=== PATIENT | female | born 1935 | race Caucasian/White ===

== ENCOUNTER 2017-11-29 09:17 | Emergency (ER) | payer MEDICARE ==
--- NOTE | 2017-11-29 09:35 | ERPHSYRPT ---
- History of Present Illness Time Seen by Provider: 11/29/17 09:33 Source: patient Exam Limitations: no limitations Physician History: 82 y/o white female presents after falling at home last pm. pt has a h/o bilat shoulder and knee replacement and a left hip replacement. pt c/o right shoulder pain, left hip and left knee pain. pt denies head injury Occurred: yesterday Reason for Fall: tripped Injuries/Pain Location: upper extremity (right shoulder), lower extremity (left hip and left knee) Loss of Consciousness: no loss of consciousness Quality: aching Severity of Pain-Max: mild Severity of Pain-Current: mild Modifying Factors: Improves With: movement (worsens) Associated Symptoms (Fall): extremity injury, No abdominal pain, No back pain, No confusion, No chest pain, No nausea, No neck pain Allergies/Adverse Reactions: Sulfa (Sulfonamide Antibiotics) Allergy (Mild, Verified 02/20/17 00:35) scallops Allergy (Verified 02/20/17 00:35) Home Medications: Calcium Carbonate/Vitamin D3 [Calcium 500 with Vitamin D Tab] 1 each PO DAILY [History] Hydrochlorothiazide 25 mg [hydroDIURIL 25 MG] 25 mg PO DAILY 11/06/12 [ History] Levothyroxine Sodium 50 Mcg [Synthroid 50 Mcg] 75 mcg PO DAILY 11/06/12 [ History] Loratadine 10 mg [Claritin 10 mg] 10 mg PO DAILY 11/06/12 [History] Pramipexole Di-HCl [Mirapex] 1 mg PO HS 11/06/12 [History] Telmisartan [Micardis] 40 mg PO DAILY 11/06/12 [History] Tramadol HCl 50 mg [Ultram 50 mg] 50 mg PO TID 11/06/12 [History] Multivitamin [Multi-Vitamin Daily] 1 tab PO DAILY 07/08/13 [History] Baicalin/Catechin [Limbrel 500 mg Capsule] 1 cap PO DAILY 02/20/17 [History] Gabapentin [Neurontin] 200 mg PO HS 02/20/17 [History] Polyethylene Glycol 3350 17 gm [Miralax Powder 17GM PACKET] 17 gm PO DAILY PRN PRN 02/20/17 [History] Hx Tetanus, Diphtheria Vaccination/Date Given: Yes (PT STATES UTD) Hx Influenza Vaccination/Date Given: No (2012) Hx Pneumococcal Vaccination/Date Given: No - Review of Systems Constitutional: No Symptoms, No Fever, No Weakness Eyes: No Symptoms, No Vision Changes Ears, Nose, & Throat: No Symptoms, No Ear Pain Respiratory: No Symptoms Cardiac: No Symptoms Abdominal/Gastrointestinal: No Symptoms Genitourinary Symptoms: No Symptoms Musculoskeletal: Fall, Injury (tenderness right shoulder, left hip and left knee ), No Back Pain, No Neck Pain, No Deformity Skin: No Symptoms Neurological: No Symptoms, No Dizziness, No Focal Weakness Psychological: No Symptoms Endocrine: No Symptoms Hematologic/Lymphatic: No Symptoms, No Anemia Immunological/Allergic: No Symptoms - Past Medical History Pertinent Past Medical History: Yes Neurological History: Other ENT History: No Pertinent History Cardiac History: Hypertension Respiratory History: No Pertinent History Endocrine Medical History: Hypothyroidism Musculoskeletal History: Arthritis GI Medical History: GERD, Ulcer History: Renal Disease Psycho-Social History: No Pertinent History Female Reproductive Disorders: No Pertinent History Other Medical History: TMJ - Past Surgical History Past Surgical History: Yes Neuro Surgical History: No Pertinent History Cardiac: No Pertinent History Respiratory: No Pertinent History Gastrointestinal: No Pertinent History Genitourinary: No Pertinent History Musculoskeletal: Other Female Surgical History: Tubal Ligation Other Surgical History: carpal tunnel, arthroscopy, left foot surgery, total hip , rt 2nd toe removed, bilat shoulder replacements - Social History Smoking Status: Never smoker Exposure to second hand smoke: No Drug Use: none Patient Lives Alone: No Significant Family History: no pertinent family hx - Nursing Vital Signs Nursing Vital Signs: Initial Vital Signs Temperature 97.4 F 11/29/17 09:23 Pulse Rate 82 11/29/17 09:23 Respiratory Rate 18 11/29/17 09:23 Blood Pressure 156/95 11/29/17 09:23 O2 Sat by Pulse Oximetry 96 11/29/17 09:23 Pain Scale Pain Intensity 8 - [place] Coma Score Best Verbal Response ([place]): (5) oriented Best Motor Response ([place]): (6) obeys commands - Physical Exam General Appearance: no apparent distress, alert Head Injury: no evidence of injury Eye Exam: PERRL/EOMI, eyes nml inspection ENT Exam: airway nml, No evidence of ENT injury, No dental injury Neck Exam: supple, trachea midline, full range of motion, normal alignment, normal inspection, No focal neuro deficit, No stiff neck Respiratory/Chest Exam: normal breath sounds, No chest tenderness, No respiratory distress, No decreased breath sounds, No rhonchi, No wheezing Cardiovascular Exam: normal heart sounds, regular rate/rhythm, normal peripheral pulses Gastrointestinal Exam: soft, normal bowel sounds, No tenderness, No guarding, No rebound Rectal Exam: not done Back Exam: normal inspection, normal range of motion, No CVA tenderness, No vertebral tenderness Extremity Exam: normal inspection, normal range of motion, pelvis stable, tenderness (right shoulder, left hip, left knee) Neurologic Exam: alert, oriented x 3, cooperative, 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 left knee with effusion anteriorly, all prostheses intact - Progress Progress: unchanged, re-examined Progress Note: 11/29/17 11:08 i reviewed all xray results with pt. Counseled pt/family regarding: diagnosis, need for follow-up, rad results - Departure Time of Disposition: 11:08 Departure Disposition: Home Clinical Impression: Fall, Contusion Condition: Stable Critical Care Time: No Referrals: SHIVA GOMEZ MD [Primary Care Provider] - Additional Instructions: continue your medication as prescribed. ice pack to tender areas 3 times daily for 3 days. follow up with primary doctor for persistent symptoms
--- NOTE | 2017-11-29 10:38 | XRAY ---
Indication: Pain and limited range of motion following fall. Comparison: None 2 views of the left hip demonstrates osteopenia and total hip arthroplasty with intact bipolar prosthesis and single acetabular screw. No other bony, articular, or soft tissue abnormalities.
--- NOTE | 2017-11-29 10:40 | XRAY ---
Indication: Pain and limited range of motion following fall. Comparison: None 3 views of the right shoulder demonstrates right lung calcified granuloma, osteopenia, and total shoulder arthroplasty with intact bipolar prosthesis and minimal surrounding heterotopic ossifications. No other bony, articular, or soft tissue abnormalities.
--- NOTE | 2017-11-29 10:42 | XRAY ---
Indication: Pain and limited range of motion following fall. Comparison: None AP/lateral left knee demonstrates tiny fabella, osteopenia, total knee arthroplasty with intact prosthesis/articulation, and small nonspecific suprapatellar effusion. No other bony, articular, or soft tissue abnormalities.
[2017-11-29 11:27] VITALS: BP 146/90; PULSE 78; O2SAT 98
== END 2017-11-29 11:34 | disposition home or self-care (01) ==
LOC: ED 09:17
DX: M25.511 Pain in right shoulder (principal); M25.562 Pain in left knee; M25.552 Pain in left hip; M25.462 Effusion, left knee; Z96.612 Presence of left artificial shoulder joint; Z96.611 Presence of right artificial shoulder joint; Z96.653 Presence of artificial knee joint, bilateral; Z96.642 Presence of left artificial hip joint; Z79.899 Other long term (current) drug therapy; W19.XXXA Unspecified fall, initial encounter; Y92.009 Unspecified place in unspecified non-institutional (private) residence as the place of occurrence of the external cause
CPT/HCPCS: 73030; 73502; 73560; 99283

== ENCOUNTER 2020-07-14 08:54 | Day surgery (SDC) | payer MEDICARE ==
[~2020-07-14 08:54] MED LIST: DIPRIVAN 200 MG/20 ML IV ONE; Ketamine HCl 50 MG/ML ONE
[2020-07-14] MEDS ORDERED: Sodium Chloride 0.9(Preservative Free) 10 ML IJ ONE (08:55)
[2020-07-14] MEDS ORDERED: Depo-Medrol 40 MG/ML IM ONE (08:55)
--- NOTE | 2020-07-14 11:31 | XRAY ---
Indication: Right L4-L5 transforaminal SIMRAN. Intraoperative fluoroscopy provided for 59 seconds. 3 digital spot images submitted for interpretation demonstrates posterior needle tip projecting over the expected course of the right L4 nerve root. Small amount of contrast injected for needle placement. Correlate with intraoperative findings/report.
--- NOTE | 2020-07-14 13:00 | XRAY ---
59 seconds fluoroscopy time in surgery for right L4-L5 transforaminal SIMRAN.
[2020-07-14] MEDS ORDERED: Lactated Ringers 1,000 ML IV ONE (14:33)
== END 2020-07-14 10:21 | disposition home or self-care (01) ==
LOC: SDC-PAIN 08:54
PROVIDERS: ATTEND Psychiatry & Neurology Pain Medicine
DX: M54.16 Radiculopathy, lumbar region (principal); I12.9 Hypertensive chronic kidney disease with stage 1 through stage 4 chronic kidney disease, or unspecified chronic kidney disease; N18.2 Chronic kidney disease, stage 2 (mild); E03.9 Hypothyroidism, unspecified; G25.81 Restless legs syndrome; D64.9 Anemia, unspecified; K21.9 Gastro-esophageal reflux disease without esophagitis; Z79.899 Other long term (current) drug therapy
CPT/HCPCS: 64483; 72100; 77003; 99100; J1030; J2704; Q9966

== ENCOUNTER 2020-12-08 09:02 | Day surgery (SDC) | payer MEDICARE ==
[2020-12-08] MEDS ORDERED: Depo-Medrol 40 MG/ML IM ONE (09:03)
[2020-12-08] MEDS ORDERED: Sodium Chloride 0.9(Preservative Free) 10 ML IJ ONE (09:03)
[2020-12-08] MEDS ORDERED: Lactated Ringers 1,000 ML IV ONE (09:46)
[2020-12-08] MEDS ORDERED: DIPRIVAN 200 MG/20 ML IV ONE (10:08)
[2020-12-08] MEDS ORDERED: Ketamine HCl 50 MG/ML ONE (10:08)
--- NOTE | 2020-12-08 11:38 | XRAY ---
Indication: Right L4-S1 transforaminal SIMRAN. Intraoperative fluoroscopy provided for 29 seconds. 5 digital spot images submitted for interpretation demonstrates posterior needle tips projecting over the expected right L4 and L5 nerve roots. Small amount of contrast injected for needle tip placement. Correlate with intraoperative findings/report.
--- NOTE | 2020-12-08 11:42 | XRAY ---
29 seconds fluoroscopy time in surgery for right L4-S1 transforaminal SIMRAN.
== END 2020-12-08 10:45 | disposition home or self-care (01) ==
LOC: SDC-PAIN 09:02
PROVIDERS: ATTEND Psychiatry & Neurology Pain Medicine
DX: M54.16 Radiculopathy, lumbar region (principal); Z79.899 Other long term (current) drug therapy
CPT/HCPCS: 64483; 64484; 72100; 77003; J1030; J2704; Q9966

== ENCOUNTER 2021-05-04 11:30 | Day surgery (SDC) | payer MEDICARE ==
[2021-05-04] MEDS ORDERED: Depo-Medrol 40 MG/ML IM ONE (11:31)
[2021-05-04] MEDS ORDERED: Sodium Chloride 0.9% 10 ML FLUSH Syringe IJ ONE (11:31)
[2021-05-04] MEDS ORDERED: DIPRIVAN 200 MG/20 ML IV ONE (14:10)
[2021-05-04] MEDS ORDERED: Lactated Ringers 1,000 ML IV ONE (14:51)
--- NOTE | 2021-05-04 16:44 | XRAY ---
Indication: Right L4-S1 transforaminal SIMRAN. Intraoperative fluoroscopy provided for 42 seconds. 2 digital spot image submitted for interpretation demonstrates posterior needle tips projecting over the expected right L4 and L5 nerve roots. Small amount of contrast injected for needle tip placement. Correlate with intraoperative findings/report.
--- NOTE | 2021-05-04 16:56 | XRAY ---
42 seconds of fluoroscopy was used in surgery for a right L4-S1 transforaminal SIMRAN.
== END 2021-05-04 14:38 | disposition home or self-care (01) ==
LOC: SDC-PAIN 11:30
PROVIDERS: ATTEND Psychiatry & Neurology Pain Medicine
DX: M54.16 Radiculopathy, lumbar region (principal); I10 Essential (primary) hypertension; Z79.899 Other long term (current) drug therapy
CPT/HCPCS: 64483; 64484; 72100; 77003; J1030; J2704; Q9966

== ENCOUNTER 2021-12-21 13:23 | Day surgery (SDC) | payer MEDICARE ==
[2021-12-21] MEDS ORDERED: XYLOCAINE-MPF 1% 5ML SDV IJ ONE (13:24)
[2021-12-21] MEDS ORDERED: Depo-Medrol 40 MG/ML IM ONE (13:24)
[2021-12-21] MEDS ORDERED: BUPIVACAINE 0.5% VIAL IJ ONE (13:24)
--- NOTE | 2021-12-21 17:00 | XRAY ---
Indication: Right hip injection. Intraoperative fluoroscopy provided for 37 seconds. Single digital spot image submitted for interpretation demonstrates needle tip projecting lateral to the right femur neck. Small amount of contrast injected for needle tip placement. Correlate with intraoperative findings/report.
--- NOTE | 2021-12-22 09:34 | XRAY ---
37 seconds of fluoroscopy was used in surgery for a right hip intra-articular injection.
== END 2021-12-21 17:00 | disposition home or self-care (01) ==
LOC: SDC-PAIN 13:23
PROVIDERS: ATTEND Psychiatry & Neurology Pain Medicine
DX: M16.11 Unilateral primary osteoarthritis, right hip (principal); Z79.899 Other long term (current) drug therapy
CPT/HCPCS: 20610; 36415; 73501; 77002; 80053; 81001; 82306; 82570; 84156; 85027; J1030; Q9966

== ENCOUNTER 2022-11-24 22:06 | Emergency (ER) | payer MEDICARE ==
[2022-11-24 22:37] VITALS: RESP 18; TEMP 97.9; O2SAT 97
[2022-11-24] MEDS ORDERED: DELTASONE 10 MG PO STA (23:15)
--- NOTE | 2022-11-24 23:21 | ERPHSYRPT ---
- History of Present Illness Time Seen by Provider: 11/24/22 23:29 Source: patient Exam Limitations: no limitations Patient Subjective Stated Complaint: rash to torso and josh area Triage Nursing Assessment: pt ambulated into the er via walker; pt is axo x4; c/o rash; rash presenet to torso and josh area; pt denies any new medication or soaps; denies SOB; skin is PDW, with areas of red raised area to torso and josh area; hypertensive Physician History: Patient 77-year-old female presents to our ED for evaluation of a pruritic burning rash that appears to be pustular observed in the lower torso and bilateral groin area. Symptoms started 1 to 2 days ago. Patient has history of shingles. Patient states it feels the same. Patient has yet to follow-up with her primary care doctor. Symptoms are mild to moderate in intensity. No specific worsening improving factors. Patient has no other systemic manifestations other than the sensory changes to the skin. Patient otherwise feels well. No nausea vomiting or diarrhea. No diaphoresis. No chest pain. Patient voices no other complaints or concerns at this time. Portions of this note were created with voice recognition technology. There may be grammatical, spelling, punctuation or sound alike errors Timing/Duration: today Severity: moderate Modifying Factors: Improves With: nothing Associated Symptoms: denies symptoms Allergies/Adverse Reactions: Sulfa (Sulfonamide Antibiotics) Allergy (Mild, Verified 02/20/17 00:35) latex Allergy (Verified 11/24/22 22:20) Hives scallops Allergy (Verified 02/20/17 00:35) Home Medications: Calcium Carbonate/Vitamin D3 [Calcium 500 with Vitamin D Tab] 1 each PO DAILY 11/06/12 [History] Hydrochlorothiazide 25 mg [hydroDIURIL 25 MG] 25 mg PO DAILY 11/06/12 [History] Levothyroxine Sodium 50 Mcg [Synthroid 50 Mcg] 75 mcg PO DAILY 11/06/12 [History] Loratadine 10 mg [Claritin 10 mg] 10 mg PO DAILY 11/06/12 [History] Pramipexole Di-HCl [Mirapex] 1 mg PO HS 11/06/12 [History] Telmisartan [Micardis] 40 mg PO DAILY 11/06/12 [History] Tramadol HCl 50 mg [Ultram 50 mg] 50 mg PO TID 11/06/12 [History] Multivitamin [Multi-Vitamin Daily] 1 tab PO DAILY 07/08/13 [History] Baicalin/Catechin [Limbrel 500 mg Capsule] 1 cap PO DAILY 02/20/17 [History] Gabapentin [Neurontin] 200 mg PO HS 02/20/17 [History] Polyethylene Glycol 3350 17 gm [Miralax Powder 17GM PACKET] 17 gm PO DAILY PRN PRN 02/20/17 [History] Hx Tetanus, Diphtheria Vaccination/Date Given: No Hx Influenza Vaccination/Date Given: Yes Hx Pneumococcal Vaccination/Date Given: No Travel Risk - International Travel Have you traveled outside of the country in past 3 weeks: No - Coronavirus Screening Are you exhibiting any of the following symptoms?: No Close contact with a COVID-19 positive Pt in past 14-21 Days: No - Vaccine Status Have you recieved a Covid-19 vaccination: Yes [employer]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 - Vaccination Dates Date of 2cond Vaccination (if applicable): 06/04/20 - Review of Systems Constitutional: No Symptoms, No Fever, No Chills Eyes: No Symptoms Ears, Nose, & Throat: No Symptoms Respiratory: No Symptoms, No Cough, No Dyspnea Cardiac: No Symptoms, No Chest Pain, No Edema, No Syncope Abdominal/Gastrointestinal: No Symptoms, No Abdominal Pain, No Nausea, No Vomiting, No Diarrhea Genitourinary Symptoms: No Symptoms, No Dysuria Musculoskeletal: No Symptoms, No Back Pain, No Neck Pain Skin: No Symptoms, No Rash Neurological: No Symptoms, No Dizziness, No Focal Weakness, No Sensory Changes Psychological: No Symptoms Endocrine: No Symptoms Hematologic/Lymphatic: No Symptoms Immunological/Allergic: No Symptoms All Other Systems: Reviewed and Negative - Past Medical History Pertinent Past Medical History: Yes Neurological History: Other ENT History: No Pertinent History Cardiac History: Hypertension Respiratory History: No Pertinent History Endocrine Medical History: Hypothyroidism Musculoskeletal History: Arthritis GI Medical History: GERD, Ulcer History: Renal Disease Psycho-Social History: No Pertinent History Female Reproductive Disorders: No Pertinent History Other Medical History: TMJ - Past Surgical History Past Surgical History: Yes Neuro Surgical History: No Pertinent History Cardiac: No Pertinent History Respiratory: No Pertinent History Gastrointestinal: No Pertinent History Genitourinary: No Pertinent History Musculoskeletal: Orthopedic Surgery, Other Female Surgical History: Tubal Ligation Other Surgical History: carpal tunnel, arthroscopy, left foot surgery, total hip, rt 2nd toe removed, bilat shoulder replacements; rt hip 08/31/22 - Social History Smoking Status: Never smoker Exposure to second hand smoke: No Drug Use: none Patient Lives Alone: No Significant Family History: no pertinent family hx - Nursing Vital Signs Nursing Vital Signs: Initial Vital Signs Temperature 97.9 F 11/24/22 22:23 Pulse Rate 86 11/24/22 22:23 Respiratory Rate 18 11/24/22 22:23 Blood Pressure 150/71 11/24/22 22:23 O2 Sat by Pulse Oximetry 97 11/24/22 22:23 Pain Scale Pain Intensity 2 - Physical Exam General Appearance: no apparent distress, alert Eye Exam: PERRL/EOMI, eyes nml inspection Ears, Nose, Throat Exam: normal ENT inspection, TMs normal, pharynx normal, moist mucous membranes Neck Exam: normal inspection, non-tender, supple, full range of motion Respiratory Exam: normal breath sounds, lungs clear, No respiratory distress Cardiovascular Exam: regular rate/rhythm, normal heart sounds, normal peripheral pulses Gastrointestinal/Abdomen Exam: soft, normal bowel sounds, No tenderness, No mass Back Exam: normal inspection, normal range of motion, No CVA tenderness, No vertebral tenderness Extremity Exam: normal inspection, normal range of motion, pelvis stable Neurologic Exam: alert, oriented x 3, cooperative, normal mood/affect, nml cerebellar function, nml station & gait, sensation nml, No motor deficits Skin Exam: normal color, warm, dry, other (There is a pustular rash observed on the inner aspect of both thighs that appears to follow dermatomal pattern however the pustular rash is also observed on lower torso. Patient states it feels like shingles that she has had shingles in the past. No open or draining lesions. No superimposed cellu), No rash Lymphatic Exam: No adenopathy SpO2 Interpretation: normal SpO2: 97 O2 Delivery: Room Air - Course Nursing assessment & vital signs reviewed: Yes Ordered Tests: Medication Summary Discontinued Medications Generic Name Dose Route Start Last Admin Trade Name Freq PRN Reason Stop Dose Admin Acyclovir 800 mg 11/24/22 23:24 Acyclovir 800 Mg Tablet PO 11/24/22 23:25 ONCE STA Prednisone 40 mg 11/24/22 23:15 Prednisone 10 Mg Tablet PO 11/24/22 23:16 ONCE STA - Progress Progress: improved Progress Note: Patient is an 87-year-old female presents to our ED with a pruritic burning pustular rash on the inner aspect of both thighs groin area and lower torso. Patient has history of shingles and feels the symptoms are similar. However the distribution does not follow dermatomal pattern. However other consideration is the possibility that it may be an early disseminated presentation. However patient is otherwise asymptomatic. We will treat patient for shingles. Patient received a dose of acyclovir and steroids in our ED. A prescription for the same was forwarded to patient's pharmacy. We will contact patient's primary care doctor on Sunday to ensure patient has follow-up. Patient does agree to follow-up with her primary care doctor on Sunday. Patient appears well. She is nontoxic conversant well-appearing no distress. Patient voices no other complaints or concerns at this time. Portions of this note were created with voice recognition technology. There may be grammatical, spelling, punctuation or sound alike errors Complexity of problems addressed is moderate, new diagnosis with uncertain prognosis. No critical care time Complex of data reviewed and analyzed is none. No specialized testing ordered. Diagnosis made based on history and physical examination. Risk of complication and or risk morbidity/mortality of patient management is moderate. A prescription for prednisone as well as acyclovir forwarded to [facility]. Patient is ready for discharge. Vital stable. Diagnosis is pustular pruritic rash. Zoster. Time spent to discharge patient is approximately 15 minutes. Plan of care established for shared decision making. No social determinants of health present to impede follow-up. Patient voices no other complaints or concerns at this time. Portions of this note were created with voice recognition technology. There may be grammatical, spelling, punctuation or sound alike errors 11/24/22 23:33 Counseled pt/family regarding: diagnosis, need for follow-up - Departure Departure Disposition: Home Clinical Impression: pustular pruritic rash, [place] Condition: Stable Critical Care Time: No Referrals: SHIVA GOMEZ MD [Primary Care Provider] - Follow up/PCP as directed Additional Instructions: Discharge/Care Plan WON HUGGINS was seen on 11/24/22 in the Emergency Room. The patient was counseled regarding Diagnosis,Lab results, Imaging studies, need for follow up and when to return to the Emergency Room. Prescriptions given: Discharge Note I have spoken with the patient and/or caregivers. I have explained the patient's condition, diagnosis and treatment plan based on the information available to me at this time. I have answered the patient's and/or caregiver's questions and addressed any concerns. The patient and/or caregivers have as good understanding of the patient's diagnosis, condition and treatment plan as can be expected at this point. The vital signs have been stable. The patient's condition is stable and appropriate for discharge from the emergency department. The patient will pursue further outpatient evaluation with the primary care physician or other designated or consulting physician as outlined in the discharge instructions. The patient and/or caregivers are agreeable to this plan of care and follow-up instructions have been explained in detail. The patient and/or caregivers have received these instruction. The patient/and or caregivers are aware that any significant change in condition or worsening of symptoms should prompt an immediate return to this or the closest emergency department or call 911. Prescriptions: Acyclovir 800 mg [Acyclovir] 800 mg PO QID 5 Days #20 tablet Prednisone 10 mg [Deltasone 10 mg] 40 mg PO DAILY 3 Days #12 tablet
[2022-11-24] MEDS ORDERED: ACYCLOVIR PO STA (23:24)
[2022-11-24] MEDS ORDERED: DELTASONE 20 MG ONE (23:30)
[2022-11-24] MEDS ORDERED: ACYCLOVIR ONE (23:30)
[2022-11-24] MEDS ORDERED: DELTASONE 20 MG PO ONE (23:32)
[2022-11-24] MEDS ORDERED: ACYCLOVIR PO ONE (23:32)
[2022-11-24 23:41] VITALS: BP 108/58; PULSE 85
== END 2022-11-25 00:02 | disposition home or self-care (01) ==
LOC: ED 22:06
DX: L08.0 Pyoderma (principal); L29.9 Pruritus, unspecified; B02.9 Zoster without complications; I10 Essential (primary) hypertension; Z79.52 Long term (current) use of systemic steroids; Z79.899 Other long term (current) drug therapy
CPT/HCPCS: 99282; A9270-GY

== ENCOUNTER 2023-06-10 09:13 | Observation (INO) | payer MEDICARE ==
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
[2023-06-10] MEDS ORDERED: Zofran 4 MG/2 ML VIAL ONE (10:17)
[2023-06-10] MEDS ORDERED: Sodium Chloride 0.9% 1000 ML 1,000 ML ONE (10:17)
[2023-06-10] MEDS ORDERED: MORPHINE SULFATE 2 MG INJ ONE (10:17)
[2023-06-10 10:24] LABS: Absolute Neutrophil Ct (ANC) 4.36 x10^3/uL (1.4-6.9); BASOPHIL % 0.3 % (0.0-0.4); Basophil (Absolute #) 0.02 x10^3/uL (0-0.4); Eosinophil % 1.9 % (0.00-5.0); Eosinophil (Absolute #) 0.12 x10^3/uL (0-0.5); Hematocrit 35.6 % (35-47); Hemoglobin 11.3 g/dL (12.0-16.0); IMMATURE GRAN # 0.02 x10^3u/L (0.00-0.03); IMMATURE GRAN % 0.3 % (0.00-0.4); Lymphocyte (Absolute #) 1.29 x10^3/uL (1.0-4.6); Lymphocytes % 20.6 % (24.0-44.0); Mean Cell Volume 98.9 fL (78-100); Mean Corpuscular Hemoglobin 31.4 pg (26-32); Mean Corpuscular Hgb Concent. 31.7 g/dL (32-36); Mean Platelet Volume 10.4 fL (7.5-11.0); Monocyte (Absolute #) 0.45 x10^3/uL (0.0-1.3); Monocytes % 7.2 % (0.0-12.0); Neutrophil % 69.7 % (36.0-66.0); Platelet Count 153 x10^3/uL (150-450); Red Cell Distribution Width 13.3 % (11.5-14.0); White Blood Count 6.3 x10^3/uL (4.0-10.5)
[2023-06-10] MEDS: Zofran 4 MG/2 ML VIAL IV ONE (10:26)
[2023-06-10] MEDS: MORPHINE SULFATE 2 MG INJ IV ONE (10:26)
[2023-06-10] MEDS: Sodium Chloride 0.9% 1000 ML 1,000 ML IV STA (10:26)
[2023-06-10 10:31] LABS: ALBUMIN 4.2 g/dL (3.5-5.0); ANION GAP 6.9 MEQ/L (5-15); BILIRUBIN,TOTAL 0.3 mg/dL (0.2-1.3); Calcium 9.3 mg/dL (8.4-10.2); Creatinine 1 0.77 mg/dL (0.52-1.04); EST GLOMERULAR FILTRATION RATE 75.1 ML/MIN; Potassium 4.2 mmol/L (3.5-5.1); Total Protein 6.7 g/dL (6.3-8.2)
[2023-06-10 10:35] LABS: PROTIME 10.9 SECONDS (9.4-12.5); PTT 25.9 SECONDS (25.1-36.5)
[2023-06-10 10:50] LABS: NT PRO BNPII 286 pg/mL (<300); TROPONIN < 0.012 ng/mL (0.000-0.034)
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
[2023-06-10] MEDS ORDERED: NON-FORMULARY ITEM (Naloxone Hcl [Narcan] 4 MG Spray) NS PRN (16:48)
[2023-06-10] MEDS ORDERED: LASIX 20 MG PO PRN (16:48)
[2023-06-10] MEDS ORDERED: VITAMIN D PO SCH (17:00)
[2023-06-10] MEDS ORDERED: RISEDRONATE SODIUM 35 MG PO SCH (17:00)
[2023-06-10] MEDS: Neurontin PO SCH ×2 (18:20→20:55)
--- NOTE | 2023-06-10 19:13 | XRAY ---
Indication: Pain. Comparison: November 06, 2012 Portable chest now demonstrates minimal left base subsegmental atelectasis/scarring. Stable right costophrenic angle calcified granuloma. Remaining heart and lungs unremarkable. Bony thorax intact with osteopenia, mild degenerative changes, scoliosis, bilateral shoulder arthroplasty, and lower cervical fusion. Impression: Nonacute chest with chronic features.
[2023-06-10] MEDS ORDERED: Mirapex 0.5 MG Tablet ONE (20:51)
[2023-06-10] MEDS: Klor Con PO SCH (20:55)
[2023-06-10] MEDS: NON-FORMULARY ITEM (Pramipexole Di-Hcl [Pramipexole Dihydrochloride] 1 MG Tablet) PO SCH (20:55)
[2023-06-10] MEDS: ULTRAM 50 MG PO PRN (20:56)
[2023-06-10] MEDS: TYLENOL EXTRA STRENGTH 500 MG PO PRN (20:56)
[2023-06-11 05:33] LABS: Hematocrit 34.2 % (35-47); Hemoglobin 10.6 g/dL (12.0-16.0); Mean Cell Volume 99.1 fL (78-100); Mean Corpuscular Hemoglobin 30.7 pg (26-32); Platelet Count 167 x10^3/uL (150-450); Red Blood Count 3.45 x10^6/uL (4.1-5.4); Red Cell Distribution Width 13.4 % (11.5-14.0); White Blood Count 4.8 x10^3/uL (4.0-10.5)
[2023-06-11 06:08] LABS: ALBUMIN 3.5 g/dL (3.5-5.0); ANION GAP 6.6 MEQ/L (5-15); BILIRUBIN,TOTAL 0.2 mg/dL (0.2-1.3); Calcium 9.1 mg/dL (8.4-10.2); Creatinine 1 0.72 mg/dL (0.52-1.04); EST GLOMERULAR FILTRATION RATE 81.4 ML/MIN; Potassium 3.9 mmol/L (3.5-5.1); Total Protein 5.7 g/dL (6.3-8.2)
[2023-06-11 06:32] LABS: Risk Ratio 2.2; TSH, 3RD Generation 1.33 mIU/L (0.47-4.68)
[2023-06-11] MEDS ORDERED: MEDICATION INTERVENTION MC SCH ×3 (07:30)
[2023-06-11 08:05] VITALS: PULSE 69; RESP 16
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
[2023-06-11] MEDS: hydroDIURIL 25 MG PO SCH (09:59)
[2023-06-11] MEDS: FEOSOL 325 MG PO SCH (09:59)
[2023-06-11] MEDS: Micardis 80 MG Tablet PO SCH (09:59)
[2023-06-11] MEDS: THERAGRAN MULTIVITAMIN PO SCH (09:59)
[2023-06-11] MEDS: VITA-BEE WITH C PO SCH (09:59)
[2023-06-11] MEDS: ENOXAPARIN SODIUM SQ SCH (09:59)
[2023-06-11] MEDS: SYNTHROID 75 MCG PO SCH (09:59)
[2023-06-11] MEDS: VITAMIN D PO SCH (09:59)
[2023-06-11] MEDS ORDERED: TELMISARTAN 40 MG PO SCH (10:00)
[2023-06-11] MEDS ORDERED: NON-FORMULARY ITEM (Multivitamin [Multi-Vitamin Daily] 1 EACH Tablet) PO SCH (10:00)
[2023-06-11] MEDS ORDERED: SYNTHROID 50 MCG PO SCH (10:00)
[2023-06-11] MEDS ORDERED: VITAMIN B COMPLEX PO SCH (10:00)
[2023-06-11] MEDS ORDERED: LUTEIN 6 MG PO SCH (10:00)
[2023-06-11 12:07] VITALS: BP 131/62; TEMP 97.3; O2SAT 97
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
[2023-06-11] MEDS ORDERED: Mirapex 0.5 MG Tablet PO SCH (22:00)
[2023-06-23] MEDS ORDERED: Cyanocobalamin B-12 1000 MCG/ML IJ SCH (10:00)
== END 2023-06-11 12:45 | disposition home or self-care (01) ==
LOC: ED 09:13 → MED SURG 15:12
PROVIDERS: ADMIT Internal Medicine; ATTEND Internal Medicine
DX: R07.9 Chest pain, unspecified (principal); M25.511 Pain in right shoulder; I10 Essential (primary) hypertension; K21.9 Gastro-esophageal reflux disease without esophagitis; E03.9 Hypothyroidism, unspecified; Z79.899 Other long term (current) drug therapy; Z20.828 Contact with and (suspected) exposure to other viral communicable diseases
CPT/HCPCS: 36000; 36415; 71045; 72125; 73200; 80053; 80061; 83721; 83880; 84443; 84484; 85025; 85027; 85610; 85730; 93268; 96374; 99285; J1650; J2270; J2405; Q3014; A9270-GY; G0378

== ENCOUNTER 2023-10-27 19:07 | Observation (INO) | payer MEDICARE ==
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
[2023-10-27 20:27] LABS: Absolute Neutrophil Ct (ANC) 6.51 x10^3/uL (1.56-6.13); BASOPHIL % 0.1 % (0.1-1.2); Basophil (Absolute #) 0.01 x10^3/uL (0.01-0.08); Eosinophil % 2.2 % (0.7-5.8); Eosinophil (Absolute #) 0.17 x10^3/uL (0.04-0.36); Hematocrit 35.7 % (34.1-44.9); Hemoglobin 11.3 g/dL (11.2-15.7); IMMATURE GRAN # 0.02 x10^3u/L (0.001-0.031); IMMATURE GRAN % 0.3 % (0.001-0.429); Lymphocyte (Absolute #) 0.51 x10^3/uL (1.18-3.74); Lymphocytes % 6.7 % (19.3-51.7); Mean Cell Volume 99.7 fL (79.4-94.8); Mean Corpuscular Hemoglobin 31.6 pg (25.6-32.2); Mean Corpuscular Hgb Concent. 31.7 g/dL (32.2-35.5); Mean Platelet Volume 10.2 fL (9.4-12.3); Monocyte (Absolute #) 0.34 x10^3/uL (0.24-0.86); Monocytes % 4.5 % (4.7-12.5); Neutrophil % 86.2 % (34.0-71.1); Platelet Count 155 x10^3/uL (182-369); Red Blood Count 3.58 x10^6/uL (3.93-5.22); Red Cell Distribution Width 12.9 % (11.7-14.4); White Blood Count 7.6 x10^3/uL (3.98-10.04)
[2023-10-27] MEDS ORDERED: Sodium Chloride 0.9% 1000 ML 1,000 ML ONE (20:42)
[2023-10-27] MEDS ORDERED: PIPERACILLIN/TAZOBACTAM IV ONE (20:42)
[2023-10-27] MEDS ORDERED: Sodium Chloride 100ML MINI-BAG PLUS 100 ML IV ONE (20:42)
[2023-10-27] MEDS ORDERED: VANCOMYCIN 1 GRAM/200 ML BAG 1 GM/200 ML PIGGYBACK IV ONE (20:42)
[2023-10-27] MEDS ORDERED: NORCO 5/325 MG ONE (20:42)
[2023-10-27] MEDS: NORCO 5/325 MG PO ONE (20:43)
[2023-10-27] MEDS: Sodium Chloride 0.9% 1000 ML 1,000 ML IV STA (20:44)
[2023-10-27 20:45] LABS: BILIRUBIN,TOTAL 0.5 mg/dL (0.2-1.3); Calcium 9.1 mg/dL (8.4-10.2); Creatinine 1 0.84 mg/dL (0.52-1.04); EST GLOMERULAR FILTRATION RATE 67.6 ML/MIN; Potassium 4.3 mmol/L (3.5-5.1); Total Protein 6.6 g/dL (6.3-8.2)
[2023-10-27] MEDS: PIPERACILLIN/TAZOBACTAM 3.375 GM in Sodium Chloride 100ML MINI-BAG PLUS 100 ML IV ONE (20:45)
[2023-10-27 20:59] LABS: Slide Review 1 YES
[2023-10-27] MEDS: VANCOMYCIN 1 GRAM/200 ML BAG 1 GM/200 ML PIGGYBACK IV ONE (21:25)
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
[2023-10-28] MEDS ORDERED: Docusate Sodium 100 MG PO PRN (00:08)
[2023-10-28] MEDS ORDERED: Hydromorphone 1 mg/ml Injection IV PRN (00:12)
[2023-10-28] MEDS: Sodium Chloride 0.9% 1000 ML 1,000 ML IV SCH (00:19)
[2023-10-28] MEDS ORDERED: Cyanocobalamin B-12 1000 MCG/ML IJ SCH (00:30)
[2023-10-28] MEDS: PIPERACILLIN/TAZOBACTAM 3.375 GM in Sodium Chloride 100ML MINI-BAG PLUS 100 ML IV SCH ×2 (01:20→06:07)
[2023-10-28] MEDS: VANCOMYCIN 1 GRAM/200 ML BAG 1 GM/200 ML PIGGYBACK IV SCH ×2 (01:20→22:00)
[2023-10-28] MEDS: ELIQUIS 2.5 MG TABLET PO SCH (01:26)
[2023-10-28] MEDS: Neurontin PO SCH (01:26)
[2023-10-28] MEDS ORDERED: Sodium Chloride 100ML MINI-BAG PLUS 100 ML IV ONE (06:03)
[2023-10-28] MEDS ORDERED: PIPERACILLIN/TAZOBACTAM IV ONE (06:03)
[2023-10-28 06:23] LABS: Absolute Neutrophil Ct (ANC) 4.26 x10^3/uL (1.56-6.13); BASOPHIL % 0.2 % (0.1-1.2); Basophil (Absolute #) 0.01 x10^3/uL (0.01-0.08); Eosinophil % 2.2 % (0.7-5.8); Eosinophil (Absolute #) 0.12 x10^3/uL (0.04-0.36); Hematocrit 32.6 % (34.1-44.9); Hemoglobin 10.5 g/dL (11.2-15.7); IMMATURE GRAN # 0.02 x10^3u/L (0.001-0.031); IMMATURE GRAN % 0.4 % (0.001-0.429); Lymphocyte (Absolute #) 0.81 x10^3/uL (1.18-3.74); Lymphocytes % 14.6 % (19.3-51.7); Mean Cell Volume 99.4 fL (79.4-94.8); Mean Corpuscular Hgb Concent. 32.2 g/dL (32.2-35.5); Mean Platelet Volume 10.4 fL (9.4-12.3); Monocyte (Absolute #) 0.31 x10^3/uL (0.24-0.86); Monocytes % 5.6 % (4.7-12.5); Platelet Count 148 x10^3/uL (182-369); Red Blood Count 3.28 x10^6/uL (3.93-5.22); White Blood Count 5.5 x10^3/uL (3.98-10.04)
[2023-10-28 06:48] LABS: ALBUMIN 3.4 g/dL (3.5-5.0); ANION GAP 9.2 MEQ/L (5-15); BILIRUBIN,TOTAL 0.4 mg/dL (0.2-1.3); Calcium 8.4 mg/dL (8.4-10.2); Creatinine 1 0.79 mg/dL (0.52-1.04); EST GLOMERULAR FILTRATION RATE 72.8 ML/MIN; Potassium 3.8 mmol/L (3.5-5.1); Total Protein 5.9 g/dL (6.3-8.2)
--- NOTE | 2023-10-28 07:24 | PCM.NOTE ---
Date and Time: 10/28/23 0710 Subjective Assessment: HPI: Ms. HUGGINS is a 88 year old female with a past medical history significant for hypertension, hyperlipidemia and hypothyroidism admitted 10/28/23 for cellulitis of the right leg after experiencing worsening pain and redness over the past several weeks. Patient has been receiving wound therapy for the past two months. Doppler findings from 10/26/23 showed Minimal nonoccluding thrombus in the mid to proximal right greater saphenous vein. Patient started on Eliquis. She was seen in the ER, had cultures taken, given IV antibiotics and recommended for admission. No fever/chills. No chest pain or shortness of breath. No nausea, vomiting or diarrhea. No dysuria, hematuria or urgency. WBC was normal at 7.6. Vanc/zosyn started on patient. Cultures pending. 10/28/23: Met with patient bedside. Endorses pain to RLE 7/10 on numerical pain scale. Patient reports right ankle wound has been present since February. Has had OP wound therapy but never antibiotics. Recently diagnosed with DVT to he mid to proximal right greater saphenous vein and started on Eliquis 10/26/23. Upon exam RLE is noted with erythema/edema - wound with serosanguineous drainage. Vanc/ Zosyn started. Cultures pending. Will obtain Xrays today. Anemia panel showing iron saturation at 12%. Hgb 10.5 - will start ferrous sulfate. Denies fever,cough, sob, cp, abdominal pain, [place], dizziness, N/V/D. <ELDON JOE - Last Filed: 10/28/23 09:11> Date and Time: 10/28/23 184 <EMRE MURO - Last Filed: 10/28/23 18:46> - Review of Systems Constitutional: Fatigue, Weakness Eyes: No Symptoms Ears, Nose, & Throat: No Symptoms Respiratory: No Symptoms Cardiac: No Symptoms Abdominal/Gastrointestinal: No Symptoms Genitourinary Symptoms: No Symptoms Musculoskeletal: Joint Pain (right ankle) Skin: Cellulitis (RLE), Other (Open wound to right later lower extremity above right ankle) Neurological: No Symptoms Psychological: No Symptoms Endocrine: No Symptoms Hematologic/Lymphatic: No Symptoms <ELDON JOE - Last Filed: 10/28/23 09:11> Objective Exam General Appearance: no apparent distress Neurologic Exam: alert, oriented x 3, cooperative Skin Exam: other (RLE with edema/erythema surrounding open wound on right anterolateral lower extremity approximately 3-4 cm- serosanguineous drainage) Wound Assessment: Skin/Wound Assessment Wound/Incision Assessment Start: 10/27/23 23:20 Text: Status: Active Freq: Q6H Protocol: Document 10/28/23 01:57 AR (Rec: 10/28/23 02:03 AR [id number]) Wound/Incision Assessment Right Lower Calf Wound Assessment Shift Assessment Wound Type Stasis Ulcer Drainage Amount None General Appearance Open to air,Clean/Dry,Reddened Wound Bed Greatest Portion Red (Granulation) Wound Bed Lesser Portion Red (Granulation) Surrounding Tissue [place],Edematous-pitting Comment Wound has been present since February. PT is addressing wound and does debridements. Wound is red/pink with new tissue visible. Surrounding area is red, edematous, warm to touch. Wound Photo Photo Taken Yes Date: 10/27/23 Time: 23:50 Eye Exam: PERRL Ears, Nose, Throat Exam: normal ENT inspection, moist mucous membranes Neck Exam: normal inspection Respiratory Exam: normal breath sounds, lungs clear Cardiovascular Exam: regular rate/rhythm, normal heart sounds Gastrointestinal/Abdomen Exam: soft, normal bowel sounds Extremity Exam: inflammation, swelling (RLE), tenderness, other (see skin) Pelvic Exam: deferred Rectal Exam: deferred <ELDON JOE - Last Filed: 10/28/23 09:11> Wound Assessment: Skin/Wound Assessment Wound/Incision Assessment Start: 10/27/23 23:20 Text: Status: Active Freq: Q6H Protocol: Document 10/28/23 14:00 RDUHNE (Rec: 10/28/23 15:53 RDUHNE [id number]) Wound/Incision Assessment Right Lower Calf Wound Assessment Shift Assessment Wound Type Stasis Ulcer Drainage Amount None General Appearance Open to air,Clean/Dry,Reddened Wound Bed Greatest Portion Red (Granulation) Wound Bed Lesser Portion Red (Granulation) Surrounding Tissue [place],Edematous-pitting Comment Wound has been present since February. PT is addressing wound and does debridements. Wound is red/pink with new tissue visible. Surrounding area is red, edematous, warm to touch. remains true Wound Photo Photo Taken Yes Date: 10/27/23 Time: 23:50 <EMRE MURO - Last Filed: 10/28/23 18:46> Objective Data Vital Signs: Vital Signs - 24 hr Temp Pulse Resp BP BP Pulse Ox 10/28/23 04:00 97.5 F 82 18 117/56 95 10/28/23 03:35 81 16 95 10/28/23 00:23 97.1 F 83 16 122/58 100 10/27/23 22:49 97 10/27/23 22:46 97 10/27/23 22:30 87 106/63 99 10/27/23 22:00 88 118/65 97 10/27/23 21:31 120/69 98 10/27/23 21:00 87 121/68 97 10/27/23 20:56 98 10/27/23 19:26 99.5 F 84 16 130/61 97 10/27/23 19:09 97 Pain Assessment - Last Documented Pain Intensity 4 Intake and Output: Intake & Output 10/25/23 10/26/23 10/27/23 10/28/23 11:59 11:59 11:59 11:59 Intake Total 354 Output Total 600 Balance -246 Weight 65.1 kg Lab Results: Lab Results-Last 24 Hours 10/27/23 10/27/23 10/27/23 Range/Units 20:15 20:15 20:15 WBC 7.6 (3.98-10.04) x10^3/uL RBC 3.58 L (3.93-5.22) x10^6/uL Hgb 11.3 (11.2-15.7) g/dL Hct 35.7 (34.1-44.9) % MCV 99.7 H (79.4-94.8) fL MCH 31.6 (25.6-32.2) pg MCHC 31.7 L (32.2-35.5) g/dL RDW 12.9 (11.7-14.4) % Plt Count 155 L (182-369) x10^3/uL MPV 10.2 (9.4-12.3) fL Gran % 86.2 H (34.0-71.1) % Immature Gran % (Auto) 0.3 (0.001-0.429) % Nucleat RBC Rel Count 0.0 (0.00-0.2) % Eos # (Auto) 0.17 (0.04-0.36) x10^3/uL Immature Gran # (Auto) 0.02 (0.001-0.031) x10^3u/L Absolute Lymphs (auto) 0.51 L (1.18-3.74) x10^3/uL Absolute Monos (auto) 0.34 (0.24-0.86) x10^3/uL Absolute Nucleated RBC 0.00 (0.00-0.012) x10^3u/L Lymphocytes % 6.7 L (19.3-51.7) % Monocytes % 4.5 L (4.7-12.5) % Eosinophils % 2.2 (0.7-5.8) % Basophils % 0.1 (0.1-1.2) % Absolute Granulocytes 6.51 H (1.56-6.13) x10^3/uL Basophils # 0.01 (0.01-0.08) x10^3/uL ESR (0-20) mm/hr Sodium 138 (135-145) mmol/L Potassium 4.3 (3.5-5.1) mmol/L Chloride 103 (98-107) mmol/L Carbon Dioxide 29 (22-30) mmol/L Anion Gap 10.0 (5-15) MEQ/L BUN 33 H (7-17) mg/dL Creatinine 0.84 (0.52-1.04) mg/dL Estimated GFR 67.6 ML/MIN Glucose 126 H (74-106) mg/dL Lactic Acid 1.8 (0.4-2.0) Calcium 9.1 (8.4-10.2) mg/dL Total Bilirubin 0.50 (0.2-1.3) mg/dL AST 35 (14-36) U/L ALT 21 (0-35) U/L Alkaline Phosphatase 90 (38-126) U/L Serum Total Protein 6.6 (6.3-8.2) g/dL Albumin 4.0 (3.5-5.0) g/dL Slides for Path Review YES 10/27/23 10/28/23 10/28/23 Range/Units 20:15 06:19 06:19 WBC 5.5 (3.98-10.04) x10^3/uL RBC 3.28 L (3.93-5.22) x10^6/uL Hgb 10.5 L (11.2-15.7) g/dL Hct 32.6 L (34.1-44.9) % MCV 99.4 H (79.4-94.8) fL MCH 32.0 (25.6-32.2) pg MCHC 32.2 (32.2-35.5) g/dL RDW 13.0 (11.7-14.4) % Plt Count 148 L (182-369) x10^3/uL MPV 10.4 (9.4-12.3) fL Gran % 77.0 H (34.0-71.1) % Immature Gran % (Auto) 0.4 (0.001-0.429) % Nucleat RBC Rel Count 0.0 (0.00-0.2) % Eos # (Auto) 0.12 (0.04-0.36) x10^3/uL Immature Gran # (Auto) 0.02 (0.001-0.031) x10^3u/L Absolute Lymphs (auto) 0.81 L (1.18-3.74) x10^3/uL Absolute Monos (auto) 0.31 (0.24-0.86) x10^3/uL Absolute Nucleated RBC 0.00 (0.00-0.012) x10^3u/L Lymphocytes % 14.6 L (19.3-51.7) % Monocytes % 5.6 (4.7-12.5) % Eosinophils % 2.2 (0.7-5.8) % Basophils % 0.2 (0.1-1.2) % Absolute Granulocytes 4.26 (1.56-6.13) x10^3/uL Basophils # 0.01 (0.01-0.08) x10^3/uL ESR 21 H (0-20) mm/hr Sodium 138 (135-145) mmol/L Potassium 3.8 (3.5-5.1) mmol/L Chloride 106 (98-107) mmol/L Carbon Dioxide 27 (22-30) mmol/L Anion Gap 9.2 (5-15) MEQ/L BUN 26 H (7-17) mg/dL Creatinine 0.79 (0.52-1.04) mg/dL Estimated GFR 72.8 ML/MIN Glucose 106 (74-106) mg/dL Lactic Acid (0.4-2.0) Calcium 8.4 (8.4-10.2) mg/dL Total Bilirubin 0.40 (0.2-1.3) mg/dL AST 30 (14-36) U/L ALT 16 (0-35) U/L Alkaline Phosphatase 86 (38-126) U/L Serum Total Protein 5.9 L (6.3-8.2) g/dL Albumin 3.4 L (3.5-5.0) g/dL Slides for Path Review <ELDON JOE - Last Filed: 10/28/23 09:11> Vital Signs: Vital Signs - 24 hr Temp Pulse Resp BP BP Pulse Ox 10/28/23 16:00 97.8 F 84 18 133/65 93 L 10/28/23 12:00 97.9 F 83 17 120/57 95 10/28/23 07:43 97.5 F 85 18 104/52 95 10/28/23 04:00 97.5 F 82 18 117/56 95 10/28/23 03:35 81 16 95 10/28/23 00:23 97.1 F 83 16 122/58 100 10/27/23 22:49 97 10/27/23 22:46 97 10/27/23 22:30 87 106/63 99 10/27/23 22:00 88 118/65 97 10/27/23 21:31 120/69 98 10/27/23 21:00 87 121/68 97 10/27/23 20:56 98 10/27/23 19:26 99.5 F 84 16 130/61 97 10/27/23 19:09 97 Pain Assessment - Last Documented Pain Intensity 4 Intake and Output: Intake & Output 10/26/23 10/27/23 10/28/23 10/29/23 11:59 11:59 11:59 11:59 Intake Total 474 1153 Output Total 875 300 Balance -401 853 Weight 65.1 kg Lab Results: Lab Results-Last 24 Hours 10/27/23 10/27/23 10/27/23 Range/Units 20:15 20:15 20:15 WBC 7.6 (3.98-10.04) x10^3/uL RBC 3.58 L (3.93-5.22) x10^6/uL Hgb 11.3 (11.2-15.7) g/dL Hct 35.7 (34.1-44.9) % MCV 99.7 H (79.4-94.8) fL MCH 31.6 (25.6-32.2) pg MCHC 31.7 L (32.2-35.5) g/dL RDW 12.9 (11.7-14.4) % Plt Count 155 L (182-369) x10^3/uL MPV 10.2 (9.4-12.3) fL Gran % 86.2 H (34.0-71.1) % Immature Gran % (Auto) 0.3 (0.001-0.429) % Nucleat RBC Rel Count 0.0 (0.00-0.2) % Eos # (Auto) 0.17 (0.04-0.36) x10^3/uL Immature Gran # (Auto) 0.02 (0.001-0.031) x10^3u/L Absolute Lymphs (auto) 0.51 L (1.18-3.74) x10^3/uL Absolute Monos (auto) 0.34 (0.24-0.86) x10^3/uL Absolute Nucleated RBC 0.00 (0.00-0.012) x10^3u/L Lymphocytes % 6.7 L (19.3-51.7) % Monocytes % 4.5 L (4.7-12.5) % Eosinophils % 2.2 (0.7-5.8) % Basophils % 0.1 (0.1-1.2) % Absolute Granulocytes 6.51 H (1.56-6.13) x10^3/uL Basophils # 0.01 (0.01-0.08) x10^3/uL ESR (0-20) mm/hr Sodium 138 (135-145) mmol/L Potassium 4.3 (3.5-5.1) mmol/L Chloride 103 (98-107) mmol/L Carbon Dioxide 29 (22-30) mmol/L Anion Gap 10.0 (5-15) MEQ/L BUN 33 H (7-17) mg/dL Creatinine 0.84 (0.52-1.04) mg/dL Estimated GFR 67.6 ML/MIN Glucose 126 H (74-106) mg/dL Lactic Acid 1.8 (0.4-2.0) Calcium 9.1 (8.4-10.2) mg/dL Iron (37-170) ug/dL TIBC (265-462) ug/dL Iron Saturation (20-39) % Ferritin (11.1-264) ng/mL Total Bilirubin 0.50 (0.2-1.3) mg/dL AST 35 (14-36) U/L ALT 21 (0-35) U/L Alkaline Phosphatase 90 (38-126) U/L Serum Total Protein 6.6 (6.3-8.2) g/dL Albumin 4.0 (3.5-5.0) g/dL Vitamin B12 (239-931) pg/mL Folic Acid (2.76 - >20) ng/mL Procalcitonin (0.030-0.080) ng/mL Slides for Path Review YES 10/27/23 10/28/23 10/28/23 Range/Units 20:15 06:19 06:19 WBC 5.5 (3.98-10.04) x10^3/uL RBC 3.28 L (3.93-5.22) x10^6/uL Hgb 10.5 L (11.2-15.7) g/dL Hct 32.6 L (34.1-44.9) % MCV 99.4 H (79.4-94.8) fL MCH 32.0 (25.6-32.2) pg MCHC 32.2 (32.2-35.5) g/dL RDW 13.0 (11.7-14.4) % Plt Count 148 L (182-369) x10^3/uL MPV 10.4 (9.4-12.3) fL Gran % 77.0 H (34.0-71.1) % Immature Gran % (Auto) 0.4 (0.001-0.429) % Nucleat RBC Rel Count 0.0 (0.00-0.2) % Eos # (Auto) 0.12 (0.04-0.36) x10^3/uL Immature Gran # (Auto) 0.02 (0.001-0.031) x10^3u/L Absolute Lymphs (auto) 0.81 L (1.18-3.74) x10^3/uL Absolute Monos (auto) 0.31 (0.24-0.86) x10^3/uL Absolute Nucleated RBC 0.00 (0.00-0.012) x10^3u/L Lymphocytes % 14.6 L (19.3-51.7) % Monocytes % 5.6 (4.7-12.5) % Eosinophils % 2.2 (0.7-5.8) % Basophils % 0.2 (0.1-1.2) % Absolute Granulocytes 4.26 (1.56-6.13) x10^3/uL Basophils # 0.01 (0.01-0.08) x10^3/uL ESR 21 H (0-20) mm/hr Sodium 138 (135-145) mmol/L Potassium 3.8 (3.5-5.1) mmol/L Chloride 106 (98-107) mmol/L Carbon Dioxide 27 (22-30) mmol/L Anion Gap 9.2 (5-15) MEQ/L BUN 26 H (7-17) mg/dL Creatinine 0.79 (0.52-1.04) mg/dL Estimated GFR 72.8 ML/MIN Glucose 106 (74-106) mg/dL Lactic Acid (0.4-2.0) Calcium 8.4 (8.4-10.2) mg/dL Iron (37-170) ug/dL TIBC (265-462) ug/dL Iron Saturation (20-39) % Ferritin (11.1-264) ng/mL Total Bilirubin 0.40 (0.2-1.3) mg/dL AST 30 (14-36) U/L ALT 16 (0-35) U/L Alkaline Phosphatase 86 (38-126) U/L Serum Total Protein 5.9 L (6.3-8.2) g/dL Albumin 3.4 L (3.5-5.0) g/dL Vitamin B12 (239-931) pg/mL Folic Acid (2.76 - >20) ng/mL Procalcitonin (0.030-0.080) ng/mL Slides for Path Review 10/28/23 10/28/23 Range/Units 06:19 06:19 WBC (3.98-10.04) x10^3/uL RBC (3.93-5.22) x10^6/uL Hgb (11.2-15.7) g/dL Hct (34.1-44.9) % MCV (79.4-94.8) fL MCH (25.6-32.2) pg MCHC (32.2-35.5) g/dL RDW (11.7-14.4) % Plt Count (182-369) x10^3/uL MPV (9.4-12.3) fL Gran % (34.0-71.1) % Immature Gran % (Auto) (0.001-0.429) % Nucleat RBC Rel Count (0.00-0.2) % Eos # (Auto) (0.04-0.36) x10^3/uL Immature Gran # (Auto) (0.001-0.031) x10^3u/L Absolute Lymphs (auto) (1.18-3.74) x10^3/uL Absolute Monos (auto) (0.24-0.86) x10^3/uL Absolute Nucleated RBC (0.00-0.012) x10^3u/L Lymphocytes % (19.3-51.7) % Monocytes % (4.7-12.5) % Eosinophils % (0.7-5.8) % Basophils % (0.1-1.2) % Absolute Granulocytes (1.56-6.13) x10^3/uL Basophils # (0.01-0.08) x10^3/uL ESR (0-20) mm/hr Sodium (135-145) mmol/L Potassium (3.5-5.1) mmol/L Chloride (98-107) mmol/L Carbon Dioxide (22-30) mmol/L Anion Gap (5-15) MEQ/L BUN (7-17) mg/dL Creatinine (0.52-1.04) mg/dL Estimated GFR ML/MIN Glucose (74-106) mg/dL Lactic Acid (0.4-2.0) Calcium (8.4-10.2) mg/dL Iron 30 L (37-170) ug/dL TIBC 241 L (265-462) ug/dL Iron Saturation 12 L (20-39) % Ferritin 166 (11.1-264) ng/mL Total Bilirubin (0.2-1.3) mg/dL AST (14-36) U/L ALT (0-35) U/L Alkaline Phosphatase (38-126) U/L Serum Total Protein (6.3-8.2) g/dL Albumin (3.5-5.0) g/dL Vitamin B12 709 (239-931) pg/mL Folic Acid > 16.6 (2.76 - >20) ng/mL Procalcitonin 0.121 H (0.030-0.080) ng/mL Slides for Path Review Radiology Exams: Radiology Procedures Category Date Time Status ANKLE (3 VIEWS) Stat Exams 10/28/23 09:01 Taken FOOT (MINIMUM 3 VIEWS) Stat Exams 10/28/23 09:01 Taken LOWER LEG Stat Exams 10/28/23 09:01 Taken <EMRE MURO - Last Filed: 10/28/23 18:46> Assessment/Plan (1) Cellulitis of right leg Current Visit: Yes Status: Acute Assessment & Plan: -Chronic wound with onset of February now with worsening redness/erythema/pain/drainage - PT/wound therapy as OP -Vanc/zosyn initiated - will continue - follow blood/wound cultures -elevate affected limb -PT eval for wound therapy - consider podiatry consult -Supportive therapies -continue DVT prophylaxis - Eliquis -XRAY RLE/Ankle -consider MRI Code(s): L03.115 - CELLULITIS OF RIGHT LOWER LIMB (2) Anemia Current Visit: Yes Status: Acute Assessment & Plan: -chronic, at baseline, continue to monitor, if hgb <7, transfuse -add iron studies - with 12% iron saturation - hgb at 10.5 - does not meet IV iron criteria - will start ferrous sulfate - consider hematology w/u OP Code(s): D64.9 - ANEMIA, UNSPECIFIED (3) DVT (deep venous thrombosis) Current Visit: Yes Status: Acute Assessment & Plan: -Diagnosed 10/26/23 - on Eliquis - continue -DOPPLER Impression: Minimal nonoccluding thrombus in superficial right greater saphenous vein. Left and right legs negative for deep vein thrombosis. Code(s): I82.409 - ACUTE EMBOLISM AND THOMBOS UNSP DEEP VN UNSP LOWER EXTREMITY (4) Dehydration Current Visit: Yes Status: Acute Assessment & Plan: Appears to be bit prerenal with elevated BUN/Cr ratio 1. Trial of IVFs 2. Hold diuretics 3. Follow I/Os 4. Watch electrolytes, creatinine closely 10/27: -Resolved Code(s): E86.0 - DEHYDRATION (5) Essential (primary) hypertension Current Visit: Yes Status: Acute Assessment & Plan: -stable Code(s): I10 - ESSENTIAL (PRIMARY) HYPERTENSION (6) Hypothyroidism Current Visit: Yes Status: Acute Assessment & Plan: -Continue home meds VTE: Eliquis PPI: Protonix Dispo: 1-2 days Code(s): E03.9 - HYPOTHYROIDISM, UNSPECIFIED <ELDON JOE - Last Filed: 10/28/23 09:11> STEVEN Encounter - STEVEN Encounter Attestation STEVEN Encounter Attestation: "IhavepersonallyserisexMaría,WON PHIPPS andhavediscussed pertinent aspects of their care with Eldon Boogie agree with the history, physical exam (any modifications based on my personal exam will be noted below), assessment, and plan as outlined in original note. Please see immediately below for my summary of findings and additional assessment and plan along with any meaningful corrections/explanations to the Subjective/Objective portions of the STEVEN note will be noted." My portion of the encounter took place via telemedicine. -Chronic RLE wound now with signs/symptoms of cellulitis. Consult podiatry for wound treatment recommendations. Vanc zosyn for now pending culture results. <EMRE MURO - Last Filed: 10/28/23 18:46>
[2023-10-28 08:20] LABS: Iron 30 ug/dL (37-170); Iron Saturation 12 % (20-39); TIBC 241 ug/dL (265-462)
[2023-10-28 09:29] LABS: Ferritin 166 ng/mL (11.1-264); Folate (Folic Acid) > 16.6 ng/mL (2.76 - >20); PROCALCITONIN 0.121 ng/mL (0.030-0.080); Vitamin B12 709 pg/mL (239-931)
[2023-10-28] MEDS: CLARITIN 10 MG PO SCH (09:55)
[2023-10-28] MEDS: Micardis 80 MG Tablet PO SCH (09:56)
[2023-10-28] MEDS: Protonix 40MG Tablet PO SCH (09:56)
[2023-10-28] MEDS: SYNTHROID 75 MCG PO SCH (09:56)
[2023-10-28] MEDS ORDERED: ELIQUIS 2.5 MG TABLET PO SCH (10:00)
[2023-10-28] MEDS: FEOSOL 325 MG PO SCH ×2 (10:36→12:42)
[2023-10-28] MEDS: THERAGRAN MULTIVITAMIN PO SCH (18:36)
[2023-10-28] MEDS ORDERED: Neurontin PO SCH (22:00)
[2023-10-29 04:46] LABS: Absolute Neutrophil Ct (ANC) 2.41 x10^3/uL (1.56-6.13); BASOPHIL % 0.2 % (0.1-1.2); Basophil (Absolute #) 0.01 x10^3/uL (0.01-0.08); Eosinophil % 4.7 % (0.7-5.8); Eosinophil (Absolute #) 0.19 x10^3/uL (0.04-0.36); Hematocrit 33.3 % (34.1-44.9); Hemoglobin 10.6 g/dL (11.2-15.7); IMMATURE GRAN # 0.01 x10^3u/L (0.001-0.031); IMMATURE GRAN % 0.2 % (0.001-0.429); Lymphocyte (Absolute #) 0.96 x10^3/uL (1.18-3.74); Lymphocytes % 23.5 % (19.3-51.7); Mean Cell Volume 98.8 fL (79.4-94.8); Mean Corpuscular Hemoglobin 31.5 pg (25.6-32.2); Mean Corpuscular Hgb Concent. 31.8 g/dL (32.2-35.5); Mean Platelet Volume 10.4 fL (9.4-12.3); Monocytes % 12.3 % (4.7-12.5); Neutrophil % 59.1 % (34.0-71.1); Platelet Count 158 x10^3/uL (182-369); Red Blood Count 3.37 x10^6/uL (3.93-5.22); Red Cell Distribution Width 13.3 % (11.7-14.4); White Blood Count 4.1 x10^3/uL (3.98-10.04)
[2023-10-29 05:11] LABS: ALBUMIN 3.4 g/dL (3.5-5.0); ANION GAP 9.9 MEQ/L (5-15); BILIRUBIN,TOTAL 0.3 mg/dL (0.2-1.3); Calcium 8.2 mg/dL (8.4-10.2); Creatinine 1 0.71 mg/dL (0.52-1.04); EST GLOMERULAR FILTRATION RATE 82.8 ML/MIN; Potassium 3.3 mmol/L (3.5-5.1); Total Protein 5.8 g/dL (6.3-8.2)
[2023-10-29] MEDS: Klor Con PO SCH (05:47)
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
--- NOTE | 2023-10-29 09:50 | PCM.NOTE ---
Date and Time: 10/29/23 0944 Subjective Assessment: 10/29/23 Ms. HUGGINS is a 88 year old female with a past medical history significant for hypertension, hyperlipidemia and hypothyroidism. She was admitted 10/28/23 for cellulitis of the right leg after experiencing worsening pain and redness over the past several weeks. Patient has been receiving wound therapy for the past two months. Doppler findings from 10/26/23 showed minimal non-occluding thrombus in the mid to proximal right greater saphenous vein. Patient started on Eliquis. She was seen in the ER, had cultures taken, given IV antibiotics and recommended for admission. Vanc/zosyn started on patient. Cultures pending. Pain currently well controlled. Patient reports right ankle wound has been present since February. Has had OP wound therapy but never antibiotics. Recently diagnosed with DVT to he mid to proximal right greater saphenous vein and started on Eliquis 10/26/23. Upon exam RLE is noted with erythema/edema - wound with serosanguineous drainage. XR's, MRI, and arterial duplex pending. Podiatry consulted and plan is for bedside debridement today. Ferrous sulfate started for iron deficiency anemia. She is c/o some constipation today and Miralax added this AM. She denies CP, SOB, abd. pain, N/V/D. - Review of Systems Constitutional: No Fever, No Chills Eyes: No Symptoms Ears, Nose, & Throat: No Symptoms Respiratory: No Cough, No Short Of Breath Cardiac: Edema (RLE), No Chest Pain, No Syncope Abdominal/Gastrointestinal: Constipation, No Abdominal Pain, No Nausea, No Vomiting, No Diarrhea Genitourinary Symptoms: No Dysuria Musculoskeletal: No Back Pain, No Neck Pain Skin: Skin Lesions (RLE skin lesion), No Rash Neurological: No Dizziness, No Focal Weakness, No Sensory Changes Psychological: No Symptoms Endocrine: No Symptoms Hematologic/Lymphatic: No Symptoms Immunological/Allergic: No Symptoms Objective Exam General Appearance: no apparent distress, alert, obese Neurologic Exam: alert, oriented x 3, cooperative, normal mood/affect, nml cerebellar function, sensation nml, No motor deficits Skin Exam: normal color, warm, dry, other (RLE lesion- irregular shape, red/ yellow in color. No current drainage. See pic in chart.) Wound Assessment: Skin/Wound Assessment Wound/Incision Assessment Start: 10/27/23 23:20 Text: Status: Active Freq: Q6H Protocol: Document 10/29/23 08:00 EK (Rec: 10/29/23 09:06 EK [id number]) Wound/Incision Assessment Right Lower Calf Wound Assessment Shift Assessment Wound Type ulceration Wound Stage Non Pressure Wound Drainage Amount Minimal Drainage Description Purulent Drainage Odor None/Absent General Appearance Open to air,Reddened,Draining Wound Bed Greatest Portion Red (Granulation) Wound Bed Lesser Portion Red (Granulation) Surrounding Tissue [place],Edematous-pitting Eye Exam: PERRL, EOMI, eyes nml inspection Ears, Nose, Throat Exam: normal ENT inspection, pharynx normal, moist mucous membranes Neck Exam: normal inspection, non-tender, supple, full range of motion Respiratory Exam: normal breath sounds, lungs clear, No respiratory distress Cardiovascular Exam: regular rate/rhythm, normal heart sounds, edema (RLE +3 pitting) Gastrointestinal/Abdomen Exam: soft, distention, No tenderness, No mass Extremity Exam: normal inspection, normal range of motion Back Exam: normal inspection, normal range of motion, No CVA tenderness, No vertebral tenderness Pelvic Exam: deferred Rectal Exam: deferred Objective Data Vital Signs: Vital Signs - 24 hr Temp Pulse Resp BP Pulse Ox 10/29/23 07:13 97.5 F 82 22 139/60 94 L 10/29/23 03:19 97.8 F 92 H 16 129/63 97 10/28/23 23:38 97.7 F 78 16 115/62 95 10/28/23 20:00 97.5 F 86 20 144/73 96 10/28/23 16:00 97.8 F 84 18 133/65 93 L 10/28/23 12:00 97.9 F 83 17 120/57 95 Pain Assessment - Last Documented Pain Intensity 0 Intake and Output: Intake & Output 10/26/23 10/27/23 10/28/23 10/29/23 11:59 11:59 11:59 11:59 Intake Total 474 2384 Output Total 879 1750 Balance -401 634 Weight 65.1 kg Lab Results: Lab Results-Last 24 Hours 10/29/23 10/29/23 Range/Units 04:33 04:33 WBC 4.1 (3.98-10.04) x10^3/uL RBC 3.37 L (3.93-5.22) x10^6/uL Hgb 10.6 L (11.2-15.7) g/dL Hct 33.3 L (34.1-44.9) % MCV 98.8 H (79.4-94.8) fL MCH 31.5 (25.6-32.2) pg MCHC 31.8 L (32.2-35.5) g/dL RDW 13.3 (11.7-14.4) % Plt Count 158 L (182-369) x10^3/uL MPV 10.4 (9.4-12.3) fL Gran % 59.1 (34.0-71.1) % Immature Gran % (Auto) 0.2 (0.001-0.429) % Nucleat RBC Rel Count 0.0 (0.00-0.2) % Eos # (Auto) 0.19 (0.04-0.36) x10^3/uL Immature Gran # (Auto) 0.01 (0.001-0.031) x10^3u/L Absolute Lymphs (auto) 0.96 L (1.18-3.74) x10^3/uL Absolute Monos (auto) 0.50 (0.24-0.86) x10^3/uL Absolute Nucleated RBC 0.00 (0.00-0.012) x10^3u/L Lymphocytes % 23.5 (19.3-51.7) % Monocytes % 12.3 (4.7-12.5) % Eosinophils % 4.7 (0.7-5.8) % Basophils % 0.2 (0.1-1.2) % Absolute Granulocytes 2.41 (1.56-6.13) x10^3/uL Basophils # 0.01 (0.01-0.08) x10^3/uL Sodium 142 (135-145) mmol/L Potassium 3.3 L (3.5-5.1) mmol/L Chloride 109 H (98-107) mmol/L Carbon Dioxide 26 (22-30) mmol/L Anion Gap 9.9 (5-15) MEQ/L BUN 19 H (7-17) mg/dL Creatinine 0.71 (0.52-1.04) mg/dL Estimated GFR 82.8 ML/MIN Glucose 123 H (74-106) mg/dL Calcium 8.2 L (8.4-10.2) mg/dL Total Bilirubin 0.30 (0.2-1.3) mg/dL AST 29 (14-36) U/L ALT 18 (0-35) U/L Alkaline Phosphatase 92 (38-126) U/L Serum Total Protein 5.8 L (6.3-8.2) g/dL Albumin 3.4 L (3.5-5.0) g/dL Radiology Exams: Radiology Procedures Category Date Time Status ANKLE (3 VIEWS) Stat Exams 10/28/23 09:01 Taken ARTERIAL BILAT LOWER EXTREMITY [US] Routine Exams 10/29/23 07:52 Ordered FOOT (MINIMUM 3 VIEWS) Stat Exams 10/28/23 09:01 Taken LOWER LEG Stat Exams 10/28/23 09:01 Taken MRI LOWER EXT W/O CONTRAST [MRI] Routine Exams 10/29/23 07:51 Ordered Assessment/Plan (1) Cellulitis of right leg Current Visit: Yes Status: Acute Assessment & Plan: - acute worsening- on chronic - Chronic wound with onset of February now with worsening redness/erythema/pain/drainage - PT/wound therapy as OP - Vanc/zosyn initiated - will continue - follow blood/wound cultures - Wound culture- gram + sensitivity pending - elevate affected limb, + 3 pitting edema RLE - PT eval for wound therapy - Supportive therapies - continue DVT prophylaxis - Eliquis - XRAY's, MRI, arterial duplex pending - Podiatry consult- plan for RLE bedside debridement today - BC x2 pending Code(s): L03.115 - CELLULITIS OF RIGHT LOWER LIMB (2) Anemia Current Visit: Yes Status: Chronic Qualifiers: Anemia type: iron deficiency Assessment & Plan: -chronic, at baseline, continue to monitor, if hgb <7, transfuse -add iron studies - with 12% iron saturation - hgb at 10.5 - does not meet IV iron criteria - will start ferrous sulfate - consider hematology w/u OP Code(s): D64.9 - ANEMIA, UNSPECIFIED (3) DVT (deep venous thrombosis) Current Visit: Yes Status: Acute Qualifiers: DVT location: lower extremity Affected thrombotic vein of extremity: other lower extremity vein Chronicity: acute Laterality: right Qualified Code(s): I82.491 - Acute embolism and thrombosis of other specified deep vein of right lower extremity Assessment & Plan: -Diagnosed 10/26/23 - on Eliquis - continue -DOPPLER Impression: Minimal nonoccluding thrombus in superficial right greater saphenous vein. Left and right legs negative for deep vein thrombosis. Code(s): I82.409 - ACUTE EMBOLISM AND THOMBOS UNSP DEEP VN UNSP LOWER EXTREMITY (4) Dehydration Current Visit: Yes Status: Resolved Assessment & Plan: -Resolved 10/27 Code(s): E86.0 - DEHYDRATION (5) Essential (primary) hypertension Current Visit: Yes Status: Chronic Assessment & Plan: -stable Code(s): I10 - ESSENTIAL (PRIMARY) HYPERTENSION (6) Hypothyroidism Current Visit: Yes Status: Chronic Assessment & Plan: - Continue Synthroid Code(s): E03.9 - HYPOTHYROIDISM, UNSPECIFIED (7) Obesity (BMI 30.0-34.9) Current Visit: Yes Status: Chronic Assessment & Plan: - advised diet and exercise control VTE: Eliquis PPI: Protonix Dispo: 1-2 days Code status: Full Next of KIN: Son Russel Huggins [phone] Code(s): E66.9 - OBESITY, UNSPECIFIED
--- NOTE | 2023-10-29 10:13 | XRAY ---
CLINICAL HISTORY: celluliits COMPARISON: None. TECHNIQUE: X-ray right foot AP, oblique and lateral 3 views. FINDINGS: Second toe amputation noted. Reduced bone mineral density noted. Mild hallux valgus deformity. Moderate third proximal interphalangeal joint arthrosis in the form of joint narrowing and marginal sclerosis with small bone hypertrophy. A radiological examination of the foot demonstrates no lytic or sclerotic bone lesion. No definite fracture is visible. The cortical margins of the osseous structures are within normal limits. Articular margins are intact. Soft tissues appear unremarkable. IMPRESSION: 1. Second toe amputation noted. 2. Osteopenia. 3. Mild hallux valgus deformity. 4. Moderate third proximal interphalangeal joint arthrosis. (Disclaimer: "A subtle bone abnormality or fracture may not be readily apparent on x-rays, thus clinical correlation and further imaging including follow-up CT, MRI, or follow-up x-rays are advised as needed"). Electronically Signed by: La Nena Brooke MD. (10/28/2023 10:35:02 EDT)
--- NOTE | 2023-10-29 10:13 | XRAY ---
CLINICAL HISTORY: celluliits COMPARISON: none TECHNIQUE: X-rays of right ankle AP, lateral and oblique views. FINDINGS: Reduced bone density. No fracture or bony abnormality was seen. Ankle joint space is preserved. Fat planes are intact. Soft tissue swelling around the ankle joint is noted. IMPRESSION: 1. Osteopenia. 2. Soft tissue swelling. 3. The rest of the X-ray Right ankle appears normal. (Disclaimer: "A subtle bone abnormality or fracture may not be readily apparent on x-rays, thus clinical correlation and further imaging including follow-up CT, MRI, or follow-up x-rays are advised as needed"). Electronically Signed by: La Nena Brooke MD. (10/28/2023 10:29:35 EDT)
--- NOTE | 2023-10-29 10:13 | XRAY ---
CLINICAL HISTORY: celluliits COMPARISON: none TECHNIQUE: X-ray of right lower leg in AP and lateral views. FINDINGS: Right knee prosthetic joint replacement with no loosening. Reduced bone mineralization. Radiological examination of the right tibia and fibula demonstrates no lytic or sclerotic bone lesion. The cortical margins of the osseous structures are within normal limits. No acute fracture is identified. Mild soft tissue swelling noted could be edema, Ultrasound is needed for correlation. IMPRESSION: 1. Mild soft tissue swelling noted could be edema, Ultrasound is needed for correlation. 2. Right knee prosthetic joint replacement in place with no loosening. 3. Osteopenia. DISCLAIMER:A subtle bone abnormality or fracture may not be readily apparent on x-rays, thus clinical correlation and further imaging including follow-up CT, MRI, or follow-up X-rays are advised as needed. Electronically Signed by: La Nena Brooke MD. (10/28/2023 10:36:49 EDT)
[2023-10-29] MEDS: Miralax Powder 17GM PACKET PO PRN (10:28)
--- NOTE | 2023-10-29 14:21 | XRAY ---
Indication: Wound. Cellulitis. Sagittal, coronal, and axial MRI distal right lower leg performed using T1, T2, and STIR sequences. Cutaneous marker placed over region of interest. Comparison: None Cutaneous marker seen lateral lower leg. No underlying solid/cystic soft tissue mass or abnormal fluid collection. Visualized tibia/fibula intact without abnormal signal. Right ankle mortise appears anatomic without abnormal effusion. Tibial plafond and talar dome appears smooth. No acute fracture, suspicious bony lesions, or abnormal bone marrow signal. [place] fat pad demonstrates nonspecific edema signal. Achilles tendon/insertion intact without abnormal signal. Impression: 1. No focal solid/cystic soft tissue mass or abnormal fluid collection corresponding to region of interest. 2. Nonspecific [place] fat pad edema signal.
--- NOTE | 2023-10-29 14:54 | XRAY ---
Indication: Pain. Two-dimensional sonogram and color Doppler imaging major arteries left and right leg performed. Comparison: None Examination right leg demonstrates widely patent common femoral, deep femoral, superficial femoral, popliteal, posterior tibial, and dorsal pedal arteries. Arterial waveforms are multiphasic throughout right leg. Examination left leg demonstrates widely patent common femoral, deep femoral, superficial femoral, and popliteal arteries. Mild arteriosclerotic disease in remaining posterior tibial and dorsal pedal arteries. Arterial waveforms are multiphasic throughout left leg. 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 Remaining left and right leg arterial sonogram widely patent.
[2023-10-29] MEDS: TYLENOL 325 MG PO PRN (23:00)
[2023-10-30 05:31] LABS: Hematocrit 32.4 % (34.1-44.9); Hemoglobin 10.4 g/dL (11.2-15.7); Mean Cell Volume 98.8 fL (79.4-94.8); Mean Corpuscular Hemoglobin 31.7 pg (25.6-32.2); Mean Corpuscular Hgb Concent. 32.1 g/dL (32.2-35.5); Platelet Count 162 x10^3/uL (182-369); Red Blood Count 3.28 x10^6/uL (3.93-5.22); Red Cell Distribution Width 13.2 % (11.7-14.4); White Blood Count 5.3 x10^3/uL (3.98-10.04)
[2023-10-30 05:52] LABS: ALBUMIN 3.1 g/dL (3.5-5.0); ANION GAP 9.8 MEQ/L (5-15); BILIRUBIN,TOTAL 0.3 mg/dL (0.2-1.3); Calcium 7.9 mg/dL (8.4-10.2); Creatinine 1 0.81 mg/dL (0.52-1.04); EST GLOMERULAR FILTRATION RATE 70.7 ML/MIN; Potassium 3.2 mmol/L (3.5-5.1); Total Protein 5.4 g/dL (6.3-8.2)
[2023-10-30] MEDS: Klor Con PO ONE (06:29)
[2023-10-30] MEDS: NORCO 5/325 MG PO PRN (06:57)
[2023-10-30] MEDS: Tums EX 750 MG PO SCH (09:24)
--- NOTE | 2023-10-30 10:37 | PCM.DS ---
Discharge Summary Date of Admission: 10/27/23 23:05 Date of Discharge: 10/30/23 Admitting Physician: AGUS MORSE MD Consults: Consults on Case 10/28/23 11:14 Consult Podiatry ROUTINE Primary Care Provider: PATRICIA,SHIVA Allergies Allergies Sulfa (Sulfonamide Antibiotics) Allergy (Mild, Verified 10/27/23 23:46) latex Allergy (Verified 10/27/23 23:46) Hives scallops Allergy (Verified 10/27/23 23:46) Hospital Summary - Hospital Course Hospital Course: 10/29/23 Ms. HUGGINS is a 88 year old female with a past medical history significant for hypertension, hyperlipidemia and hypothyroidism. She was admitted 10/28/23 for cellulitis of the right leg after experiencing worsening pain and redness over the past several weeks. Patient has been receiving wound therapy for the past two months. Doppler findings from 10/26/23 showed minimal non-occluding thrombus in the mid to proximal right greater saphenous vein. Patient started on Eliquis. She was seen in the ER, had cultures taken, given IV antibiotics and recommended for admission. Vanc/zosyn started on patient. Cultures pending. Pain currently well controlled. Patient reports right ankle wound has been present since February. Has had OP wound therapy but never antibiotics. Recently diagnosed with DVT to he mid to proximal right greater saphenous vein and started on Eliquis 10/26/23. Upon exam RLE is noted with erythema/edema - wound with serosanguineous drainage. XR's, MRI, and arterial duplex pending. Podiatry consulted and plan is for bedside debridement today. Ferrous sulfate started for iron deficiency anemia. She is c/o some constipation today and Miralax added this AM. She denies CP, SOB, abd. pain, N/V/D. 10/30/23 Pt resting in bed. She is feeling well today. Pain is well controlled. MRI, XR's and arterial duplex negative. Podiatry ok to d/c today with clindamycin PO x7 days. She will need to f/u weekly with podiatry for wound care dressing changes. She will also need to f/u this for a wound care dressing change. K+ 3.2 this am and replaced. recheck was 4.0. She will need to f/u OP for repeat labs of calcium and potassium check. She denies any further concerns at this time. - Vitals & Intake/Output Vital Signs: Vital Signs Temperature 97.7 F 10/30/23 07:37 Pulse Rate 70 10/30/23 07:37 Respiratory Rate 18 10/30/23 07:37 Blood Pressure 139/65 10/30/23 07:37 O2 Sat by Pulse Oximetry 98 10/30/23 07:37 Intake & Output: Intake & Output 10/27/23 10/28/23 10/29/23 10/30/23 11:59 11:59 11:59 11:59 Intake Total 474 2384 2058 Output Total 875 2275 350 Balance -311 395 6547 Weight 65.1 kg - Lab Result Diagrams: 10/30/23 04:35 10/30/23 09:40 Lab Results-Last 24 Hrs: Lab Results-Last 24 Hours 10/29/23 10/30/23 10/30/23 Range/Units 12:15 04:35 04:35 WBC 5.3 (3.98-10.04) x10^3/uL RBC 3.28 L (3.93-5.22) x10^6/uL Hgb 10.4 L (11.2-15.7) g/dL Hct 32.4 L (34.1-44.9) % MCV 98.8 H (79.4-94.8) fL MCH 31.7 (25.6-32.2) pg MCHC 32.1 L (32.2-35.5) g/dL RDW 13.2 (11.7-14.4) % Plt Count 162 L (182-369) x10^3/uL MPV 11.0 (9.4-12.3) fL Sodium 143 (135-145) mmol/L Potassium 3.9 3.2 L (3.5-5.1) mmol/L Chloride 112 H (98-107) mmol/L Carbon Dioxide 25 (22-30) mmol/L Anion Gap 9.8 (5-15) MEQ/L BUN 18 H (7-17) mg/dL Creatinine 0.81 (0.52-1.04) mg/dL Estimated GFR 70.7 ML/MIN Glucose 122 H (74-106) mg/dL Calcium 7.9 L (8.4-10.2) mg/dL Total Bilirubin 0.30 (0.2-1.3) mg/dL AST 26 (14-36) U/L ALT 19 (0-35) U/L Alkaline Phosphatase 87 (38-126) U/L Serum Total Protein 5.4 L (6.3-8.2) g/dL Albumin 3.1 L (3.5-5.0) g/dL 10/30/23 Range/Units 09:40 WBC (3.98-10.04) x10^3/uL RBC (3.93-5.22) x10^6/uL Hgb (11.2-15.7) g/dL Hct (34.1-44.9) % MCV (79.4-94.8) fL MCH (25.6-32.2) pg MCHC (32.2-35.5) g/dL RDW (11.7-14.4) % Plt Count (182-369) x10^3/uL MPV (9.4-12.3) fL Sodium (135-145) mmol/L Potassium 4.0 D (3.5-5.1) mmol/L Chloride (98-107) mmol/L Carbon Dioxide (22-30) mmol/L Anion Gap (5-15) MEQ/L BUN (7-17) mg/dL Creatinine (0.52-1.04) mg/dL Estimated GFR ML/MIN Glucose (74-106) mg/dL Calcium (8.4-10.2) mg/dL Total Bilirubin (0.2-1.3) mg/dL AST (14-36) U/L ALT (0-35) U/L Alkaline Phosphatase (38-126) U/L Serum Total Protein (6.3-8.2) g/dL Albumin (3.5-5.0) g/dL Micro Results-Entire Visit: Microbiology 10/27/23 23:00 Wound Culture - Final Ankle - Right Staphylococcus Aureus 10/27/23 20:15 Blood Culture - Preliminary Blood 10/27/23 20:20 Blood Culture - Preliminary Blood - Radiology Exams Ordered Rad Exams-Entire Visit: Radiology Procedures Category Date Time Status ARTERIAL BILAT LOWER EXTREMITY [US] Routine Exams 10/29/23 07:52 Completed MRI LOWER EXT W/O CONTRAST [MRI] Routine Exams 10/29/23 07:51 Completed - Procedures and Test Procedures and Tests throughout Hospitalization: Therapy Orders & Screens 10/28/23 03:47 Respiratory Therapy Consult ONCE Comment: Reason For Exam: Diagnosis: infected wound 10/29/23 09:00 OT Screen per Nursing Assess ONCE Comment: Protocol Order Physician Instructions: Greater than 3 points order OT Admission Screening Reason For Exam: Triggered on Admission Diagnosis: infected wound Open Wound/Cellutlitis/Pressure Ulcers: Yes Acute Fx/ORIF/Change in wt bearing status: No Severe MUSCULOSKELETAL pain: Yes ADL Dysfunction: No Acute CVA w/Hemiparesis/Hemiplegia: No Decreased Functional Mobility/Strength: No Sprain/Strain: No Acute Post-op Mobility Dysfunction: No Total Points: 10 PT Screen per Nursing Assess ONCE Comment: Protocol Order Physician Instructions: Greater than 3 points order PT Admission Screenin Reason For Exam: Triggered on Admission Diagnosis: infected wound Open Wound/Cellutlitis/Pressure Ulcers: Yes Acute Fx/ORIF/Change in wt bearing status: No Severe MUSCULOSKELETAL pain: Yes ADL Dysfunction: No Acute CVA w/Hemiparesis/Hemiplegia: No Decreased Functional Mobility/Strength: No Sprain/Strain: No Acute Post-op Mobility Dysfunction: No Total Points: 10 Discharge Exam General Appearance: no apparent distress, alert Neurologic Exam: alert, oriented x 3, cooperative, normal mood/affect, nml cerebellar function, sensation nml, No motor deficits Eye Exam: PERRL, EOMI, eyes nml inspection Ears, Nose, Throat Exam: normal ENT inspection, pharynx normal, moist mucous membranes Neck Exam: normal inspection, non-tender, supple, full range of motion Respiratory Exam: normal breath sounds, lungs clear, No respiratory distress Cardiovascular Exam: regular rate/rhythm, normal heart sounds Gastrointestinal/Abdomen Exam: soft, No tenderness, No mass Pelvic Exam: deferred Rectal Exam: deferred Back Exam: normal inspection, normal range of motion, No CVA tenderness, No vertebral tenderness Extremity Exam: normal inspection, normal range of motion Skin Exam: normal color, warm, dry, other (RLE wrapped) Wound Assessment: Skin/Wound Assessment Wound/Incision Assessment Start: 10/27/23 23:20 Text: Status: Active Freq: Q6H Protocol: Document 10/30/23 08:00 HF (Rec: 10/30/23 08:47 HF [id number]) Wound/Incision Assessment Right Lower Calf Wound Assessment Shift Assessment Wound Type ulceration Wound Stage Non Pressure Wound Dressing Status Dry & Intact Drainage Description ALISON Comment wound debrided by Dr. Zarco - compression dressing CDI - Unable to assess wound. Wound Photo Photo Taken Yes Date: 10/27/23 Time: 23:50 Final Diagnosis/Problem List - Final Discharge Diagnosis/Problem (1) Cellulitis of right leg Current Visit: Yes Status: Acute Code(s): L03.115 - CELLULITIS OF RIGHT LOWER LIMB (2) Anemia Current Visit: Yes Status: Chronic Code(s): D64.9 - ANEMIA, UNSPECIFIED (3) DVT (deep venous thrombosis) Current Visit: Yes Status: Acute Code(s): I82.409 - ACUTE EMBOLISM AND THOMBOS UNSP DEEP VN UNSP LOWER EXTREMITY (4) Dehydration Current Visit: Yes Status: Resolved Code(s): E86.0 - DEHYDRATION (5) Essential (primary) hypertension Current Visit: Yes Status: Chronic Code(s): I10 - ESSENTIAL (PRIMARY) HYPERTENSION (6) Hypothyroidism Current Visit: Yes Status: Chronic Code(s): E03.9 - HYPOTHYROIDISM, UNSPECIFIED (7) Obesity (BMI 30.0-34.9) Current Visit: Yes Status: Chronic Assessment & Plan: (1) Cellulitis of right leg Current Visit: Yes Status: Acute Assessment & Plan: - acute worsening- on chronic - Chronic wound with onset of February now with worsening redness/erythem a/pain/drainage - PT/wound therapy as OP - Vanc/zosyn initiated - will continue - follow blood/wound cultures - Wound culture- gram + sensitivity pending - elevate affected limb, + 3 pitting edema RLE - PT eval for wound therapy - Supportive therapies - continue DVT prophylaxis - Eliquis - XRAY's, MRI, arterial duplex pending - Podiatry consult- plan for RLE bedside debridement today - BC x2 negative - wound culture + Staph-schroeder sensitive - Will d/c with Clindamycin per podiatry - pt is to f/u this and weekly for wound care with podiatry. Code(s): L03.115 - CELLULITIS OF RIGHT LOWER LIMB (2) Anemia Current Visit: Yes Status: Chronic Qualifiers: Anemia type: iron deficiency Assessment & Plan: -chronic, at baseline, continue to monitor, if hgb <7, transfuse -add iron studies - with 12% iron saturation - hgb at 10.5 - does not meet IV iron criteria - will start ferrous sulfate - consider hematology w/u OP Code(s): D64.9 - ANEMIA, UNSPECIFIED (3) DVT (deep venous thrombosis) Current Visit: Yes Status: Acute Qualifiers: DVT location: lower extremity Affected thrombotic vein of extremity: other lower extremity vein Chronicity: acute Laterality: right Qualified Code(s): I82.491 - Acute embolism and thrombosis of other specified deep vein of right lower extremity Assessment & Plan: -Diagnosed 10/26/23 - on Eliquis - continue -DOPPLER Impression: Minimal nonoccluding thrombus in superficial right greater saphenous vein. Left and right legs negative for deep vein thrombosis. Code(s): I82.409 - ACUTE EMBOLISM AND THOMBOS UNSP DEEP VN UNSP LOWER EXTREMITY (4) Dehydration Current Visit: Yes Status: Resolved Assessment & Plan: -Resolved 10/27 - IVF stopped Code(s): E86.0 - DEHYDRATION (5) Essential (primary) hypertension Current Visit: Yes Status: Chronic Assessment & Plan: -stable Code(s): I10 - ESSENTIAL (PRIMARY) HYPERTENSION (6) Hypothyroidism Current Visit: Yes Status: Chronic Assessment & Plan: - Continue Synthroid Code(s): E03.9 - HYPOTHYROIDISM, UNSPECIFIED (7) Obesity (BMI 30.0-34.9) Current Visit: Yes Status: Chronic Assessment & Plan: - advised diet and exercise control Code(s): E66.9 - OBESITY, UNSPECIFIED - Discharge Discharge Date: 10/30/23 Disposition: Home, Self-Care Condition: Good Prescriptions: Continue Tramadol HCl 50 mg [Ultram 50 mg] 50 mg PO Q6HPRN PRN PRN Reason: Pain Levothyroxine Sodium 50 Mcg [Synthroid 50 Mcg] 75 mcg PO DAILY Telmisartan [Micardis] 40 mg PO DAILY Hydrochlorothiazide 25 mg [hydroDIURIL 25 MG] 25 mg PO DAILY Multivitamin [Multi-Vitamin Daily] 1 tab PO EVENING MEAL Gabapentin [Neurontin] 100 mg PO EVENING MEAL Cyanocobalamin 1000 Mcg/ml [Cyanocobalamin B-12 1000 MCG/ML] 1,000 mcg IJ UD Furosemide 20 mg [Lasix 20 mg] 20 mg PO DAILY PRN PRN PRN Reason: SWELLING Potassium Chloride Tab* [Klor Con] 10 meq PO BID Ferrous Sulfate [Iron] 325 mg PO LUNCH Acetaminophen 500 mg [Tylenol Extra Strength 500 mg] 500 mg PO Q4H PRN PRN PRN Reason: Pain Lutein 10 mg PO UD Pramipexole Di-HCl [Pramipexole Dihydrochloride] 1 mg PO QHS Gabapentin [Neurontin ] 100 mg PO EVENING MEAL Pramipexole Di-HCl [Pramipexole Dihydrochloride] 0.5 mg PO BID Loratadine 10 mg [Claritin 10 mg] 10 mg PO DAILY Gabapentin 200 mg PO QHS Apixaban [Eliquis 2.5 mg Tablet] 5 mg PO BID Additional Instructions: Please have potassium and calcium rechecked with PCP. Follow up weekly with podiatry for dressing change. Follow up with po diatry for dressing change. Follow up with: SHIVA GOMEZ MD [Primary Care Provider] -
[2023-10-30 11:49] VITALS: BP 108/59; PULSE 77; RESP 20; TEMP 98.2; O2SAT 95
[2023-10-30] MEDS ORDERED: TROUGH DRUG LEVELS IJ ONE (21:30)
[2023-10-31] MEDS ORDERED: Cyanocobalamin B-12 1000 MCG/ML IJ SCH (10:00)
== END 2023-10-30 13:32 | disposition home or self-care (01) ==
LOC: ED 19:07 → MED SURG 23:05
PROVIDERS: ADMIT Internal Medicine Nephrology; ATTEND Internal Medicine Nephrology
DX: L03.115 Cellulitis of right lower limb (principal); D64.9 Anemia, unspecified; E86.0 Dehydration; I82.491 Acute embolism and thrombosis of other specified deep vein of right lower extremity; I10 Essential (primary) hypertension; E03.9 Hypothyroidism, unspecified; E78.5 Hyperlipidemia, unspecified; E66.9 Obesity, unspecified; Z79.01 Long term (current) use of anticoagulants; Z79.899 Other long term (current) drug therapy
CPT/HCPCS: 11042; 29580; 36000; 36415; 73590; 73610; 73630; 73718; 80053; 82607; 82728; 82746; 83540; 83550; 83605; 84132; 84145; 85025; 85027; 85652; 87040; 87070; 87077; 87186; 93041; 93925; 94760; 96360; 96365; 96367; 99214; 99285; G0378; Q3014; A9270-GY; J3370

== ENCOUNTER 2024-02-09 12:54 | Observation (INO) | payer MEDICARE ==
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
[2024-02-09] MEDS ORDERED: Sodium Chloride 0.9% 1000 ML 1,000 ML ONE (15:11)
[2024-02-09] MEDS ORDERED: CLINDAMYCIN-D5W 600 MG/50 ML*** 600 MG/50 ML BAG IV ONE (15:11)
[2024-02-09] MEDS: Sodium Chloride 0.9% 1000 ML 1,000 ML IV STA (15:15)
[2024-02-09] MEDS: CLINDAMYCIN-D5W 600 MG/50 ML*** 600 MG/50 ML BAG IV STA (15:16)
[2024-02-09 15:22] LABS: Absolute Neutrophil Ct (ANC) 3.39 x10^3/uL (1.56-6.13); BASOPHIL % 0.6 % (0.1-1.2); Basophil (Absolute #) 0.03 x10^3/uL (0.01-0.08); Eosinophil % 3.5 % (0.7-5.8); Eosinophil (Absolute #) 0.18 x10^3/uL (0.04-0.36); Hematocrit 35.6 % (34.1-44.9); Hemoglobin 11.4 g/dL (11.2-15.7); IMMATURE GRAN # 0.02 x10^3u/L (0.001-0.031); IMMATURE GRAN % 0.4 % (0.001-0.429); Lymphocyte (Absolute #) 1.17 x10^3/uL (1.18-3.74); Mean Cell Volume 97.3 fL (79.4-94.8); Mean Corpuscular Hemoglobin 31.1 pg (25.6-32.2); Mean Platelet Volume 10.7 fL (9.4-12.3); Monocyte (Absolute #) 0.29 x10^3/uL (0.24-0.86); Monocytes % 5.7 % (4.7-12.5); Neutrophil % 66.8 % (34.0-71.1); Platelet Count 176 x10^3/uL (182-369); Red Blood Count 3.66 x10^6/uL (3.93-5.22); Red Cell Distribution Width 13.2 % (11.7-14.4); White Blood Count 5.1 x10^3/uL (3.98-10.04)
[2024-02-09 15:32] LABS: ALBUMIN 4.2 g/dL (3.5-5.0); ANION GAP 11.3 MEQ/L (5-15); BILIRUBIN,TOTAL 0.4 mg/dL (0.2-1.3); Calcium 9.8 mg/dL (8.4-10.2); Creatinine 1 0.86 mg/dL (0.52-1.04); EST GLOMERULAR FILTRATION RATE 65.8 ML/MIN; MAGNESIUM 1.9 mg/dL (1.6-2.3); Potassium 4.3 mmol/L (3.5-5.1); Total Protein 7.2 g/dL (6.3-8.2)
[2024-02-09 16:31] LABS: Appearance Cloudy (Clear); Bacteria None Seen /HPF (None Seen); Bilirubin Negative (Negative); Blood Negative (Negative); Epithelial Cells None Seen /HPF (None Seen); Glucose, Urine Negative (Negative); Hyaline Casts NONE SEEN /LPF (0-2); Ketones Negative (Negative); Leukocyte Esterase Trace (Negative); Nitrite Negative (Negative); Protein,Urine Dip Negative (Negative); RBC 0-2 /HPF (0-5); Specific Gravity <=1.005 (1.005-1.030); Urobilinogen 0.2 mg/dL (0.2)
--- NOTE | 2024-02-09 16:37 | XRAY ---
CLINICAL HISTORY: dizziness COMPARISON: None. TECHNIQUE: Axial contrast non-enhanced CT scan of the brain was performed from the skull base to the high parietal region with coronal and sagittal reformats. One of the following dose reduction techniques was utilized for this exam.Automated exposure control, adjustment of the mA and/or kV according to patient size, and use of iterative reconstruction. CTDI: 53.92mGy, DLP: 1016.25mGy*cm. FINDINGS: The visualized brain parenchyma shows normal appearance. No focal parenchymal abnormalities are demonstrated. Rashid-white matter differentiation is maintained. No midline shifts or deformity. No intracerebral or extra axial hematoma. Normal size and configuration of the cerebral ventricles. Normal CT appearance of the posterior fossa structures namely the cerebellar hemispheres, brainstem, and cerebellar peduncles. The IACs are unremarkable. The cerebello-pontine angles are clear. The pituitary gland, the pineal gland, the optic chiasm is unremarkable. No definite calvarium fractures. Small osteoma in the left parietal bone. Scanned paranasal sinuses are clear. IMPRESSION: Unremarkable contrast-enhanced CT study for the brain. Electronically Signed by: La Nena Brooke MD. (02/09/2024 16:33:03 EDT)
--- NOTE | 2024-02-09 18:25 | XRAY ---
Indication: Dizziness. Comparison: June 10, 2023 PA/lateral chest again demonstrates minimal left base subsegmental atelectasis/scarring and tiny right based calcific granuloma. Remaining heart and lungs normal. Bony thorax intact again with osteopenia, degenerative changes, scoliosis, bilateral shoulder arthroplasty, and lower cervical fusion. Impression: Continued nonacute chest with chronic features.
[2024-02-09] MEDS: Sodium Chloride 0.9% 1000 ML 1,000 ML IV SCH (20:30)
[2024-02-09] MEDS ORDERED: TYLENOL EXTRA STRENGTH 500 MG PO PRN (20:48)
[2024-02-09] MEDS ORDERED: ULTRAM 50 MG PO PRN (20:48)
[2024-02-09] MEDS ORDERED: Mirapex 0.5 MG Tablet ONE (21:08)
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
[2024-02-09] MEDS ORDERED: Zofran 4 MG/2 ML VIAL IV PRN (21:55)
[2024-02-09] MEDS: CLINDAMYCIN-D5W 600 MG/50 ML*** 600 MG/50 ML BAG IV SCH (22:00)
[2024-02-09] MEDS: Neurontin PO SCH (22:00)
[2024-02-09] MEDS: Klor Con PO SCH (22:01)
[2024-02-09] MEDS: ELIQUIS 2.5 MG TABLET PO SCH (22:01)
[2024-02-09] MEDS: Mirapex 0.5 MG Tablet PO SCH (22:02)
[2024-02-09] MEDS: NON-FORMULARY ITEM (Pramipexole Di-Hcl [Pramipexole Dihydrochloride] 1 MG Tablet) PO SCH ×2 (22:07)
[2024-02-10 07:01] LABS: Absolute Neutrophil Ct (ANC) 4.64 x10^3/uL (1.56-6.13); BASOPHIL % 0.3 % (0.1-1.2); Basophil (Absolute #) 0.02 x10^3/uL (0.01-0.08); Eosinophil % 3.1 % (0.7-5.8); Eosinophil (Absolute #) 0.19 x10^3/uL (0.04-0.36); Hematocrit 31.1 % (34.1-44.9); Hemoglobin 9.9 g/dL (11.2-15.7); IMMATURE GRAN # 0.02 x10^3u/L (0.001-0.031); IMMATURE GRAN % 0.3 % (0.001-0.429); Lymphocyte (Absolute #) 1.07 x10^3/uL (1.18-3.74); Lymphocytes % 17.6 % (19.3-51.7); Mean Cell Volume 97.5 fL (79.4-94.8); Mean Corpuscular Hgb Concent. 31.8 g/dL (32.2-35.5); Mean Platelet Volume 10.8 fL (9.4-12.3); Monocyte (Absolute #) 0.13 x10^3/uL (0.24-0.86); Monocytes % 2.1 % (4.7-12.5); Neutrophil % 76.6 % (34.0-71.1); Platelet Count 160 x10^3/uL (182-369); Red Blood Count 3.19 x10^6/uL (3.93-5.22); Red Cell Distribution Width 13.5 % (11.7-14.4); White Blood Count 6.1 x10^3/uL (3.98-10.04)
[2024-02-10 07:12] VITALS: RESP 19; O2SAT 97
[2024-02-10 07:19] LABS: ALBUMIN 3.4 g/dL (3.5-5.0); ANION GAP 10.2 MEQ/L (5-15); BILIRUBIN,TOTAL 0.6 mg/dL (0.2-1.3); Calcium 8.9 mg/dL (8.4-10.2); Creatinine 1 0.77 mg/dL (0.52-1.04); EST GLOMERULAR FILTRATION RATE 75.1 ML/MIN; MAGNESIUM 1.8 mg/dL (1.6-2.3); Potassium 3.8 mmol/L (3.5-5.1); Total Protein 5.9 g/dL (6.3-8.2)
[2024-02-10] MEDS: Micardis 80 MG Tablet PO SCH (09:37)
[2024-02-10] MEDS: hydroDIURIL 25 MG PO SCH (09:38)
[2024-02-10] MEDS: SYNTHROID 75 MCG PO SCH (09:38)
[2024-02-10] MEDS: CLARITIN 10 MG PO SCH (09:38)
[2024-02-10] MEDS ORDERED: SYNTHROID 50 MCG PO SCH (10:00)
[2024-02-10] MEDS ORDERED: TELMISARTAN 40 MG PO SCH (10:00)
[2024-02-10] MEDS: FEOSOL 325 MG PO SCH (11:19)
--- NOTE | 2024-02-10 11:42 | PCM.DS ---
Discharge Summary Date of Admission: 02/09/24 19:47 Date of Discharge: 02/10/24 Admitting Physician: KLEVER LOPEZ MD Primary Care Provider: PATRICIA,SHIVA Allergies Allergies Sulfa (Sulfonamide Antibiotics) Allergy (Mild, Verified 02/09/24 14:30) latex Allergy (Verified 02/09/24 14:30) Hives scallops Allergy (Verified 02/09/24 14:30) Hospital Summary - Hospital Course Hospital Course: 88 y/o F with h/o HTN, DVT, CKD2, hypothyroidism, and restless legs syndrome, who presents with episode of vertigo. Patient was in her usual state of health when this morning, after getting up, she had sudden onset of vertigo, with the room constantly spinning to the left, worse with movement but occurring at rest as well, associated with nausea and vomiting. Episode lasted about 6 hours, but for the past 2-3 hour has been improving, and she can open her eyes without seeing movement. She denies diplopia or change in visual acuity. Denies ear pain, fullness, or sinus pressure. She denies ataxia or difficulty with any movements. She has not been able to eat anything today, and is now feeling a little lightheaded. She has never had any similar episodes previously. She also notes that she had a right leg wound over the lateral ankle, initially treated for several weeks, and was improving. She was cleared to start putting a new dressing on it, but it caused severe blistering and erythema around the wound, with drainage of serous fluid. She stopped the dressing, and the skin has slowly improved, with no further drainage, and resolution of the blisters. She still has some edema and erythema, but notes that is improved from previous. The original wound has closed. This morning weakness and dizziness resolved. She continues to have some erythe ma and edema of RLE. She would like to d/c today as she has something to do with her granddaughter. Will d/c with Oral antibiotics. She can F/U this week with her PCP and if needed refer to PT for vertigo. She denies any further concerns at this time and is anxious to leave as soon as possible. - Vitals & Intake/Output Vital Signs: Vital Signs Temperature 96.7 F 02/10/24 07:11 Pulse Rate 84 02/10/24 07:11 Respiratory Rate 19 02/10/24 07:11 Blood Pressure 121/59 02/10/24 07:11 O2 Sat by Pulse Oximetry 97 02/10/24 07:11 Intake & Output: Intake & Output 02/07/24 02/08/24 02/09/24 02/10/24 11:59 11:59 11:59 11:59 Intake Total 507 Output Total 800 Balance -293 Weight 62.2 kg - Lab Result Diagrams: 02/10/24 06:30 02/10/24 06:30 Lab Results-Last 24 Hrs: Lab Results-Last 24 Hours 02/09/24 02/09/24 02/09/24 Range/Units 14:40 15:00 15:00 WBC 5.1 (3.98-10.04) x10^3/uL RBC 3.66 L (3.93-5.22) x10^6/uL Hgb 11.4 (11.2-15.7) g/dL Hct 35.6 (34.1-44.9) % MCV 97.3 H (79.4-94.8) fL MCH 31.1 (25.6-32.2) pg MCHC 32.0 L (32.2-35.5) g/dL RDW 13.2 (11.7-14.4) % Plt Count 176 L (182-369) x10^3/uL MPV 10.7 (9.4-12.3) fL Gran % 66.8 (34.0-71.1) % Immature Gran % (Auto) 0.4 (0.001-0.429) % Nucleat RBC Rel Count 0.0 (0.00-0.2) % Eos # (Auto) 0.18 (0.04-0.36) x10^3/uL Immature Gran # (Auto) 0.02 (0.001-0.031) x10^3u/L Absolute Lymphs (auto) 1.17 L (1.18-3.74) x10^3/uL Absolute Monos (auto) 0.29 (0.24-0.86) x10^3/uL Absolute Nucleated RBC 0.00 (0.00-0.012) x10^3u/L Lymphocytes % 23.0 (19.3-51.7) % Monocytes % 5.7 (4.7-12.5) % Eosinophils % 3.5 (0.7-5.8) % Basophils % 0.6 (0.1-1.2) % Absolute Granulocytes 3.39 (1.56-6.13) x10^3/uL Basophils # 0.03 (0.01-0.08) x10^3/uL Sodium 141 (135-145) mmol/L Potassium 4.3 (3.5-5.1) mmol/L Chloride 103 (98-107) mmol/L Carbon Dioxide 30 (22-30) mmol/L Anion Gap 11.3 (5-15) MEQ/L BUN 34 H (7-17) mg/dL Creatinine 0.86 (0.52-1.04) mg/dL Estimated GFR 65.8 ML/MIN Glucose 99 (74-106) mg/dL Calcium 9.8 (8.4-10.2) mg/dL Magnesium 1.9 (1.6-2.3) mg/dL Total Bilirubin 0.40 (0.2-1.3) mg/dL AST 35 (14-36) U/L ALT 17 (0-35) U/L Alkaline Phosphatase 95 (38-126) U/L Troponin I < 0.012 (0.000-0.033) ng/mL Serum Total Protein 7.2 (6.3-8.2) g/dL Albumin 4.2 (3.5-5.0) g/dL Amylase 98 (30-110) U/L Lipase 43 (23-300) U/L Urine Color (Yellow) Urine Appearance (Clear) Urine pH (4.6-8.0) Ur Specific [place] (1.005-1.030) Urine Protein (Negative) Urine Glucose (UA) (Negative) mg/dL Urine Ketones (Negative) Urine Blood (Negative) Urine Nitrite (Negative) Urine Bilirubin (Negative) Urine Urobilinogen (0.2) mg/dL Ur Leukocyte Esterase (Negative) U Hyaline Cast (Auto) (0-2) /LPF Urine Microscopic RBC (0-5) /HPF Urine Microscopic WBC (0-5) /HPF Ur Epithelial Cells (None Seen) /HPF Urine Bacteria (None Seen) /HPF Urine Culture Reflexed (NO) 02/09/24 02/09/24 02/10/24 Range/Units 15:59 19:06 06:30 WBC 6.1 (3.98-10.04) x10^3/uL RBC 3.19 L (3.93-5.22) x10^6/uL Hgb 9.9 L (11.2-15.7) g/dL Hct 31.1 L (34.1-44.9) % MCV 97.5 H (79.4-94.8) fL MCH 31.0 (25.6-32.2) pg MCHC 31.8 L (32.2-35.5) g/dL RDW 13.5 (11.7-14.4) % Plt Count 160 L (182-369) x10^3/uL MPV 10.8 (9.4-12.3) fL Gran % 76.6 H (34.0-71.1) % Immature Gran % (Auto) 0.3 (0.001-0.429) % Nucleat RBC Rel Count 0.0 (0.00-0.2) % Eos # (Auto) 0.19 (0.04-0.36) x10^3/uL Immature Gran # (Auto) 0.02 (0.001-0.031) x10^3u/L Absolute Lymphs (auto) 1.07 L (1.18-3.74) x10^3/uL Absolute Monos (auto) 0.13 L (0.24-0.86) x10^3/uL Absolute Nucleated RBC 0.00 (0.00-0.012) x10^3u/L Lymphocytes % 17.6 L (19.3-51.7) % Monocytes % 2.1 L (4.7-12.5) % Eosinophils % 3.1 (0.7-5.8) % Basophils % 0.3 (0.1-1.2) % Absolute Granulocytes 4.64 (1.56-6.13) x10^3/uL Basophils # 0.02 (0.01-0.08) x10^3/uL Sodium (135-145) mmol/L Potassium (3.5-5.1) mmol/L Chloride (98-107) mmol/L Carbon Dioxide (22-30) mmol/L Anion Gap (5-15) MEQ/L BUN (7-17) mg/dL Creatinine (0.52-1.04) mg/dL Estimated GFR ML/MIN Glucose (74-106) mg/dL Calcium (8.4-10.2) mg/dL Magnesium (1.6-2.3) mg/dL Total Bilirubin (0.2-1.3) mg/dL AST (14-36) U/L ALT (0-35) U/L Alkaline Phosphatase (38-126) U/L Troponin I < 0.012 (0.000-0.033) ng/mL Serum Total Protein (6.3-8.2) g/dL Albumin (3.5-5.0) g/dL Amylase (30-110) U/L Lipase (23-300) U/L Urine Color Yellow (Yellow) Urine Appearance Cloudy A (Clear) Urine pH 7.0 (4.6-8.0) Ur Specific [place] <=1.005 (1.005-1.030) Urine Protein Negative (Negative) Urine Glucose (UA) Negative (Negative) mg/dL Urine Ketones Negative (Negative) Urine Blood Negative (Negative) Urine Nitrite Negative (Negative) Urine Bilirubin Negative (Negative) Urine Urobilinogen 0.2 (0.2) mg/dL Ur Leukocyte Esterase Trace A (Negative) U Hyaline Cast (Auto) NONE SEEN (0-2) /LPF Urine Microscopic RBC 0-2 (0-5) /HPF Urine Microscopic WBC 3-5 (0-5) /HPF Ur Epithelial Cells None Seen (None Seen) /HPF Urine Bacteria None Seen (None Seen) /HPF Urine Culture Reflexed NO (NO) 02/10/24 Range/Units 06:30 WBC (3.98-10.04) x10^3/uL RBC (3.93-5.22) x10^6/uL Hgb (11.2-15.7) g/dL Hct (34.1-44.9) % MCV (79.4-94.8) fL MCH (25.6-32.2) pg MCHC (32.2-35.5) g/dL RDW (11.7-14.4) % Plt Count (182-369) x10^3/uL MPV (9.4-12.3) fL Gran % (34.0-71.1) % Immature Gran % (Auto) (0.001-0.429) % Nucleat RBC Rel Count (0.00-0.2) % Eos # (Auto) (0.04-0.36) x10^3/uL Immature Gran # (Auto) (0.001-0.031) x10^3u/L Absolute Lymphs (auto) (1.18-3.74) x10^3/uL Absolute Monos (auto) (0.24-0.86) x10^3/uL Absolute Nucleated RBC (0.00-0.012) x10^3u/L Lymphocytes % (19.3-51.7) % Monocytes % (4.7-12.5) % Eosinophils % (0.7-5.8) % Basophils % (0.1-1.2) % Absolute Granulocytes (1.56-6.13) x10^3/uL Basophils # (0.01-0.08) x10^3/uL Sodium 139 (135-145) mmol/L Potassium 3.8 (3.5-5.1) mmol/L Chloride 107 (98-107) mmol/L Carbon Dioxide 26 (22-30) mmol/L Anion Gap 10.2 (5-15) MEQ/L BUN 26 H (7-17) mg/dL Creatinine 0.77 (0.52-1.04) mg/dL Estimated GFR 75.1 ML/MIN Glucose 91 (74-106) mg/dL Calcium 8.9 (8.4-10.2) mg/dL Magnesium 1.8 (1.6-2.3) mg/dL Total Bilirubin 0.60 (0.2-1.3) mg/dL AST 34 (14-36) U/L ALT 15 (0-35) U/L Alkaline Phosphatase 73 (38-126) U/L Troponin I (0.000-0.033) ng/mL Serum Total Protein 5.9 L (6.3-8.2) g/dL Albumin 3.4 L (3.5-5.0) g/dL Amylase (30-110) U/L Lipase (23-300) U/L Urine Color (Yellow) Urine Appearance (Clear) Urine pH (4.6-8.0) Ur Specific [place] (1.005-1.030) Urine Protein (Negative) Urine Glucose (UA) (Negative) mg/dL Urine Ketones (Negative) Urine Blood (Negative) Urine Nitrite (Negative) Urine Bilirubin (Negative) Urine Urobilinogen (0.2) mg/dL Ur Leukocyte Esterase (Negative) U Hyaline Cast (Auto) (0-2) /LPF Urine Microscopic RBC (0-5) /HPF Urine Microscopic WBC (0-5) /HPF Ur Epithelial Cells (None Seen) /HPF Urine Bacteria (None Seen) /HPF Urine Culture Reflexed (NO) - Radiology Exams Ordered Rad Exams-Entire Visit: Radiology Procedures Category Date Time Status CHEST 2 VIEWS (PA AND LAT) Stat Exams 02/09/24 14:41 Completed HEAD WITHOUT CONTRAST [CT] Stat Exams 02/09/24 14:42 Completed - Procedures and Test Procedures and Tests throughout Hospitalization: Therapy Orders & Screens 02/09/24 21:10 PT Eval & Treat (MD Order) ONCE Reason for Eval:: eval & treat Diagnosis: Dizziness; Cardiac dysrrhythmia; Cellulitis of right lower leg Discharge Exam General Appearance: no apparent distress, alert Neurologic Exam: alert, oriented x 3, cooperative, normal mood/affect, nml cerebellar function, sensation nml, No motor deficits Eye Exam: PERRL, EOMI, eyes nml inspection Ears, Nose, Throat Exam: normal ENT inspection, pharynx normal, moist mucous membranes Neck Exam: normal inspection, non-tender, supple, full range of motion Respiratory Exam: normal breath sounds, lungs clear, No respiratory distress Cardiovascular Exam: regular rate/rhythm, normal heart sounds Gastrointestinal/Abdomen Exam: soft, No tenderness, No mass Pelvic Exam: deferred Rectal Exam: deferred Back Exam: normal inspection, normal range of motion, No CVA tenderness, No vertebral tenderness Extremity Exam: normal inspection, normal range of motion Skin Exam: normal color, warm, dry, other (RLE edema and erythema) Wound Assessment: Skin/Wound Assessment Wound/Incision Assessment Start: 02/09/24 20:00 Text: Status: Active Freq: Q6H Protocol: Document 02/10/24 08:00 RB (Rec: 02/10/24 08:38 RB [id number]) Wound/Incision Assessment right lower leg Wound Assessment Admission Wound Type cellulitis Wound Stage Non Pressure Wound Drainage Amount None General Appearance Reddened Comment healing wound to RLE, no open areas Wound Photo Photo Taken No Final Diagnosis/Problem List - Final Discharge Diagnosis/Problem (1) Cellulitis of right lower leg Current Visit: Yes Status: Acute Assessment & Plan: - continue clindamycin from ED - follow up blood culture results - can likely d/c on Keflex for a few days; with no h/o DM2 and non-purulent cellulitis, do not need to cover for MRSA at discharge Code(s): L03.115 - CELLULITIS OF RIGHT LOWER LIMB (2) Benign paroxysmal positional vertigo Current Visit: Yes Status: Resolved Assessment & Plan: -PRN Zofran - NS at 75 ml/hr until eating more - PT consult, if nothing else can provide education on [place]ary maneuvers - Sxs resolved today -Can f/u OP with PCP and refer to PT if needed. Code(s): H81.10 - BENIGN PAROXYSMAL VERTIGO, UNSPECIFIED EAR (3) Dizziness Current Visit: Yes Status: Resolved Assessment & Plan: - resolved this AM Code(s): R42 - DIZZINESS AND GIDDINESS (4) History of DVT (deep vein thrombosis) Current Visit: Yes Status: Chronic Assessment & Plan: - recently, in October - continue eliquis 5 BID Code(s): Z86.718 - PERSONAL HISTORY OF OTHER VENOUS THROMBOSIS AND EMBOLISM (5) CKD (chronic kidney disease), stage II Current Visit: Yes Status: Chronic Assessment & Plan: - at her baseline Cr (normal GFR, but has proteinuria). - continue telmisartan as above for renal protection Code(s): N18.2 - CHRONIC KIDNEY DISEASE, STAGE 2 (MILD) (6) HTN (hypertension) Current Visit: No Status: Chronic Assessment & Plan: - continue home HCTZ 25, telmisartan 40 - continue KCl 20 mEq BID Code(s): I10 - ESSENTIAL (PRIMARY) HYPERTENSION (7) Hypothyroidism Current Visit: No Status: Chronic Assessment & Plan: - continue Levothyroxine 75 mcg daily Code(s): E03.9 - HYPOTHYROIDISM, UNSPECIFIED - Discharge Discharge Date: 02/10/24 Disposition: Home, Self-Care Condition: Stable Prescriptions: Continue Tramadol HCl 50 mg [Ultram 50 mg] 50 mg PO Q6HPRN PRN PRN Reason: Pain Levothyroxine Sodium 50 Mcg [Synthroid 50 Mcg] 75 mcg PO DAILY Telmisartan [Micardis] 40 mg PO DAILY Hydrochlorothiazide 25 mg [hydroDIURIL 25 MG] 25 mg PO DAILY Multivitamin [Multi-Vitamin Daily] 1 tab PO EVENING MEAL Gabapentin [Neurontin] 100 mg PO EVENING MEAL Cyanocobalamin 1000 Mcg/ml [Cyanocobalamin B-12 1000 MCG/ML] 1,000 mcg IJ UD Furosemide 20 mg [Lasix 20 mg] 20 mg PO DAILY PRN PRN PRN Reason: SWELLING Potassium Chloride Tab* [Klor Con] 10 meq PO BID Ferrous Sulfate [Iron] 325 mg PO LUNCH Acetaminophen 500 mg [Tylenol Extra Strength 500 mg] 500 mg PO Q4H PRN PRN PRN Reason: Pain Lutein 10 mg PO DAILY Pramipexole Di-HCl [Pramipexole Dihydrochloride] 1 mg PO QHS Pramipexole Di-HCl [Pramipexole Dihydrochloride] 0.5 mg PO 1200,1800 Loratadine 10 mg [Claritin 10 mg] 10 mg PO DAILY Gabapentin 200 mg PO QHS Apixaban [Eliquis 2.5 mg Tablet] 5 mg PO BID Cholecalciferol (Vitamin D3) [Vitamin D3] 62.5 mcg PO 3XW Instructions: Vertigo (a type of dizziness), Vestibular Exercises, Cellulitis and erysipelas (skin infections) Follow up with: SHIVA GOMEZ MD [Primary Care Provider] -
[2024-02-10 11:52] VITALS: BP 116/64; PULSE 76; TEMP 98.5
[2024-02-10] MEDS ORDERED: NON-FORMULARY ITEM (Pramipexole Di-Hcl [Pramipexole Dihydrochloride] 1 MG Tablet) PO SCH (12:00)
[2024-02-10] MEDS ORDERED: Neurontin PO SCH (18:00)
== END 2024-02-10 12:25 | disposition home or self-care (01) ==
LOC: ED 12:54 → MED SURG 19:47
PROVIDERS: ADMIT Internal Medicine; ATTEND Internal Medicine
DX: L03.115 Cellulitis of right lower limb (principal); H81.10 Benign paroxysmal vertigo, unspecified ear; Z86.718 Personal history of other venous thrombosis and embolism; I12.9 Hypertensive chronic kidney disease with stage 1 through stage 4 chronic kidney disease, or unspecified chronic kidney disease; N18.2 Chronic kidney disease, stage 2 (mild); E03.9 Hypothyroidism, unspecified; G25.81 Restless legs syndrome; Z79.899 Other long term (current) drug therapy; Z79.01 Long term (current) use of anticoagulants
CPT/HCPCS: 36000; 36415; 70450; 71046; 80053; 81001; 82150; 83690; 83735; 84484; 85025; 87040; 93005; 93268; 96360; 96365; 99284; Q3014; A9270-GY; G0378

== ENCOUNTER 2024-04-30 07:34 | Observation (INO) | payer MEDICARE ==
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
[2024-04-30] MEDS ORDERED: Zofran 4 MG/2 ML VIAL ONE (08:14)
[2024-04-30] MEDS ORDERED: MORPHINE SULFATE 2 MG INJ ONE (08:14)
[2024-04-30] MEDS: Zofran 4 MG/2 ML VIAL IV ONE (08:15)
[2024-04-30] MEDS: MORPHINE SULFATE 2 MG INJ IV ONE (08:15)
[2024-04-30 08:33] LABS: Absolute Neutrophil Ct (ANC) 5.91 x10^3/uL (1.56-6.13); BASOPHIL % 0.3 % (0.1-1.2); Basophil (Absolute #) 0.03 x10^3/uL (0.01-0.08); Eosinophil % 10.5 % (0.7-5.8); Eosinophil (Absolute #) 0.94 x10^3/uL (0.04-0.36); Hematocrit 33.8 % (34.1-44.9); Hemoglobin 10.7 g/dL (11.2-15.7); IMMATURE GRAN # 0.05 x10^3u/L (0.001-0.031); IMMATURE GRAN % 0.6 % (0.001-0.429); Lymphocyte (Absolute #) 1.28 x10^3/uL (1.18-3.74); Lymphocytes % 14.3 % (19.3-51.7); Mean Corpuscular Hemoglobin 30.4 pg (25.6-32.2); Mean Corpuscular Hgb Concent. 31.7 g/dL (32.2-35.5); Mean Platelet Volume 10.5 fL (9.4-12.3); Monocyte (Absolute #) 0.77 x10^3/uL (0.24-0.86); Monocytes % 8.6 % (4.7-12.5); Neutrophil % 65.7 % (34.0-71.1); Platelet Count 194 x10^3/uL (182-369); Red Blood Count 3.52 x10^6/uL (3.93-5.22); Red Cell Distribution Width 13.3 % (11.7-14.4)
[2024-04-30 08:46] LABS: ANION GAP 11.8 MEQ/L (5-15); BILIRUBIN,TOTAL 0.2 mg/dL (0.2-1.3); Calcium 9.4 mg/dL (8.4-10.2); Creatinine 1 1.05 mg/dL (0.52-1.04); EST GLOMERULAR FILTRATION RATE 51.4 ML/MIN; Potassium 4.4 mmol/L (3.5-5.1); Total Protein 6.9 g/dL (6.3-8.2)
[2024-04-30] MEDS ORDERED: Levofloxacin 500MG/100ML D5W 500 MG/100 ML BAG IV ONE (10:09)
[2024-04-30] MEDS: Levofloxacin 500MG/100ML D5W 500 MG/100 ML BAG IV STA (10:09)
[2024-04-30] MEDS ORDERED: TYLENOL 325 MG PO PRN (11:13)
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
[2024-04-30] MEDS ORDERED: TYLENOL EXTRA STRENGTH 500 MG PO PRN (12:41)
[2024-04-30] MEDS ORDERED: Cyanocobalamin B-12 1000 MCG/ML IJ SCH (12:45)
[2024-04-30] MEDS: ELIQUIS 2.5 MG TABLET PO SCH (14:50)
[2024-04-30] MEDS: SYNTHROID 75 MCG PO SCH (14:51)
[2024-04-30] MEDS: Lactated Ringers 1,000 ML IV SCH (14:51)
[2024-04-30] MEDS: VITA-BEE WITH C PO SCH (14:51)
[2024-04-30] MEDS: Micardis 80 MG Tablet PO SCH (14:51)
[2024-04-30] MEDS: THERAGRAN MULTIVITAMIN PO SCH (14:51)
[2024-04-30] MEDS: CLARITIN 10 MG PO SCH (14:51)
[2024-04-30] MEDS: Klor Con PO SCH (14:51)
[2024-04-30] MEDS: Protonix 20MG Tablet PO SCH (14:51)
[2024-04-30] MEDS: VITAMIN D PO SCH (14:53)
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
[2024-04-30] MEDS: MORPHINE SULFATE 2 MG INJ IV PRN (17:19)
[2024-04-30] MEDS: Neurontin PO SCH ×2 (17:20→21:19)
[2024-04-30] MEDS: Mirapex 0.5 MG Tablet PO SCH ×2 (17:20→21:19)
[2024-05-01 05:35] LABS: Absolute Neutrophil Ct (ANC) 4.52 x10^3/uL (1.56-6.13); BASOPHIL % 0.3 % (0.1-1.2); Basophil (Absolute #) 0.02 x10^3/uL (0.01-0.08); Eosinophil % 12.3 % (0.7-5.8); Eosinophil (Absolute #) 0.91 x10^3/uL (0.04-0.36); Hematocrit 31.8 % (34.1-44.9); IMMATURE GRAN # 0.01 x10^3u/L (0.001-0.031); IMMATURE GRAN % 0.1 % (0.001-0.429); Lymphocytes % 17.5 % (19.3-51.7); Mean Cell Volume 97.2 fL (79.4-94.8); Mean Corpuscular Hemoglobin 30.6 pg (25.6-32.2); Mean Corpuscular Hgb Concent. 31.4 g/dL (32.2-35.5); Mean Platelet Volume 10.9 fL (9.4-12.3); Monocyte (Absolute #) 0.65 x10^3/uL (0.24-0.86); Monocytes % 8.8 % (4.7-12.5); Platelet Count 192 x10^3/uL (182-369); Red Blood Count 3.27 x10^6/uL (3.93-5.22); Red Cell Distribution Width 13.4 % (11.7-14.4); White Blood Count 7.4 x10^3/uL (3.98-10.04)
[2024-05-01 05:55] LABS: ALBUMIN 3.2 g/dL (3.5-5.0); ANION GAP 6.3 MEQ/L (5-15); BILIRUBIN,TOTAL 0.3 mg/dL (0.2-1.3); Calcium 9.1 mg/dL (8.4-10.2); Creatinine 1 0.88 mg/dL (0.52-1.04); EST GLOMERULAR FILTRATION RATE 63.6 ML/MIN; Potassium 4.2 mmol/L (3.5-5.1); Total Protein 5.9 g/dL (6.3-8.2)
[2024-05-01] MEDS: PATIENT OWN MEDICATION PO PRN (10:43)
--- NOTE | 2024-05-01 12:13 | PCM.NOTE ---
Date and Time: 05/01/24 1208 Subjective Assessment: 04/30/24 is a 89 year old female with pmhx of HTN, DVT on Eliquis, chronic anemia, GERD, CKD2, hypothyroidism, and restless legs syndrome. She presented to the emergency department today via private vehicle secondary to right lower extremity (below the knee to just above the right foot) with skin changes that have been present and persistent for several weeks per her report. She was just placed on doxycycline yesterday. [facility] was [facility] at the [facility]. In the last couple of days her pain has worsened and there is been more intense redness present. Her outpatient primary care provider has been managing this site. Patient has seen hoisting laborer, Dr. Zarco in the past. Patient is here today because she is having increasing pain and the site is more tender despite outpatient therapy. She reports weeeping, clear drainage that is soaking through her clothes. She reports being in such pain last night she was pacing in her home. She reports sharp, stabbing, intermittent pain. Old cultures reviewed and will continue Levaquin as started in the ER. Podiatry consulted in ER. She den ies CP, SOB, abd. pain, N/V/D. 05/01/24 Pt resting in chair. She is c/o itching which she reports is chronic and home meds restarted that daughter brought in today. Wound culture pending. Podiatry note reviewed. RLE wrapped. Venous duplex pending. Pt denies any further concerns at this time. - Review of Systems Constitutional: No Fever, No Chills Eyes: No Symptoms Ears, Nose, & Throat: No Symptoms Respiratory: No Cough, No Short Of Breath Cardiac: Edema (RLE), No Chest Pain, No Syncope Abdominal/Gastrointestinal: No Abdominal Pain, No Nausea, No Vomiting, No Diarrhea Genitourinary Symptoms: No Dysuria Musculoskeletal: No Back Pain, No Neck Pain Skin: Pruritis, Skin Lesions (RLE wrapped), No Rash Neurological: No Dizziness, No Focal Weakness, No Sensory Changes Psychological: No Symptoms Endocrine: No Symptoms Hematologic/Lymphatic: No Symptoms Immunological/Allergic: No Symptoms Objective Exam General Appearance: no apparent distress, alert Neurologic Exam: alert, oriented x 3, cooperative, normal mood/affect, nml cerebellar function, sensation nml, No motor deficits Skin Exam: normal color, warm, dry Wound Assessment: Skin/Wound Assessment Wound/Incision Assessment Start: 04/30/24 12:10 Text: Status: Active Freq: Q6H Protocol: Document 05/01/24 08:00 ISAIASABELARDO (Rec: 05/01/24 08:56 [id number] Wound/Incision Assessment Right Lower Other Wound Assessment Shift Assessment Wound Type CELLULITIS Dressing Status Dry & Intact Comment wrapped with inna boot, unable to assess Wound Photo Photo Taken No Eye Exam: PERRL, EOMI, eyes nml inspection Ears, Nose, Throat Exam: normal ENT inspection, pharynx normal, moist mucous membranes Neck Exam: normal inspection, non-tender, supple, full range of motion Respiratory Exam: normal breath sounds, lungs clear, No respiratory distress Cardiovascular Exam: regular rate/rhythm, normal heart sounds Gastrointestinal/Abdomen Exam: soft, No tenderness, No mass Extremity Exam: normal inspection, normal range of motion, other (RLE wrapped- edema) Back Exam: normal inspection, normal range of motion, No CVA tenderness, No vertebral tenderness Pelvic Exam: deferred Rectal Exam: deferred Objective Data Vital Signs: Vital Signs - 24 hr Temp Pulse Resp BP Pulse Ox 05/01/24 11:50 97.8 F 74 16 119/58 96 05/01/24 07:13 98.4 F 78 16 112/54 96 05/01/24 04:00 97.8 F 85 22 112/54 96 05/01/24 00:00 97.7 F 77 20 126/58 97 04/30/24 20:00 97.3 F 89 19 116/56 95 04/30/24 15:13 97.9 F 78 16 113/58 100 Pain Assessment - Last Documented Pain Intensity 4 Pain Scale Used 0-10 Pain Scale Intake and Output: Intake & Output 04/29/24 04/30/24 05/01/24 05/02/24 11:59 11:59 11:59 11:59 Intake Total 1641 Output Total 2100 Balance -459 Weight 66.1 kg Lab Results: Lab Results-Last 24 Hours 05/01/24 05/01/24 Range/Units 05:15 05:15 WBC 7.4 (3.98-10.04) x10^3/uL RBC 3.27 L (3.93-5.22) x10^6/uL Hgb 10.0 L (11.2-15.7) g/dL Hct 31.8 L (34.1-44.9) % MCV 97.2 H (79.4-94.8) fL MCH 30.6 (25.6-32.2) pg MCHC 31.4 L (32.2-35.5) g/dL RDW 13.4 (11.7-14.4) % Plt Count 192 (182-369) x10^3/uL MPV 10.9 (9.4-12.3) fL Gran % 61.0 (34.0-71.1) % Immature Gran % (Auto) 0.1 (0.001-0.429) % Nucleat RBC Rel Count 0.0 (0.00-0.2) % Eos # (Auto) 0.91 H (0.04-0.36) x10^3/uL Immature Gran # (Auto) 0.01 (0.001-0.031) x10^3u/L Absolute Lymphs (auto) 1.30 (1.18-3.74) x10^3/uL Absolute Monos (auto) 0.65 (0.24-0.86) x10^3/uL Absolute Nucleated RBC 0.00 (0.00-0.012) x10^3u/L Lymphocytes % 17.5 L (19.3-51.7) % Monocytes % 8.8 (4.7-12.5) % Eosinophils % 12.3 H (0.7-5.8) % Basophils % 0.3 (0.1-1.2) % Absolute Granulocytes 4.52 (1.56-6.13) x10^3/uL Basophils # 0.02 (0.01-0.08) x10^3/uL Sodium 136 (135-145) mmol/L Potassium 4.2 (3.5-5.1) mmol/L Chloride 105 (98-107) mmol/L Carbon Dioxide 29 (22-30) mmol/L Anion Gap 6.3 (5-15) MEQ/L BUN 34 H (7-17) mg/dL Creatinine 0.88 (0.52-1.04) mg/dL Estimated GFR 63.6 ML/MIN Glucose 100 (74-106) mg/dL Calcium 9.1 (8.4-10.2) mg/dL Total Bilirubin 0.30 (0.2-1.3) mg/dL AST 29 (14-36) U/L ALT 15 (0-35) U/L Alkaline Phosphatase 114 (38-126) U/L NT-Pro-B Natriuret Pep 513 (<300) pg/mL Serum Total Protein 5.9 L (6.3-8.2) g/dL Albumin 3.2 L (3.5-5.0) g/dL Multi-Disciplinary Progress Notes: Multi-Disciplinary Progress Notes 04/30/24 12:47 Pharmacy Note by Drew Light Levaquin dose changed to q48h per renal dosing policy. Estimated crcl is 39ml/min. Initialized on 04/30/24 12:47 - END OF NOTE Assessment/Plan (1) Cellulitis Current Visit: Yes Status: Acute Code(s): L03.90 - CELLULITIS, UNSPECIFIED (2) HTN (hypertension) Current Visit: No Status: Chronic Code(s): I10 - ESSENTIAL (PRIMARY) HYPERTENSION (3) Acute on chronic renal failure Current Visit: Yes Status: Acute Code(s): N17.9 - ACUTE KIDNEY FAILURE, UNSPECIFIED; N18.9 - CHRONIC KIDNEY DISEASE, UNSPECIFIED (4) History of DVT (deep vein thrombosis) Current Visit: No Status: Chronic Code(s): Z86.718 - PERSONAL HISTORY OF OTHER VENOUS THROMBOSIS AND EMBOLISM (5) Hypothyroidism Current Visit: No Status: Chronic Code(s): E03.9 - HYPOTHYROIDISM, UNSPECIFIED (6) Obesity (BMI 30.0-34.9) Current Visit: Yes Status: Chronic Assessment & Plan: 1) Cellulitis Current Visit: Yes Status: Acute Assessment & Plan: - Continue Levaquin IV - Wound culture pending - podiatry consult reviewed and agree with plan of care - BC x2 pending - CBC reviewed - Morphine IV PRN pain - Tylenol PRN pain 05/01 - VD today RLE - has HHC at d/c per CM Code(s): L03.90 - CELLULITIS, UNSPECIFIED (2) HTN (hypertension) Current Visit: No Status: Chronic Assessment & Plan: - continue home HCTZ 25, telmisartan 40 - continue KCl 20 mEq BID Code(s): I10 - ESSENTIAL (PRIMARY) HYPERTENSION (3) Acute on chronic renal failure Current Visit: Yes Status: Acute Assessment & Plan: - continue telmisartan as above for renal protection - Creat 1.05- BL 0.77 - CMP reviewed - Hold lasix and HCTZ - LR @ 50 ml/hr 05/01 - IVF stopped - resolved Code(s): N17.9 - ACUTE KIDNEY FAILURE, UNSPECIFIED; N18.9 - CHRONIC KIDNEY DISEASE, UNSPECIFIED (4) History of DVT (deep vein thrombosis) Current Visit: No Status: Chronic Assessment & Plan: - recently, in October - continue eliquis 5 BID 05/01 - VD today RLE Code(s): Z86.718 - PERSONAL HISTORY OF OTHER VENOUS THROMBOSIS AND EMBOLISM (5) Hypothyroidism Current Visit: No Status: Chronic Assessment & Plan: - continue Levothyroxine 75 mcg daily Code(s): E03.9 - HYPOTHYROIDISM, UNSPECIFIED (6) Obesity (BMI 30.0-34.9) Current Visit: Yes Status: Chronic Assessment & Plan: - advised diet and exercise control VTE: Eliquis PPI: Protonix Next fo KIN: Child- Russel Darden [phone] D/C plan: 2- 3 days Code status: SCO/DNR Code(s): E66.811 - OBESITY, CLASS 1 Code(s): E66.811 - OBESITY, CLASS 1
--- NOTE | 2024-05-01 15:20 | XRAY ---
Indication: Cellulitis. Two-dimensional sonogram and color Doppler imaging major venous vessels right leg performed. Comparison: None Proximal greater saphenous vein demonstrates tiny nonoccluding thrombus. No thrombus seen in the remaining examined deep venous vessels right leg. Veins demonstrate normal compressibility. Venous waveforms are normal with and without augmentation. Impression: 1. Tiny nonoccluding superficial venous thrombus in greater saphenous vein. 2. Negative for DVT.
--- NOTE | 2024-05-01 16:01 | PCM.NOTE ---
Date and Time: 05/01/24 1558 Subjective Assessment: doing well. dressing taken down for ultrsound. reassessed today and progressing with apparent improvement in cellulitis. Physical Exam - Narrative Narrative Physical Exam: Podiatry Physical Exam Objective Data Vital Signs: Vital Signs - 24 hr Temp Pulse Resp BP Pulse Ox 05/01/24 11:50 97.8 F 74 16 119/58 96 05/01/24 07:13 98.4 F 78 16 112/54 96 05/01/24 04:00 97.8 F 85 22 112/54 96 05/01/24 00:00 97.7 F 77 20 126/58 97 04/30/24 20:00 97.3 F 89 19 116/56 95 Pain Assessment - Last Documented Pain Intensity 3 Pain Scale Used 0-10 Pain Scale Intake and Output: Intake & Output 04/29/24 04/30/24 05/01/24 05/02/24 11:59 11:59 11:59 11:59 Intake Total 1641 240 Output Total 2100 400 Balance -459 -160 Weight 66.1 kg Lab Results: Lab Results-Last 24 Hours 05/01/24 05/01/24 Range/Units 05:15 05:15 WBC 7.4 (3.98-10.04) x10^3/uL RBC 3.27 L (3.93-5.22) x10^6/uL Hgb 10.0 L (11.2-15.7) g/dL Hct 31.8 L (34.1-44.9) % MCV 97.2 H (79.4-94.8) fL MCH 30.6 (25.6-32.2) pg MCHC 31.4 L (32.2-35.5) g/dL RDW 13.4 (11.7-14.4) % Plt Count 192 (182-369) x10^3/uL MPV 10.9 (9.4-12.3) fL Gran % 61.0 (34.0-71.1) % Immature Gran % (Auto) 0.1 (0.001-0.429) % Nucleat RBC Rel Count 0.0 (0.00-0.2) % Eos # (Auto) 0.91 H (0.04-0.36) x10^3/uL Immature Gran # (Auto) 0.01 (0.001-0.031) x10^3u/L Absolute Lymphs (auto) 1.30 (1.18-3.74) x10^3/uL Absolute Monos (auto) 0.65 (0.24-0.86) x10^3/uL Absolute Nucleated RBC 0.00 (0.00-0.012) x10^3u/L Lymphocytes % 17.5 L (19.3-51.7) % Monocytes % 8.8 (4.7-12.5) % Eosinophils % 12.3 H (0.7-5.8) % Basophils % 0.3 (0.1-1.2) % Absolute Granulocytes 4.52 (1.56-6.13) x10^3/uL Basophils # 0.02 (0.01-0.08) x10^3/uL Sodium 136 (135-145) mmol/L Potassium 4.2 (3.5-5.1) mmol/L Chloride 105 (98-107) mmol/L Carbon Dioxide 29 (22-30) mmol/L Anion Gap 6.3 (5-15) MEQ/L BUN 34 H (7-17) mg/dL Creatinine 0.88 (0.52-1.04) mg/dL Estimated GFR 63.6 ML/MIN Glucose 100 (74-106) mg/dL Calcium 9.1 (8.4-10.2) mg/dL Total Bilirubin 0.30 (0.2-1.3) mg/dL AST 29 (14-36) U/L ALT 15 (0-35) U/L Alkaline Phosphatase 114 (38-126) U/L NT-Pro-B Natriuret Pep 513 (<300) pg/mL Serum Total Protein 5.9 L (6.3-8.2) g/dL Albumin 3.2 L (3.5-5.0) g/dL Radiology Exams: Radiology Procedures Category Date Time Status VENOUS UNILAT/LIMITED EXTREMIT [US] Routine Exams 05/01/24 12:11 Completed Assessment/Plan (1) Venous insufficiency (chronic) (peripheral) Current Visit: Yes Status: Acute Assessment & Plan: Patient examination and evaluation Venous dopplers obtained demonstrating tiny non occluding thrombus within greater saphenous vein. No Deep vein thrombosis identified. Levofloxacin 500 mg PO QOD per pharmacy stewardship for kidney function. Iodine paint to the right lower extremity and adaptic 4x4 unna boot kerlix and coban applied with mild compression to the right lower extremity. Improvement seen already with patient clinical appearance. (2) Fall Current Visit: No Status: Acute Code(s): W19.XXXA - UNSPECIFIED FALL, INITIAL ENCOUNTER (3) Cellulitis Current Visit: Yes Status: Acute Code(s): L03.90 - CELLULITIS, UNSPECIFIED
[2024-05-01] MEDS: PATIENT OWN MEDICATION TOP PRN (21:46)
[2024-05-02] MEDS: ZOFRAN ODT 4 MG PO PRN (01:40)
[2024-05-02 05:04] VITALS: RESP 16
[2024-05-02 05:31] LABS: Hematocrit 33.4 % (34.1-44.9); Hemoglobin 10.6 g/dL (11.2-15.7); Mean Corpuscular Hemoglobin 30.5 pg (25.6-32.2); Mean Corpuscular Hgb Concent. 31.7 g/dL (32.2-35.5); Mean Platelet Volume 10.4 fL (9.4-12.3); Platelet Count 210 x10^3/uL (182-369); Red Blood Count 3.48 x10^6/uL (3.93-5.22); Red Cell Distribution Width 13.4 % (11.7-14.4)
[2024-05-02 05:56] LABS: ALBUMIN 3.3 g/dL (3.5-5.0); ANION GAP 10.5 MEQ/L (5-15); BILIRUBIN,TOTAL 0.2 mg/dL (0.2-1.3); Calcium 8.9 mg/dL (8.4-10.2); Creatinine 1 1.07 mg/dL (0.52-1.04); EST GLOMERULAR FILTRATION RATE 50.3 ML/MIN; Potassium 4.6 mmol/L (3.5-5.1); Total Protein 5.9 g/dL (6.3-8.2)
[2024-05-02] MEDS ORDERED: LEVOFLOXACIN 750MG/150ML D5W 750 MG/150 ML BAG IV SCH (10:00)
[2024-05-02] MEDS: SENOKOT 8.6 MG PO SCH (11:28)
[2024-05-02] MEDS: Levofloxacin 250MG Tablet PO SCH (12:17)
[2024-05-02 12:20] VITALS: BP 126/57; PULSE 80; TEMP 97.5; O2SAT 97
--- NOTE | 2024-05-02 12:56 | PCM.DS ---
Discharge Summary Date of Admission: 04/30/24 11:11 Date of Discharge: 05/02/24 Admitting Physician: OUSMANE CORNELIUS MD Consults: Consults on Case 04/30/24 12:39 Consult Podiatry ROUTINE Primary Care Provider: PATRICIA,SHIVA Allergies Allergies Sulfa (Sulfonamide Antibiotics) Allergy (Mild, Verified 04/30/24 07:53) latex Allergy (Verified 04/30/24 07:53) Hives scallops Allergy (Verified 04/30/24 07:53) Hospital Summary - Hospital Course Hospital Course: 04/30/24 is a 89 year old female with pmhx of HTN, DVT on Eliquis, chronic anemia, GERD, CKD2, hypothyroidism, and restless legs syndrome. She presented to the emergency department today via private vehicle secondary to right lower extremity (below the knee to just above the right foot) with skin changes that have been present and persistent for several weeks per her report. She was just placed on doxycycline yesterday. She was seen at the [facility]. In the last couple of days her pain has worsened and there is been more intense redness present. Her outpatient primary care provider has been managing this site. Patient has seen theatre arts professor, Dr. Zarco in the past. Patient is here today because she is having increasing pain and the site is more tender despite outpatient therapy. She reports weeeping, clear drainage that is soaking through her clothes. She reports being in such pain last night she was pacing in her home. She reports sharp, stabbing, intermittent pain. Old cultures reviewed and will continue Levaquin as started in the ER. Podiatry consulted in ER. She denies CP, SOB, abd. pain, N/V/D. 05/01/24 Pt resting in chair. She is c/o itching which she reports is chronic and home meds restarted that daughter brought in today. Wound culture pending. Podiatry note reviewed. RLE wrapped. Venous duplex pending. Pt denies any further concerns at this time. 05/02/24 Pt resting in bed. She states she is ready to d/c. She reports she has itching from Eliquis which is chronic and she wants to change meds. Explained she would need to discuss with PCP as this is who prescribes her medication. Will d/c with Levaquin PO and follow cultures OP. Pt has HHC per CM. F/U with podiatry OP. - Vitals & Intake/Output Vital Signs: Vital Signs Temperature 97.5 F 05/02/24 12:00 Pulse Rate 80 05/02/24 12:00 Respiratory Rate 16 05/02/24 12:00 Blood Pressure 126/57 05/02/24 12:00 O2 Sat by Pulse Oximetry 97 05/02/24 12:00 Intake & Output: Intake & Output 04/30/24 05/01/24 05/02/24 05/03/24 11:59 11:59 11:59 11:59 Intake Total 1641 1100 Output Total 2100 1100 Balance -459 0 Weight 66.1 kg - Lab Result Diagrams: 05/02/24 05:25 05/02/24 05:25 Lab Results-Last 24 Hrs: Lab Results-Last 24 Hours 05/02/24 05/02/24 Range/Units 05:25 05:25 WBC 8.0 (3.98-10.04) x10^3/uL RBC 3.48 L (3.93-5.22) x10^6/uL Hgb 10.6 L (11.2-15.7) g/dL Hct 33.4 L (34.1-44.9) % MCV 96.0 H (79.4-94.8) fL MCH 30.5 (25.6-32.2) pg MCHC 31.7 L (32.2-35.5) g/dL RDW 13.4 (11.7-14.4) % Plt Count 210 (182-369) x10^3/uL MPV 10.4 (9.4-12.3) fL Sodium 137 (135-145) mmol/L Potassium 4.6 (3.5-5.1) mmol/L Chloride 104 (98-107) mmol/L Carbon Dioxide 27 (22-30) mmol/L Anion Gap 10.5 (5-15) MEQ/L BUN 33 H (7-17) mg/dL Creatinine 1.07 H (0.52-1.04) mg/dL Estimated GFR 50.3 ML/MIN Glucose 150 H (74-106) mg/dL Calcium 8.9 (8.4-10.2) mg/dL Total Bilirubin 0.20 (0.2-1.3) mg/dL AST 30 (14-36) U/L ALT 18 (0-35) U/L Alkaline Phosphatase 104 (38-126) U/L Serum Total Protein 5.9 L (6.3-8.2) g/dL Albumin 3.3 L (3.5-5.0) g/dL Micro Results-Entire Visit: Microbiology 04/30/24 16:41 Wound Culture - Preliminary Skin - Right GRAM POSITIVE ID AND SENSITIVITY PENDING - Radiology Exams Ordered Rad Exams-Entire Visit: Radiology Procedures Category Date Time Status VENOUS UNILAT/LIMITED EXTREMIT [US] Routine Exams 05/01/24 12:11 Completed Discharge Exam General Appearance: no apparent distress, alert Neurologic Exam: alert, oriented x 3, cooperative, normal mood/affect, nml cerebellar function, sensation nml, No motor deficits Eye Exam: PERRL, EOMI, eyes nml inspection Ears, Nose, Throat Exam: normal ENT inspection, pharynx normal, moist mucous membranes Neck Exam: normal inspection, non-tender, supple, full range of motion Respiratory Exam: normal breath sounds, lungs clear, No respiratory distress Cardiovascular Exam: regular rate/rhythm, normal heart sounds Gastrointestinal/Abdomen Exam: soft, No tenderness, No mass Pelvic Exam: deferred Rectal Exam: deferred Back Exam: normal inspection, normal range of motion, No CVA tenderness, No vertebral tenderness Extremity Exam: normal inspection, normal range of motion Skin Exam: normal color, warm, dry, other (dry skin, RLE wrapped) Wound Assessment: Skin/Wound Assessment Wound/Incision Assessment Start: 04/30/24 12:10 Text: Status: Active Freq: Q6H Protocol: Document 05/02/24 08:00 [facility] (Rec: 05/02/24 09:00 [facility] [id number]) Wound/Incision Assessment Right Lower Other Wound Assessment Shift Assessment Wound Type CELLULITIS Dressing Status Dry & Intact Comment dressing changed 05/01/[address] Zarco's nurse today; unaboot CDI Wound Photo Photo Taken No Final Diagnosis/Problem List - Final Discharge Diagnosis/Problem (1) Cellulitis Current Visit: Yes Status: Acute Code(s): L03.90 - CELLULITIS, UNSPECIFIED (2) HTN (hypertension) Current Visit: No Status: Chronic Code(s): I10 - ESSENTIAL (PRIMARY) HYPERTENSION (3) Acute on chronic renal failure Current Visit: Yes Status: Acute Code(s): N17.9 - ACUTE KIDNEY FAILURE, UNSPECIFIED; N18.9 - CHRONIC KIDNEY DISEASE, UNSPECIFIED (4) History of DVT (deep vein thrombosis) Current Visit: No Status: Chronic Code(s): Z86.718 - PERSONAL HISTORY OF OTHER VENOUS THROMBOSIS AND EMBOLISM (5) Hypothyroidism Current Visit: No Status: Chronic Code(s): E03.9 - HYPOTHYROIDISM, UNSPECIFIED (6) Obesity (BMI 30.0-34.9) Current Visit: Yes Status: Chronic Assessment & Plan: 1) Cellulitis Current Visit: Yes Status: Acute Assessment & Plan: - Continue Levaquin IV - Wound culture pending - podiatry consult reviewed and agree with plan of care - BC x2 pending - CBC reviewed - Morphine IV PRN pain - Tylenol PRN pain 05/01 - VD today RLE - has HHC at d/c per CM 05/02 - Podiatry note reviewed and agree with plan of care- F/U OP - Will follow cultures OP - Continue Levaquin PO Code(s): L03.90 - CELLULITIS, UNSPECIFIED (2) HTN (hypertension) Current Visit: No Status: Chronic Assessment & Plan: - continue home HCTZ 25, telmisartan 40 - continue KCl 20 mEq BID Code(s): I10 - ESSENTIAL (PRIMARY) HYPERTENSION (3) Acute on chronic renal failure Current Visit: Yes Status: Acute Assessment & Plan: - continue telmisartan as above for renal protection - Creat 1.05- BL 0.77 - CMP reviewed - Hold lasix and HCTZ - LR @ 50 ml/hr 05/01 - IVF stopped - resolved 05/02 - encourage water intake since she does not have an IV Code(s): N17.9 - ACUTE KIDNEY FAILURE, UNSPECIFIED; N18.9 - CHRONIC KIDNEY DISEASE, UNSPECIFIED (4) History of DVT (deep vein thrombosis) Current Visit: No Status: Chronic Assessment & Plan: - recently, in October - continue eliquis 5 BID 05/01 - VD today RLE:- improved from last VD Impression: 1. Tiny nonoccluding superficial venous thrombus in greater saphenous vein. 2. Negative for DVT. Code(s): Z86.718 - PERSONAL HISTORY OF OTHER VENOUS THROMBOSIS AND EMBOLISM (5) Hypothyroidism Current Visit: No Status: Chronic Assessment & Plan: - continue Levothyroxine 75 mcg daily Code(s): E03.9 - HYPOTHYROIDISM, UNSPECIFIED (6) Obesity (BMI 30.0-34.9) Current Visit: Yes Status: Chronic Assessment & Plan: - advised diet and exercise control Code(s): E66.811 - OBESITY, CLASS 1 - Discharge Discharge Date: 05/02/24 Disposition: HOME HEALTH SERVICE Condition: Stable Prescriptions: New Levofloxacin [Levofloxacin 250MG Tablet] 750 mg PO Q48H 10 Days #10 tablet Continue Tramadol HCl 50 mg [Ultram 50 mg] 50 mg PO Q6HPRN PRN PRN Reason: Pain Levothyroxine Sodium 50 Mcg [Synthroid 50 Mcg] 75 mcg PO DAILY Telmisartan [Micardis] 40 mg PO DAILY Hydrochlorothiazide 25 mg [hydroDIURIL 25 MG] 25 mg PO DAILY Multivitamin [Multi-Vitamin Daily] 1 tab PO DAILY Gabapentin [Neurontin] 100 mg PO EVENING MEAL Cyanocobalamin 1000 Mcg/ml [Cyanocobalamin B-12 1000 MCG/ML] 1,000 mcg IJ UD Furosemide 20 mg [Lasix 20 mg] 20 mg PO DAILY PRN PRN PRN Reason: SWELLING Potassium Chloride Tab* [Klor Con] 10 meq PO BID Acetaminophen 500 mg [Tylenol Extra Strength 500 mg] 500 mg PO Q4H PRN PRN PRN Reason: Pain Pramipexole Di-HCl [Pramipexole Dihydrochloride] 1 mg PO QHS Pramipexole Di-HCl [Pramipexole Dihydrochloride] 0.5 mg PO 1200,1800 Loratadine 10 mg [Claritin 10 mg] 10 mg PO DAILY Gabapentin 200 mg PO QHS Apixaban [Eliquis 2.5 mg Tablet] 5 mg PO BID Cholecalciferol (Vitamin D3) [Vitamin D3] 62.5 mcg PO 3XW Ondansetron ODT 4 MG [Zofran Odt 4 mg] 1 tab PO Q4-6HPRN PRN PRN Reason: Nausea/Vomiting Folic Acid/Vit B Complex and C [Super B Complex Tablet] 1 tab PO DAILY Hydroxyzine HCl 25 mg [Atarax 25 mg] 25 mg PO TIDPRN PRN PRN Reason: Itching Triamcinolone 0.1% Cream [Kenalog 0.1% Cream 15 gm] 0 gm TP BIDPRN PRN PRN Reason: Itching Additional Instructions: Pt needs dressing changes by C 3 times a week. Apply iodine to entire right lower leg. Apply adaptic and sterile 4x4 gauze to affected areas of right lower leg. Apply unna boot, fan-folded, to level of tibial tuberosity. Wrap with kerlix to same level. Wrap with coban with mild (30%) compression to same level. Follow up with: SHIVA GOMEZ MD [Primary Care Provider] - 05/12/24 10:45 am ([facility])
--- NOTE | 2024-05-04 13:13 | PCM.NOTE ---
Date and Time: 05/02/24 1312 Subjective Assessment: DOing well at bedside. no new complaints Physical Exam - Narrative Narrative Physical Exam: Podiatry Physical Exam Objective Data Vital Signs: Pain Assessment - Last Documented Pain Intensity 2 Pain Scale Used 0-10 Pain Scale Intake and Output: Intake & Output 05/02/24 05/03/24 05/04/24 05/05/24 11:59 11:59 11:59 11:59 Intake Total 1100 120 Output Total 1100 Balance 0 120 Assessment/Plan (1) Venous insufficiency (chronic) (peripheral) Status: Acute Assessment & Plan: Patient examination and evaluation Venous dopplers obtained demonstrating tiny non occluding thrombus within greater saphenous vein. No Deep vein thrombosis identified. Levofloxacin 500 mg PO QOD per pharmacy stewardship for kidney function. Iodine paint to the right lower extremity and adaptic 4x4 unna boot kerlix and coban applied with mild compression to the right lower extremity. Improvement seen already with patient clinical appearance. (2) Fall Status: Acute Code(s): W19.XXXA - UNSPECIFIED FALL, INITIAL ENCOUNTER (3) Cellulitis Status: Acute Code(s): L03.90 - CELLULITIS, UNSPECIFIED
== END 2024-05-02 15:50 | disposition home health service (06) ==
LOC: ED 07:34 → MED SURG 11:11
PROVIDERS: ADMIT Internal Medicine; ATTEND Internal Medicine
DX: L03.115 Cellulitis of right lower limb (principal); I12.9 Hypertensive chronic kidney disease with stage 1 through stage 4 chronic kidney disease, or unspecified chronic kidney disease; N18.2 Chronic kidney disease, stage 2 (mild); N17.9 Acute kidney failure, unspecified; Z86.718 Personal history of other venous thrombosis and embolism; E03.9 Hypothyroidism, unspecified; D64.9 Anemia, unspecified; K21.9 Gastro-esophageal reflux disease without esophagitis; W19.XXXA Unspecified fall, initial encounter; I87.2 Venous insufficiency (chronic) (peripheral); E66.811 Obesity, class 1; Z79.899 Other long term (current) drug therapy; Z79.01 Long term (current) use of anticoagulants
CPT/HCPCS: 29580; 36415; 80053; 83605; 83880; 85025; 85027; 87040; 87070; 87077; 87186; 93971; 94760; 96374; 96375; 99223; 99232; 99285; G0378; J1956; J2270; J2405; Q0162; Q3014; A9270-GY

== ENCOUNTER 2024-05-12 06:54 | Emergency (ER) | payer MEDICARE ==
[2024-05-12 07:11] VITALS: TEMP 97.1
[2024-05-12] MEDS ORDERED: TORAdol 30 mg Injection ONE (07:46)
[2024-05-12] MEDS: TORAdol 30 mg Injection IM ONE (07:47)
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
--- NOTE | 2024-05-12 08:38 | XRAY ---
Indication: Pain. DVT. Two-dimensional sonogram and color Doppler imaging major venous vessels were left performed. Comparison: May 01, 2024 Grossly stable nonoccluding thrombus in the proximal greater saphenous vein. No thrombus in the remaining deep venous vessels right leg. Patent veins demonstrate normal compressibility and normal venous waveforms. Impression: No change compared to 10 days ago. Stable nonoccluding superficial venous thrombus in greater saphenous vein. Continue negative for DVT.
[2024-05-12 08:40] LABS: Absolute Neutrophil Ct (ANC) 3.52 x10^3/uL (1.56-6.13); BASOPHIL % 0.6 % (0.1-1.2); Basophil (Absolute #) 0.04 x10^3/uL (0.01-0.08); Eosinophil % 17.4 % (0.7-5.8); Eosinophil (Absolute #) 1.18 x10^3/uL (0.04-0.36); Hematocrit 31.5 % (34.1-44.9); Hemoglobin 9.9 g/dL (11.2-15.7); IMMATURE GRAN # 0.04 x10^3u/L (0.001-0.031); IMMATURE GRAN % 0.6 % (0.001-0.429); Lymphocytes % 20.6 % (19.3-51.7); Mean Cell Volume 96.9 fL (79.4-94.8); Mean Corpuscular Hemoglobin 30.5 pg (25.6-32.2); Mean Corpuscular Hgb Concent. 31.4 g/dL (32.2-35.5); Mean Platelet Volume 10.7 fL (9.4-12.3); Monocytes % 8.8 % (4.7-12.5); Platelet Count 205 x10^3/uL (182-369); Red Blood Count 3.25 x10^6/uL (3.93-5.22); Red Cell Distribution Width 13.9 % (11.7-14.4); White Blood Count 6.8 x10^3/uL (3.98-10.04)
[2024-05-12 08:42] LABS: ALBUMIN 3.5 g/dL (3.5-5.0); ANION GAP 9.4 MEQ/L (5-15); BILIRUBIN,TOTAL 0.2 mg/dL (0.2-1.3); Calcium 9.4 mg/dL (8.4-10.2); Creatinine 1 0.96 mg/dL (0.52-1.04); EST GLOMERULAR FILTRATION RATE 57.3 ML/MIN; Potassium 4.8 mmol/L (3.5-5.1); Total Protein 5.8 g/dL (6.3-8.2)
[2024-05-12] MEDS: MORPHINE SULFATE 4 MG INJ IM ONE (08:52)
[2024-05-12] MEDS ORDERED: MORPHINE SULFATE 4 MG INJ ONE (08:52)
[2024-05-12 10:00] LABS: Appearance Clear (Clear); Bacteria None Seen /HPF (None Seen); Bilirubin Negative (Negative); Blood Negative (Negative); Epithelial Cells None Seen /HPF (None Seen); Glucose, Urine Negative (Negative); Hyaline Casts NONE SEEN /LPF (0-2); Ketones Negative (Negative); Leukocyte Esterase Negative (Negative); Nitrite Negative (Negative); Protein,Urine Dip Negative (Negative); RBC 0-2 /HPF (0-5); Specific Gravity 1.025 (1.005-1.030); Urobilinogen 0.2 mg/dL (0.2); WBC 0-2 /HPF (0-5)
[2024-05-12 12:51] VITALS: O2SAT 98
[2024-05-12 13:54] VITALS: BP 127/75; PULSE 88; RESP 16
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
== END 2024-05-12 13:42 | disposition home or self-care (01) ==
LOC: ED 06:54
DX: I82.811 Embolism and thrombosis of superficial veins of right lower extremity (principal); M79.604 Pain in right leg; R10.2 Pelvic and perineal pain; I12.9 Hypertensive chronic kidney disease with stage 1 through stage 4 chronic kidney disease, or unspecified chronic kidney disease; N18.2 Chronic kidney disease, stage 2 (mild); Z79.01 Long term (current) use of anticoagulants; Z79.891 Long term (current) use of opiate analgesic; Z79.899 Other long term (current) drug therapy
CPT/HCPCS: 29580; 36415; 80053; 81001; 82550; 83605; 85025; 93971; 96372; 99221; 99284; J1885; J2270

== ENCOUNTER 2024-05-24 05:56 | Observation (INO) | payer MEDICARE ==
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
[2024-05-24 06:40] LABS: Absolute Neutrophil Ct (ANC) 6.55 x10^3/uL (1.56-6.13); BASOPHIL % 0.3 % (0.1-1.2); Basophil (Absolute #) 0.03 x10^3/uL (0.01-0.08); Eosinophil % 9.1 % (0.7-5.8); Eosinophil (Absolute #) 0.82 x10^3/uL (0.04-0.36); Hematocrit 36.5 % (34.1-44.9); Hemoglobin 11.6 g/dL (11.2-15.7); IMMATURE GRAN # 0.04 x10^3u/L (0.001-0.031); IMMATURE GRAN % 0.4 % (0.001-0.429); Lymphocyte (Absolute #) 0.99 x10^3/uL (1.18-3.74); Mean Cell Volume 94.1 fL (79.4-94.8); Mean Corpuscular Hemoglobin 29.9 pg (25.6-32.2); Mean Corpuscular Hgb Concent. 31.8 g/dL (32.2-35.5); Mean Platelet Volume 10.8 fL (9.4-12.3); Monocytes % 6.6 % (4.7-12.5); Neutrophil % 72.6 % (34.0-71.1); Platelet Count 216 x10^3/uL (182-369); Red Blood Count 3.88 x10^6/uL (3.93-5.22); Red Cell Distribution Width 13.9 % (11.7-14.4)
[2024-05-24] MEDS ORDERED: Zofran 4 MG/2 ML VIAL ONE ×2 (06:55→09:53)
[2024-05-24] MEDS: Zofran 4 MG/2 ML VIAL IV ONE ×2 (06:57→09:53)
[2024-05-24 07:04] LABS: ALBUMIN 4.2 g/dL (3.5-5.0); ANION GAP 9.7 MEQ/L (5-15); BILIRUBIN,TOTAL 0.4 mg/dL (0.2-1.3); Calcium 10.2 mg/dL (8.4-10.2); Creatinine 1 0.82 mg/dL (0.52-1.04); EST GLOMERULAR FILTRATION RATE 69.2 ML/MIN; Potassium 4.6 mmol/L (3.5-5.1)
[2024-05-24 07:17] LABS: INFLUENZA A NEGATIVE (NEGATIVE); INFLUENZA B NEGATIVE (NEGATIVE); RESPIRATORY SYNCTIAL VIRUS NEGATIVE (NEGATIVE); SARS-CoV-2 Xpert Express NEGATIVE (NEGATIVE)
--- NOTE | 2024-05-24 09:01 | XRAY ---
CLINICAL HISTORY: abd pain COMPARISON: Comparison is made with prior study dated 05/24/2024 TECHNIQUE: Non-contrast CT of the abdomen and pelvis was performed, with the following protocol: axial images, and reconstructed coronal and sagittal images. No intravenous contrast was administered. One of the following dose reduction techniques was utilized for this exam: Automated exposure control, adjustment of the mA and/or kV according to patient size, and use of iterative reconstruction. FINDINGS: Abdomen: Liver: Normal in size, shape, and density. No focal lesions, cysts, or masses were identified. Gallbladder and Biliary System: The gallbladder is normal in size and shape. No wall thickening, pericholecystic fluid, or gallstones were identified. Midline 8.5 mm calcification seen, stable, possibly dystrophic Pancreas: Pancreatic head, body, and tail are visualized and appear normal in size and density. No pancreatic masses or calcifications were noted. Spleen: Normal in size, shape, and density. No splenic lesions or masses were identified. Kidneys and Adrenal Glands: Both kidneys are normal in size, shape, and position. Cortical thickness is within normal limits. No renal calculi or hydronephrosis. Adrenal glands are unremarkable. Appendix: Appendix couldn't be visualized. Pelvis: Marked artifact related to bilateral total hip replacement reducing ability to asses pelvic structures. Peritoneal and Retroperitoneal Structures: No free fluid or abnormal fluid collections were identified within the abdomen or pelvis. No lymphadenopathy was noted. Bowel: A short segment of irregular mural circumferential thickening in the second part of the duodenum, measures 13 mm in single wall thickness and 39 mm in length, with marked dilatation of the stomach, further assessment with CT with contrast/endoscope is needed. Sigmoid and colonic diverticulosis with no evidence of acute inflammation. The visualized bowel loops are normal in caliber and appearance. No evidence of bowel obstruction or wall thickening. Bones and Soft Tissues: Marked thoracic scoliosis to the right. Advanced lumbar spondylosis. Bilateral total hip replacement. Right lower lobe calcified pulmonary nodule. IMPRESSION: 1. Short segment of irregular mural circumferential thickening in the second part of the duodenum, measures 13 mm in single wall thickness and 39 mm in length, with marked dilatation of the stomach, further assessment with CT with contrast/endoscope is needed. Progression. 2. Sigmoid and colonic diverticulosis with no evidence of acute inflammation. 3. No interval changes. Electronically Signed by: La Nena Brooke MD. (05/24/2024 08:57:42 EST)
[2024-05-24] MEDS ORDERED: SUBLIMAZE 100 MCG/2 ML ONE (11:05)
[2024-05-24] MEDS ORDERED: Sodium Chloride 100ML MINI-BAG PLUS 100 ML IV ONE (11:06)
[2024-05-24] MEDS ORDERED: PIPERACILLIN/TAZOBACTAM IV ONE (11:06)
[2024-05-24] MEDS: SUBLIMAZE 100 MCG/2 ML IV ONE (11:08)
[2024-05-24] MEDS: Sodium Chloride 0.9% 1000 ML 1,000 ML IV SCH (11:08)
[2024-05-24] MEDS: PIPERACILLIN/TAZOBACTAM 3.375 GM in Sodium Chloride 100ML MINI-BAG PLUS 100 ML IV ONE (11:08)
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
[2024-05-24] MEDS ORDERED: TYLENOL 325 MG PO PRN (12:30)
[2024-05-24] MEDS ORDERED: TYLENOL EXTRA STRENGTH 500 MG PO PRN (12:40)
[2024-05-24] MEDS ORDERED: Cyanocobalamin B-12 1000 MCG/ML IJ SCH (12:45)
[2024-05-24] MEDS ORDERED: CHOLECALCIFEROL PO SCH (12:45)
[2024-05-24] MEDS: Zofran 4 MG/2 ML VIAL IV PRN (17:03)
[2024-05-24] MEDS: MORPHINE SULFATE 2 MG INJ IV PRN (17:38)
[2024-05-24] MEDS: Piperacillin/Tazobactam 2.25 GM 2.25 GM in Sodium Chloride 100ML MINI-BAG PLUS 100 ML IV SCH (17:39)
[2024-05-24] MEDS ORDERED: PIPERACILLIN/TAZOBACTAM 3.375 GM in Sodium Chloride 100ML MINI-BAG PLUS 100 ML IV SCH (18:00)
[2024-05-24] MEDS ORDERED: NON-FORMULARY ITEM (Pramipexole Di-Hcl [Pramipexole Dihydrochloride] 1 MG Tablet) PO SCH ×2 (18:00→22:00)
[2024-05-24] MEDS: Mirapex 0.5 MG Tablet PO SCH ×2 (18:03→22:44)
[2024-05-24 18:31] LABS: Appearance Clear (Clear); Bacteria None Seen /HPF (None Seen); Bilirubin Negative (Negative); Blood Negative (Negative); Epithelial Cells None Seen /HPF (None Seen); Glucose, Urine Negative (Negative); Hyaline Casts NONE SEEN /LPF (0-2); Ketones Negative (Negative); Leukocyte Esterase Negative (Negative); Nitrite Negative (Negative); Ph 7.5 (4.6-8.0); Protein,Urine Dip Negative (Negative); RBC 0-2 /HPF (0-5); Specific Gravity 1.015 (1.005-1.030); Urobilinogen 0.2 mg/dL (0.2); WBC 0-2 /HPF (0-5)
--- NOTE | 2024-05-24 20:57 | XRAY ---
CLINICAL HISTORY: NG PLACEMENT COMPARISON: 02/09/2024. TECHNIQUE: X-ray images of the chest were obtained in AP projection. FINDINGS: Pulmonary Parenchyma: Lungs are clear bilaterally. No evidence of consolidation, collapse, or focal opacities. No pulmonary nodules were identified. No evidence of pleural effusion or pleural thickening. Heart and Mediastinum: Heart size and shape are normal. No mediastinal widening or masses. No hilar or mediastinal lymphadenopathy. Bony Thorax: Old rib fracture in the left. Metallic density seen projecting over the midthoracic spine. Bilateral total shoulder arthroplasty. Soft Tissues: Soft tissues overlying the chest wall are unremarkable. IMPRESSION: 1. No acute cardiopulmonary findings. 2. Coiled NGT, with its tip, pointed upwards, however, still under left hemidiaphragm. 3. Clinical correlation and follow-up are advised. Electronically Signed by: La Nena Brooke MD. (05/24/2024 20:52:13 EST)
[2024-05-24] MEDS: Klor Con PO SCH (22:44)
[2024-05-24] MEDS: PROTONIX 40 MG IV IV SCH (22:48)
[2024-05-25] MEDS: KENALOG 0.1% CREAM 15 GM TP PRN (02:26)
--- NOTE | 2024-05-25 05:21 | PCM.NOTE ---
Date and Time: 05/25/24 0520 Subjective Assessment: is a 89 year old female with a pmhx of DVT , peptic ulcer disease, HTN, hypothyroidism, OA, GERD, CKD, and RLS who presented to ED 05/24/24 with complaints of progressive abdominal pain over the past two weeks. Patient states the pain is constant in the upper epigastric portion of her abdomen with radiation into her back and groin. She describes the pain a sharp with no aggravating/relieving factors. She reports pain is similar to pain she had with past peptic ulcer. She has also had some nausea for about a week and vomiting today. Abdomen is diffusely tender and firm. Patient states last bowel movement was three days ago and was black/green and loose. Denies fever,cough, sob, cp, [place]UR[place], dizziness, diarrhea, unexplained weight loss, or rectal bleeding. Upon arrival to ED, vitals are stable. CT abdomen and pelvis demonstrates Short segment of irregular mural circumferential thickening in the second part of the duodenum, measures 13 mm in single wall thickness and 39 mm in length, with marked dilatation of the stomach. Lab findings remarkable for mild elevated Bun, AST, and alk phos. Surgery consulted - NG placed, plan for re-evaluation with CT w/contrast. 05/25/24: Met with patient bedside. Endorses improvement in abdominal pain - now 3/10 on numerical pain scale. Some nausea overnight but this has improved as well. Surgery to re-evaluate patient today. Denies fever,cough, sob, cp, DUR[place], dizziness, V/D. - Review of Systems Constitutional: No Symptoms Eyes: No Symptoms Ears, Nose, & Throat: No Symptoms Respiratory: No Symptoms Cardiac: No Symptoms Abdominal/Gastrointestinal: Abdominal Pain, Nausea Genitourinary Symptoms: No Symptoms Musculoskeletal: No Symptoms Skin: No Symptoms Neurological: No Symptoms Psychological: No Symptoms Endocrine: No Symptoms Hematologic/Lymphatic: No Symptoms Immunological/Allergic: No Symptoms Objective Exam General Appearance: no apparent distress Neurologic Exam: alert, oriented x 3, cooperative Skin Exam: normal color Eye Exam: PERRL Ears, Nose, Throat Exam: normal ENT inspection Neck Exam: normal inspection Respiratory Exam: normal breath sounds, lungs clear Cardiovascular Exam: regular rate/rhythm, normal heart sounds Gastrointestinal/Abdomen Exam: soft, tenderness, distention (mild), other (hypoactive bs x 4 quads) Extremity Exam: normal inspection, normal range of motion Back Exam: normal inspection, normal range of motion Pelvic Exam: deferred Rectal Exam: deferred Objective Data Vital Signs: Vital Signs - 24 hr Temp Pulse Resp BP BP Pulse Ox 05/25/24 04:00 97.8 F 96 H 16 119/58 94 L 05/24/24 23:48 97.5 F 83 17 135/59 96 05/24/24 19:49 97.4 F 91 H 18 171/76 94 L 05/24/24 15:57 96.8 F 78 18 135/63 97 05/24/24 11:59 97.6 F 86 18 139/65 95 05/24/24 11:30 70 16 130/61 05/24/24 11:00 131/69 05/24/24 10:30 70 16 117/80 96 05/24/24 10:00 140/76 96 05/24/24 09:30 17 145/72 05/24/24 09:01 14 142/82 05/24/24 08:30 17 125/83 95 05/24/24 08:00 78 14 127/67 99 05/24/24 07:30 80 18 141/67 94 L 05/24/24 07:07 65 20 126/57 98 05/24/24 07:06 24 98 05/24/24 07:02 26 H 98 05/24/24 06:58 95 05/24/24 06:30 20 130/75 97 05/24/24 06:00 78 23 136/80 95 05/24/24 05:56 96.9 F 72 14 148/78 96 05/24/24 05:53 81 12 148/78 96 Pain Assessment - Last Documented Pain Intensity 6 Pain Scale Used 0-10 Pain Scale Intake and Output: Intake & Output 05/22/24 05/23/24 05/24/24 05/25/24 11:59 11:59 11:59 11:59 Intake Total 1746 Output Total 1775 Balance -29 Weight 64.5 kg 65.5 kg Lab Results: Lab Results-Last 24 Hours 05/24/24 05/24/24 05/24/24 Range/Units 06:35 06:35 06:35 WBC 9.0 (3.98-10.04) x10^3/uL RBC 3.88 L (3.93-5.22) x10^6/uL Hgb 11.6 (11.2-15.7) g/dL Hct 36.5 (34.1-44.9) % MCV 94.1 (79.4-94.8) fL MCH 29.9 (25.6-32.2) pg MCHC 31.8 L (32.2-35.5) g/dL RDW 13.9 (11.7-14.4) % Plt Count 216 (182-369) x10^3/uL MPV 10.8 (9.4-12.3) fL Gran % 72.6 H (34.0-71.1) % Immature Gran % (Auto) 0.4 (0.001-0.429) % Nucleat RBC Rel Count 0.0 (0.00-0.2) % Eos # (Auto) 0.82 H (0.04-0.36) x10^3/uL Immature Gran # (Auto) 0.04 H (0.001-0.031) x10^3u/L Absolute Lymphs (auto) 0.99 L (1.18-3.74) x10^3/uL Absolute Monos (auto) 0.60 (0.24-0.86) x10^3/uL Absolute Nucleated RBC 0.00 (0.00-0.012) x10^3u/L Lymphocytes % 11.0 L (19.3-51.7) % Monocytes % 6.6 (4.7-12.5) % Eosinophils % 9.1 H (0.7-5.8) % Basophils % 0.3 (0.1-1.2) % Absolute Granulocytes 6.55 H (1.56-6.13) x10^3/uL Basophils # 0.03 (0.01-0.08) x10^3/uL Sodium 139 (135-145) mmol/L Potassium 4.6 (3.5-5.1) mmol/L Chloride 97 L (98-107) mmol/L Carbon Dioxide 37 H (22-30) mmol/L Anion Gap 9.7 (5-15) MEQ/L BUN 31 H (7-17) mg/dL Creatinine 0.82 (0.52-1.04) mg/dL Estimated GFR 69.2 ML/MIN Glucose 113 H (74-106) mg/dL Calcium 10.2 (8.4-10.2) mg/dL Total Bilirubin 0.40 (0.2-1.3) mg/dL AST 50 H (14-36) U/L ALT 26 (0-35) U/L Alkaline Phosphatase 130 H (38-126) U/L Troponin I (0.000-0.033) ng/mL Serum Total Protein 7.0 (6.3-8.2) g/dL Albumin 4.2 (3.5-5.0) g/dL Amylase 94 (30-110) U/L Lipase 128 (23-300) U/L Urine Color (Yellow) Urine Appearance (Clear) Urine pH (4.6-8.0) Ur Specific [place] (1.005-1.030) Urine Protein (Negative) Urine Glucose (UA) (Negative) mg/dL Urine Ketones (Negative) Urine Blood (Negative) Urine Nitrite (Negative) Urine Bilirubin (Negative) Urine Urobilinogen (0.2) mg/dL Ur Leukocyte Esterase (Negative) U Hyaline Cast (Auto) (0-2) /LPF Urine Microscopic RBC (0-5) /HPF Urine Microscopic WBC (0-5) /HPF Ur Epithelial Cells (None Seen) /HPF Urine Bacteria (None Seen) /HPF Urine Culture Reflexed (NO) Influenza Type A Ag NEGATIVE (NEGATIVE) Influenza Type B Ag NEGATIVE (NEGATIVE) RSV (PCR) NEGATIVE (NEGATIVE) SARS-CoV-2 (PCR) NEGATIVE (NEGATIVE) 05/24/24 05/24/24 05/24/24 Range/Units 06:35 10:50 13:59 WBC (3.98-10.04) x10^3/uL RBC (3.93-5.22) x10^6/uL Hgb (11.2-15.7) g/dL Hct (34.1-44.9) % MCV (79.4-94.8) fL MCH (25.6-32.2) pg MCHC (32.2-35.5) g/dL RDW (11.7-14.4) % Plt Count (182-369) x10^3/uL MPV (9.4-12.3) fL Gran % (34.0-71.1) % Immature Gran % (Auto) (0.001-0.429) % Nucleat RBC Rel Count (0.00-0.2) % Eos # (Auto) (0.04-0.36) x10^3/uL Immature Gran # (Auto) (0.001-0.031) x10^3u/L Absolute Lymphs (auto) (1.18-3.74) x10^3/uL Absolute Monos (auto) (0.24-0.86) x10^3/uL Absolute Nucleated RBC (0.00-0.012) x10^3u/L Lymphocytes % (19.3-51.7) % Monocytes % (4.7-12.5) % Eosinophils % (0.7-5.8) % Basophils % (0.1-1.2) % Absolute Granulocytes (1.56-6.13) x10^3/uL Basophils # (0.01-0.08) x10^3/uL Sodium (135-145) mmol/L Potassium (3.5-5.1) mmol/L Chloride (98-107) mmol/L Carbon Dioxide (22-30) mmol/L Anion Gap (5-15) MEQ/L BUN (7-17) mg/dL Creatinine (0.52-1.04) mg/dL Estimated GFR ML/MIN Glucose (74-106) mg/dL Calcium (8.4-10.2) mg/dL Total Bilirubin (0.2-1.3) mg/dL AST (14-36) U/L ALT (0-35) U/L Alkaline Phosphatase (38-126) U/L Troponin I < 0.012 < 0.012 < 0.012 (0.000-0.033) ng/mL Serum Total Protein (6.3-8.2) g/dL Albumin (3.5-5.0) g/dL Amylase (30-110) U/L Lipase (23-300) U/L Urine Color (Yellow) Urine Appearance (Clear) Urine pH (4.6-8.0) Ur Specific [place] (1.005-1.030) Urine Protein (Negative) Urine Glucose (UA) (Negative) mg/dL Urine Ketones (Negative) Urine Blood (Negative) Urine Nitrite (Negative) Urine Bilirubin (Negative) Urine Urobilinogen (0.2) mg/dL Ur Leukocyte Esterase (Negative) U Hyaline Cast (Auto) (0-2) /LPF Urine Microscopic RBC (0-5) /HPF Urine Microscopic WBC (0-5) /HPF Ur Epithelial Cells (None Seen) /HPF Urine Bacteria (None Seen) /HPF Urine Culture Reflexed (NO) Influenza Type A Ag (NEGATIVE) Influenza Type B Ag (NEGATIVE) RSV (PCR) (NEGATIVE) SARS-CoV-2 (PCR) (NEGATIVE) 05/24/24 Range/Units 18:20 WBC (3.98-10.04) x10^3/uL RBC (3.93-5.22) x10^6/uL Hgb (11.2-15.7) g/dL Hct (34.1-44.9) % MCV (79.4-94.8) fL MCH (25.6-32.2) pg MCHC (32.2-35.5) g/dL RDW (11.7-14.4) % Plt Count (182-369) x10^3/uL MPV (9.4-12.3) fL Gran % (34.0-71.1) % Immature Gran % (Auto) (0.001-0.429) % Nucleat RBC Rel Count (0.00-0.2) % Eos # (Auto) (0.04-0.36) x10^3/uL Immature Gran # (Auto) (0.001-0.031) x10^3u/L Absolute Lymphs (auto) (1.18-3.74) x10^3/uL Absolute Monos (auto) (0.24-0.86) x10^3/uL Absolute Nucleated RBC (0.00-0.012) x10^3u/L Lymphocytes % (19.3-51.7) % Monocytes % (4.7-12.5) % Eosinophils % (0.7-5.8) % Basophils % (0.1-1.2) % Absolute Granulocytes (1.56-6.13) x10^3/uL Basophils # (0.01-0.08) x10^3/uL Sodium (135-145) mmol/L Potassium (3.5-5.1) mmol/L Chloride (98-107) mmol/L Carbon Dioxide (22-30) mmol/L Anion Gap (5-15) MEQ/L BUN (7-17) mg/dL Creatinine (0.52-1.04) mg/dL Estimated GFR ML/MIN Glucose (74-106) mg/dL Calcium (8.4-10.2) mg/dL Total Bilirubin (0.2-1.3) mg/dL AST (14-36) U/L ALT (0-35) U/L Alkaline Phosphatase (38-126) U/L Troponin I (0.000-0.033) ng/mL Serum Total Protein (6.3-8.2) g/dL Albumin (3.5-5.0) g/dL Amylase (30-110) U/L Lipase (23-300) U/L Urine Color Yellow (Yellow) Urine Appearance Clear (Clear) Urine pH 7.5 (4.6-8.0) Ur Specific [place] 1.015 (1.005-1.030) Urine Protein Negative (Negative) Urine Glucose (UA) Negative (Negative) mg/dL Urine Ketones Negative (Negative) Urine Blood Negative (Negative) Urine Nitrite Negative (Negative) Urine Bilirubin Negative (Negative) Urine Urobilinogen 0.2 (0.2) mg/dL Ur Leukocyte Esterase Negative (Negative) U Hyaline Cast (Auto) NONE SEEN (0-2) /LPF Urine Microscopic RBC 0-2 (0-5) /HPF Urine Microscopic WBC 0-2 (0-5) /HPF Ur Epithelial Cells None Seen (None Seen) /HPF Urine Bacteria None Seen (None Seen) /HPF Urine Culture Reflexed NO (NO) Influenza Type A Ag (NEGATIVE) Influenza Type B Ag (NEGATIVE) RSV (PCR) (NEGATIVE) SARS-CoV-2 (PCR) (NEGATIVE) Radiology Exams: Radiology Procedures Category Date Time Status ABDOMEN AND PELVIS W/0 CONTRAS [CT] Stat Exams 05/24/24 07:22 Completed CHEST 1 VIEW (PORTABLE) Stat Exams 05/24/24 19:14 Completed Assessment/Plan (1) Duodenitis Current Visit: Yes Status: Acute Assessment & Plan: -H/o peptic ulcer disease and GERD -CT abdomen and pelvis demonstrates Short segment of irregular mural circumferential thickening in the second part of the duodenum, measures 13 mm in single wall thickness and 39 mm in length, with marked dilatation of the stomach with recommendations for contrast imaging/EGD -Protonix 40mg BID -General surgery consult for EGD -Zosyn started in ED, will continue -IVF -Supportive care with anti-emetics/ pain control -Med review for gastric irritants -stools for occult blood -Hgb reviewed and WNL at 11.6 05/25/24: -Surgery paper note in chart reviewed - plan for repeat CT today and re-eval by surgical team -CMP/CBC reviewed and unremarkable -continue protonix/ Zosyn -IVF -Supportive care -occult stools pending Code(s): K29.80 - DUODENITIS WITHOUT BLEEDING (2) Abdominal pain Current Visit: Yes Status: Acute Assessment & Plan: -see duodenitis Code(s): R10.9 - UNSPECIFIED ABDOMINAL PAIN (3) RLS (restless legs syndrome) Current Visit: Yes Status: Acute Assessment & Plan: -continue home meds (4) Osteoarthritis Current Visit: Yes Status: Acute Assessment & Plan: -noted- avoid NSAIDS/gastric irritants Code(s): M19.90 - UNSPECIFIED OSTEOARTHRITIS, UNSPECIFIED SITE (5) CKD (chronic kidney disease), stage II Current Visit: No Status: Chronic Assessment & Plan: -creat reviewed and at baseline WNL -monitor renal/lytes -avoid nephrotoxic agents 05/25: -Creat reviewed and WNL Code(s): N18.2 - CHRONIC KIDNEY DISEASE, STAGE 2 (MILD) (6) Essential (primary) hypertension Current Visit: No Status: Chronic Assessment & Plan: -stable- continue home meds Code(s): I10 - ESSENTIAL (PRIMARY) HYPERTENSION (7) GERD (gastroesophageal reflux disease) Current Visit: No Status: Chronic Assessment & Plan: -Protonix Code(s): K21.9 - GASTRO-ESOPHAGEAL REFLUX DISEASE WITHOUT ESOPHAGITIS (8) History of DVT (deep vein thrombosis) Current Visit: No Status: Chronic Assessment & Plan: -Patient states she was taken off Eliquis by PCP Dr. Powers- no alternative due to rash- DVT dx > 6 months ago Code(s): Z86.718 - PERSONAL HISTORY OF OTHER VENOUS THROMBOSIS AND EMBOLISM (9) Hypothyroidism Current Visit: No Status: Chronic Assessment & Plan: -Continue synthroid. VTE: SCD - possible EGD PPI: protonix Dispo: 1-2 days Code(s): K29.80 - DUODENITIS WITHOUT BLEEDING (2) Abdominal pain Current Visit: Yes Status: Acute Code(s): R10.9 - UNSPECIFIED ABDOMINAL PAIN (3) RLS (restless legs syndrome) Current Visit: Yes Status: Acute (4) Osteoarthritis Current Visit: Yes Status: Acute Code(s): M19.90 - UNSPECIFIED OSTEOARTHRITIS, UNSPECIFIED SITE (5) CKD (chronic kidney disease), stage II Current Visit: No Status: Chronic Code(s): N18.2 - CHRONIC KIDNEY DISEASE, STAGE 2 (MILD) (6) Essential (primary) hypertension Current Visit: No Status: Chronic Code(s): I10 - ESSENTIAL (PRIMARY) HYPERTENSION (7) GERD (gastroesophageal reflux disease) Current Visit: No Status: Chronic Code(s): K21.9 - GASTRO-ESOPHAGEAL REFLUX DISEASE WITHOUT ESOPHAGITIS (8) History of DVT (deep vein thrombosis) Current Visit: No Status: Chronic Code(s): Z86.718 - PERSONAL HISTORY OF OTHER VENOUS THROMBOSIS AND EMBOLISM (9) Hypothyroidism Current Visit: No Status: Chronic Code(s): E03.9 - HYPOTHYROIDISM, UNSPECIFIED
[2024-05-25 06:48] LABS: Absolute Neutrophil Ct (ANC) 5.98 x10^3/uL (1.56-6.13); BASOPHIL % 0.3 % (0.1-1.2); Basophil (Absolute #) 0.02 x10^3/uL (0.01-0.08); Eosinophil (Absolute #) 0.55 x10^3/uL (0.04-0.36); Hematocrit 32.5 % (34.1-44.9); Hemoglobin 10.3 g/dL (11.2-15.7); IMMATURE GRAN # 0.03 x10^3u/L (0.001-0.031); IMMATURE GRAN % 0.4 % (0.001-0.429); Lymphocyte (Absolute #) 0.83 x10^3/uL (1.18-3.74); Lymphocytes % 10.5 % (19.3-51.7); Mean Cell Volume 94.5 fL (79.4-94.8); Mean Corpuscular Hemoglobin 29.9 pg (25.6-32.2); Mean Corpuscular Hgb Concent. 31.7 g/dL (32.2-35.5); Mean Platelet Volume 10.7 fL (9.4-12.3); Monocyte (Absolute #) 0.46 x10^3/uL (0.24-0.86); Monocytes % 5.8 % (4.7-12.5); Platelet Count 173 x10^3/uL (182-369); Red Blood Count 3.44 x10^6/uL (3.93-5.22); Red Cell Distribution Width 13.9 % (11.7-14.4); White Blood Count 7.9 x10^3/uL (3.98-10.04)
[2024-05-25 07:14] LABS: ALBUMIN 3.4 g/dL (3.5-5.0); ANION GAP 9.9 MEQ/L (5-15); BILIRUBIN,TOTAL 0.3 mg/dL (0.2-1.3); Calcium 8.5 mg/dL (8.4-10.2); Creatinine 1 0.79 mg/dL (0.52-1.04); EST GLOMERULAR FILTRATION RATE 72.4 ML/MIN; Potassium 3.6 mmol/L (3.5-5.1); Total Protein 5.7 g/dL (6.3-8.2)
[2024-05-25] MEDS: Miralax Powder 17GM PACKET PO PRN (09:19)
[2024-05-25] MEDS: hydroDIURIL 25 MG PO SCH (09:19)
[2024-05-25] MEDS: THERAGRAN MULTIVITAMIN PO SCH (09:19)
[2024-05-25] MEDS: Micardis 80 MG Tablet PO SCH (09:19)
[2024-05-25] MEDS: CLARITIN 10 MG PO SCH (09:19)
[2024-05-25] MEDS: FEOSOL 325 MG PO SCH (09:19)
[2024-05-25] MEDS: ULTRAM 50 MG PO PRN (09:19)
[2024-05-25] MEDS: SYNTHROID 75 MCG PO SCH (09:20)
[2024-05-25] MEDS ORDERED: NON-FORMULARY ITEM (Multivitamin [Multi-Vitamin Daily] 1 EACH Tablet) PO SCH (10:00)
[2024-05-25] MEDS ORDERED: TELMISARTAN 40 MG PO SCH (10:00)
[2024-05-25] MEDS ORDERED: SYNTHROID 50 MCG PO SCH (10:00)
--- NOTE | 2024-05-25 12:41 | XRAY ---
CLINICAL HISTORY: r/o obtruction COMPARISON: 05/24/2024 CT. TECHNIQUE: CT of the abdomen and pelvis was performed, with the following protocol: axial images, and reconstructed coronal and sagittal images. No intravenous contrast was administered. 60cc Contrast was given through nasogastric tube. One of the following dose reduction techniques was utilized for this exam: Automated exposure control, adjustment of the mA and/or kV according to patient size, and use of iterative reconstruction FINDINGS: Liver: Normal in size, shape, and density. No focal lesions, cysts, or masses were identified. Gallbladder and Biliary System: The gallbladder is normal in size and shape. No wall thickening, pericholecystic fluid, or gallstones were identified. Midline 8.5 mm calcification seen, stable, possibly dystrophic Pancreas: Pancreatic head, body, and tail are visualized and appear normal in size and density. No pancreatic masses or calcifications were noted. Spleen: Normal in size, shape, and density. No splenic lesions or masses were identified. Kidneys and Adrenal Glands: Both kidneys are normal in size, shape, and position. Cortical thickness is within normal limits. No renal calculi or hydronephrosis. Adrenal glands are unremarkable. Appendix: Appendix couldn't be visualized. Pelvis: Marked artifact related to bilateral total hip replacement reducing ability to asses pelvic structures. Peritoneal and Retroperitoneal Structures: No free fluid or abnormal fluid collections were identified within the abdomen or pelvis. No lymphadenopathy was noted. Bowel: A short segment of irregular mural circumferential thickening in the second part of the duodenum, measurement is difficult due to contrast artifacts with marked resolution of previously noted marked dilatation of the stomach, contrast throught NGtube seen opacifying stomach, duodenum and upper jejunum denoting no complete obstruction.. Sigmoid and colonic diverticulosis with no evidence of acute inflammation.Colon packed with fecal matter, The visualized bowel loops are normal in caliber and appearance. No evidence of bowel obstruction or wall thickening. Bones and Soft Tissues: Marked thoracic scoliosis to the right, stable. Advanced lumbar spondylosis, stable. Bilateral total hip replacement, stable. Right lower lobe calcified pulmonary nodule, stable. Bilateral mild pleural effusion. IMPRESSION: 1. Short segment of irregular mural circumferential thickening in the second part of the duodenum, , with marked resolution of previously noted marked dilatation of the stomach, contrast throught NGtube seen opacifying stomach, duodenum and upper jejunum denoting no complete obstruction.. 2. All other findings stable. Electronically Signed by: La Nena Brooke MD. (05/25/2024 12:36:20 EST)
[2024-05-26 02:36] LABS: IFOB TEST RESULTS NEGATIVE (NEGATIVE)
[2024-05-26 04:48] LABS: Absolute Neutrophil Ct (ANC) 4.55 x10^3/uL (1.56-6.13); BASOPHIL % 0.5 % (0.1-1.2); Basophil (Absolute #) 0.04 x10^3/uL (0.01-0.08); Eosinophil % 18.9 % (0.7-5.8); IMMATURE GRAN # 0.02 x10^3u/L (0.001-0.031); IMMATURE GRAN % 0.3 % (0.001-0.429); Lymphocyte (Absolute #) 1.21 x10^3/uL (1.18-3.74); Lymphocytes % 15.3 % (19.3-51.7); Mean Cell Volume 97.5 fL (79.4-94.8); Mean Corpuscular Hemoglobin 30.6 pg (25.6-32.2); Mean Corpuscular Hgb Concent. 31.4 g/dL (32.2-35.5); Mean Platelet Volume 10.9 fL (9.4-12.3); Monocytes % 7.6 % (4.7-12.5); Neutrophil % 57.4 % (34.0-71.1); Platelet Count 171 x10^3/uL (182-369); Red Blood Count 3.59 x10^6/uL (3.93-5.22); White Blood Count 7.9 x10^3/uL (3.98-10.04)
[2024-05-26 05:07] LABS: ALBUMIN 3.6 g/dL (3.5-5.0); ANION GAP 9.4 MEQ/L (5-15); BILIRUBIN,TOTAL 0.6 mg/dL (0.2-1.3); Calcium 8.6 mg/dL (8.4-10.2); Creatinine 1 0.85 mg/dL (0.52-1.04); EST GLOMERULAR FILTRATION RATE 66.3 ML/MIN; Potassium 3.7 mmol/L (3.5-5.1); Total Protein 6.1 g/dL (6.3-8.2)
[2024-05-26 06:55] VITALS: RESP 18
[2024-05-26] MEDS: VITAMIN D PO SCH (11:16)
--- NOTE | 2024-05-26 11:21 | PCM.DS ---
Discharge Summary Date of Admission: 05/24/24 11:49 Date of Discharge: 05/26/24 Admitting Physician: SHE PÉREZ MD Consults: Consults on Case 05/24/24 12:30 Consult Surgery ROUTINE 05/26/24 08:04 Consult Podiatry ROUTINE Primary Care Provider: PATRICIA,SHIVA Allergies Allergies Sulfa (Sulfonamide Antibiotics) Allergy (Mild, Verified 05/24/24 06:14) latex Allergy (Verified 05/24/24 06:14) Hives scallops Allergy (Verified 05/24/24 06:14) Hospital Summary - Hospital Course Hospital Course: is a 89 year old female with a pmhx of DVT , peptic ulcer disease, HTN, hypothyroidism, OA, GERD, CKD, and RLS. She presented to ED 05/24/24 with complaints of progressive abdominal pain over the past two weeks. Patient states the pain was constant in the upper epigastric portion of her abdomen with radiation into her back and groin. She described the pain a sharp with no aggravating/relieving factors. She reported pain is similar to pain she had with past peptic ulcer. She has also had some nausea for about a week and vomiting today. Abdomen was diffusely tender and firm. Patient states last bowel movement was three days prior to admission and was black/green and loose. Denied fever,cough, sob, cp, [place], dizziness, diarrhea, unexplained weight loss, or rectal bleeding. Upon arrival to ED, vitals were stable. CT abdomen and pelvis demonstrated Short segment of irregular mural circumferential thickening in the second part of the duodenum, measures 13 mm in single wall thickness and 39 mm in length, with marked dilatation of the stomach. Lab findings remarkable for mild elevated Bun, AST, and alk phos. Surgery consulted - NG placed, with plan for re-evaluation with CT w/contrast. Surgery contacted today and advised to remove NG and start clear liquid diet. Advance diet as tolerated. If doing ok today can d/c. GS sent in carafate and protonix to pt's pharmacy. Podiatry to rewrap RLE prior to d/c. Pt reports several BM's last night and feels much better and ready to d/c. Per GS no OP antibiotics needed. EGD OP recommended by GS- can discuss with PCP as pt does not want at this time. - Vitals & Intake/Output Vital Signs: Vital Signs Temperature 99.1 F 05/26/24 06:55 Pulse Rate 86 05/26/24 06:55 Respiratory Rate 18 05/26/24 06:55 Blood Pressure 138/61 05/26/24 06:55 O2 Sat by Pulse Oximetry 94 L 05/26/24 06:55 Intake & Output: Intake & Output 05/23/24 05/24/24 05/25/24 05/26/24 11:59 11:59 11:59 11:59 Intake Total 1746 0484 Output Total 0615 1301 Balance -629 3023 Weight 64.5 kg 65 kg 66.1 kg - Lab Result Diagrams: 05/26/24 04:45 05/26/24 04:45 Lab Results-Last 24 Hrs: Lab Results-Last 24 Hours 05/26/24 05/26/24 05/26/24 Range/Units 02:26 04:45 04:45 WBC 7.9 (3.98-10.04) x10^3/uL RBC 3.59 L (3.93-5.22) x10^6/uL Hgb 11.0 L (11.2-15.7) g/dL Hct 35.0 (34.1-44.9) % MCV 97.5 H (79.4-94.8) fL MCH 30.6 (25.6-32.2) pg MCHC 31.4 L (32.2-35.5) g/dL RDW 14.0 (11.7-14.4) % Plt Count 171 L (182-369) x10^3/uL MPV 10.9 (9.4-12.3) fL Gran % 57.4 (34.0-71.1) % Immature Gran % (Auto) 0.3 (0.001-0.429) % Nucleat RBC Rel Count 0.0 (0.00-0.2) % Eos # (Auto) 1.50 H (0.04-0.36) x10^3/uL Immature Gran # (Auto) 0.02 (0.001-0.031) x10^3u/L Absolute Lymphs (auto) 1.21 (1.18-3.74) x10^3/uL Absolute Monos (auto) 0.60 (0.24-0.86) x10^3/uL Absolute Nucleated RBC 0.00 (0.00-0.012) x10^3u/L Lymphocytes % 15.3 L (19.3-51.7) % Monocytes % 7.6 (4.7-12.5) % Eosinophils % 18.9 H (0.7-5.8) % Basophils % 0.5 (0.1-1.2) % Absolute Granulocytes 4.55 (1.56-6.13) x10^3/uL Basophils # 0.04 (0.01-0.08) x10^3/uL Sodium 137 (135-145) mmol/L Potassium 3.7 (3.5-5.1) mmol/L Chloride 105 (98-107) mmol/L Carbon Dioxide 27 (22-30) mmol/L Anion Gap 9.4 (5-15) MEQ/L BUN 16 (7-17) mg/dL Creatinine 0.85 (0.52-1.04) mg/dL Estimated GFR 66.3 ML/MIN Glucose 76 (74-106) mg/dL Calcium 8.6 (8.4-10.2) mg/dL Total Bilirubin 0.60 (0.2-1.3) mg/dL AST 38 H (14-36) U/L ALT 19 (0-35) U/L Alkaline Phosphatase 103 (38-126) U/L Serum Total Protein 6.1 L (6.3-8.2) g/dL Albumin 3.6 (3.5-5.0) g/dL Stl Occult Blood (IFOB) NEGATIVE (NEGATIVE) - Radiology Exams Ordered Rad Exams-Entire Visit: Radiology Procedures Category Date Time Status ABDOMEN AND PELVIS W/0 CONTRAS [CT] Stat Exams 05/25/24 10:01 Completed CHEST 1 VIEW (PORTABLE) Stat Exams 05/24/24 19:14 Completed Discharge Exam General Appearance: no apparent distress, alert Neurologic Exam: alert, oriented x 3, cooperative, normal mood/affect, nml cerebellar function, sensation nml, No motor deficits Eye Exam: PERRL, EOMI, eyes nml inspection Ears, Nose, Throat Exam: normal ENT inspection, pharynx normal, moist mucous membranes Neck Exam: normal inspection, non-tender, supple, full range of motion Respiratory Exam: normal breath sounds, lungs clear, No respiratory distress Cardiovascular Exam: regular rate/rhythm, normal heart sounds Gastrointestinal/Abdomen Exam: soft, No tenderness, No mass Pelvic Exam: deferred Rectal Exam: deferred Back Exam: normal inspection, normal range of motion, No CVA tenderness, No vertebral tenderness Extremity Exam: normal inspection, normal range of motion Skin Exam: normal color, warm, dry, other (RLE wrapped by podiatry) Final Diagnosis/Problem List - Final Discharge Diagnosis/Problem (1) Duodenitis Current Visit: Yes Status: Acute Assessment & Plan: - Per surgery- remove NG, carafte and protonix sent in to pharmacy OP, starts clears and advance as tolerated. May d/c today. No OP antibiotics needed. -H/o peptic ulcer disease and GERD -CT abdomen and pelvis demonstrates Short segment of irregular mural circumferential thickening in the second part of the duodenum, measures 13 mm in single wall thickness and 39 mm in length, with marked dilatation of the stomac h with recommendations for contrast imaging/EGD -Protonix 40mg BID - Occult stool negative - CBC, CMP reviewed Code(s): K29.80 - DUODENITIS WITHOUT BLEEDING (2) Abdominal pain Current Visit: Yes Status: Resolved Assessment & Plan: - resolved Code(s): R10.9 - UNSPECIFIED ABDOMINAL PAIN (3) Osteoarthritis Current Visit: Yes Status: Chronic Assessment & Plan: -noted- avoid NSAIDS/gastric irritants Code(s): M19.90 - UNSPECIFIED OSTEOARTHRITIS, UNSPECIFIED SITE (4) RLS (restless legs syndrome) Current Visit: Yes Status: Chronic Assessment & Plan: -continue home meds (5) CKD (chronic kidney disease), stage II Current Visit: No Status: Chronic Assessment & Plan: - CMP reviewed - at baseline renal function Code(s): N18.2 - CHRONIC KIDNEY DISEASE, STAGE 2 (MILD) (6) Essential (primary) hypertension Current Visit: No Status: Chronic Assessment & Plan: -stable- continue home meds Code(s): I10 - ESSENTIAL (PRIMARY) HYPERTENSION (7) GERD (gastroesophageal reflux disease) Current Visit: No Status: Chronic Assessment & Plan: -Protonix Code(s): K21.9 - GASTRO-ESOPHAGEAL REFLUX DISEASE WITHOUT ESOPHAGITIS (8) History of DVT (deep vein thrombosis) Current Visit: No Status: Chronic Assessment & Plan: -Patient states she was taken off Eliquis by PCP Dr. Gomez- no alternative due to rash- DVT dx > 6 months ago Code(s): Z86.718 - PERSONAL HISTORY OF OTHER VENOUS THROMBOSIS AND EMBOLISM (9) Hypothyroidism Current Visit: No Status: Chronic Assessment & Plan: -Continue synthroid. Code(s): E03.9 - HYPOTHYROIDISM, UNSPECIFIED (10) Obesity (BMI 30.0-34.9) Current Visit: No Status: Chronic Assessment & Plan: - advised diet and exercise control This d/c summary took > 32 minutes. Discussed plan of care with health care team. Code(s): E66.9 - OBESITY, UNSPECIFIED (11) Edema of right lower extremity Current Visit: Yes Status: Acute Assessment & Plan: - podiatry consult - Mathew TRAORE - F/U OP with podiatry Code(s): R60.0 - LOCALIZED EDEMA - Discharge Discharge Date: 05/26/24 Disposition: Home, Self-Care Condition: Stable Prescriptions: New Sucralfate 1000 mg/10 ml [Carafate SUSPENSION 1000 MG/10 ML] 10 ml PO QID 90 Days ml Pantoprazole 20 mg [Protonix 20MG Tablet] 40 mg PO DAILY #30 tab PANTOPRAZOLE 40 mg Tablet [Protonix 40MG Tablet] 40 mg PO BID 30 Days #60 tab Continue Tramadol HCl 50 mg [Ultram 50 mg] 50 mg PO Q6HPRN PRN PRN Reason: Pain Levothyroxine Sodium 50 Mcg [Synthroid 50 Mcg] 75 mcg PO DAILY Telmisartan [Micardis] 40 mg PO DAILY Hydrochlorothiazide 25 mg [hydroDIURIL 25 MG] 25 mg PO DAILY Multivitamin [Multi-Vitamin Daily] 1 tab PO DAILY Cyanocobalamin 1000 Mcg/ml [Cyanocobalamin B-12 1000 MCG/ML] 1,000 mcg IJ UD Potassium Chloride Tab* [Klor Con] 10 meq PO BID Acetaminophen 500 mg [Tylenol Extra Strength 500 mg] 500 mg PO Q4H PRN PRN PRN Reason: Pain Pramipexole Di-HCl [Pramipexole Dihydrochloride] 1 mg PO QHS Pramipexole Di-HCl [Pramipexole Dihydrochloride] 0.5 mg PO 1200,1800 Loratadine 10 mg [Claritin 10 mg] 10 mg PO DAILY Cholecalciferol (Vitamin D3) [Vitamin D3] 62.5 mcg PO 3XW Triamcinolone 0.1% Cream [Kenalog 0.1% Cream 15 gm] 0 gm TP BIDPRN PRN PRN Reason: Itching Loratadine 10 mg [Claritin 10 mg] 10 mg PO DAILY Ferrous Sulfate [Iron] 325 mg PO DAILY Instructions: Peptic ulcers, [place] diet Follow up with: REYNA HENDERSON MD [ACTIVE STAFF] - 06/23/24 9:30 am ([facility] ) SHIVA GOMEZ MD [Primary Care Provider] - 06/02/24 10:30 am ([facility])
[2024-05-26 11:48] VITALS: BP 116/61; PULSE 77; TEMP 98; O2SAT 98
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
[2024-05-28] MEDS ORDERED: Cyanocobalamin B-12 1000 MCG/ML IJ SCH (10:00)
== END 2024-05-26 15:10 | disposition home or self-care (01) ==
LOC: ED 05:56 → MED SURG 11:49
PROVIDERS: ADMIT Internal Medicine; ATTEND Internal Medicine
DX: K29.80 Duodenitis without bleeding (principal); R10.9 Unspecified abdominal pain; M19.90 Unspecified osteoarthritis, unspecified site; G25.81 Restless legs syndrome; I12.9 Hypertensive chronic kidney disease with stage 1 through stage 4 chronic kidney disease, or unspecified chronic kidney disease; N18.2 Chronic kidney disease, stage 2 (mild); K21.9 Gastro-esophageal reflux disease without esophagitis; Z86.718 Personal history of other venous thrombosis and embolism; E03.9 Hypothyroidism, unspecified; E66.9 Obesity, unspecified; R60.0 Localized edema; L03.115 Cellulitis of right lower limb; M79.604 Pain in right leg; R11.10 Vomiting, unspecified; E87.6 Hypokalemia; I87.2 Venous insufficiency (chronic) (peripheral); Z79.899 Other long term (current) drug therapy
CPT/HCPCS: 0241U; 11042; 29580; 36415; 71045; 74176; 80053; 81001; 82150; 82274; 83690; 84484; 85025; 87070; 93005; 96374; 96375; 96376; 99232; 99285; G0378; J2270; J2405; J2543; J3010; Q3014; A9270-GY; G0328

== ENCOUNTER 2024-08-22 08:41 | Inpatient (IN) | payer MEDICARE ==
[2024-08-22] MEDS ORDERED: TYLENOL 325 MG PO PRN (12:57)
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
[2024-08-22] MEDS ORDERED: NON-FORMULARY ITEM (Ondansetron Hcl [Ondansetron Hcl] 4 MG Tablet) PO PRN (13:10)
[2024-08-22] MEDS ORDERED: Cyanocobalamin B-12 1000 MCG/ML IJ SCH (13:15)
[2024-08-22] MEDS ORDERED: ATARAX 25 MG PO PRN (13:15)
[2024-08-22] MEDS ORDERED: CHOLECALCIFEROL PO SCH (13:15)
[2024-08-22 13:40] LABS: Absolute Neutrophil Ct (ANC) 4.13 x10^3/uL (1.56-6.13); BASOPHIL % 0.6 % (0.1-1.2); Basophil (Absolute #) 0.04 x10^3/uL (0.01-0.08); Eosinophil % 5.7 % (0.7-5.8); Eosinophil (Absolute #) 0.38 x10^3/uL (0.04-0.36); Hematocrit 29.5 % (34.1-44.9); Hemoglobin 9.4 g/dL (11.2-15.7); IMMATURE GRAN # 0.05 x10^3u/L (0.001-0.031); IMMATURE GRAN % 0.8 % (0.001-0.429); Lymphocyte (Absolute #) 1.48 x10^3/uL (1.18-3.74); Lymphocytes % 22.3 % (19.3-51.7); Mean Cell Volume 93.4 fL (79.4-94.8); Mean Corpuscular Hemoglobin 29.7 pg (25.6-32.2); Mean Corpuscular Hgb Concent. 31.9 g/dL (32.2-35.5); Mean Platelet Volume 9.4 fL (9.4-12.3); Monocyte (Absolute #) 0.56 x10^3/uL (0.24-0.86); Monocytes % 8.4 % (4.7-12.5); Neutrophil % 62.2 % (34.0-71.1); Platelet Count 248 x10^3/uL (182-369); Red Blood Count 3.16 x10^6/uL (3.93-5.22); Red Cell Distribution Width 13.8 % (11.7-14.4); White Blood Count 6.6 x10^3/uL (3.98-10.04)
[2024-08-22] MEDS: Lasix 40 MG/4 ML IV SCH (14:55)
[2024-08-22] MEDS: Acidophilus TABLET PO SCH (14:55)
[2024-08-22] MEDS: ClINDAMYCIN Phosphate IVPB 300 MG/50 ML IVPB IV SCH (14:56)
[2024-08-22] MEDS ORDERED: NON-FORMULARY ITEM (Pramipexole Di-Hcl [Pramipexole Dihydrochloride] 1 MG Tablet) PO SCH (15:00)
[2024-08-22] MEDS: TYLENOL EXTRA STRENGTH 500 MG PO PRN (15:09)
[2024-08-22] MEDS: ULTRAM 50 MG PO SCH (15:09)
[2024-08-22] MEDS: Mirapex 0.5 MG Tablet PO SCH (15:10)
[2024-08-22 15:15] LABS: ALBUMIN 3.5 g/dL (3.5-5.0); BILIRUBIN,TOTAL 0.2 mg/dL (0.2-1.3); Calcium 9.3 mg/dL (8.4-10.2); Creatinine 1 0.87 mg/dL (0.52-1.04); EST GLOMERULAR FILTRATION RATE 64.4 ML/MIN; Potassium 4.2 mmol/L (3.5-5.1); Total Protein 6.4 g/dL (6.3-8.2)
[2024-08-22] MEDS ORDERED: MEDICATION INTERVENTION MC SCH (15:45)
[2024-08-22] MEDS: Klor Con PO SCH (21:51)
[2024-08-22] MEDS: Neurontin PO SCH (21:52)
[2024-08-22] MEDS: HEPARIN 5000 UNITS/0.5 ML (HIGH RISK MED) SQ SCH (21:53)
[2024-08-22] MEDS ORDERED: PRAMIPEXOLE DI HCL 1.5 MG PO SCH (22:00)
[2024-08-23 06:08] LABS: Absolute Neutrophil Ct (ANC) 3.88 x10^3/uL (1.56-6.13); BASOPHIL % 0.5 % (0.1-1.2); Basophil (Absolute #) 0.03 x10^3/uL (0.01-0.08); Eosinophil % 7.6 % (0.7-5.8); Eosinophil (Absolute #) 0.46 x10^3/uL (0.04-0.36); Hematocrit 30.6 % (34.1-44.9); Hemoglobin 9.6 g/dL (11.2-15.7); IMMATURE GRAN # 0.08 x10^3u/L (0.001-0.031); IMMATURE GRAN % 1.3 % (0.001-0.429); Lymphocyte (Absolute #) 1.19 x10^3/uL (1.18-3.74); Lymphocytes % 19.7 % (19.3-51.7); Mean Cell Volume 94.2 fL (79.4-94.8); Mean Corpuscular Hemoglobin 29.5 pg (25.6-32.2); Mean Corpuscular Hgb Concent. 31.4 g/dL (32.2-35.5); Mean Platelet Volume 9.6 fL (9.4-12.3); Monocytes % 6.6 % (4.7-12.5); Neutrophil % 64.3 % (34.0-71.1); Platelet Count 269 x10^3/uL (182-369); Red Blood Count 3.25 x10^6/uL (3.93-5.22); Red Cell Distribution Width 13.9 % (11.7-14.4)
[2024-08-23 06:25] LABS: ALBUMIN 3.3 g/dL (3.5-5.0); ALKALINE PHOSPHATASE 140 U/L (38-126); BILIRUBIN,TOTAL < 0.10 mg/dL (0.2-1.3); BLOOD UREA NITROGEN 30 mg/dL (7-17); CHLORIDE 100 mmol/L (98-107); Calcium 8.9 mg/dL (8.4-10.2); Carbon Dioxide 31 mmol/L (22-30); Creatinine 1 0.93 mg/dL (0.52-1.04); EST GLOMERULAR FILTRATION RATE 59.5 ML/MIN; Glucose 122 mg/dL (74-106); Potassium 4.1 mmol/L (3.5-5.1); SGOT/AST 28 U/L (14-36); SGPT/ALT 16 U/L (0-35); SODIUM 139 mmol/L (135-145)
[2024-08-23] MEDS: Micardis 80 MG Tablet PO SCH (09:13)
[2024-08-23] MEDS: THERAGRAN MULTIVITAMIN PO SCH (09:14)
[2024-08-23] MEDS: Protonix 40MG Tablet PO SCH (09:14)
[2024-08-23] MEDS: CLARITIN 10 MG PO SCH (09:14)
[2024-08-23] MEDS: FEOSOL 325 MG PO SCH (09:14)
[2024-08-23] MEDS: hydroDIURIL 25 MG PO SCH (09:15)
[2024-08-23] MEDS: SYNTHROID 75 MCG PO SCH (09:15)
[2024-08-23] MEDS: VITA-BEE WITH C PO SCH (09:15)
--- NOTE | 2024-08-23 09:32 | PCM.NOTE ---
Date and Time: 08/23/24 0926 Subjective Assessment: 08/22/24 is a 89 year old female with pmhx of DVT , peptic ulcer disease, HTN, hypothyroidism, OA, GERD, CKD, and RLS. She is a direct admit from podiatry for ongoing RLE cellulitis and failed OP treatment of Levaquin and Augmentin. Will start IV antibiotics and Lasix. RLE wrapped by podiatry OP yesterday. She denies any further concerns at this time. 08/23/24 Pt resting in bed. She states she is starting to feel better. + Continued edema Of RLE. Leg is wrapped and elevated. Continue Lasix and IV antibiotics. Pt sates pain is controlled and denies any further concerns at this time. - Review of Systems Constitutional: No Fever, No Chills Eyes: No Symptoms Ears, Nose, & Throat: No Symptoms Respiratory: No Cough, No Short Of Breath Cardiac: Edema (RLE edema- wrapped), No Chest Pain, No Syncope Abdominal/Gastrointestinal: No Abdominal Pain, No Nausea, No Vomiting, No Diarrhea Genitourinary Symptoms: No Dysuria Musculoskeletal: No Back Pain, No Neck Pain Skin: No Rash Neurological: No Dizziness, No Focal Weakness, No Sensory Changes Psychological: No Symptoms Endocrine: No Symptoms Hematologic/Lymphatic: No Symptoms Immunological/Allergic: No Symptoms Objective Exam General Appearance: no apparent distress, alert Neurologic Exam: alert, oriented x 3, cooperative, normal mood/affect, nml cerebellar function, sensation nml, No motor deficits Skin Exam: normal color, warm, dry Wound Assessment: Skin/Wound Assessment Wound/Incision Assessment Start: 08/22/24 11:43 Text: Status: Active Freq: Q6H Protocol: Document 08/23/24 01:56 LB (Rec: 08/23/24 02:06 LB [id number]) Wound/Incision Assessment Right Lower Leg Wound Assessment Shift Assessment Wound Type Cellulitis Wound Stage Non Pressure Wound Dressing Status Dry & Intact,Changed Drainage Amount None Drainage Odor None/Absent Comment Unna boot in place Wound Photo Photo Taken No Eye Exam: PERRL, EOMI, eyes nml inspection Ears, Nose, Throat Exam: normal ENT inspection, pharynx normal, moist mucous membranes Neck Exam: normal inspection, non-tender, supple, full range of motion Respiratory Exam: normal breath sounds, lungs clear, No respiratory distress Cardiovascular Exam: regular rate/rhythm, normal heart sounds Gastrointestinal/Abdomen Exam: soft, No tenderness, No mass Extremity Exam: normal inspection, normal range of motion, swelling (RLE- wrapped) Back Exam: normal inspection, normal range of motion, No CVA tenderness, No vertebral tenderness Pelvic Exam: deferred Rectal Exam: deferred Objective Data Vital Signs: Vital Signs - 24 hr Temp Pulse Resp BP Pulse Ox 08/23/24 09:20 77 112/55 08/23/24 08:00 97.3 F 77 18 97/53 96 08/23/24 03:54 98.0 F 76 16 93/52 96 08/22/24 23:48 98.5 F 84 16 91/52 95 08/22/24 19:57 97.1 F 76 16 97/50 95 08/22/24 16:00 97.2 F 76 16 102/52 95 08/22/24 12:08 97.1 F 80 16 107/56 95 08/22/24 12:00 97.1 F 80 16 107/56 95 Pain Assessment - Last Documented Pain Intensity 3 Pain Scale Used 0-10 Pain Scale Intake and Output: Intake & Output 08/20/24 08/21/24 08/22/24 08/23/24 11:59 11:59 11:59 11:59 Intake Total 860 Output Total 2300 Balance -1440 Weight 61.3 kg Lab Results: Lab Results-Last 24 Hours 08/22/24 08/22/24 08/23/24 Range/Units 12:57 13:30 05:50 WBC 6.6 6.0 (3.98-10.04) x10^3/uL RBC 3.16 L 3.25 L (3.93-5.22) x10^6/uL Hgb 9.4 L 9.6 L (11.2-15.7) g/dL Hct 29.5 L 30.6 L (34.1-44.9) % MCV 93.4 94.2 (79.4-94.8) fL MCH 29.7 29.5 (25.6-32.2) pg MCHC 31.9 L 31.4 L (32.2-35.5) g/dL RDW 13.8 13.9 (11.7-14.4) % Plt Count 248 269 (182-369) x10^3/uL MPV 9.4 9.6 (9.4-12.3) fL Gran % 62.2 64.3 (34.0-71.1) % Immature Gran % (Auto) 0.8 H 1.3 H (0.001-0.429) % Nucleat RBC Rel Count 0.0 0.0 (0.00-0.2) % Eos # (Auto) 0.38 H 0.46 H (0.04-0.36) x10^3/uL Immature Gran # (Auto) 0.05 H 0.08 H (0.001-0.031) x10^3u/L Absolute Lymphs (auto) 1.48 1.19 (1.18-3.74) x10^3/uL Absolute Monos (auto) 0.56 0.40 (0.24-0.86) x10^3/uL Absolute Nucleated RBC 0.00 0.00 (0.00-0.012) x10^3u/L Lymphocytes % 22.3 19.7 (19.3-51.7) % Monocytes % 8.4 6.6 (4.7-12.5) % Eosinophils % 5.7 7.6 H (0.7-5.8) % Basophils % 0.6 0.5 (0.1-1.2) % Absolute Granulocytes 4.13 3.88 (1.56-6.13) x10^3/uL Basophils # 0.04 0.03 (0.01-0.08) x10^3/uL Sodium 139 (135-145) mmol/L Potassium 4.2 (3.5-5.1) mmol/L Chloride 103 (98-107) mmol/L Carbon Dioxide 28 (22-30) mmol/L Anion Gap 12.0 (5-15) MEQ/L BUN 30 H (7-17) mg/dL Creatinine 0.87 (0.52-1.04) mg/dL Estimated GFR 64.4 ML/MIN Glucose 98 (74-106) mg/dL Calcium 9.3 (8.4-10.2) mg/dL Total Bilirubin 0.20 (0.2-1.3) mg/dL AST 31 (14-36) U/L ALT 15 (0-35) U/L Alkaline Phosphatase 151 H (38-126) U/L NT-Pro-B Natriuret Pep 397 (<300) pg/mL Serum Total Protein 6.4 (6.3-8.2) g/dL Albumin 3.5 (3.5-5.0) g/dL 08/23/24 Range/Units 05:50 WBC (3.98-10.04) x10^3/uL RBC (3.93-5.22) x10^6/uL Hgb (11.2-15.7) g/dL Hct (34.1-44.9) % MCV (79.4-94.8) fL MCH (25.6-32.2) pg MCHC (32.2-35.5) g/dL RDW (11.7-14.4) % Plt Count (182-369) x10^3/uL MPV (9.4-12.3) fL Gran % (34.0-71.1) % Immature Gran % (Auto) (0.001-0.429) % Nucleat RBC Rel Count (0.00-0.2) % Eos # (Auto) (0.04-0.36) x10^3/uL Immature Gran # (Auto) (0.001-0.031) x10^3u/L Absolute Lymphs (auto) (1.18-3.74) x10^3/uL Absolute Monos (auto) (0.24-0.86) x10^3/uL Absolute Nucleated RBC (0.00-0.012) x10^3u/L Lymphocytes % (19.3-51.7) % Monocytes % (4.7-12.5) % Eosinophils % (0.7-5.8) % Basophils % (0.1-1.2) % Absolute Granulocytes (1.56-6.13) x10^3/uL Basophils # (0.01-0.08) x10^3/uL Sodium 139 (135-145) mmol/L Potassium 4.1 (3.5-5.1) mmol/L Chloride 100 (98-107) mmol/L Carbon Dioxide 31 H (22-30) mmol/L Anion Gap 13.0 (5-15) MEQ/L BUN 30 H (7-17) mg/dL Creatinine 0.93 (0.52-1.04) mg/dL Estimated GFR 59.5 ML/MIN Glucose 122 H (74-106) mg/dL Calcium 8.9 (8.4-10.2) mg/dL Total Bilirubin < 0.10 L (0.2-1.3) mg/dL AST 28 (14-36) U/L ALT 16 (0-35) U/L Alkaline Phosphatase 140 H (38-126) U/L NT-Pro-B Natriuret Pep (<300) pg/mL Serum Total Protein 6.0 L (6.3-8.2) g/dL Albumin 3.3 L (3.5-5.0) g/dL Medications: Medications Generic Name Dose Route Start Last Admin Trade Name Freq PRN Reason Stop Dose Admin Acetaminophen 650 mg 08/22/24 12:57 Acetaminophen 325 Mg Tablet PO 09/21/24 12:56 Q6H PRN PRN PAIN, FEVER, HEADACHE Acetaminophen 500 mg 08/22/24 13:10 08/23/24 09:14 Acetaminophen 500 Mg Tablet PO 09/21/24 13:09 500 mg QIDPRN PRN Administration PAIN Cholecalciferol 1,000 unit 08/25/24 10:00 Cholecalciferol (Vitamin D3) 1000 Unit Tablet PO 09/24/24 09:59 MoWeFr@1000 JEFFREY Cyanocobalamin 1,000 mcg 08/27/24 10:00 Cyanocobalamin 1000 Mcg/Ml Vial IJ 09/26/24 09:59 Q14D JEFFREY Ferrous Sulfate 325 mg 08/23/24 10:00 08/23/24 09:14 Ferrous Sulfate 325 Mg Tablet PO 09/22/24 09:59 325 mg DAILY JEFFREY Administration Furosemide 40 mg 08/22/24 15:00 08/23/24 09:21 Furosemide 40 Mg/4 Ml Vial IV 09/21/24 14:59 40 mg DAILY JEFFREY Administration Gabapentin 200 mg 08/22/24 22:00 08/22/24 21:52 Gabapentin 100 Mg Capsule PO 09/21/24 21:59 200 mg HS JEFFREY Administration Heparin Sodium (Beef Lung) 5,000 unit 08/22/24 22:00 08/23/24 09:15 Heparin 5000 Units/0.5 Ml 5,000 Unit/0.5 Ml Syr SQ 09/21/24 21:59 5,000 unit BID JEFFREY Administration Hydrochlorothiazide 25 mg 08/23/24 10:00 08/23/24 09:15 Hydrochlorothiazide 25 Mg Tablet PO 09/22/24 09:59 Not Given DAILY JEFFREY Hydroxyzine HCl 25 mg 08/22/24 13:15 Hydroxyzine Hcl 25 Mg Tablet PO 09/21/24 13:14 TIDPRN PRN Clindamycin Phosphate 300 mg in 50 mls @ 100 mls/hr 08/22/24 13:00 08/23/24 06:26 Clindamycin Phosphate Ivpb IV 09/21/24 12:59 100 mls/hr Q6HT JEFFREY Administration Lactobacillus Acidophilus 1 tab 08/22/24 14:00 08/23/24 09:14 Lactobacillus Acidophilus 1 Tab Tablet PO 09/21/24 13:59 1 tab DAILY JEFFREY Administration Levothyroxine Sodium 75 mcg 08/23/24 10:00 08/23/24 09:15 Levothyroxine Sodium 75 Mcg Tablet PO 09/22/24 09:59 75 mcg DAILY JEFFREY Administration Loratadine 10 mg 08/23/24 10:00 08/23/24 09:14 Loratadine 10 Mg Tablet PO 09/22/24 09:59 10 mg DAILY JEFFREY Administration Miscellaneous Information 1 each 08/22/24 15:45 Medication Intervention 1 Each Each 09/21/24 15:44 .RN TO CHECK JEFFREY Multivitamins 1 tab 08/23/24 10:00 08/23/24 09:15 Vitamin B Complex With Vit. C Tablet PO 09/22/24 09:59 1 tab DAILY JEFFREY Administration Multivitamins Therapeutic 1 tab 08/23/24 10:00 08/23/24 09:14 Multivitamins,Therapeutic 1 Tab Tab PO 09/22/24 09:59 1 tab DAILY JEFFREY Administration Ondansetron HCl 4 mg 08/22/24 14:30 Zofran 4 Mg/Udtablet Orally Disintegrating PO 09/21/24 14:29 DAILY PRN PRN NAUSEA Pantoprazole Sodium 40 mg 08/23/24 10:00 08/23/24 09:14 Protonix (Pantoprazole) 40 Mg Tablet PO 09/22/24 09:59 40 mg DAILY JEFFREY Administration Potassium Chloride 20 meq 08/22/24 22:00 08/23/24 09:13 Potassium Chloride Tab 10 Meq Tab PO 09/21/24 21:59 20 meq BID JEFFREY Administration Pramipexole Dihydrochloride 1 mg 08/22/24 15:30 08/23/24 09:15 Pramipexole Di-Hcl 0.5 Mg Tab PO 09/21/24 15:29 1 mg TID JEFFREY Administration Telmisartan 40 mg 08/23/24 10:00 08/23/24 09:13 Telmisartan 80 Mg Tab PO 09/22/24 09:59 40 mg DAILY JEFFREY Administration Tramadol HCl 50 mg 08/22/24 15:15 08/23/24 09:14 Tramadol Hcl 50 Mg Tablet PO 09/21/24 15:14 50 mg QID JEFFREY Administration Assessment/Plan (1) Cellulitis of right lower leg Current Visit: No Status: Acute Code(s): L03.115 - CELLULITIS OF RIGHT LOWER LIMB (2) Edema of right lower extremity Current Visit: Yes Status: Acute Code(s): R60.0 - LOCALIZED EDEMA (3) CKD (chronic kidney disease), stage II Current Visit: No Status: Chronic Code(s): N18.2 - CHRONIC KIDNEY DISEASE, STAGE 2 (MILD) (4) GERD (gastroesophageal reflux disease) Current Visit: No Status: Chronic Code(s): K21.9 - GASTRO-ESOPHAGEAL REFLUX DISEASE WITHOUT ESOPHAGITIS (5) HTN (hypertension) Current Visit: No Status: Chronic Code(s): I10 - ESSENTIAL (PRIMARY) HYPERTENSION (6) History of DVT (deep vein thrombosis) Current Visit: No Status: Chronic Code(s): Z86.718 - PERSONAL HISTORY OF OTHER VENOUS THROMBOSIS AND EMBOLISM (7) Hypothyroidism Current Visit: No Status: Chronic Code(s): E03.9 - HYPOTHYROIDISM, UNSPECIFIED (8) RLS (restless legs syndrome) Current Visit: No Status: Chronic Assessment & Plan: (1) Cellulitis of right lower leg Current Visit: No Status: Acute Assessment & Plan: - Failed OP treatment - Podiatry wrapped yesterday - Consult podiatry - Clindamycin TID IV - Probiotics - CBC, CMP reviewed - BC X2 - Tylenol PRN - Continue home narcotic pain med - Elevate RLE - CBC, CMP pending - BC x2 - PT eval Code(s): L03.115 - CELLULITIS OF RIGHT LOWER LIMB (2) Edema of right lower extremity Current Visit: Yes Status: Acute Assessment & Plan: - Lasix 40 IV daily - Elevate RLE Code(s): R60.0 - LOCALIZED EDEMA (3) CKD (chronic kidney disease), stage II Current Visit: No Status: Chronic Assessment & Plan: - Creat 2.23- Baseline 2.16 - Acute on chronic 2:2 lasix Code(s): N18.2 - CHRONIC KIDNEY DISEASE, STAGE 2 (MILD) (4) GERD (gastroesophageal reflux disease) Current Visit: No Status: Chronic Assessment & Plan: - Protonix IV daily Code(s): K21.9 - GASTRO-ESOPHAGEAL REFLUX DISEASE WITHOUT ESOPHAGITIS (5) HTN (hypertension) Current Visit: No Status: Chronic Assessment & Plan: - BP stable - Continue home meds Code(s): I10 - ESSENTIAL (PRIMARY) HYPERTENSION (6) History of DVT (deep vein thrombosis) Current Visit: No Status: Chronic Assessment & Plan: - Pt reports she was taken off blood thinne rd/t rash reaction and no longer taking anything Code(s): Z86.718 - PERSONAL HISTORY OF OTHER VENOUS THROMBOSIS AND EMBOLISM (7) Hypothyroidism Current Visit: No Status: Chronic Assessment & Plan: - Continue Synthroid Code(s): E03.9 - HYPOTHYROIDISM, UNSPECIFIED (8) RLS (restless legs syndrome) Current Visit: No Status: Chronic Assessment & Plan: - Continue pramipexole VTE: Heparin PPI: Protonix Next of KIN: Son- POA D/C plan: 2-3 days Code status: SCO/DNR
[2024-08-23] MEDS ORDERED: SYNTHROID 50 MCG PO SCH (10:00)
[2024-08-23] MEDS ORDERED: VITAMIN B COMPLEX PO SCH (10:00)
[2024-08-23] MEDS ORDERED: TELMISARTAN 40 MG PO SCH (10:00)
[2024-08-23] MEDS ORDERED: NON-FORMULARY ITEM (Multivitamin [Multi-Vitamin Daily] 1 EACH Tablet) PO SCH (10:00)
[2024-08-24 06:14] LABS: Hematocrit 33.9 % (34.1-44.9); Hemoglobin 10.4 g/dL (11.2-15.7); Mean Cell Volume 95.8 fL (79.4-94.8); Mean Corpuscular Hemoglobin 29.4 pg (25.6-32.2); Mean Corpuscular Hgb Concent. 30.7 g/dL (32.2-35.5); Mean Platelet Volume 9.8 fL (9.4-12.3); Platelet Count 292 x10^3/uL (182-369); Red Blood Count 3.54 x10^6/uL (3.93-5.22); Red Cell Distribution Width 14.1 % (11.7-14.4); White Blood Count 5.7 x10^3/uL (3.98-10.04)
[2024-08-24 06:36] LABS: ALBUMIN 3.4 g/dL (3.5-5.0); ANION GAP 11.9 MEQ/L (5-15); BILIRUBIN,TOTAL 0.2 mg/dL (0.2-1.3); Calcium 9.1 mg/dL (8.4-10.2); Creatinine 1 1.12 mg/dL (0.52-1.04); EST GLOMERULAR FILTRATION RATE 47.6 ML/MIN; Potassium 4.1 mmol/L (3.5-5.1); Total Protein 6.2 g/dL (6.3-8.2)
--- NOTE | 2024-08-24 09:06 | PCM.NOTE ---
Date and Time: 08/24/24 0859 Subjective Assessment: 08/22/24 is a 89 year old female with pmhx of DVT , peptic ulcer disease, HTN, hypothyroidism, OA, GERD, CKD, and RLS. She is a direct admit from podiatry for ongoing RLE cellulitis and failed OP treatment of Levaquin and Augmentin. Will start IV antibiotics and Lasix. RLE wrapped by podiatry OP yesterday. She denies any further concerns at this time. 08/23/24 Pt resting in bed. She states she is starting to feel better. + Continued edema Of RLE. Leg is wrapped and elevated. Continue Lasix and IV antibiotics. Pt sates pain is controlled and denies any further concerns at this time. 08/24/24 Patient is resting in bed and reports feeling better. Awaiting podiatry recommendations tomorrow. She reports experiencing some itching today; Atarax has been ordered. She notes that the itching has been recurring since discontinuation of Eliquis. Continue Lasix and Clindamycin for right lower extr emity cellulitis and edema. She requested prune juice today due to no bowel movement over the past few days. The patient denies any further concerns at this time. - Review of Systems Constitutional: No Fever, No Chills Eyes: No Symptoms Ears, Nose, & Throat: No Symptoms Respiratory: No Cough, No Short Of Breath Cardiac: No Chest Pain, No Edema, No Syncope Abdominal/Gastrointestinal: No Abdominal Pain, No Nausea, No Vomiting, No Diar [place] Genitourinary Symptoms: No Dysuria Musculoskeletal: No Back Pain, No Neck Pain Skin: Cellulitis (RLE), Pruritis, No Rash Neurological: No Dizziness, No Focal Weakness, No Sensory Changes Psychological: No Symptoms Endocrine: No Symptoms Hematologic/Lymphatic: No Symptoms Immunological/Allergic: No Symptoms Objective Exam General Appearance: no apparent distress, alert Neurologic Exam: alert, oriented x 3, cooperative, normal mood/affect, nml cerebellar function, sensation nml, No motor deficits Skin Exam: normal color, warm, dry Wound Assessment: Skin/Wound Assessment Wound/Incision Assessment Start: 08/22/24 11:43 Text: Status: Active Freq: Q6H Protocol: Document 08/24/24 02:00 LB (Rec: 08/24/24 04:27 LB [id number]) Wound/Incision Assessment Right Lower Leg Wound Assessment Shift Assessment Wound Type Cellulitis Wound Stage Non Pressure Wound Dressing Status Dry & Intact Drainage Amount None Drainage Odor None/Absent Comment Unna boot in place. Borders drawn Wound Photo Photo Taken No Eye Exam: PERRL, EOMI, eyes nml inspection Ears, Nose, Throat Exam: normal ENT inspection, pharynx normal, moist mucous membranes Neck Exam: normal inspection, non-tender, supple, full range of motion Respiratory Exam: normal breath sounds, lungs clear, No respiratory distress Cardiovascular Exam: regular rate/rhythm, normal heart sounds Gastrointestinal/Abdomen Exam: soft, No tenderness, No mass Extremity Exam: normal inspection, normal range of motion, tenderness, other (cellultis RLE) Back Exam: normal inspection, normal range of motion, No CVA tenderness, No vertebral tenderness Pelvic Exam: deferred Rectal Exam: deferred Objective Data Vital Signs: Vital Signs - 24 hr Temp Pulse Resp BP Pulse Ox 08/24/24 03:46 97.5 F 79 19 131/62 96 08/23/24 23:55 97.2 F 79 16 111/53 99 08/23/24 20:43 97.2 F 73 17 94/53 96 08/23/24 17:00 97.3 F 78 18 109/55 97 08/23/24 13:00 97.8 F 74 20 96/52 96 08/23/24 09:20 77 112/55 Pain Assessment - Last Documented Pain Intensity 0 Pain Scale Used 0-10 Pain Scale Intake and Output: Intake & Output 08/21/24 08/22/24 08/23/24 08/24/24 11:59 11:59 11:59 11:59 Intake Total 1100 910 Output Total 2950 750 Balance -1850 160 Weight 61.3 kg Lab Results: Lab Results-Last 24 Hours 08/24/24 08/24/24 Range/Units 05:48 05:48 WBC 5.7 (3.98-10.04) x10^3/uL RBC 3.54 L (3.93-5.22) x10^6/uL Hgb 10.4 L (11.2-15.7) g/dL Hct 33.9 L (34.1-44.9) % MCV 95.8 H (79.4-94.8) fL MCH 29.4 (25.6-32.2) pg MCHC 30.7 L (32.2-35.5) g/dL RDW 14.1 (11.7-14.4) % Plt Count 292 (182-369) x10^3/uL MPV 9.8 (9.4-12.3) fL Sodium 138 (135-145) mmol/L Potassium 4.1 (3.5-5.1) mmol/L Chloride 99 (98-107) mmol/L Carbon Dioxide 31 H (22-30) mmol/L Anion Gap 11.9 (5-15) MEQ/L BUN 31 H (7-17) mg/dL Creatinine 1.12 H (0.52-1.04) mg/dL Estimated GFR 47.6 ML/MIN Glucose 86 (74-106) mg/dL Calcium 9.1 (8.4-10.2) mg/dL Total Bilirubin 0.20 (0.2-1.3) mg/dL AST 35 (14-36) U/L ALT 14 (0-35) U/L Alkaline Phosphatase 159 H (38-126) U/L Serum Total Protein 6.2 L (6.3-8.2) g/dL Albumin 3.4 L (3.5-5.0) g/dL Medications: Medications Generic Name Dose Route Start Last Admin Trade Name Chekoq PRN Reason Stop Dose Admin Acetaminophen 650 mg 08/22/24 12:57 Acetaminophen 325 Mg Tablet PO 09/21/24 12:56 Q6H PRN PRN PAIN, FEVER, HEADACHE Acetaminophen 500 mg 08/22/24 13:10 08/23/24 22:52 Acetaminophen 500 Mg Tablet PO 09/21/24 13:09 500 mg QIDPRN PRN Administration PAIN Cholecalciferol 1,000 unit 08/25/24 10:00 Cholecalciferol (Vitamin D3) 1000 Unit Tablet PO 09/24/24 09:59 [id number]@[id number] [facility] Cyanocobalamin 1,000 mcg 08/27/24 10:00 Cyanocobalamin 1000 Mcg/Ml Vial IJ 09/26/24 09:59 Q14D JEFFREY Ferrous Sulfate 325 mg 08/23/24 10:00 08/23/24 09:14 Ferrous Sulfate 325 Mg Tablet PO 09/22/24 09:59 325 mg DAILY JEFFREY Administration Furosemide 40 mg 08/22/24 15:00 08/23/24 09:21 Furosemide 40 Mg/4 Ml Vial IV 09/21/24 14:59 40 mg DAILY JEFFREY Administration Gabapentin 200 mg 08/22/24 22:00 08/23/24 22:52 Gabapentin 100 Mg Capsule PO 09/21/24 21:59 200 mg HS JEFFREY Administration Heparin Sodium (Beef Lung) 5,000 unit 08/22/24 22:00 08/23/24 22:54 Heparin 5000 Units/0.5 Ml 5,000 Unit/0.5 Ml Syr SQ 09/21/24 21:59 5,000 unit BID JEFFREY Administration Hydroxyzine HCl 25 mg 08/22/24 13:15 Hydroxyzine Hcl 25 Mg Tablet PO 09/21/24 13:14 TIDPRN PRN Clindamycin Phosphate 300 mg in 50 mls @ 100 mls/hr 08/22/24 13:00 08/24/24 06:38 Clindamycin Phosphate Ivpb IV 09/21/24 12:59 100 mls/hr Q6HT JEFFREY Administration Lactobacillus Acidophilus 1 tab 08/22/24 14:00 08/23/24 09:14 Lactobacillus Acidophilus 1 Tab Tablet PO 09/21/24 13:59 1 tab DAILY JEFFREY Administration Levothyroxine Sodium 75 mcg 08/23/24 10:00 08/23/24 09:15 Levothyroxine Sodium 75 Mcg Tablet PO 09/22/24 09:59 75 mcg DAILY JEFFREY Administration Loratadine 10 mg 08/23/24 10:00 08/23/24 09:14 Loratadine 10 Mg Tablet PO 09/22/24 09:59 10 mg DAILY JEFFREY Administration Miscellaneous Information 1 each 08/22/24 15:45 Medication Intervention 1 Each Each 09/21/24 15:44 .RN TO CHECK JEFFREY Multivitamins 1 tab 08/23/24 10:00 08/23/24 09:15 Vitamin B Complex With Vit. C Tablet PO 09/22/24 09:59 1 tab DAILY JEFFREY Administration Multivitamins Therapeutic 1 tab 08/23/24 10:00 08/23/24 09:14 Multivitamins,Therapeutic 1 Tab Tab PO 09/22/24 09:59 1 tab DAILY JEFFREY Administration Ondansetron HCl 4 mg 08/22/24 14:30 Zofran 4 Mg/Udtablet Orally Disintegrating PO 09/21/24 14:29 DAILY PRN PRN NAUSEA Pantoprazole Sodium 40 mg 08/23/24 10:00 08/23/24 09:14 Protonix (Pantoprazole) 40 Mg Tablet PO 09/22/24 09:59 40 mg DAILY JEFFREY Administration Potassium Chloride 20 meq 08/22/24 22:00 08/23/24 22:52 Potassium Chloride Tab 10 Meq Tab PO 09/21/24 21:59 20 meq BID JEFFREY Administration Pramipexole Dihydrochloride 1 mg 08/22/24 15:30 08/23/24 22:53 Pramipexole Di-Hcl 0.5 Mg Tab PO 09/21/24 15:29 1 mg TID JEFFREY Administration Telmisartan 40 mg 08/23/24 10:00 08/23/24 09:13 Telmisartan 80 Mg Tab PO 09/22/24 09:59 40 mg DAILY JEFFREY Administration Tramadol HCl 50 mg 08/22/24 15:15 08/23/24 22:52 Tramadol Hcl 50 Mg Tablet PO 09/21/24 15:14 50 mg QID JEFFREY Administration Discontinued Medications Generic Name Dose Route Start Last Admin Trade Name Freq PRN Reason Stop Dose Admin Hydrochlorothiazide 25 mg 08/23/24 10:00 08/23/24 09:15 Hydrochlorothiazide 25 Mg Tablet PO 09/22/24 09:59 Not Given DAILY JEFFREY Assessment/Plan (1) Cellulitis of right lower leg Current Visit: No Status: Acute Code(s): L03.115 - CELLULITIS OF RIGHT LOWER LIMB (2) Edema of right lower extremity Current Visit: Yes Status: Acute Code(s): R60.0 - LOCALIZED EDEMA (3) PREET (acute kidney injury) Current Visit: Yes Status: Acute Code(s): N17.9 - ACUTE KIDNEY FAILURE, UNSPECIFIED (4) GERD (gastroesophageal reflux disease) Current Visit: No Status: Chronic Code(s): K21.9 - GASTRO-ESOPHAGEAL REFLUX DISEASE WITHOUT ESOPHAGITIS (5) HTN (hypertension) Current Visit: No Status: Chronic Code(s): I10 - ESSENTIAL (PRIMARY) HYPERTENSION (6) History of DVT (deep vein thrombosis) Current Visit: No Status: Chronic Code(s): Z86.718 - PERSONAL HISTORY OF OTHER VENOUS THROMBOSIS AND EMBOLISM (7) Hypothyroidism Current Visit: No Status: Chronic Code(s): E03.9 - HYPOTHYROIDISM, UNSPECIFIED (8) RLS (restless legs syndrome) Current Visit: No Status: Chronic Assessment & Plan: (1) Cellulitis of right lower leg Current Visit: No Status: Acute Assessment & Plan: - Failed OP treatment - Podiatry wrapped yesterday - Consult podiatry - Clindamycin TID IV - Probiotics - CBC, CMP reviewed - BC X2 - Tylenol PRN - Continue home narcotic pain med - Elevate RLE - CBC, CMP pending - BC x2- pending - PT eval Code(s): L03.115 - CELLULITIS OF RIGHT LOWER LIMB (2) Edema of right lower extremity Current Visit: Yes Status: Acute Assessment & Plan: - Lasix 40 IV daily - Elevate RLE Code(s): R60.0 - LOCALIZED EDEMA (3)PREET N17 Current Visit: No Status: Chronic Assessment & Plan: 08/24 - Creat 1.12- 2:2 lasix- BL normal Code(s): ICD 10: N17 (4) GERD (gastroesophageal reflux disease) Current Visit: No Status: Chronic Assessment & Plan: - Protonix IV daily Code(s): K21.9 - GASTRO-ESOPHAGEAL REFLUX DISEASE WITHOUT ESOPHAGITIS (5) HTN (hypertension) Current Visit: No Status: Chronic Assessment & Plan: - BP stable - Continue home meds Code(s): I10 - ESSENTIAL (PRIMARY) HYPERTENSION (6) History of DVT (deep vein thrombosis) Current Visit: No Status: Chronic Assessment & Plan: - Pt reports she was taken off blood thinner d/t rash reaction and no longer taking anything Code(s): Z86.718 - PERSONAL HISTORY OF OTHER VENOUS THROMBOSIS AND EMBOLISM (7) Hypothyroidism Current Visit: No Status: Chronic Assessment & Plan: - Continue Synthroid Code(s): E03.9 - HYPOTHYROIDISM, UNSPECIFIED (8) RLS (restless legs syndrome) Current Visit: No Status: Chronic Assessment & Plan: - Continue pramipexole (9) Pruritic condition Current Visit: Yes Status: Acute Assessment & Plan: - Atarax Code(s): L29.9 - PRURITUS, UNSPECIFIED (10) Constipation Current Visit: Yes Status: Acute Assessment & Plan: - Pt opted for prune juice VTE: Heparin PPI: Protonix Next of KIN: Son- POA D/C plan: 1-2 days- pending podiatry rec Code status: SCO/DNR Code(s): K59.00 - CONSTIPATION, UNSPECIFIED
[2024-08-24] MEDS: ATARAX 25 MG PO ONE (10:31)
[2024-08-25] MEDS: ZOFRAN ODT 4 MG PO PRN (00:17)
--- NOTE | 2024-08-25 05:28 | PCM.NOTE ---
Date and Time: 08/25/24 0524 Subjective Assessment: Ms. Darden is an 89-year-old female with a complex medical history including DVT, CKD, hypothyroidism, osteoarthritis, peptic ulcer disease, GERD, and RLS. She was directly admitted 08/22/24 under the advisement of podiatry for worsening right lower extremity cellulitis after failing outpatient oral antibiotic therapy with Levaquin and Augmentin. On admission, the RLE was wrapped and elevated per podiatry, and she was started on IV clindamycin and Lasix. Edema in the RLE persists, though she reports decreased discomfort. Diuresis is ongoing with IV Lasix. Renal function is stable and she is at her baseline. Blood cultures were drawn and are pending. She reported generalized pruritus, which she associates with discontinuation of Eliquis; Atarax has been initiated for symptomatic relief. She remains hemodynamically stable. Awaiting updated recommendations from podiatry. 08/25/24: Met with patient bedside. Endorses much improvement in RLE pain and edema. Podiatry recommendations pending. Denies fever,cough, sob, cp, abdominal pain, [place], dizziness, N/V/D. - Review of Systems Constitutional: No Symptoms Eyes: No Symptoms Ears, Nose, & Throat: No Symptoms Respiratory: No Symptoms Cardiac: No Symptoms Abdominal/Gastrointestinal: No Symptoms Genitourinary Symptoms: No Symptoms Musculoskeletal: No Symptoms Skin: Cellulitis Neurological: No Symptoms Psychological: No Symptoms Endocrine: No Symptoms Hematologic/Lymphatic: No Symptoms Immunological/Allergic: No Symptoms Objective Exam General Appearance: no apparent distress Neurologic Exam: alert, oriented x 3, cooperative Wound Assessment: Skin/Wound Assessment Wound/Incision Assessment Start: 08/22/24 11:43 Text: Status: Active Freq: Q6H Protocol: Document 08/25/24 02:00 LB (Rec: 08/25/24 03:54 LB [id number]) Wound/Incision Assessment Right Lower Leg Wound Assessment Shift Assessment Wound Type Cellulitis Wound Stage Non Pressure Wound Dressing Status Dry & Intact Drainage Amount None Drainage Odor None/Absent Comment Unna boot in place Wound Photo Photo Taken No Eye Exam: PERRL Ears, Nose, Throat Exam: normal ENT inspection Neck Exam: normal inspection Respiratory Exam: normal breath sounds, lungs clear Cardiovascular Exam: regular rate/rhythm, normal heart sounds Gastrointestinal/Abdomen Exam: soft, normal bowel sounds Extremity Exam: other (RLE wrapped CDI) Back Exam: normal inspection Pelvic Exam: deferred Rectal Exam: deferred Objective Data Vital Signs: Vital Signs - 24 hr Temp Pulse Resp BP Pulse Ox 08/25/24 04:00 70 19 08/24/24 23:54 97.7 F 85 16 106/52 95 08/24/24 20:00 98.3 F 80 17 104/49 95 08/24/24 16:00 97.3 F 73 18 104/51 99 08/24/24 12:00 97.9 F 76 18 111/60 97 08/24/24 08:00 97.1 F 82 18 109/55 99 Pain Assessment - Last Documented Pain Intensity 0 Pain Scale Used 0-10 Pain Scale Intake and Output: Intake & Output 08/22/24 08/23/24 08/24/24 08/25/24 11:59 11:59 11:59 11:59 Intake Total 1100 1150 467 Output Total 2950 750 Balance -1850 400 467 Weight 61.3 kg Lab Results: Lab Results-Last 24 Hours 08/24/24 08/24/24 Range/Units 05:48 05:48 WBC 5.7 (3.98-10.04) x10^3/uL RBC 3.54 L (3.93-5.22) x10^6/uL Hgb 10.4 L (11.2-15.7) g/dL Hct 33.9 L (34.1-44.9) % MCV 95.8 H (79.4-94.8) fL MCH 29.4 (25.6-32.2) pg MCHC 30.7 L (32.2-35.5) g/dL RDW 14.1 (11.7-14.4) % Plt Count 292 (182-369) x10^3/uL MPV 9.8 (9.4-12.3) fL Sodium 138 (135-145) mmol/L Potassium 4.1 (3.5-5.1) mmol/L Chloride 99 (98-107) mmol/L Carbon Dioxide 31 H (22-30) mmol/L Anion Gap 11.9 (5-15) MEQ/L BUN 31 H (7-17) mg/dL Creatinine 1.12 H (0.52-1.04) mg/dL Estimated GFR 47.6 ML/MIN Glucose 86 (74-106) mg/dL Calcium 9.1 (8.4-10.2) mg/dL Total Bilirubin 0.20 (0.2-1.3) mg/dL AST 35 (14-36) U/L ALT 14 (0-35) U/L Alkaline Phosphatase 159 H (38-126) U/L Serum Total Protein 6.2 L (6.3-8.2) g/dL Albumin 3.4 L (3.5-5.0) g/dL Medications: Medications Generic Name Dose Route Start Last Admin Trade Name Freq PRN Reason Stop Dose Admin Acetaminophen 650 mg 08/22/24 12:57 Acetaminophen 325 Mg Tablet PO 09/21/24 12:56 Q6H PRN PRN PAIN, FEVER, HEADACHE Acetaminophen 500 mg 08/22/24 13:10 08/24/24 22:19 Acetaminophen 500 Mg Tablet PO 09/21/24 13:09 500 mg QIDPRN PRN Administration PAIN Cholecalciferol 1,000 unit 08/25/24 10:00 Cholecalciferol (Vitamin D3) 1000 Unit Tablet PO 09/24/24 09:59 [id number]@1000 JEFFREY Cyanocobalamin 1,000 mcg 08/27/24 10:00 Cyanocobalamin 1000 Mcg/Ml Vial IJ 09/26/24 09:59 Q14D JEFFREY Ferrous Sulfate 325 mg 08/23/24 10:00 08/24/24 10:31 Ferrous Sulfate 325 Mg Tablet PO 09/22/24 09:59 325 mg DAILY JEFFREY Administration Furosemide 40 mg 08/22/24 15:00 08/24/24 10:29 Furosemide 40 Mg/4 Ml Vial IV 09/21/24 14:59 40 mg DAILY JEFFREY Administration Gabapentin 200 mg 08/22/24 22:00 08/24/24 22:20 Gabapentin 100 Mg Capsule PO 09/21/24 21:59 200 mg HS JEFFREY Administration Heparin Sodium (Beef Lung) 5,000 unit 08/22/24 22:00 08/24/24 22:23 Heparin 5000 Units/0.5 Ml 5,000 Unit/0.5 Ml Syr SQ 09/21/24 21:59 5,000 unit BID JEFFREY Administration Hydroxyzine HCl 25 mg 08/22/24 13:15 Hydroxyzine Hcl 25 Mg Tablet PO 09/21/24 13:14 TIDPRN PRN Clindamycin Phosphate 300 mg in 50 mls @ 100 mls/hr 08/22/24 13:00 08/25/24 00:12 Clindamycin Phosphate Ivpb IV 09/21/24 12:59 100 mls/hr Q6HT JEFFREY Administration Lactobacillus Acidophilus 1 tab 08/22/24 14:00 08/24/24 10:29 Lactobacillus Acidophilus 1 Tab Tablet PO 09/21/24 13:59 1 tab DAILY JEFFREY Administration Levothyroxine Sodium 75 mcg 08/23/24 10:00 08/24/24 10:31 Levothyroxine Sodium 75 Mcg Tablet PO 09/22/24 09:59 75 mcg DAILY JEFFREY Administration Loratadine 10 mg 08/23/24 10:00 08/24/24 10:31 Loratadine 10 Mg Tablet PO 09/22/24 09:59 10 mg DAILY JEFFREY Administration Miscellaneous Information 1 each 08/22/24 15:45 Medication Intervention 1 Each Each 09/21/24 15:44 .RN TO CHECK JEFFREY Multivitamins 1 tab 08/23/24 10:00 08/24/24 10:32 Vitamin B Complex With Vit. C Tablet PO 09/22/24 09:59 1 tab DAILY JEFFREY Administration Multivitamins Therapeutic 1 tab 08/23/24 10:00 08/24/24 10:30 Multivitamins,Therapeutic 1 Tab Tab PO 09/22/24 09:59 1 tab DAILY JEFFREY Administration Ondansetron HCl 4 mg 08/22/24 14:30 08/25/24 00:17 Zofran 4 Mg/Udtablet Orally Disintegrating PO 09/21/24 14:29 4 mg DAILY PRN PRN Administration NAUSEA Pantoprazole Sodium 40 mg 08/23/24 10:00 08/24/24 10:31 Protonix (Pantoprazole) 40 Mg Tablet PO 09/22/24 09:59 40 mg DAILY JEFFREY Administration Potassium Chloride 20 meq 08/22/24 22:00 08/24/24 22:20 Potassium Chloride Tab 10 Meq Tab PO 09/21/24 21:59 20 meq BID JEFFREY Administration Pramipexole Dihydrochloride 1 mg 08/22/24 15:30 08/24/24 22:19 Pramipexole Di-Hcl 0.5 Mg Tab PO 09/21/24 15:29 1 mg TID JEFFREY Administration Telmisartan 40 mg 08/23/24 10:00 08/24/24 10:30 Telmisartan 80 Mg Tab PO 09/22/24 09:59 40 mg DAILY JEFFREY Administration Tramadol HCl 50 mg 08/22/24 15:15 08/24/24 22:19 Tramadol Hcl 50 Mg Tablet PO 09/21/24 15:14 50 mg QID JEFFREY Administration Discontinued Medications Generic Name Dose Route Start Last Admin Trade Name Caitlin PRN Reason Stop Dose Admin Hydrochlorothiazide 25 mg 08/23/24 10:00 08/23/24 09:15 Hydrochlorothiazide 25 Mg Tablet PO 09/22/24 09:59 Not Given DAILY JEFFREY Hydroxyzine HCl 25 mg 08/24/24 09:15 08/24/24 10:31 Hydroxyzine Hcl 25 Mg Tablet PO 08/24/24 09:16 25 mg STAT ONE Administration Assessment/Plan (1) Cellulitis of right leg Current Visit: No Status: Acute Assessment & Plan: -Failed OP Levaquin and Augmentin -Started on IV clindamycin- will continue - Podiatry following -leg elevated and wrapped by podiatry- pending discharge recommendations -Blood cultures pending -CMP/CBC reviewed Code(s): L03.115 - CELLULITIS OF RIGHT LOWER LIMB (2) PREET (acute kidney injury) Current Visit: Yes Status: Acute Assessment & Plan: -Creatinine reviewed at stable at baseline -Monitor renal/lytes closely during diuresis -Avoid nephrotoxic agents Code(s): N17.9 - ACUTE KIDNEY FAILURE, UNSPECIFIED (3) Constipation Current Visit: Yes Status: Acute Assessment & Plan: -No bowel movement for several days; managed with dietary measures (prune juice) +BM Code(s): K59.00 - CONSTIPATION, UNSPECIFIED (4) Edema of right lower extremity Current Visit: Yes Status: Acute Assessment & Plan: -Persistent swelling of RLE; treated with IV Lasix and limb elevation Code(s): R60.0 - LOCALIZED EDEMA (5) Pruritic condition Current Visit: Yes Status: Acute Assessment & Plan: -Generalized itching reported since Eliquis discontinuation; managed with Atarax Code(s): L29.9 - PRURITUS, UNSPECIFIED (6) GERD (gastroesophageal reflux disease) Current Visit: No Status: Chronic Assessment & Plan: - IV Protonix. No active symptoms during hospitalization Code(s): K21.9 - GASTRO-ESOPHAGEAL REFLUX DISEASE WITHOUT ESOPHAGITIS (7) HTN (hypertension) Current Visit: No Status: Chronic Assessment & Plan: -BP stable on home antihypertensive regimen- will continue Code(s): I10 - ESSENTIAL (PRIMARY) HYPERTENSION (8) History of DVT (deep vein thrombosis) Current Visit: No Status: Chronic Assessment & Plan: -No longer anticoagulated due to rash from Eliquis. Monitored for recurrence risk Code(s): Z86.718 - PERSONAL HISTORY OF OTHER VENOUS THROMBOSIS AND EMBOLISM (9) Hypothyroidism Current Visit: No Status: Chronic Assessment & Plan: -Continued on Synthroid Code(s): E03.9 - HYPOTHYROIDISM, UNSPECIFIED (10) RLS (restless legs syndrome) Current Visit: No Status: Chronic Assessment & Plan: -Managed with pramipexole; no acute changes reported VTE: Heparin PPI: Protonix Next of KIN: Son- POA D/C plan: 1-2 days- pending podiatry rec Code status: SCO/DNR
[2024-08-25 05:47] LABS: Hematocrit 30.9 % (34.1-44.9); Hemoglobin 9.4 g/dL (11.2-15.7); Mean Cell Volume 95.7 fL (79.4-94.8); Mean Corpuscular Hemoglobin 29.1 pg (25.6-32.2); Mean Corpuscular Hgb Concent. 30.4 g/dL (32.2-35.5); Mean Platelet Volume 9.6 fL (9.4-12.3); Platelet Count 304 x10^3/uL (182-369); Red Blood Count 3.23 x10^6/uL (3.93-5.22); Red Cell Distribution Width 13.9 % (11.7-14.4); White Blood Count 8.3 x10^3/uL (3.98-10.04)
[2024-08-25 06:07] LABS: ALBUMIN 2.8 g/dL (3.5-5.0); ALKALINE PHOSPHATASE 124 U/L (38-126); ANION GAP 12.7 MEQ/L (5-15); BILIRUBIN,TOTAL < 0.10 mg/dL (0.2-1.3); BLOOD UREA NITROGEN 36 mg/dL (7-17); CHLORIDE 101 mmol/L (98-107); Calcium 8.8 mg/dL (8.4-10.2); Carbon Dioxide 31 mmol/L (22-30); Creatinine 1 1.08 mg/dL (0.52-1.04); EST GLOMERULAR FILTRATION RATE 49.7 ML/MIN; Glucose 120 mg/dL (74-106); Potassium 5.1 mmol/L (3.5-5.1); SGOT/AST 27 U/L (14-36); SGPT/ALT 14 U/L (0-35); SODIUM 140 mmol/L (135-145); Total Protein 5.2 g/dL (6.3-8.2)
[2024-08-25] MEDS: VITAMIN D PO SCH (11:01)
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
--- NOTE | 2024-08-25 16:37 | PCM.NOTE ---
Date and Time: 08/25/24 1636 Subjective Assessment: seen at bedside. improvement in pain and drainage to the right lower extremity. Physical Exam - Narrative Narrative Physical Exam: Podiatry Physical Exam Objective Data Vital Signs: Vital Signs - 24 hr Temp Pulse Resp BP Pulse Ox 08/25/24 12:10 98.2 F 85 18 118/65 96 08/25/24 09:03 117/59 08/25/24 07:19 97.5 F 78 18 88/50 94 L 08/25/24 04:00 70 19 08/24/24 23:54 97.7 F 85 16 106/52 95 08/24/24 20:00 98.3 F 80 17 104/49 95 Pain Assessment - Last Documented Pain Intensity 2 Pain Scale Used 0-10 Pain Scale Intake and Output: Intake & Output 08/23/24 08/24/24 08/25/24 08/26/24 11:59 11:59 11:59 11:59 Intake Total 1100 1150 587 Output Total 2950 750 400 600 Balance -1850 400 187 -600 Weight 61.3 kg 61.3 kg Lab Results: Lab Results-Last 24 Hours 08/25/24 08/25/24 Range/Units 05:40 05:40 WBC 8.3 (3.98-10.04) x10^3/uL RBC 3.23 L (3.93-5.22) x10^6/uL Hgb 9.4 L (11.2-15.7) g/dL Hct 30.9 L (34.1-44.9) % MCV 95.7 H (79.4-94.8) fL MCH 29.1 (25.6-32.2) pg MCHC 30.4 L (32.2-35.5) g/dL RDW 13.9 (11.7-14.4) % Plt Count 304 (182-369) x10^3/uL MPV 9.6 (9.4-12.3) fL Sodium 140 (135-145) mmol/L Potassium 5.1 D (3.5-5.1) mmol/L Chloride 101 (98-107) mmol/L Carbon Dioxide 31 H (22-30) mmol/L Anion Gap 12.7 (5-15) MEQ/L BUN 36 H (7-17) mg/dL Creatinine 1.08 H (0.52-1.04) mg/dL Estimated GFR 49.7 ML/MIN Glucose 120 H (74-106) mg/dL Calcium 8.8 (8.4-10.2) mg/dL Total Bilirubin < 0.10 L (0.2-1.3) mg/dL AST 27 (14-36) U/L ALT 14 (0-35) U/L Alkaline Phosphatase 124 (38-126) U/L Serum Total Protein 5.2 L (6.3-8.2) g/dL Albumin 2.8 L (3.5-5.0) g/dL Medications: Medications Generic Name Dose Route Start Last Admin Trade Name Freq PRN Reason Stop Dose Admin Acetaminophen 650 mg 08/22/24 12:57 Acetaminophen 325 Mg Tablet PO 09/21/24 12:56 Q6H PRN PRN PAIN, FEVER, HEADACHE Acetaminophen 500 mg 08/22/24 13:10 08/25/24 14:47 Acetaminophen 500 Mg Tablet PO 09/21/24 13:09 500 mg QIDPRN PRN Administration PAIN Cholecalciferol 1,000 unit 08/25/24 10:00 08/25/24 11:01 Cholecalciferol (Vitamin D3) 1000 Unit Tablet PO 09/24/24 09:59 1,000 unit MoWeFr@1000 JEFFREY Administration Cyanocobalamin 1,000 mcg 08/27/24 10:00 Cyanocobalamin 1000 Mcg/Ml Vial IJ 09/26/24 09:59 Q14D JEFFREY Ferrous Sulfate 325 mg 08/23/24 10:00 08/25/24 11:02 Ferrous Sulfate 325 Mg Tablet PO 09/22/24 09:59 325 mg DAILY JEFFREY Administration Furosemide 40 mg 08/22/24 15:00 08/25/24 11:02 Furosemide 40 Mg/4 Ml Vial IV 09/21/24 14:59 40 mg DAILY JEFFREY Administration Gabapentin 200 mg 08/22/24 22:00 08/24/24 22:20 Gabapentin 100 Mg Capsule PO 09/21/24 21:59 200 mg HS JEFFREY Administration Heparin Sodium (Beef Lung) 5,000 unit 08/22/24 22:00 08/25/24 11:04 Heparin 5000 Units/0.5 Ml 5,000 Unit/0.5 Ml Syr SQ 09/21/24 21:59 5,000 unit BID JEFFREY Administration Hydroxyzine HCl 25 mg 08/22/24 13:15 Hydroxyzine Hcl 25 Mg Tablet PO 09/21/24 13:14 TIDPRN PRN Clindamycin Phosphate 300 mg in 50 mls @ 100 mls/hr 08/22/24 13:00 08/25/24 13:08 Clindamycin Phosphate Ivpb IV 09/21/24 12:59 100 mls/hr Q6HT JEFFREY Administration Lactobacillus Acidophilus 1 tab 08/22/24 14:00 08/25/24 11:01 Lactobacillus Acidophilus 1 Tab Tablet PO 09/21/24 13:59 1 tab DAILY JEFFREY Administration Levothyroxine Sodium 75 mcg 08/23/24 10:00 08/25/24 11:02 Levothyroxine Sodium 75 Mcg Tablet PO 09/22/24 09:59 75 mcg DAILY JEFFREY Administration Loratadine 10 mg 08/23/24 10:00 08/25/24 11:02 Loratadine 10 Mg Tablet PO 09/22/24 09:59 10 mg DAILY JEFFREY Administration Miscellaneous Information 1 each 08/22/24 15:45 Medication Intervention 1 Each Each 09/21/24 15:44 .RN TO CHECK JEFFREY Multivitamins 1 tab 08/23/24 10:00 08/25/24 11:04 Vitamin B Complex With Vit. C Tablet PO 09/22/24 09:59 1 tab DAILY JEFFREY Administration Multivitamins Therapeutic 1 tab 08/23/24 10:00 08/25/24 11:02 Multivitamins,Therapeutic 1 Tab Tab PO 09/22/24 09:59 1 tab DAILY JEFFREY Administration Ondansetron HCl 4 mg 08/22/24 14:30 08/25/24 00:17 Zofran 4 Mg/Udtablet Orally Disintegrating PO 09/21/24 14:29 4 mg DAILY PRN PRN Administration NAUSEA Pantoprazole Sodium 40 mg 08/23/24 10:00 08/25/24 11:02 Protonix (Pantoprazole) 40 Mg Tablet PO 09/22/24 09:59 40 mg DAILY JEFFREY Administration Potassium Chloride 20 meq 08/22/24 22:00 08/25/24 11:01 Potassium Chloride Tab 10 Meq Tab PO 09/21/24 21:59 20 meq BID JEFFREY Administration Pramipexole Dihydrochloride 1 mg 08/22/24 15:30 08/25/24 14:46 Pramipexole Di-Hcl 0.5 Mg Tab PO 09/21/24 15:29 1 mg TID JEFFREY Administration Telmisartan 40 mg 08/23/24 10:00 08/25/24 11:02 Telmisartan 80 Mg Tab PO 09/22/24 09:59 40 mg DAILY JEFFREY Administration Tramadol HCl 50 mg 08/22/24 15:15 08/25/24 14:46 Tramadol Hcl 50 Mg Tablet PO 09/21/24 15:14 50 mg QID JEFFREY Administration Discontinued Medications Generic Name Dose Route Start Last Admin Trade Name Chekoq PRN Reason Stop Dose Admin Hydrochlorothiazide 25 mg 08/23/24 10:00 08/23/24 09:15 Hydrochlorothiazide 25 Mg Tablet PO 09/22/24 09:59 Not Given DAILY JEFFREY Hydroxyzine HCl 25 mg 08/24/24 09:15 08/24/24 10:31 Hydroxyzine Hcl 25 Mg Tablet PO 08/24/24 09:16 25 mg STAT ONE Administration Multi-Disciplinary Progress Notes: Multi-Disciplinary Progress Notes 08/25/24 12:37 Case Management Note by Carmella Jalloh PATIENT HAS [facility]. THEY WERE NOTIFED OF PATIENT ADMISSION. THEY WILL NEED NOTIFIED AT TIME OF DC AT [phone]. THEY WILL NEED FAXED THE DC INSTRUCTION, DC MED LIST AND DC SUMMARY (IF AVAILABLE) TO [phone]. Initialized on 08/25/24 12:37 - END OF NOTE Assessment/Plan (1) Cellulitis of right leg Current Visit: No Status: Acute Assessment & Plan: Responding to diuresis and IV abx at this time. Dressing changed today consisting of Iodine adaptic 4x4 kerlix and coban to the right lower extremity Dieresis per medicine recommendations IV abx per medicine recs Will follow. Ok for discharge as medicine team determines. Code(s): L03.115 - CELLULITIS OF RIGHT LOWER LIMB (2) Right leg pain Current Visit: No Status: Acute Code(s): M79.604 - PAIN IN RIGHT LEG (3) Wound of right lower extremity Current Visit: No Status: Acute Code(s): S81.801A - UNSPECIFIED OPEN WOUND, RIGHT LOWER LEG, INITIAL ENCOUNTER (4) DVT (deep venous thrombosis) Current Visit: No Status: Acute Qualifiers: Code(s): I82.409 - ACUTE EMBOLISM AND THOMBOS UNSP DEEP VN UNSP LOWER EXTREMITY (5) Obesity (BMI 30.0-34.9) Current Visit: No Status: Chronic Code(s): E66.9 - OBESITY, UNSPECIFIED (6) Cellulitis of right lower leg Current Visit: No Status: Acute Code(s): L03.115 - CELLULITIS OF RIGHT LOWER LIMB (7) Acute on chronic renal failure Current Visit: No Status: Acute Code(s): N17.9 - ACUTE KIDNEY FAILURE, UNSPECIFIED; N18.9 - CHRONIC KIDNEY DISEASE, UNSPECIFIED (8) Venous insufficiency (chronic) (peripheral) Current Visit: No Status: Acute
[2024-08-26 05:25] LABS: Absolute Neutrophil Ct (ANC) 4.49 x10^3/uL (1.56-6.13); BASOPHIL % 0.3 % (0.1-1.2); Basophil (Absolute #) 0.02 x10^3/uL (0.01-0.08); Eosinophil (Absolute #) 0.77 x10^3/uL (0.04-0.36); Hematocrit 30.9 % (34.1-44.9); Hemoglobin 9.6 g/dL (11.2-15.7); IMMATURE GRAN # 0.14 x10^3u/L (0.001-0.031); IMMATURE GRAN % 1.8 % (0.001-0.429); Mean Cell Volume 93.4 fL (79.4-94.8); Mean Corpuscular Hgb Concent. 31.1 g/dL (32.2-35.5); Mean Platelet Volume 9.5 fL (9.4-12.3); Monocyte (Absolute #) 0.59 x10^3/uL (0.24-0.86); Monocytes % 7.7 % (4.7-12.5); Neutrophil % 58.2 % (34.0-71.1); Platelet Count 291 x10^3/uL (182-369); Red Blood Count 3.31 x10^6/uL (3.93-5.22); Red Cell Distribution Width 14.2 % (11.7-14.4); White Blood Count 7.7 x10^3/uL (3.98-10.04)
--- NOTE | 2024-08-26 05:37 | PCM.NOTE ---
Date and Time: 08/26/24 0537 Subjective Assessment: Ms. Darden is an 89-year-old female with a complex medical history including DVT, CKD, hypothyroidism, osteoarthritis, peptic ulcer disease, GERD, and RLS. She was directly admitted 08/22/24 under the advisement of podiatry for worsening right lower extremity cellulitis after failing outpatient oral antibiotic therapy with Levaquin and Augmentin. On admission, the RLE was wrapped and elevated per podiatry, and she was started on IV clindamycin and Lasix. Edema in the RLE persists, though she reports decreased discomfort. Diuresis is ongoing with IV Lasix. Renal function is stable and she is at her baseline. Blood cultures were drawn and are pending. She reported generalized pruritus, which she associates with discontinuation of Eliquis; Atarax has been initiated for symptomatic relief. She remains hemodynamically stable. Awaiting updated recommendations from podiatry. 08/25/24: Met with patient bedside. Endorses much improvement in RLE pain and edema. Podiatry recommendations pending. Denies fever,cough, sob, cp, abdominal pain, DUR[place], dizziness, N/V/D. 08/26/24: No overnight events reported. The patient reports mild right lower extremity, rated 3 out of 10 on the numerical pain scale. The RLE remains wrapped with a compression dressing, and the patient continues to receive intravenous cli ndamycin. Notable improvement in bilateral lower extremity edema. Serum creatinine is elevated at 1.23; plan to transition furosemide to oral dosing. Anticipate discharge tomorrow. The patient has a scheduled follow-up with vascular surgery. - Review of Systems Constitutional: No Symptoms Eyes: No Symptoms Ears, Nose, & Throat: No Symptoms Respiratory: No Symptoms Cardiac: No Symptoms Abdominal/Gastrointestinal: No Symptoms Genitourinary Symptoms: No Symptoms Musculoskeletal: No Symptoms Skin: Cellulitis, Skin Lesions Neurological: No Symptoms Psychological: No Symptoms Endocrine: No Symptoms Hematologic/Lymphatic: No Symptoms Immunological/Allergic: No Symptoms Objective Exam General Appearance: no apparent distress Neurologic Exam: alert, oriented x 3, cooperative Skin Exam: other (see wound assement BLE edema +2 pitting/ LLE +1 pitting) Wound Assessment: Skin/Wound Assessment Wound/Incision Assessment Start: 08/22/24 11:43 Text: Status: Active Freq: Q6H Protocol: Document 08/25/24 23:00 KX (Rec: 08/25/24 23:32 KX [id number]) Wound/Incision Assessment Right Lower Leg Wound Assessment Shift Assessment Wound Type Cellulitis Wound Stage Non Pressure Wound Dressing Status Dry & Intact Drainage Amount None Drainage Odor None/Absent Comment Unna boot in place, remains true Wound Photo Photo Taken No Eye Exam: PERRL Ears, Nose, Throat Exam: normal ENT inspection Neck Exam: normal inspection Respiratory Exam: normal breath sounds, lungs clear Cardiovascular Exam: regular rate/rhythm, normal heart sounds Gastrointestinal/Abdomen Exam: soft Extremity Exam: normal inspection Back Exam: normal inspection Pelvic Exam: deferred Rectal Exam: deferred Objective Data Vital Signs: Vital Signs - 24 hr Temp Pulse Resp BP Pulse Ox 08/26/24 04:00 98.1 F 75 16 109/52 91 L 08/25/24 23:22 98.5 F 81 15 107/53 93 L 08/25/24 19:47 97.9 F 78 15 85/49 98 08/25/24 16:58 97.5 F 75 18 111/53 96 08/25/24 12:10 98.2 F 85 18 118/65 96 08/25/24 09:03 117/59 08/25/24 07:19 97.5 F 78 18 88/50 94 L Pain Assessment - Last Documented Pain Intensity 4 Pain Scale Used [facility] Intake and Output: Intake & Output 08/23/24 08/24/24 08/25/24 08/26/24 11:59 11:59 11:59 11:59 Intake Total 1100 2275 519 0318 Output Total 2950 801 007 8413 Balance -1850 400 187 -182 Weight 61.3 kg 61.3 kg Lab Results: Lab Results-Last 24 Hours 08/25/24 08/25/24 08/26/24 Range/Units 05:40 05:40 05:18 WBC 8.3 7.7 (3.98-10.04) x10^3/uL RBC 3.23 L 3.31 L (3.93-5.22) x10^6/uL Hgb 9.4 L 9.6 L (11.2-15.7) g/dL Hct 30.9 L 30.9 L (34.1-44.9) % MCV 95.7 H 93.4 (79.4-94.8) fL MCH 29.1 29.0 (25.6-32.2) pg MCHC 30.4 L 31.1 L (32.2-35.5) g/dL RDW 13.9 14.2 (11.7-14.4) % Plt Count 304 291 (182-369) x10^3/uL MPV 9.6 9.5 (9.4-12.3) fL Gran % 58.2 (34.0-71.1) % Immature Gran % (Auto) 1.8 H (0.001-0.429) % Nucleat RBC Rel Count 0.0 (0.00-0.2) % Eos # (Auto) 0.77 H (0.04-0.36) x10^3/uL Immature Gran # (Auto) 0.14 H (0.001-0.031) x10^3u/L Absolute Lymphs (auto) 1.70 (1.18-3.74) x10^3/uL Absolute Monos (auto) 0.59 (0.24-0.86) x10^3/uL Absolute Nucleated RBC 0.00 (0.00-0.012) x10^3u/L Lymphocytes % 22.0 (19.3-51.7) % Monocytes % 7.7 (4.7-12.5) % Eosinophils % 10.0 H (0.7-5.8) % Basophils % 0.3 (0.1-1.2) % Absolute Granulocytes 4.49 (1.56-6.13) x10^3/uL Basophils # 0.02 (0.01-0.08) x10^3/uL Sodium 140 (135-145) mmol/L Potassium 5.1 D (3.5-5.1) mmol/L Chloride 101 (98-107) mmol/L Carbon Dioxide 31 H (22-30) mmol/L Anion Gap 12.7 (5-15) MEQ/L BUN 36 H (7-17) mg/dL Creatinine 1.08 H (0.52-1.04) mg/dL Estimated GFR 49.7 ML/MIN Glucose 120 H (74-106) mg/dL Calcium 8.8 (8.4-10.2) mg/dL Total Bilirubin < 0.10 L (0.2-1.3) mg/dL AST 27 (14-36) U/L ALT 14 (0-35) U/L Alkaline Phosphatase 124 (38-126) U/L Serum Total Protein 5.2 L (6.3-8.2) g/dL Albumin 2.8 L (3.5-5.0) g/dL Medications: Medications Generic Name Dose Route Start Last Admin Trade Name Freq PRN Reason Stop Dose Admin Acetaminophen 650 mg 08/22/24 12:57 Acetaminophen 325 Mg Tablet PO 09/21/24 12:56 Q6H PRN PRN PAIN, FEVER, HEADACHE Acetaminophen 500 mg 08/22/24 13:10 08/26/24 01:52 Acetaminophen 500 Mg Tablet PO 09/21/24 13:09 500 mg QIDPRN PRN Administration PAIN Cholecalciferol 1,000 unit 08/25/24 10:00 08/25/24 11:01 Cholecalciferol (Vitamin D3) 1000 Unit Tablet PO 09/24/24 09:59 1,000 unit MoWeFr@1000 JEFFRYE Administration Cyanocobalamin 1,000 mcg 08/27/24 10:00 Cyanocobalamin 1000 Mcg/Ml Vial IJ 09/26/24 09:59 Q14D JEFFREY Ferrous Sulfate 325 mg 08/23/24 10:00 08/25/24 11:02 Ferrous Sulfate 325 Mg Tablet PO 09/22/24 09:59 325 mg DAILY JEFFREY Administration Furosemide 40 mg 08/22/24 15:00 08/25/24 11:02 Furosemide 40 Mg/4 Ml Vial IV 09/21/24 14:59 40 mg DAILY JEFFREY Administration Gabapentin 200 mg 08/22/24 22:00 08/25/24 21:44 Gabapentin 100 Mg Capsule PO 09/21/24 21:59 200 mg HS JEFFREY Administration Heparin Sodium (Beef Lung) 5,000 unit 08/22/24 22:00 08/25/24 21:43 Heparin 5000 Units/0.5 Ml 5,000 Unit/0.5 Ml Syr SQ 09/21/24 21:59 5,000 unit BID JEFFREY Administration Hydroxyzine HCl 25 mg 08/22/24 13:15 Hydroxyzine Hcl 25 Mg Tablet PO 09/21/24 13:14 TIDPRN PRN Clindamycin Phosphate 300 mg in 50 mls @ 100 mls/hr 08/22/24 13:00 08/26/24 05:23 Clindamycin Phosphate Ivpb IV 09/21/24 12:59 100 mls/hr Q6HT JEFFREY Administration Lactobacillus Acidophilus 1 tab 08/22/24 14:00 08/25/24 11:01 Lactobacillus Acidophilus 1 Tab Tablet PO 09/21/24 13:59 1 tab DAILY JEFFREY Administration Levothyroxine Sodium 75 mcg 08/23/24 10:00 08/25/24 11:02 Levothyroxine Sodium 75 Mcg Tablet PO 09/22/24 09:59 75 mcg DAILY JEFFREY Administration Loratadine 10 mg 08/23/24 10:00 08/25/24 11:02 Loratadine 10 Mg Tablet PO 09/22/24 09:59 10 mg DAILY JEFFREY Administration Miscellaneous Information 1 each 08/22/24 15:45 Medication Intervention 1 Each Each 09/21/24 15:44 .RN TO CHECK JEFFREY Multivitamins 1 tab 08/23/24 10:00 08/25/24 11:04 Vitamin B Complex With Vit. C Tablet PO 09/22/24 09:59 1 tab DAILY JEFFREY Administration Multivitamins Therapeutic 1 tab 08/23/24 10:00 08/25/24 11:02 Multivitamins,Therapeutic 1 Tab Tab PO 09/22/24 09:59 1 tab DAILY JEFFREY Administration Ondansetron HCl 4 mg 08/22/24 14:30 08/25/24 00:17 Zofran 4 Mg/Udtablet Orally Disintegrating PO 09/21/24 14:29 4 mg DAILY PRN PRN Administration NAUSEA Pantoprazole Sodium 40 mg 08/23/24 10:00 08/25/24 11:02 Protonix (Pantoprazole) 40 Mg Tablet PO 09/22/24 09:59 40 mg DAILY JEFFREY Administration Potassium Chloride 20 meq 08/22/24 22:00 08/25/24 21:43 Potassium Chloride Tab 10 Meq Tab PO 09/21/24 21:59 20 meq BID JEFFREY Administration Pramipexole Dihydrochloride 1 mg 08/22/24 15:30 08/25/24 21:43 Pramipexole Di-Hcl 0.5 Mg Tab PO 09/21/24 15:29 1 mg TID JEFFREY Administration Telmisartan 40 mg 08/23/24 10:00 08/25/24 11:02 Telmisartan 80 Mg Tab PO 09/22/24 09:59 40 mg DAILY JEFFREY Administration Tramadol HCl 50 mg 08/22/24 15:15 08/25/24 21:44 Tramadol Hcl 50 Mg Tablet PO 09/21/24 15:14 50 mg QID JEFFREY Administration Discontinued Medications Generic Name Dose Route Start Last Admin Trade Name Caitlin PRN Reason Stop Dose Admin Hydrochlorothiazide 25 mg 08/23/24 10:00 08/23/24 09:15 Hydrochlorothiazide 25 Mg Tablet PO 09/22/24 09:59 Not Given DAILY JEFFREY Hydroxyzine HCl 25 mg 08/24/24 09:15 08/24/24 10:31 Hydroxyzine Hcl 25 Mg Tablet PO 08/24/24 09:16 25 mg STAT ONE Administration Multi-Disciplinary Progress Notes: Multi-Disciplinary Progress Notes 08/25/24 12:37 Case Management Note by Carmella Jalloh PATIENT HAS [facility]. THEY WERE NOTIFED OF PATIENT ADMISSION. THEY WILL NEED NOTIFIED AT TIME OF DC AT [phone]. THEY WILL NEED FAXED THE DC INSTRUCTION, DC MED LIST AND DC SUMMARY (IF AVAILABLE) TO [phone]. Initialized on 08/25/24 12:37 - END OF NOTE Assessment/Plan (1) Cellulitis of right leg Current Visit: No Status: Acute Assessment & Plan: -Failed OP Levaquin and Augmentin -Started on IV clindamycin- will continue - Podiatry following -leg elevated and wrapped by podiatry- pending discharge recommendations -Blood cultures pending -CMP/CBC reviewed 08/26: -Discussed case with podiatry - agree with plan to continue Clindamycin -Blood cultures reviewed with NGTD -Discharge tomorrow -Continue lasix po Code(s): L03.115 - CELLULITIS OF RIGHT LOWER LIMB (2) PREET (acute kidney injury) Current Visit: Yes Status: Acute Assessment & Plan: -Creatinine reviewed at 1.39 baseline is 0.81 - most likely secondary to diuresis -Monitor renal/lytes closely during diuresis - transition to po lasix -Avoid nephrotoxic agents Code(s): N17.9 - ACUTE KIDNEY FAILURE, UNSPECIFIED (3) Constipation Current Visit: Yes Status: Acute Assessment & Plan: -No bowel movement for several days; managed with dietary measures (prune juice) +BM Code(s): K59.00 - CONSTIPATION, UNSPECIFIED (4) Edema of right lower extremity Current Visit: Yes Status: Acute Assessment & Plan: -Persistent swelling of RLE; treated with IV Lasix and limb elevation 08/26: -Improved- transition to PO lasix Code(s): R60.0 - LOCALIZED EDEMA (5) Pruritic condition Current Visit: Yes Status: Acute Assessment & Plan: -Generalized itching reported since Eliquis discontinuation; managed with Atarax Code(s): L29.9 - PRURITUS, UNSPECIFIED (6) GERD (gastroesophageal reflux disease) Current Visit: No Status: Chronic Assessment & Plan: - IV Protonix. No active symptoms during hospitalization Code(s): K21.9 - GASTRO-ESOPHAGEAL REFLUX DISEASE WITHOUT ESOPHAGITIS (7) HTN (hypertension) Current Visit: No Status: Chronic Assessment & Plan: -BP stable on home antihypertensive regimen- will continue Code(s): I10 - ESSENTIAL (PRIMARY) HYPERTENSION (8) History of DVT (deep vein thrombosis) Current Visit: No Status: Chronic Assessment & Plan: -No longer anticoagulated due to rash from Eliquis. Monitored for recurrence risk Code(s): Z86.718 - PERSONAL HISTORY OF OTHER VENOUS THROMBOSIS AND EMBOLISM (9) Hypothyroidism Current Visit: No Status: Chronic Assessment & Plan: -Continued on Synthroid Code(s): E03.9 - HYPOTHYROIDISM, UNSPECIFIED (10) RLS (restless legs syndrome) Current Visit: No Status: Chronic Assessment & Plan: -Managed with pramipexole; no acute changes reported VTE: Heparin PPI: Protonix Next of KIN: Son- POA D/C plan: 1-2 days- pending podiatry rec Code status: SCO/DNR Code(s): L03.115 - CELLULITIS OF RIGHT LOWER LIMB (2) PREET (acute kidney injury) Current Visit: Yes Status: Acute Code(s): N17.9 - ACUTE KIDNEY FAILURE, UNSPECIFIED (3) Constipation Current Visit: Yes Status: Acute Code(s): K59.00 - CONSTIPATION, UNSPECIFIED (4) Edema of right lower extremity Current Visit: Yes Status: Acute Code(s): R60.0 - LOCALIZED EDEMA (5) Pruritic condition Current Visit: Yes Status: Acute Code(s): L29.9 - PRURITUS, UNSPECIFIED (6) GERD (gastroesophageal reflux disease) Current Visit: No Status: Chronic Code(s): K21.9 - GASTRO-ESOPHAGEAL REFLUX DISEASE WITHOUT ESOPHAGITIS (7) HTN (hypertension) Current Visit: No Status: Chronic Code(s): I10 - ESSENTIAL (PRIMARY) HYPERTENSION (8) History of DVT (deep vein thrombosis) Current Visit: No Status: Chronic Code(s): Z86.718 - PERSONAL HISTORY OF OTHER VENOUS THROMBOSIS AND EMBOLISM (9) Hypothyroidism Current Visit: No Status: Chronic Code(s): E03.9 - HYPOTHYROIDISM, UNSPECIFIED (10) RLS (restless legs syndrome) Current Visit: No Status: Chronic
[2024-08-26 06:14] LABS: ALBUMIN 3.2 g/dL (3.5-5.0); ANION GAP 12.9 MEQ/L (5-15); BILIRUBIN,TOTAL 0.1 mg/dL (0.2-1.3); Calcium 9.1 mg/dL (8.4-10.2); Creatinine 1 1.23 mg/dL (0.52-1.04); EST GLOMERULAR FILTRATION RATE 42.5 ML/MIN; Potassium 4.9 mmol/L (3.5-5.1); Total Protein 5.9 g/dL (6.3-8.2)
[2024-08-26] MEDS ORDERED: Lasix 40 MG/4 ML IV SCH (07:43)
[2024-08-26] MEDS: LASIX 20 MG PO SCH (09:05)
[2024-08-27 04:58] LABS: Absolute Neutrophil Ct (ANC) 5.52 x10^3/uL (1.56-6.13); BASOPHIL % 0.2 % (0.1-1.2); Basophil (Absolute #) 0.02 x10^3/uL (0.01-0.08); Eosinophil % 9.4 % (0.7-5.8); Eosinophil (Absolute #) 0.86 x10^3/uL (0.04-0.36); Hematocrit 29.3 % (34.1-44.9); Hemoglobin 9.3 g/dL (11.2-15.7); IMMATURE GRAN # 0.19 x10^3u/L (0.001-0.031); IMMATURE GRAN % 2.1 % (0.001-0.429); Lymphocyte (Absolute #) 1.88 x10^3/uL (1.18-3.74); Lymphocytes % 20.6 % (19.3-51.7); Mean Cell Volume 94.8 fL (79.4-94.8); Mean Corpuscular Hemoglobin 30.1 pg (25.6-32.2); Mean Corpuscular Hgb Concent. 31.7 g/dL (32.2-35.5); Mean Platelet Volume 9.7 fL (9.4-12.3); Monocyte (Absolute #) 0.65 x10^3/uL (0.24-0.86); Monocytes % 7.1 % (4.7-12.5); Neutrophil % 60.6 % (34.0-71.1); Platelet Count 281 x10^3/uL (182-369); Red Blood Count 3.09 x10^6/uL (3.93-5.22); Red Cell Distribution Width 14.2 % (11.7-14.4); White Blood Count 9.1 x10^3/uL (3.98-10.04)
[2024-08-27 05:15] LABS: ALKALINE PHOSPHATASE 142 U/L (38-126); ANION GAP 10.3 MEQ/L (5-15); BILIRUBIN,TOTAL < 0.10 mg/dL (0.2-1.3); BLOOD UREA NITROGEN 40 mg/dL (7-17); CHLORIDE 99 mmol/L (98-107); Calcium 9.1 mg/dL (8.4-10.2); Carbon Dioxide 33 mmol/L (22-30); EST GLOMERULAR FILTRATION RATE 39.8 ML/MIN; Glucose 94 mg/dL (74-106); Potassium 4.6 mmol/L (3.5-5.1); SGOT/AST 51 U/L (14-36); SGPT/ALT 23 U/L (0-35); SODIUM 138 mmol/L (135-145); Total Protein 5.6 g/dL (6.3-8.2)
--- NOTE | 2024-08-27 05:23 | PCM.DS ---
Discharge Summary Date of Admission: 08/22/24 11:39 Date of Discharge: 08/27/24 Admitting Physician: OUSMANE CORNELIUS MD Consults: Consults on Case 08/23/24 09:31 Consult Podiatry ROUTINE Primary Care Provider: PATRICIA,SHIVA Allergies Allergies Sulfa (Sulfonamide Antibiotics) Allergy (Mild, Verified 05/24/24 06:14) apixaban [From Eliquis] Allergy (Verified 08/22/24 12:03) rash latex Allergy (Verified 05/24/24 06:14) Hives scallops Allergy (Verified 05/24/24 06:14) Hospital Summary - Hospital Course Hospital Course: Ms. Darden is an 89-year-old female with a complex medical history including chronic kidney disease (CKD), hypertension, hypothyroidism, osteoarthritis, gastroesophageal reflux disease (GERD), restless legs syndrome (RLS), and a history of deep vein thrombosis (DVT), who was admitted on 08/22/24 for management of right lower extremity (RLE) cellulitis refractory to outpatient antibiotic therapy. The patient failed prior courses of levofloxacin and amoxicillin- clavulanate, prompting direct hospital admission under podiatry recommendation. Upon admission, her RLE was noted to have significant erythema, swelling, and tenderness. She was initiated on intravenous clindamycin and diuresed with intravenous furosemide given her underlying chronic edema. Blood cultures were obtained and subsequently returned negative. Over the course of hospitalization, the patient experienced gradual improvement in both pain and edema of the right lower limb. She remained afebrile, hemodynamically stable, and reported no new systemic complaints. By 08/26/24, her RLE pain had improved to 3/10, and the edema had notably decreased. Renal function monitoring revealed an acute kidney injury (PREET) with creatinine peaking at 1.39 mg/dL from her baseline of 0.81 mg/dL, likely secondary to aggressive diuresis. This stabilized with cautious transition from intravenous to oral diuretics, and nephrotoxic medications were avoided. Additionally, the patient reported generalized pruritus, which she attributed to the recent discontinuation of Eliquis, previously stopped due to a suspected drug reaction. Pruritus was managed symptomatically with hydroxyzine. She also experienced transient constipation, effectively managed with dietary measures and bowel regimen during her stay. She will continue oral Levaquin to complete her antibiotic course and oral furosemide for ongoing edema management. The patient will follow up with vascular surgery, infectious disease, and podiatry as an outpatient for continued monitoring of her lower extremity. She will follow up with Dr. Palacios for labs for her CKD. I spent 35 minutes [id number] with the patient on the day of discharge performing discharge exam, discussing hospital stay and discharge instructions with patient and caregivers, preparation of discharge records, prescriptions & referral forms and addressing any questions/concerns the patient had as documented above. - Vitals & Intake/Output Vital Signs: Vital Signs Temperature 98.3 F 08/27/24 04:00 Pulse Rate 78 08/27/24 04:00 Respiratory Rate 16 08/27/24 04:00 Blood Pressure 109/53 08/27/24 04:00 O2 Sat by Pulse Oximetry 94 L 08/27/24 04:00 Intake & Output: Intake & Output 08/24/24 08/25/24 08/26/24 08/27/24 11:59 11:59 11:59 11:59 Intake Total 3685 101 4030 300 Output Total 330 649 3626 600 Balance 400 187 -282 -300 Weight 61.3 kg - Lab Result Diagrams: 08/27/24 04:51 08/27/24 04:51 Lab Results-Last 24 Hrs: Lab Results-Last 24 Hours 08/26/24 08/26/24 08/27/24 Range/Units 05:18 05:18 04:51 WBC 7.7 9.1 (3.98-10.04) x10^3/uL RBC 3.31 L 3.09 L (3.93-5.22) x10^6/uL Hgb 9.6 L 9.3 L (11.2-15.7) g/dL Hct 30.9 L 29.3 L (34.1-44.9) % MCV 93.4 94.8 (79.4-94.8) fL MCH 29.0 30.1 (25.6-32.2) pg MCHC 31.1 L 31.7 L (32.2-35.5) g/dL RDW 14.2 14.2 (11.7-14.4) % Plt Count 291 281 (182-369) x10^3/uL MPV 9.5 9.7 (9.4-12.3) fL Gran % 58.2 60.6 (34.0-71.1) % Immature Gran % (Auto) 1.8 H 2.1 H (0.001-0.429) % Nucleat RBC Rel Count 0.0 0.0 (0.00-0.2) % Eos # (Auto) 0.77 H 0.86 H (0.04-0.36) x10^3/uL Immature Gran # (Auto) 0.14 H 0.19 H (0.001-0.031) x10^3u/L Absolute Lymphs (auto) 1.70 1.88 (1.18-3.74) x10^3/uL Absolute Monos (auto) 0.59 0.65 (0.24-0.86) x10^3/uL Absolute Nucleated RBC 0.00 0.00 (0.00-0.012) x10^3u/L Lymphocytes % 22.0 20.6 (19.3-51.7) % Monocytes % 7.7 7.1 (4.7-12.5) % Eosinophils % 10.0 H 9.4 H (0.7-5.8) % Basophils % 0.3 0.2 (0.1-1.2) % Absolute Granulocytes 4.49 5.52 (1.56-6.13) x10^3/uL Basophils # 0.02 0.02 (0.01-0.08) x10^3/uL Sodium 138 (135-145) mmol/L Potassium 4.9 (3.5-5.1) mmol/L Chloride 98 (98-107) mmol/L Carbon Dioxide 32 H (22-30) mmol/L Anion Gap 12.9 (5-15) MEQ/L BUN 39 H (7-17) mg/dL Creatinine 1.23 H (0.52-1.04) mg/dL Estimated GFR 42.5 ML/MIN Glucose 110 H (74-106) mg/dL Calcium 9.1 (8.4-10.2) mg/dL Total Bilirubin 0.10 L (0.2-1.3) mg/dL AST 40 H (14-36) U/L ALT 18 (0-35) U/L Alkaline Phosphatase 141 H (38-126) U/L Serum Total Protein 5.9 L (6.3-8.2) g/dL Albumin 3.2 L (3.5-5.0) g/dL 08/27/24 Range/Units 04:51 WBC (3.98-10.04) x10^3/uL RBC (3.93-5.22) x10^6/uL Hgb (11.2-15.7) g/dL Hct (34.1-44.9) % MCV (79.4-94.8) fL MCH (25.6-32.2) pg MCHC (32.2-35.5) g/dL RDW (11.7-14.4) % Plt Count (182-369) x10^3/uL MPV (9.4-12.3) fL Gran % (34.0-71.1) % Immature Gran % (Auto) (0.001-0.429) % Nucleat RBC Rel Count (0.00-0.2) % Eos # (Auto) (0.04-0.36) x10^3/uL Immature Gran # (Auto) (0.001-0.031) x10^3u/L Absolute Lymphs (auto) (1.18-3.74) x10^3/uL Absolute Monos (auto) (0.24-0.86) x10^3/uL Absolute Nucleated RBC (0.00-0.012) x10^3u/L Lymphocytes % (19.3-51.7) % Monocytes % (4.7-12.5) % Eosinophils % (0.7-5.8) % Basophils % (0.1-1.2) % Absolute Granulocytes (1.56-6.13) x10^3/uL Basophils # (0.01-0.08) x10^3/uL Sodium 138 (135-145) mmol/L Potassium 4.6 (3.5-5.1) mmol/L Chloride 99 (98-107) mmol/L Carbon Dioxide 33 H (22-30) mmol/L Anion Gap 10.3 (5-15) MEQ/L BUN 40 H (7-17) mg/dL Creatinine 1.30 H (0.52-1.04) mg/dL Estimated GFR 39.8 ML/MIN Glucose 94 (74-106) mg/dL Calcium 9.1 (8.4-10.2) mg/dL Total Bilirubin < 0.10 L (0.2-1.3) mg/dL AST 51 H (14-36) U/L ALT 23 (0-35) U/L Alkaline Phosphatase 142 H (38-126) U/L Serum Total Protein 5.6 L (6.3-8.2) g/dL Albumin 3.0 L (3.5-5.0) g/dL Micro Results-Entire Visit: Microbiology 08/22/24 13:38 Blood Culture - Final Blood 08/22/24 13:30 Blood Culture - Final Blood - Procedures and Test Procedures and Tests throughout Hospitalization: Therapy Orders & Screens 08/22/24 12:57 PT Eval & Treat ( Order) ONCE Reason for Eval:: RLE weakness Diagnosis: Cellulitis Discharge Exam General Appearance: no apparent distress Neurologic Exam: alert, oriented x 3, cooperative Eye Exam: PERRL Ears, Nose, Throat Exam: normal ENT inspection Neck Exam: normal inspection Respiratory Exam: normal breath sounds Cardiovascular Exam: regular rate/rhythm, normal heart sounds Gastrointestinal/Abdomen Exam: soft, normal bowel sounds Pelvic Exam: deferred Rectal Exam: deferred Back Exam: normal inspection Extremity Exam: swelling (BLE +2 pitting) Wound Assessment: Skin/Wound Assessment Wound/Incision Assessment Start: 08/22/24 11:43 Text: Status: Active Freq: Q6H Protocol: Document 08/27/24 05:00 KX (Rec: 08/27/24 05:16 KX [id number]) Wound/Incision Assessment Right Lower Leg Wound Assessment Shift Assessment Wound Type Cellulitis Wound Stage Non Pressure Wound Dressing Status Dry & Intact Drainage Amount None Drainage Odor None/Absent Comment Unna boot in place, remains true Wound Photo Photo Taken No Final Diagnosis/Problem List - Final Discharge Diagnosis/Problem (1) Cellulitis of right leg Current Visit: No Status: Acute Assessment & Plan: -Continue oral Levaquin to complete antibiotic course -Keep right lower extremity elevated as able -Dressing changes per podiatry orders with [facility] -Follow up with podiatry and vascular surgery as scheduled -Monitor for signs of recurrent infection (redness, swelling, pain, fever -Appt with ID Dr. Limon Code(s): L03.115 - CELLULITIS OF RIGHT LOWER LIMB (2) PREET (acute kidney injury) Current Visit: Yes Status: Acute Assessment & Plan: -Transition furosemide to oral dosing; monitor response. -Arrange primary care follow-up within 1 week for renal function labs (BMP). -Avoid nephrotoxic medications (e.g., NSAIDs, contrast agents). -Encourage adequate oral hydration balanced with diuretic use. Code(s): N17.9 - ACUTE KIDNEY FAILURE, UNSPECIFIED (3) Constipation Current Visit: Yes Status: Acute Assessment & Plan: -Encouraged high-fiber diet and adequate fluid intake. -Use stool softeners or laxatives as needed if no bowel movement occurs for >2 days Code(s): K59.00 - CONSTIPATION, UNSPECIFIED (4) Edema of right lower extremity Current Visit: Yes Status: Acute Assessment & Plan: -Continue oral furosemide as tolerated. -Encourage leg elevation and minimize prolonged sitting or standing. -Monitor for return or worsening of edema. Code(s): R60.0 - LOCALIZED EDEMA (5) Pruritic condition Current Visit: Yes Status: Acute Assessment & Plan: -Continue hydroxyzine 25 mg PO at bedtime as needed. -Educate to monitor for any new rashes or signs of allergic reaction. -Discuss long-term anticoagulation strategy in follow-up care, given intolerance to Eliquis. Code(s): L29.9 - PRURITUS, UNSPECIFIED (6) GERD (gastroesophageal reflux disease) Current Visit: No Status: Chronic Assessment & Plan: -Continue home proton pump inhibitor therapy Code(s): K21.9 - GASTRO-ESOPHAGEAL REFLUX DISEASE WITHOUT ESOPHAGITIS (7) HTN (hypertension) Current Visit: No Status: Chronic Assessment & Plan: -Continue home antihypertensive medications. -Monitor blood pressure at home. -Follow up with primary care for routine blood pressure and medication management Code(s): I10 - ESSENTIAL (PRIMARY) HYPERTENSION (8) History of DVT (deep vein thrombosis) Current Visit: No Status: Chronic Assessment & Plan: -Currently not anticoagulated due to prior suspected drug reaction. -Educate on signs of DVT recurrence (e.g., unilateral swelling, pain, redness). -Discuss alternative anticoagulation options with primary care or hematology if indicated Code(s): Z86.718 - PERSONAL HISTORY OF OTHER VENOUS THROMBOSIS AND EMBOLISM (9) Hypothyroidism Current Visit: No Status: Chronic Assessment & Plan: -Continue home Synthroid at current dosing. -Follow up with primary care for routine thyroid function tests Code(s): E03.9 - HYPOTHYROIDISM, UNSPECIFIED (10) RLS (restless legs syndrome) Current Visit: No Status: Chronic Assessment & Plan: -Continue pramipexole as per home regimen. -Monitor for any worsening symptoms; no adjustments needed at this time. - Discharge Discharge Date: 08/27/24 Disposition: Home, Self-Care Condition: Stable Prescriptions: New Lactobacillus Acidophilus [Acidophilus TABLET] 1 tab PO DAILY 30 Days #30 tablet PANTOPRAZOLE 40 mg Tablet [Protonix 40MG Tablet] 40 mg PO DAILY 30 Days #30 tablet levoFLOXacin [Levofloxacin] 750 mg PO Q48H 7 Days #4 tablet Continue Tramadol HCl 50 mg [Ultram 50 mg] 50 mg PO QID Levothyroxine Sodium 50 Mcg [Synthroid 50 Mcg] 75 mcg PO DAILY Telmisartan [Micardis] 40 mg PO DAILY Multivitamin [Multi-Vitamin Daily] 1 tab PO DAILY Cyanocobalamin 1000 Mcg/ml [Cyanocobalamin B-12 1000 MCG/ML] 1,000 mcg IJ UD Potassium Chloride Tab* [Klor Con] 20 meq PO BID Acetaminophen 500 mg [Tylenol Extra Strength 500 mg] 500 mg PO QIDPRN PRN PRN Reason: Pain Pramipexole Di-HCl [Pramipexole Dihydrochloride] 1 mg PO TID Cholecalciferol (Vitamin D3) [Vitamin D3] 1,000 iu PO 3XW Loratadine 10 mg [Claritin 10 mg] 10 mg PO DAILY Ferrous Sulfate [Iron] 65 mg PO DAILY Vitamin B Complex 1 tablet PO DAILY Pramipexole Di-HCl [Mirapex ER] 1 mg PO HS ondansetron HCL [Ondansetron HCl] 4 mg PO DAILY PRN PRN PRN Reason: Nausea Hydroxyzine HCl 25 mg [Atarax 25 mg] 25 mg PO TIDPRN Gabapentin [Neurontin ] 200 mg PO HS Furosemide [Lasix] 20 mg PO DAILY Discontinued Hydrochlorothiazide 25 mg [hydroDIURIL 25 MG] 25 mg PO DAILY Additional Instructions: Pt needs dressing changes to right lower leg 2 times a week by Home health care. Apply iodine to entire right lower leg. Apply adaptic (non-adherent dressing) and sterile 4x4 gauze to all open areas. Apply ABD pad to wounds on posterior calf. Apply unna boot, fan-folded, to level of tibial tuberosity. Wrap with kerlix to same level. Wrap with coban with moderate (40%) compression to same level. Follow up with: DIMITRY JOLLEY DPM [ACTIVE STAFF, PODIATRY] AC WREN MD [CONSULTING PHYSICIAN, PAIN MANAGEMENT] - 09/03/24 8:30 am ROCIO PALACIOS [CONSULTING PHYSICIAN, NEPHROLOGY] - 09/15/24 12:40 pm YUAN LIMON [NON-STAFF PHY W/O PRIVILEGES, EMERGENCY MEDICINE] SHIVA GOMEZ MD [Primary Care Provider, INTERNAL MEDICINE] - 09/03/24 9:45 am Referral Note: Betty Vera
[2024-08-27 08:53] VITALS: TEMP 97.5
[2024-08-27] MEDS: Cyanocobalamin B-12 1000 MCG/ML IJ SCH (10:56)
[2024-08-27 12:01] VITALS: BP 135/61; PULSE 82; RESP 20; O2SAT 95
--- NOTE | 2024-08-27 16:56 | PCM.NOTE ---
Date and Time: 08/27/24 7759 Physical Exam - Narrative Narrative Physical Exam: Podiatry Physical Exam Objective Data Vital Signs: Vital Signs - 24 hr Temp Pulse Resp BP Pulse Ox 08/27/24 12:00 97.5 F 82 20 135/61 95 08/27/24 08:00 97.5 F 72 18 106/59 96 08/27/24 04:00 98.3 F 78 16 109/53 94 L 08/26/24 20:00 97.6 F 70 17 111/54 97 Pain Assessment - Last Documented Pain Intensity 0 Pain Scale Used 0-10 Pain Scale Intake and Output: Intake & Output 08/25/24 08/26/24 08/27/24 08/28/24 11:59 11:59 11:59 11:59 Intake Total 587 1118 780 Output Total 400 1400 1400 700 Balance 807 -665 -139 -710 Weight 61.3 kg Lab Results: Lab Results-Last 24 Hours 08/27/24 08/27/24 Range/Units 04:51 04:51 WBC 9.1 (3.98-10.04) x10^3/uL RBC 3.09 L (3.93-5.22) x10^6/uL Hgb 9.3 L (11.2-15.7) g/dL Hct 29.3 L (34.1-44.9) % MCV 94.8 (79.4-94.8) fL MCH 30.1 (25.6-32.2) pg MCHC 31.7 L (32.2-35.5) g/dL RDW 14.2 (11.7-14.4) % Plt Count 281 (182-369) x10^3/uL MPV 9.7 (9.4-12.3) fL Gran % 60.6 (34.0-71.1) % Immature Gran % (Auto) 2.1 H (0.001-0.429) % Nucleat RBC Rel Count 0.0 (0.00-0.2) % Eos # (Auto) 0.86 H (0.04-0.36) x10^3/uL Immature Gran # (Auto) 0.19 H (0.001-0.031) x10^3u/L Absolute Lymphs (auto) 1.88 (1.18-3.74) x10^3/uL Absolute Monos (auto) 0.65 (0.24-0.86) x10^3/uL Absolute Nucleated RBC 0.00 (0.00-0.012) x10^3u/L Lymphocytes % 20.6 (19.3-51.7) % Monocytes % 7.1 (4.7-12.5) % Eosinophils % 9.4 H (0.7-5.8) % Basophils % 0.2 (0.1-1.2) % Absolute Granulocytes 5.52 (1.56-6.13) x10^3/uL Basophils # 0.02 (0.01-0.08) x10^3/uL Sodium 138 (135-145) mmol/L Potassium 4.6 (3.5-5.1) mmol/L Chloride 99 (98-107) mmol/L Carbon Dioxide 33 H (22-30) mmol/L Anion Gap 10.3 (5-15) MEQ/L BUN 40 H (7-17) mg/dL Creatinine 1.30 H (0.52-1.04) mg/dL Estimated GFR 39.8 ML/MIN Glucose 94 (74-106) mg/dL Calcium 9.1 (8.4-10.2) mg/dL Total Bilirubin < 0.10 L (0.2-1.3) mg/dL AST 51 H (14-36) U/L ALT 23 (0-35) U/L Alkaline Phosphatase 142 H (38-126) U/L Serum Total Protein 5.6 L (6.3-8.2) g/dL Albumin 3.0 L (3.5-5.0) g/dL Medications: Medications Discontinued Medications Generic Name Dose Route Start Last Admin Trade Name Freq PRN Reason Stop Dose Admin Acetaminophen 650 mg 08/22/24 12:57 Acetaminophen 325 Mg Tablet PO 09/21/24 12:56 Q6H PRN PRN PAIN, FEVER, HEADACHE Acetaminophen 500 mg 08/22/24 13:10 08/26/24 16:01 Acetaminophen 500 Mg Tablet PO 09/21/24 13:09 500 mg QIDPRN PRN Administration PAIN Cholecalciferol 1,000 unit 08/25/24 10:00 08/27/24 09:47 Cholecalciferol (Vitamin D3) 1000 Unit Tablet PO 09/24/24 09:59 1,000 unit MoWeFr@1000 JEFFREY Administration Cyanocobalamin 1,000 mcg 08/27/24 10:00 08/27/24 10:56 Cyanocobalamin 1000 Mcg/Ml Vial IJ 09/26/24 09:59 Not Given Q14D JEFFREY Ferrous Sulfate 325 mg 08/23/24 10:00 08/27/24 09:47 Ferrous Sulfate 325 Mg Tablet PO 09/22/24 09:59 325 mg DAILY JEFFREY Administration Furosemide 40 mg 08/22/24 15:00 08/25/24 11:02 Furosemide 40 Mg/4 Ml Vial IV 09/21/24 14:59 40 mg DAILY JEFFREY Administration Furosemide 20 mg 08/26/24 07:43 Furosemide 40 Mg/4 Ml Vial IV 09/21/24 14:59 DAILY JEFFREY Furosemide 20 mg 08/26/24 10:00 08/27/24 09:47 Furosemide 20 Mg Tablet PO 09/25/24 09:59 20 mg DAILY JEFFREY Administration Gabapentin 200 mg 08/22/24 22:00 08/26/24 21:40 Gabapentin 100 Mg Capsule PO 09/21/24 21:59 200 mg HS JEFFREY Administration Heparin Sodium (Beef Lung) 5,000 unit 08/22/24 22:00 08/27/24 09:47 Heparin 5000 Units/0.5 Ml 5,000 Unit/0.5 Ml Syr SQ 09/21/24 21:59 5,000 unit BID JEFFREY Administration Hydrochlorothiazide 25 mg 08/23/24 10:00 08/23/24 09:15 Hydrochlorothiazide 25 Mg Tablet PO 09/22/24 09:59 Not Given DAILY JEFFREY Hydroxyzine HCl 25 mg 08/22/24 13:15 Hydroxyzine Hcl 25 Mg Tablet PO 09/21/24 13:14 TIDPRN PRN Hydroxyzine HCl 25 mg 08/24/24 09:15 08/24/24 10:31 Hydroxyzine Hcl 25 Mg Tablet PO 08/24/24 09:16 25 mg STAT ONE Administration Clindamycin Phosphate 300 mg in 50 mls @ 100 mls/hr 08/22/24 13:00 08/27/24 15:01 Clindamycin Phosphate Ivpb IV 09/21/24 12:59 Not Given Q6HT JEFFREY Lactobacillus Acidophilus 1 tab 08/22/24 14:00 08/27/24 09:47 Lactobacillus Acidophilus 1 Tab Tablet PO 09/21/24 13:59 1 tab DAILY JEFFREY Administration Levothyroxine Sodium 75 mcg 08/23/24 10:00 08/27/24 09:47 Levothyroxine Sodium 75 Mcg Tablet PO 09/22/24 09:59 75 mcg DAILY JEFFREY Administration Loratadine 10 mg 08/23/24 10:00 08/27/24 09:47 Loratadine 10 Mg Tablet PO 09/22/24 09:59 10 mg DAILY JEFFREY Administration Miscellaneous Information 1 each 08/22/24 15:45 Medication Intervention 1 Each Each 09/21/24 15:44 .RN TO CHECK JEFFREY Multivitamins 1 tab 08/23/24 10:00 08/27/24 10:55 Vitamin B Complex With Vit. C Tablet PO 09/22/24 09:59 1 tab DAILY JEFFREY Administration Multivitamins Therapeutic 1 tab 08/23/24 10:00 08/27/24 09:47 Multivitamins,Therapeutic 1 Tab Tab PO 09/22/24 09:59 1 tab DAILY JEFFREY Administration Ondansetron HCl 4 mg 08/22/24 14:30 08/25/24 00:17 Zofran 4 Mg/Udtablet Orally Disintegrating PO 09/21/24 14:29 4 mg DAILY PRN PRN Administration NAUSEA Pantoprazole Sodium 40 mg 08/23/24 10:00 08/27/24 09:47 Protonix (Pantoprazole) 40 Mg Tablet PO 09/22/24 09:59 40 mg DAILY JEFFREY Administration Potassium Chloride 20 meq 08/22/24 22:00 08/27/24 09:47 Potassium Chloride Tab 10 Meq Tab PO 09/21/24 21:59 20 meq BID JEFFREY Administration Pramipexole Dihydrochloride 1 mg 08/22/24 15:30 08/27/24 09:47 Pramipexole Di-Hcl 0.5 Mg Tab PO 09/21/24 15:29 1 mg TID JEFFREY Administration Telmisartan 40 mg 08/23/24 10:00 08/27/24 09:47 Telmisartan 80 Mg Tab PO 09/22/24 09:59 40 mg DAILY JEFFREY Administration Tramadol HCl 50 mg 08/22/24 15:15 08/27/24 15:01 Tramadol Hcl 50 Mg Tablet PO 09/21/24 15:14 Not Given QID JEFFREY Multi-Disciplinary Progress Notes: Multi-Disciplinary Progress Notes 08/27/24 10:45 Case Management Note by Nahed Taylor S/W PATIENT- SHE CONTINUES TO DENY ANY NEW NEEDS AT TIME OF DC. SHE PLANS TO DC HOME TO HER PLF. SHE REPORTS SHE HAS ALL THE MEDICAL EQUIPMENT NEEDED AT HOME. SHE LIVES WITH HER DAUGHTER WHO CAN ASSIST HER IF NEEDED. SHE IS AMBULATORY TO RESTROOM WITHOUT DIFFICULTY. [facility] ALREADY SET UP FOR DRESSING CHANGES. NO OTHER NEW NEEDS IDENTIFIED AT THIS TIME Initialized on 08/27/24 10:45 - END OF NOTE 08/27/24 10:37 Case Management Note by Nahed Taylor DRESSING CHANGE ORDERS FAXED TO [facility] AT THIS TIME THEY WERE ALSO NOTIFIED OF PLAN TO DCD HOME TODAY Initialized on 08/27/24 10:37 - END OF NOTE Assessment/Plan (1) Cellulitis of right leg Status: Acute Assessment & Plan: Responding to diuresis and IV abx at this time. Dressing changed today consisting of Iodine adaptic 4x4 kerlix and coban to the right lower extremity Dieresis per medicine recommendations IV abx per medicine recs Will follow. Ok for discharge as medicine team determines. Code(s): L03.115 - CELLULITIS OF RIGHT LOWER LIMB (2) Right leg pain Status: Acute Code(s): M79.604 - PAIN IN RIGHT LEG (3) Wound of right lower extremity Status: Acute Code(s): S81.801A - UNSPECIFIED OPEN WOUND, RIGHT LOWER LEG, INITIAL ENCOUNTER (4) DVT (deep venous thrombosis) Status: Acute Qualifiers: Code(s): I82.409 - ACUTE EMBOLISM AND THOMBOS UNSP DEEP VN UNSP LOWER EXTREMITY (5) Obesity (BMI 30.0-34.9) Status: Chronic Code(s): E66.9 - OBESITY, UNSPECIFIED (6) Cellulitis of right lower leg Status: Acute Code(s): L03.115 - CELLULITIS OF RIGHT LOWER LIMB (7) Acute on chronic renal failure Status: Acute Code(s): N17.9 - ACUTE KIDNEY FAILURE, UNSPECIFIED; N18.9 - CHRONIC KIDNEY DISEASE, UNSPECIFIED (8) Venous insufficiency (chronic) (peripheral) Status: Acute
== END 2024-08-27 14:30 | disposition home health service (06) | DRG 603 ==
LOC: MED SURG 11:39
PROVIDERS: ADMIT Internal Medicine; ATTEND Internal Medicine
DX: L03.115 Cellulitis of right lower limb (principal); I82.401 Acute embolism and thrombosis of unspecified deep veins of right lower extremity; N17.9 Acute kidney failure, unspecified; M79.604 Pain in right leg; S81.801A Unspecified open wound, right lower leg, initial encounter; E66.9 Obesity, unspecified; I12.9 Hypertensive chronic kidney disease with stage 1 through stage 4 chronic kidney disease, or unspecified chronic kidney disease; N18.2 Chronic kidney disease, stage 2 (mild); E03.9 Hypothyroidism, unspecified; K21.9 Gastro-esophageal reflux disease without esophagitis; G25.81 Restless legs syndrome; Z86.718 Personal history of other venous thrombosis and embolism; K59.00 Constipation, unspecified; R60.0 Localized edema; L29.9 Pruritus, unspecified; Z79.899 Other long term (current) drug therapy
CPT/HCPCS: 29581; 36415; 80053; 83880; 85025; 85027; 87040; 97161; 99232; Q3014; 29580; J1644; J1938; Q0162; A9270-GY

== ENCOUNTER 2024-10-23 08:49 | Observation (INO) | payer MEDICARE ==
[2024-10-23 10:07] LABS: BASOPHIL % 0.7 % (0.1-1.2); Basophil (Absolute #) 0.05 x10^3/uL (0.01-0.08); Eosinophil (Absolute #) 0.87 x10^3/uL (0.04-0.36); Hematocrit 29.5 % (34.1-44.9); Hemoglobin 9.3 g/dL (11.2-15.7); IMMATURE GRAN # 0.09 x10^3u/L (0.001-0.031); IMMATURE GRAN % 1.2 % (0.001-0.429); Lymphocyte (Absolute #) 1.29 x10^3/uL (1.18-3.74); Mean Corpuscular Hemoglobin 29.9 pg (25.6-32.2); Mean Corpuscular Hgb Concent. 31.5 g/dL (32.2-35.5); Monocyte (Absolute #) 0.62 x10^3/uL (0.24-0.86); NUCLEATED RBC # 0.00 x10^3u/L (0.00-0.012); NUCLEATED RBC % 0.0 % (0.00-0.2); Platelet Count 250 x10^3/uL (182-369); Red Blood Count 3.11 x10^6/uL (3.93-5.22); White Blood Count 7.6 x10^3/uL (3.98-10.04)
[2024-10-23 10:21] LABS: Calcium 8.9 mg/dL (8.4-10.2); Carbon Dioxide 28 mmol/L (22-30); Creatinine 1 0.95 mg/dL (0.52-1.04); EST GLOMERULAR FILTRATION RATE 58.0 ML/MIN; Glucose 102 mg/dL (74-106); Potassium 4.3 mmol/L (3.5-5.1); SGOT/AST 28 U/L (14-36); SGPT/ALT 13 U/L (0-35); Total Protein 6.5 g/dL (6.3-8.2)
[2024-10-23] MEDS ORDERED: CLINDAMYCIN-D5W 600 MG/50 ML*** 600 MG/50 ML BAG IV ONE (11:10)
[2024-10-23] MEDS: CLINDAMYCIN-D5W 600 MG/50 ML*** 600 MG/50 ML BAG IV STA (11:11)
[2024-10-23] MEDS ORDERED: PIPERACILLIN/TAZOBACTAM IV ONE (11:45)
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
[2024-10-23] MEDS ORDERED: TYLENOL 325 MG PO PRN (13:24)
[2024-10-23] MEDS ORDERED: Zofran 4 MG/2 ML VIAL IV PRN (13:24)
--- NOTE | 2024-10-23 14:04 | XRAY ---
Indication: Pain. No known injury. Comparison: None 3 view left ankle demonstrates osteopenia, tiny plantar heel spur, and mild soft tissue swelling. No other bony, articular, or soft tissue abnormalities.
[2024-10-23] MEDS: VANCOMYCIN 1 GRAM/200 ML BAG 1 GM/200 ML PIGGYBACK IV SCH (15:06)
[2024-10-23] MEDS ORDERED: TYLENOL EXTRA STRENGTH 500 MG PO PRN (15:13)
[2024-10-23] MEDS ORDERED: CHOLECALCIFEROL PO SCH (15:15)
[2024-10-23] MEDS ORDERED: NON-FORMULARY ITEM (Pramipexole Di-Hcl [Pramipexole Dihydrochloride] 1 MG Tablet) PO SCH (15:15)
[2024-10-23] MEDS ORDERED: Mirapex 0.5 MG Tablet PO PRN (15:28)
[2024-10-23] MEDS ORDERED: VITAMIN D PO SCH (15:45)
--- NOTE | 2024-10-23 16:28 | XRAY ---
Indication: Cellulitis Two-dimensional sonogram and color Doppler imaging major venous vessels left and right leg performed. Comparison: October 26, 2023 No thrombus seen in the examined deep venous vessels left and right leg including greater saphenous vein. Veins demonstrate normal compressibility. Venous waveforms are normal with and without augmentation. Impression: Left and right legs again negative for DVT.
[2024-10-23] MEDS: ULTRAM 50 MG PO SCH (16:37)
[2024-10-23] MEDS: PHARMACY RENAL DOSING MC ONE (18:15)
[2024-10-23] MEDS ORDERED: PRAMIPEXOLE DI HCL 1.5 MG PO SCH (22:00)
[2024-10-23] MEDS: Klor Con PO SCH (22:10)
[2024-10-23] MEDS: Mirapex 0.5 MG Tablet PO SCH (22:11)
[2024-10-23] MEDS: HEPARIN 5000 UNITS/0.5 ML (HIGH RISK MED) SQ SCH (22:11)
[2024-10-23] MEDS: KENALOG 0.1% CREAM 15 GM TP SCH (22:29)
[2024-10-24 05:06] LABS: BASOPHIL % 0.9 % (0.1-1.2); Basophil (Absolute #) 0.05 x10^3/uL (0.01-0.08); Eosinophil (Absolute #) 0.67 x10^3/uL (0.04-0.36); Hematocrit 27.7 % (34.1-44.9); Hemoglobin 8.3 g/dL (11.2-15.7); IMMATURE GRAN # 0.06 x10^3u/L (0.001-0.031); IMMATURE GRAN % 1.1 % (0.001-0.429); Lymphocyte (Absolute #) 1.48 x10^3/uL (1.18-3.74); Mean Corpuscular Hemoglobin 28.8 pg (25.6-32.2); Mean Corpuscular Hgb Concent. 30.0 g/dL (32.2-35.5); Monocyte (Absolute #) 0.39 x10^3/uL (0.24-0.86); NUCLEATED RBC # 0.00 x10^3u/L (0.00-0.012); NUCLEATED RBC % 0.0 % (0.00-0.2); Platelet Count 247 x10^3/uL (182-369); Red Blood Count 2.88 x10^6/uL (3.93-5.22); White Blood Count 5.6 x10^3/uL (3.98-10.04)
--- NOTE | 2024-10-24 05:07 | PCM.NOTE ---
Date and Time: 10/24/24 0506 Subjective Assessment: is a 89 year old female with a pmhx of HTN, hypothyroidism, GERD, CKD, RLS, and DVT (not on anticoagulation) who presented to ED 10/23/24 with complaints of progressive redness, swelling, and warmth of both lower extremities, ongoing for the past several weeks. She reports having been treated outpatient with a course of Levaquin without significant improvement. She was previously hospitalized from 08/22/24 to 08/27/24 for similar symptoms and received Clindamycin during that admission. Prior wound cultures dated 07/17/24 revealed Enterobacter cloacae complex and Staphylococcus aureus, resistant to cefazolin but otherwise pansensitive. On todays presentation, she reports a new area of blistering on the left lower leg that ruptured and began draining clear to yellow fluid. She also endorses left ankle pain for the past 23 weeks, described as moderate in intensity, worsened by movement and improved with rest and analgesics. She denies chest pain, palpitations, or shortness of breath. There is no known history of coronary artery disease or congestive heart failure. She states she has undergone extensive outpatient vascular workup including lower extremity Doppler ultrasounds performed at [facility] about three weeks ago and a CTA of the abdomen performed at [facility] this past Sunday under the care of her weigh and charge worker, Dr. Blanchard, though she is unsure of the specific results. On arrival to the emergency department, her vital signs were stable. Physical exam revealed bilateral lower extremity erythema and edema, more prominent on the left, with serous drainage. No purulence or crepitus was noted. Left ankle tenderness was present with movement. Laboratory workup revealed a macrocytic anemia with hemoglobin of 9.4, which appears to be at her baseline. BUN was elevated at 30, consistent with her known CKD. Alkaline phosphatase was 136. Procalcitonin was low at 0.083, not suggestive of systemic infection. Blood and wound cultures were obtained. She was treated in the ED with IV fluids, IV Zosyn, and IV Clindamycin. 10/24/24: Met with patient bedside. She reports mild improvement in bilateral lower extremity pain and now endorses pruritus to both legs. On physical exam, there is noticeable improvement in erythema with recession of previously marked border s. No drainage or purulence is observed. Laboratory results reveal no concerning abnormalities. Venous Doppler studies are negative for deep vein thrombosis. Preliminary wound culture remains negative to date. Currently continuing on intravenous vancomycin and piperacillin-tazobactam. Case was discussed with podiatry TOUR OPERATOR; compression dressing was applied. No additional recommendations at this time. - Review of Systems Constitutional: Weakness Eyes: No Symptoms Ears, Nose, & Throat: No Symptoms Respiratory: No Symptoms Cardiac: Edema (BLE edema) Abdominal/Gastrointestinal: No Symptoms Genitourinary Symptoms: No Symptoms Musculoskeletal: Joint Pain (Left ankle ), Other Skin: Cellulitis, Rash, Skin Lesions (right posterior calf) Neurological: No Symptoms Psychological: No Symptoms Endocrine: No Symptoms Hematologic/Lymphatic: No Symptoms Immunological/Allergic: No Symptoms Objective Exam General Appearance: no apparent distress Neurologic Exam: alert, oriented x 3, cooperative Skin Exam: normal color Wound Assessment: Skin/Wound Assessment Wound/Incision Assessment Start: 10/23/24 13:21 Text: Status: Active Freq: Q6H Protocol: Document 10/24/24 01:31 [place] (Rec: 10/24/24 01:35 AZ [id number]) Wound/Incision Assessment BLE Wound Assessment Admission Wound Type cellulitis Wound Stage Non Pressure Wound Drainage Amount None General Appearance Open to air,Reddened Topical Solution/Irrigant Saline Irrigant Comment . Right lower posterior leg Wound Assessment Admission Wound Type Stasis Ulcer Dressing Status Changed Drainage Amount Minimal Drainage Description Serous Drainage Odor None/Absent General Appearance Open to air,Reddened Length (cm) (cm) 2 Width (cm) (cm) 2 Depth (cm) (cm) 0.1 Wound Bed Greatest Portion Shiny,Dusky Red Wound Bed Lesser Portion Yellow (Slough) Surrounding Tissue Edematous,Edges Rolled Topical Solution/Irrigant Saline Irrigant Primary Dressing mepilex border Comment .; Eye Exam: PERRL Ears, Nose, Throat Exam: normal ENT inspection Neck Exam: normal inspection Respiratory Exam: normal breath sounds, lungs clear Cardiovascular Exam: regular rate/rhythm, normal heart sounds Gastrointestinal/Abdomen Exam: soft, normal bowel sounds Extremity Exam: swelling (BLE with resolving erythema, no drainage or fluctuance. Mild pitting edema and dry, scaling skin with excoriations noted) Back Exam: normal inspection Pelvic Exam: deferred Rectal Exam: deferred Objective Data Vital Signs: Vital Signs - 24 hr Temp Pulse Resp BP BP Pulse Ox 10/24/24 04:00 97.9 F 88 16 113/57 96 10/23/24 23:41 97.1 F 84 16 126/57 98 10/23/24 21:36 99 10/23/24 20:00 97.9 F 80 15 93/55 97 10/23/24 15:51 97.9 F 78 16 105/58 99 10/23/24 13:36 97.8 F 79 16 108/66 97 10/23/24 12:00 77 11 L 101/64 98 10/23/24 11:30 74 13 97/67 98 10/23/24 11:00 74 10 L 111/76 99 10/23/24 10:30 73 10 L 94/63 98 10/23/24 10:01 73 11 L 118/81 97 10/23/24 09:30 77 9 L 98/55 97 10/23/24 09:03 97.1 F 78 14 125/74 100 10/23/24 09:00 75 12 125/74 97 Pain Assessment - Last Documented Pain Intensity 4 Intake and Output: Intake & Output 10/21/24 10/22/24 10/23/24 10/24/24 11:59 11:59 11:59 11:59 Intake Total 196 Balance 196 Weight 63.4 kg 64.2 kg Lab Results: Lab Results-Last 24 Hours 10/23/24 10/23/24 10/23/24 Range/Units 10:00 10:00 10:04 WBC (3.98-10.04) x10^3/uL RBC (3.93-5.22) x10^6/uL Hgb (11.2-15.7) g/dL Hct (34.1-44.9) % MCV (79.4-94.8) fL MCH (25.6-32.2) pg MCHC (32.2-35.5) g/dL RDW (11.7-14.4) % Plt Count (182-369) x10^3/uL MPV (9.4-12.3) fL Gran % (34.0-71.1) % Immature Gran % (Auto) (0.001-0.429) % Nucleat RBC Rel Count (0.00-0.2) % Eos # (Auto) (0.04-0.36) x10^3/uL Immature Gran # (Auto) (0.001-0.031) x10^3u/L Absolute Lymphs (auto) (1.18-3.74) x10^3/uL Absolute Monos (auto) (0.24-0.86) x10^3/uL Absolute Nucleated RBC (0.00-0.012) x10^3u/L Lymphocytes % (19.3-51.7) % Monocytes % (4.7-12.5) % Eosinophils % (0.7-5.8) % Basophils % (0.1-1.2) % Absolute Granulocytes (1.56-6.13) x10^3/uL Basophils # (0.01-0.08) x10^3/uL Sodium 138 (135-145) mmol/L Potassium 4.3 (3.5-5.1) mmol/L Chloride 103 (98-107) mmol/L Carbon Dioxide 28 (22-30) mmol/L Anion Gap 12.0 (5-15) MEQ/L BUN 30 H (7-17) mg/dL Creatinine 0.95 (0.52-1.04) mg/dL Estimated GFR 58.0 ML/MIN Glucose 102 (74-106) mg/dL Lactic Acid 0.9 (0.4-2.0) Calcium 8.9 (8.4-10.2) mg/dL Total Bilirubin < 0.10 L (0.2-1.3) mg/dL AST 28 (14-36) U/L ALT 13 (0-35) U/L Alkaline Phosphatase 136 H (38-126) U/L Serum Total Protein 6.5 (6.3-8.2) g/dL Albumin 3.3 L (3.5-5.0) g/dL Procalcitonin 0.083 H (0.030-0.080) ng/mL 10/23/24 Range/Units 10:05 WBC 7.6 (3.98-10.04) x10^3/uL RBC 3.11 L (3.93-5.22) x10^6/uL Hgb 9.3 L (11.2-15.7) g/dL Hct 29.5 L (34.1-44.9) % MCV 94.9 H (79.4-94.8) fL MCH 29.9 (25.6-32.2) pg MCHC 31.5 L (32.2-35.5) g/dL RDW 14.3 (11.7-14.4) % Plt Count 250 (182-369) x10^3/uL MPV 9.5 (9.4-12.3) fL Gran % 61.4 (34.0-71.1) % Immature Gran % (Auto) 1.2 H (0.001-0.429) % Nucleat RBC Rel Count 0.0 (0.00-0.2) % Eos # (Auto) 0.87 H (0.04-0.36) x10^3/uL Immature Gran # (Auto) 0.09 H (0.001-0.031) x10^3u/L Absolute Lymphs (auto) 1.29 (1.18-3.74) x10^3/uL Absolute Monos (auto) 0.62 (0.24-0.86) x10^3/uL Absolute Nucleated RBC 0.00 (0.00-0.012) x10^3u/L Lymphocytes % 17.0 L (19.3-51.7) % Monocytes % 8.2 (4.7-12.5) % Eosinophils % 11.5 H (0.7-5.8) % Basophils % 0.7 (0.1-1.2) % Absolute Granulocytes 4.67 (1.56-6.13) x10^3/uL Basophils # 0.05 (0.01-0.08) x10^3/uL Sodium (135-145) mmol/L Potassium (3.5-5.1) mmol/L Chloride (98-107) mmol/L Carbon Dioxide (22-30) mmol/L Anion Gap (5-15) MEQ/L BUN (7-17) mg/dL Creatinine (0.52-1.04) mg/dL Estimated GFR ML/MIN Glucose (74-106) mg/dL Lactic Acid (0.4-2.0) Calcium (8.4-10.2) mg/dL Total Bilirubin (0.2-1.3) mg/dL AST (14-36) U/L ALT (0-35) U/L Alkaline Phosphatase (38-126) U/L Serum Total Protein (6.3-8.2) g/dL Albumin (3.5-5.0) g/dL Procalcitonin (0.030-0.080) ng/mL Radiology Exams: Radiology Procedures Category Date Time Status ANKLE (3 VIEWS) Stat Exams 10/23/24 13:24 Completed VENOUS BILATERAL EXTREMITY [US] Routine Exams 10/23/24 14:33 Completed Medications: Medications Generic Name Dose Route Start Last Admin Trade Name Freq PRN Reason Stop Dose Admin Acetaminophen 650 mg 10/23/24 13:24 Acetaminophen 325 Mg Tablet PO 11/22/24 13:23 Q4H PRN PRN PAIN, FEVER, HEADACHE Acetaminophen 500 mg 10/23/24 15:13 Acetaminophen 500 Mg Tablet PO 11/22/24 15:12 QIDPRN PRN PAIN Cholecalciferol 1,000 unit 10/23/24 15:45 Cholecalciferol (Vitamin D3) 1000 Unit Tablet PO 11/22/24 15:44 3XW JEFFREY Cyanocobalamin 1,000 mcg 10/29/24 10:00 Cyanocobalamin 1000 Mcg/Ml Vial IJ 11/28/24 09:59 Q14D JEFFREY Device 1 10/26/24 14:30 Therapuetic Drug Level Monitor Each IJ 10/26/24 14:31 1XONLY ONE Ferrous Sulfate 325 mg 10/24/24 10:00 Ferrous Sulfate 325 Mg Tablet PO 11/23/24 09:59 DAILY JEFFREY Furosemide 20 mg 10/24/24 10:00 Furosemide 20 Mg/Vial IV 11/23/24 09:59 DAILY JEFFREY Gabapentin 200 mg 10/23/24 22:00 10/23/24 22:09 Gabapentin 100 Mg Capsule PO 11/22/24 21:59 200 mg HS JEFFREY Administration Heparin Sodium (Beef Lung) 5,000 unit 10/23/24 22:00 10/23/24 22:11 Heparin 5000 Units/0.5 Ml 5,000 Unit/0.5 Ml Syr SQ 11/22/24 21:59 5,000 unit BID JEFFREY Administration Piperacillin Sod/Tazobactam 100 mls @ 200 mls/hr 10/23/24 22:00 10/23/24 22:1 1 Sod 3.375 gm/ Sodium Chloride IV 10/26/24 21:59 200 mls/hr Q8HT JEFFREY Administration Vancomycin HCl 1 gm in 200 mls @ 125 mls/hr 10/23/24 15:00 10/23/24 15:06 Vancomycin 1 Gram/200 Ml Bag IV 11/22/24 14:59 125 mls/hr Q24H JEFFREY Administration Levothyroxine Sodium 75 mcg 10/24/24 10:00 Levothyroxine Sodium 75 Mcg Tablet PO 11/23/24 09:59 DAILY JEFFREY Loratadine 10 mg 10/24/24 10:00 Loratadine 10 Mg Tablet PO 11/23/24 09:59 DAILY JEFFREY Multivitamins 1 tab 10/24/24 10:00 Vitamin B Complex With Vit. C Tablet PO 11/23/24 09:59 DAILY JEFFREY Multivitamins Therapeutic 1 tab 10/24/24 10:00 Multivitamins,Therapeutic 1 Tab Tab PO 11/23/24 09:59 DAILY JEFFREY Ondansetron HCl 4 mg 10/23/24 13:24 Ondansetron Hcl 4 Mg/2 Ml Vial IV 11/22/24 13:23 Q6H PRN PRN NAUSEA/VOMITING Pantoprazole Sodium 40 mg 10/24/24 10:00 Protonix (Pantoprazole) 40 Mg Tablet PO 11/23/24 09:59 DAILY JEFFREY Potassium Chloride 20 meq 10/23/24 22:00 10/23/24 22:10 Potassium Chloride Tab 10 Meq Tab PO 11/22/24 21:59 20 meq BID JEFFREY Administration Pramipexole Dihydrochloride 1 mg 10/23/24 22:00 10/23/24 22:11 Pramipexole Di-Hcl 0.5 Mg Tab PO 11/22/24 21:59 1 mg HS JEFFREY Administration Pramipexole Dihydrochloride 1 mg 10/23/24 15:28 Pramipexole Di-Hcl 0.5 Mg Tab PO 11/22/24 15:27 TIDPRN PRN Telmisartan 40 mg 10/24/24 10:00 Telmisartan 80 Mg Tab PO 11/23/24 09:59 DAILY JEFFREY Tramadol HCl 50 mg 10/23/24 17:00 10/23/24 22:10 Tramadol Hcl 50 Mg Tablet PO 11/22/24 16:59 50 mg QID JEFFREY Administration Triamcinolone Acetonide 0 gm 10/23/24 22:00 10/23/24 22:29 Triamcinolone Acetonide 0.1% 15 Gm Cream TP 11/22/24 21:59 2 gm BID JEFFREY Administration Discontinued Medications Generic Name Dose Route Start Last Admin Trade Name Chekoq PRN Reason Stop Dose Admin Clindamycin HCl/Dextrose 600 mg in 50 mls @ 100 mls/hr 10/23/24 11:08 10/23/24 11:40 Clindamycin-D5w 600 Mg/50 Ml IV 10/23/24 11:37 Infused STAT STA Infusion Clindamycin HCl/Dextrose Confirm 10/23/24 11:10 Clindamycin-D5w 600 Mg/50 Ml Administered 10/23/24 11:11 Dose 600 mg in 50 mls @ ud IV .STK-MED ONE Piperacillin Sod/Tazobactam 100 mls @ 200 mls/hr 10/23/24 11:40 10/23/24 11:46 Sod 3.375 gm/ Sodium Chloride IV 10/23/24 12:09 200 mls/hr STAT STA 200 mls/hr Administration Sodium Chloride Confirm 10/23/24 11:46 Sodium Chloride 0.9% Administered 10/23/24 11:47 Dose 100 mls @ ud .ROUTE .STK-MED ONE Non-Formulary Medication 1 each 10/23/24 13:24 10/23/24 18:15 Pharmacy Dosing Request [facility] 10/23/24 13:25 Not Given STAT ONE Piperacillin Sod/Tazobactam Sod Confirm 10/23/24 11:45 Piperacillin/Tazobactam Sodium 3.375 Gm Vial Administered 10/23/24 11:46 Dose 3.375 gm IV .STK-MED ONE Assessment/Plan (1) Bilateral lower leg cellulitis Current Visit: Yes Status: Acute Assessment & Plan: -Most likely secondary to venous insufficiency -Recurrent cellulitis, previously treated with Clindamycin (August 2024) and Levaquin (recent outpatient), both of which failed -Prior wound culture (07/17/24): Enterobacter cloacae complex and Staph aureus (cefazolin-resistant, otherwise pansensitive) -Obtain dopplers and [facility]A from [facility] -Vancomycin + Zosyn for broad-spectrum coverage including MRSA, Enterobacter, anaerobes, and streptococci -Obtain and monitor blood and wound cultures; de-escalate based on sensitivities -Shukri borders/elevate BLE -Podiatry consult for compression dressings/ wound care: daily dressing changes, monitor for necrosis, cellulitis progression, or need for debridement 10/24/24: -CMP/CBC reviewed - WBC WNL -Lasix 20mg IV daily -Triamcinolone cream - continue -Vanc/zosyn - continue -wound/blood cultures pending -Podiatry following - appreciate recs -venous doppler ordered by podiatry - negative for right and left DVT -add loratidine for itching -Discussed case with Podiatry TOUR OPERATOR- compression dressings placed- agree with plan - continue abx until cultures result -Patient will need f/u with cardiology as OP to complete workup - results still pending per records at [place] Code(s): L03.116 - CELLULITIS OF LEFT LOWER LIMB; L03.115 - CELLULITIS OF RIGHT LOWER LIMB (2) Left ankle pain Current Visit: Yes Status: Acute Assessment & Plan: -Xray left ankle -Rest, elevation, and scheduled acetaminophen for pain control -Reassess for worsening pain or signs of deeper infection 10/24: -Left ankle xray with soft tissue edema- no acute fracture/dislocations Code(s): M25.572 - PAIN IN LEFT ANKLE AND JOINTS OF LEFT FOOT (3) Chronic anemia Current Visit: Yes Status: Acute Code(s): D64.9 - ANEMIA, UNSPECIFIED -Hgb reviewed at 8.3- stable -continue ferrous sulfate (4) CKD (chronic kidney disease) Current Visit: Yes Status: Acute Assessment & Plan: -Creat reviewed at 0.95 - baseline around 1.1-1.2 -Monitor renal/lytes -Avoid nephrotoxic agents 10/24: -Creat reviewed at 0.96 Code(s): N18.9 - CHRONIC KIDNEY DISEASE, UNSPECIFIED (5) History of DVT (deep vein thrombosis) Current Visit: Yes Status: Acute Assessment & Plan: - Pt reports she was taken off blood thinne rd/t rash reaction and no longer taking anything Code(s): Z86.718 - PERSONAL HISTORY OF OTHER VENOUS THROMBOSIS AND EMBOLISM (6) HTN (hypertension) Current Visit: Yes Status: Acute Assessment & Plan: - BP stable - somewhat soft - monitor for hypotension - Continue home meds Code(s): I10 - ESSENTIAL (PRIMARY) HYPERTENSION (7) RLS (restless legs syndrome) Current Visit: Yes Status: Acute Assessment & Plan: - Continue pramipexole (8) Hypothyroid Current Visit: Yes Status: Acute Assessment & Plan: - Continue Synthroid Code(s): E03.9 - HYPOTHYROIDISM, UNSPECIFIED (9) GERD (gastroesophageal reflux disease) Current Visit: Yes Status: Acute Assessment & Plan: - Protonix IV daily VTE: Heparin PPI: Protonix Dispo: 1-2 days Code(s): L03.116 - CELLULITIS OF LEFT LOWER LIMB; L03.115 - CELLULITIS OF RIGHT LOWER LIMB (2) Left ankle pain Current Visit: Yes Status: Acute Code(s): M25.572 - PAIN IN LEFT ANKLE AND JOINTS OF LEFT FOOT (3) Chronic anemia Current Visit: Yes Status: Acute Code(s): D64.9 - ANEMIA, UNSPECIFIED (4) CKD (chronic kidney disease) Current Visit: Yes Status: Acute Code(s): N18.9 - CHRONIC KIDNEY DISEASE, UNSPECIFIED (5) History of DVT (deep vein thrombosis) Current Visit: Yes Status: Acute Code(s): Z86.718 - PERSONAL HISTORY OF OTHER VENOUS THROMBOSIS AND EMBOLISM (6) HTN (hypertension) Current Visit: Yes Status: Acute Code(s): I10 - ESSENTIAL (PRIMARY) HYPERTENSION (7) RLS (restless legs syndrome) Current Visit: Yes Status: Acute (8) Hypothyroid Current Visit: Yes Status: Acute Code(s): E03.9 - HYPOTHYROIDISM, UNSPECIFIED (9) GERD (gastroesophageal reflux disease) Current Visit: Yes Status: Acute Code(s): K21.9 - GASTRO-ESOPHAGEAL REFLUX DISEASE WITHOUT ESOPHAGITIS (10) Venous insufficiency of both lower extremities Current Visit: Yes Status: Acute Code(s): I87.2 - VENOUS INSUFFICIENCY (CHRONIC) (PERIPHERAL)
[2024-10-24 05:37] LABS: Calcium 8.4 mg/dL (8.4-10.2); Carbon Dioxide 28 mmol/L (22-30); Creatinine 1 0.96 mg/dL (0.52-1.04); EST GLOMERULAR FILTRATION RATE 57.3 ML/MIN; Glucose 94 mg/dL (74-106); Potassium 4.4 mmol/L (3.5-5.1); SGOT/AST 25 U/L (14-36); SGPT/ALT 10 U/L (0-35); Total Protein 5.4 g/dL (6.3-8.2)
[2024-10-24] MEDS: Protonix 40MG Tablet PO SCH (09:59)
[2024-10-24] MEDS: CLARITIN 10 MG PO SCH (09:59)
[2024-10-24] MEDS: THERAGRAN MULTIVITAMIN PO SCH (09:59)
[2024-10-24] MEDS: FEOSOL 325 MG PO SCH (09:59)
[2024-10-24] MEDS: SYNTHROID 75 MCG PO SCH (09:59)
[2024-10-24] MEDS: VITA-BEE WITH C PO SCH (10:00)
[2024-10-24] MEDS ORDERED: SYNTHROID 50 MCG PO SCH (10:00)
[2024-10-24] MEDS ORDERED: TELMISARTAN 40 MG PO SCH (10:00)
[2024-10-24] MEDS ORDERED: NON-FORMULARY ITEM (Multivitamin [Multi-Vitamin Daily] 1 EACH Tablet) PO SCH (10:00)
[2024-10-24] MEDS ORDERED: VITAMIN B COMPLEX PO SCH (10:00)
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
[2024-10-24] MEDS: Lasix 20 MG/2 ML IV SCH (11:48)
[2024-10-24] MEDS: Micardis 80 MG Tablet PO SCH (11:49)
[2024-10-25 05:22] VITALS: PULSE 77
--- NOTE | 2024-10-25 05:24 | PCM.NOTE ---
Date and Time: 10/25/24 0523 Subjective Assessment: is a 89 year old female with a pmhx of HTN, hypothyroidism, GERD, CKD, RLS, and DVT (not on anticoagulation) who presented to ED 10/23/24 with complaints of progressive redness, swelling, and warmth of both lower extremities, ongoing for the past several weeks. She reports having been treated outpatient with a course of Levaquin without significant improvement. She was previously hospitalized from 08/22/24 to 08/27/24 for similar symptoms and received Clindamycin during that admission. Prior wound cultures dated 07/17/24 revealed Enterobacter cloacae complex and Staphylococcus aureus, resistant to cefazolin but otherwise pansensitive. On todays presentation, she reports a new area of blistering on the left lower leg that ruptured and began draining clear to yellow fluid. She also endorses left ankle pain for the past 23 weeks, described as moderate in intensity, worsened by movement and improved with rest and analgesics. She denies chest pain, palpitations, or shortness of breath. There is no known history of coronary artery disease or congestive heart failure. She states she has undergone extensive outpatient vascular workup including lower extremity Doppler ultrasounds performed at [facility] about three weeks ago and a CTA of the abdomen performed at [facility] this past Sunday under the care of her railway head tender, Dr. Blanchard, though she is unsure of the specific results. On arrival to the emergency department, her vital signs were stable. Physical exam revealed bilateral lower extremity erythema and edema, more prominent on the left, with serous drainage. No purulence or crepitus was noted. Left ankle tenderness was present with movement. Laboratory workup revealed a macrocytic anemia with hemoglobin of 9.4, which appears to be at her baseline. BUN was elevated at 30, consistent with her known CKD. Alkaline phosphatase was 136. Procalcitonin was low at 0.083, not suggestive of systemic infection. Blood and wound cultures were obtained. She was treated in the ED with IV fluids, IV Zosyn, and IV Clindamycin. 10/24/24: Met with patient bedside. She reports mild improvement in bilateral lower extremity pain and now endorses pruritus to both legs. On physical exam, there is noticeable improvement in erythema with recession of previously marked border s. No drainage or purulence is observed. Laboratory results reveal no concerning abnormalities. Venous Doppler studies are negative for deep vein thrombosis. Preliminary wound culture remains negative to date. Currently continuing on intravenous vancomycin and piperacillin-tazobactam. Case was discussed with podiatry NURSE'S ASSISTANT; compression dressing was applied. No additional recommendations at this time. Objective Exam Wound Assessment: Skin/Wound Assessment Wound/Incision Assessment Start: 10/23/24 13:21 Text: Status: Active Freq: Q6H Protocol: Document 10/25/24 01:30 (Rec: 10/25/24 01:30 [id number]) Wound/Incision Assessment BLE Comment nina dressing Right lower posterior leg Comment nina Wound Photo Photo Taken No Objective Data Vital Signs: Vital Signs - 24 hr Temp Pulse Resp BP Pulse Ox 10/25/24 04:00 97.7 F 77 18 98/53 96 10/25/24 00:00 98.0 F 90 18 92/47 95 10/24/24 20:00 97.4 F 85 18 113/52 95 10/24/24 16:00 97.6 F 78 18 105/57 95 10/24/24 11:41 97.3 F 84 18 101/55 94 L 10/24/24 07:59 97.6 F 79 18 104/54 97 Pain Assessment - Last Documented Pain Intensity 2 Intake and Output: Intake & Output 10/22/24 10/23/24 10/24/24 10/25/24 11:59 11:59 11:59 11:59 Intake Total 436 1454 Balance 436 1454 Weight 63.4 kg 63.3 kg Lab Results: Lab Results-Last 24 Hours 10/24/24 Range/Units 04:20 Sodium 136 (135-145) mmol/L Potassium 4.4 (3.5-5.1) mmol/L Chloride 104 (98-107) mmol/L Carbon Dioxide 28 (22-30) mmol/L Anion Gap 8.7 (5-15) MEQ/L BUN 27 H (7-17) mg/dL Creatinine 0.96 (0.52-1.04) mg/dL Estimated GFR 57.3 ML/MIN Glucose 94 (74-106) mg/dL Calcium 8.4 (8.4-10.2) mg/dL Total Bilirubin < 0.10 L (0.2-1.3) mg/dL AST 25 (14-36) U/L ALT 10 (0-35) U/L Alkaline Phosphatase 105 (38-126) U/L Serum Total Protein 5.4 L (6.3-8.2) g/dL Albumin 2.7 L (3.5-5.0) g/dL Radiology Exams: Radiology Procedures Category Date Time Status ANKLE (3 VIEWS) Stat Exams 10/23/24 13:24 Completed VENOUS BILATERAL EXTREMITY [US] Routine Exams 10/23/24 14:33 Completed Medications: Medications Generic Name Dose Route Start Last Admin Trade Name Freq PRN Reason Stop Dose Admin Acetaminophen 650 mg 10/23/24 13:24 Acetaminophen 325 Mg Tablet PO 11/22/24 13:23 Q4H PRN PRN PAIN, FEVER, HEADACHE Acetaminophen 500 mg 10/23/24 15:13 Acetaminophen 500 Mg Tablet PO 11/22/24 15:12 QIDPRN PRN PAIN Cholecalciferol 1,000 unit 10/23/24 15:45 Cholecalciferol (Vitamin D3) 1000 Unit Tablet PO 11/22/24 15:44 3XW JEFFREY Cyanocobalamin 1,000 mcg 10/29/24 10:00 Cyanocobalamin 1000 Mcg/Ml Vial IJ 11/28/24 09:59 Q14D JEFFREY Device 1 10/26/24 14:30 Therapuetic Drug Level Monitor Each IJ 10/26/24 14:31 1XONLY ONE Ferrous Sulfate 325 mg 10/24/24 10:00 10/24/24 09:59 Ferrous Sulfate 325 Mg Tablet PO 11/23/24 09:59 325 mg DAILY JEFFRYE Administration Furosemide 20 mg 10/24/24 10:00 10/24/24 11:48 Furosemide 20 Mg/Vial IV 11/23/24 09:59 Not Given DAILY JEFFREY Gabapentin 200 mg 10/23/24 22:00 10/24/24 21:09 Gabapentin 100 Mg Capsule PO 11/22/24 21:59 200 mg HS JEFFREY Administration Heparin Sodium (Beef Lung) 5,000 unit 10/23/24 22:00 10/24/24 21:09 Heparin 5000 Units/0.5 Ml 5,000 Unit/0.5 Ml Syr SQ 11/22/24 21:59 5,000 unit BID JEFFREY Administration Piperacillin Sod/Tazobactam 100 mls @ 200 mls/hr 10/23/24 22:00 10/24/24 21:10 Sod 3.375 gm/ Sodium Chloride IV 10/28/24 21:59 200 mls/hr Q8HT JEFFREY Administration Vancomycin HCl 1 gm in 200 mls @ 125 mls/hr 10/23/24 15:00 10/24/24 14:49 Vancomycin 1 Gram/200 Ml Bag IV 11/22/24 14:59 125 mls/hr Q24H JEFFREY Administration Levothyroxine Sodium 75 mcg 10/24/24 10:00 10/24/24 09:59 Levothyroxine Sodium 75 Mcg Tablet PO 11/23/24 09:59 75 mcg DAILY JEFFREY Administration Loratadine 10 mg 10/24/24 10:00 10/24/24 09:59 Loratadine 10 Mg Tablet PO 11/23/24 09:59 10 mg DAILY JEFFREY Administration Multivitamins 1 tab 10/24/24 10:00 10/24/24 10:00 Vitamin B Complex With Vit. C Tablet PO 11/23/24 09:59 1 tab DAILY JEFFREY Administration Multivitamins Therapeutic 1 tab 10/24/24 10:00 10/24/24 09:59 Multivitamins,Therapeutic 1 Tab Tab PO 11/23/24 09:59 1 tab DAILY JEFFREY Administration Ondansetron HCl 4 mg 10/23/24 13:24 Ondansetron Hcl 4 Mg/2 Ml Vial IV 11/22/24 13:23 Q6H PRN PRN NAUSEA/VOMITING Pantoprazole Sodium 40 mg 10/24/24 10:00 10/24/24 09:59 Protonix (Pantoprazole) 40 Mg Tablet PO 11/23/24 09:59 40 mg DAILY JEFFREY Administration Potassium Chloride 20 meq 10/23/24 22:00 10/24/24 21:09 Potassium Chloride Tab 10 Meq Tab PO 11/22/24 21:59 20 meq BID JEFFREY Administration Pramipexole Dihydrochloride 1 mg 10/23/24 22:00 10/24/24 21:09 Pramipexole Di-Hcl 0.5 Mg Tab PO 11/22/24 21:59 1 mg HS JEFFREY Administration Pramipexole Dihydrochloride 1 mg 10/23/24 15:28 Pramipexole Di-Hcl 0.5 Mg Tab PO 11/22/24 15:27 TIDPRN PRN Telmisartan 40 mg 10/24/24 10:00 10/24/24 11:49 Telmisartan 80 Mg Tab PO 11/23/24 09:59 Not Given DAILY JEFFREY Tramadol HCl 50 mg 10/23/24 17:00 10/24/24 21:09 Tramadol Hcl 50 Mg Tablet PO 11/22/24 16:59 50 mg QID JEFFREY Administration Triamcinolone Acetonide 0 gm 10/23/24 22:00 10/24/24 21:22 Triamcinolone Acetonide 0.1% 15 Gm Cream TP 11/22/24 21:59 2 gm BID JEFFREY Administration Discontinued Medications Generic Name Dose Route Start Last Admin Trade Name Chekoq PRN Reason Stop Dose Admin Clindamycin HCl/Dextrose 600 mg in 50 mls @ 100 mls/hr 10/23/24 11:08 10/23/24 11:40 Clindamycin-D5w 600 Mg/50 Ml IV 10/23/24 11:37 Infused STAT STA Infusion Clindamycin HCl/Dextrose Confirm 10/23/24 11:10 Clindamycin-D5w 600 Mg/50 Ml Administered 10/23/24 11:11 Dose 600 mg in 50 mls @ ud IV .STK-MED ONE Piperacillin Sod/Tazobactam 100 mls @ 200 mls/hr 10/23/24 11:40 10/23/24 11:46 Sod 3.375 gm/ Sodium Chloride IV 10/23/24 12:09 200 mls/hr STAT STA 200 mls/hr Administration Sodium Chloride Confirm 10/23/24 11:46 Sodium Chloride 0.9% Administered 10/23/24 11:47 Dose 100 mls @ ud .ROUTE .STK-MED ONE Non-Formulary Medication 1 each 10/23/24 13:24 10/23/24 18:15 Pharmacy Dosing Request [facility] 10/23/24 13:25 Not Given STAT ONE Piperacillin Sod/Tazobactam Sod Confirm 10/23/24 11:45 Piperacillin/Tazobactam Sodium 3.375 Gm Vial Administered 10/23/24 11:46 Dose 3.375 gm IV .STK-MED ONE Multi-Disciplinary Progress Notes: Multi-Disciplinary Progress Notes 10/24/24 09:59 Case Management Note by Nahed Taylor S/W ASHLEY (PODIATRY)- PATIENT TO CONTINUE THE SAME DRESSING CHANGES AT HOME SHE WAS DOING PRIOR TO ADMISSION- NO CHANGE IN ORDERS Initialized on 10/24/24 09:59 - END OF NOTE 10/24/24 09:58 Case Management Note by Nahed Taylor PATIENT HAS [facility]. THEY WERE NOTIFIED PATIENT IS HERE OBS. THEY WILL NEED NOTIFIED AT TIME OF DC AT [phone]. THEY WILL NEED FAXED THE DC INSTRUC TIONS, DC MED LIST AND DC SUMMARY TO [phone] Initialized on 10/24/24 09:58 - END OF NOTE Assessment/Plan (1) Bilateral lower leg cellulitis Current Visit: Yes Status: Acute Assessment & Plan: -Most likely secondary to venous insufficiency -Recurrent cellulitis, previously treated with Clindamycin (August 2024) and Levaquin (recent outpatient), both of which failed -Prior wound culture (07/17/24): Enterobacter cloacae complex and Staph aureus (cefazolin-resistant, otherwise pansensitive) -Obtain dopplers and CTA from [facility] -Vancomycin + Zosyn for broad-spectrum coverage including MRSA, Enterobacter, anaerobes, and streptococci -Obtain and monitor blood and wound cultures; de-escalate based on sensitivities -Shukri borders/elevate BLE -Podiatry consult for compression dressings/ wound care: daily dressing changes, monitor for necrosis, cellulitis progression, or need for debridement 10/24/24: -CMP/CBC reviewed - WBC WNL -Lasix 20mg IV daily -Triamcinolone cream - continue -Vanc/zosyn - continue -wound/blood cultures pending -Podiatry following - appreciate recs -venous doppler ordered by podiatry - negative for right and left DVT -add loratidine for itching -Discussed case with Podiatry NURSE'S ASSISTANT- compression dressings placed- agree with plan - continue abx until cultures result -Patient will need f/u with cardiology as OP to complete workup - results still pending per records at [place] Code(s): L03.116 - CELLULITIS OF LEFT LOWER LIMB; L03.115 - CELLULITIS OF RIGHT LOWER LIMB (2) Left ankle pain Current Visit: Yes Status: Acute Assessment & Plan: -Xray left ankle -Rest, elevation, and scheduled acetaminophen for pain control -Reassess for worsening pain or signs of deeper infection 10/24: -Left ankle xray with soft tissue edema- no acute fracture/dislocations Code(s): M25.572 - PAIN IN LEFT ANKLE AND JOINTS OF LEFT FOOT (3) Chronic anemia Current Visit: Yes Status: Acute Code(s): D64.9 - ANEMIA, UNSPECIFIED -Hgb reviewed at 8.3- stable -continue ferrous sulfate (4) CKD (chronic kidney disease) Current Visit: Yes Status: Acute Assessment & Plan: -Creat reviewed at 0.95 - baseline around 1.1-1.2 -Monitor renal/lytes -Avoid nephrotoxic agents 10/24: -Creat reviewed at 0.96 Code(s): N18.9 - CHRONIC KIDNEY DISEASE, UNSPECIFIED (5) History of DVT (deep vein thrombosis) Current Visit: Yes Status: Acute Assessment & Plan: - Pt reports she was taken off blood thinne rd/t rash reaction and no longer taking anything Code(s): Z86.718 - PERSONAL HISTORY OF OTHER VENOUS THROMBOSIS AND EMBOLISM (6) HTN (hypertension) Current Visit: Yes Status: Acute Assessment & Plan: - BP stable - somewhat soft - monitor for hypotension - Continue home meds Code(s): I10 - ESSENTIAL (PRIMARY) HYPERTENSION (7) RLS (restless legs syndrome) Current Visit: Yes Status: Acute Assessment & Plan: - Continue pramipexole (8) Hypothyroid Current Visit: Yes Status: Acute Assessment & Plan: - Continue Synthroid Code(s): E03.9 - HYPOTHYROIDISM, UNSPECIFIED (9) GERD (gastroesophageal reflux disease) Current Visit: Yes Status: Acute Assessment & Plan: - Protonix IV daily VTE: Heparin PPI: Protonix Dispo: 1-2 days Code(s): L03.116 - CELLULITIS OF LEFT LOWER LIMB; L03.115 - CELLULITIS OF RIGHT LOWER LIMB (2) Left ankle pain Current Visit: Yes Status: Acute Qualifiers: Chronicity: acute Qualified Code(s): M25.572 - Pain in left ankle and joints of left foot Code(s): M25.572 - PAIN IN LEFT ANKLE AND JOINTS OF LEFT FOOT (3) Chronic anemia Current Visit: Yes Status: Acute Code(s): D64.9 - ANEMIA, UNSPECIFIED (4) CKD (chronic kidney disease) Current Visit: Yes Status: Acute Code(s): N18.9 - CHRONIC KIDNEY DISEASE, UNSPECIFIED (5) History of DVT (deep vein thrombosis) Current Visit: Yes Status: Acute Code(s): Z86.718 - PERSONAL HISTORY OF OTHER VENOUS THROMBOSIS AND EMBOLISM (6) HTN (hypertension) Current Visit: Yes Status: Acute Code(s): I10 - ESSENTIAL (PRIMARY) HYPERTENSION (7) RLS (restless legs syndrome) Current Visit: Yes Status: Acute (8) Hypothyroid Current Visit: Yes Status: Acute Code(s): E03.9 - HYPOTHYROIDISM, UNSPECIFIED (9) GERD (gastroesophageal reflux disease) Current Visit: Yes Status: Acute Code(s): K21.9 - GASTRO-ESOPHAGEAL REFLUX DISEASE WITHOUT ESOPHAGITIS (10) Venous insufficiency of both lower extremities Current Visit: Yes Status: Chronic Code(s): I87.2 - VENOUS INSUFFICIENCY (CHRONIC) (PERIPHERAL)
[2024-10-25 06:29] LABS: BASOPHIL % 0.5 % (0.1-1.2); Basophil (Absolute #) 0.03 x10^3/uL (0.01-0.08); Eosinophil (Absolute #) 0.91 x10^3/uL (0.04-0.36); Hematocrit 29.4 % (34.1-44.9); Hemoglobin 8.9 g/dL (11.2-15.7); IMMATURE GRAN # 0.07 x10^3u/L (0.001-0.031); IMMATURE GRAN % 1.1 % (0.001-0.429); Lymphocyte (Absolute #) 1.67 x10^3/uL (1.18-3.74); Mean Corpuscular Hemoglobin 28.8 pg (25.6-32.2); Mean Corpuscular Hgb Concent. 30.3 g/dL (32.2-35.5); Monocyte (Absolute #) 0.46 x10^3/uL (0.24-0.86); NUCLEATED RBC # 0.00 x10^3u/L (0.00-0.012); NUCLEATED RBC % 0.0 % (0.00-0.2); Platelet Count 266 x10^3/uL (182-369); Red Blood Count 3.09 x10^6/uL (3.93-5.22); White Blood Count 6.2 x10^3/uL (3.98-10.04)
[2024-10-25 06:42] LABS: Calcium 8.9 mg/dL (8.4-10.2); Carbon Dioxide 28 mmol/L (22-30); Creatinine 1 1.01 mg/dL (0.52-1.04); EST GLOMERULAR FILTRATION RATE 53.9 ML/MIN; Glucose 83 mg/dL (74-106); Potassium 4.9 mmol/L (3.5-5.1); SGOT/AST 25 U/L (14-36); SGPT/ALT 11 U/L (0-35); Total Protein 6.0 g/dL (6.3-8.2)
[2024-10-25 08:05] VITALS: BP 100/59; RESP 13; TEMP 98.8; O2SAT 94
--- NOTE | 2024-10-25 09:06 | PCM.DS ---
Discharge Summary Date of Admission: 10/23/24 12:21 Date of Discharge: 10/25/24 Admitting Physician: SHE PÉREZ MD Consults: Consults on Case 10/23/24 13:24 Consult Podiatry ROUTINE Primary Care Provider: PATRICIA,SHIVA Allergies Allergies Sulfa (Sulfonamide Antibiotics) Allergy (Mild, Verified 10/23/24 12:31) apixaban [From Eliquis] Allergy (Verified 10/23/24 12:31) rash latex Allergy (Verified 10/23/24 12:31) Hives scallops Allergy (Verified 10/23/24 12:31) Hospital Summary - Hospital Course Hospital Course: Ms. Darden is an 89-year-old female with a medical history significant for hypertension, hypothyroidism, chronic kidney disease, GERD, restless leg syndrome, chronic anemia, and prior deep vein thrombosis (not currently anticoagulated), who was admitted on October 23, 2024, for evaluation and management of progressive bilateral lower extremity swelling, erythema, and drainage. She reported that these symptoms had been worsening over the past several weeks despite a recent outpatient course of Levaquin. She had previously been hospitalized in August for a similar presentation and received Clindamycin at that time. A wound culture from July revealed Enterobacter cloacae complex and Staphylococcus aureus, resistant only to cefazolin. At the time of this admission, she reported new blistering of the left leg with clear to yellow drainage and left ankle pain of 23 weeks' duration. On arrival to the ED, she was hemodynamically stable. Physical exam was notable for bilateral lower extremity erythema and edema, more pronounced on the left, with serous drainage but no purulence or crepitus. Laboratory evaluation revealed macrocytic anemia with hemoglobin of 9.4, consistent with her chronic baseline. Her BUN was 30 with a creatinine of 0.95, stable for her known CKD. Alkaline phosphatase was mildly elevated at 136. Procalcitonin was low at 0.083, not suggestive of systemic infection. Venous Dopplers were negative for DVT bilaterally. X-ray of the left ankle showed soft tissue swelling without evidence of acute fracture or dislocation. She was initiated on broad-spectrum IV antibiotics with Vancomycin and Piperacillin-Tazobactam. Wound and blood cultures were obtained, which remained negative throughout her admission still pending on discharge and to be followed OP by podiatry. She was evaluated by podiatry, and compression dressings were placed. Over the course of her hospitalization, her leg pain and erythema improved, with pruritus noted as a resolving symptom. Given her improvement and inability to tolerate Bactrim due to allergy, she was transitioned to oral Augmentin at discharge. She will continue compression dressings with home health care and follow up with both Podiatry and Cardiology outpatient. Results pending: wound/blood cultures both NGTD I spent 35 minutes [id number] with the patient on the day of discharge performing discharge exam, discussing hospital stay and discharge instructions with patient and caregivers, preparation of discharge records, prescriptions & referral forms and addressing any questions/concerns the patient had as documented above. - Vitals & Intake/Output Vital Signs: Vital Signs Temperature 98.8 F 10/25/24 08:00 Pulse Rate 77 10/25/24 08:00 Respiratory Rate 13 10/25/24 08:00 Blood Pressure 100/59 10/25/24 08:00 O2 Sat by Pulse Oximetry 94 L 10/25/24 08:00 Intake & Output: Intake & Output 10/22/24 10/23/24 10/24/24 10/25/24 11:59 11:59 11:59 11:59 Intake Total 436 1211 Balance 436 1211 Weight 63.4 kg 63.3 kg 68.3 kg - Lab Result Diagrams: 10/25/24 05:55 10/25/24 05:55 Lab Results-Last 24 Hrs: Lab Results-Last 24 Hours 10/25/24 10/25/24 Range/Units 05:55 05:55 WBC 6.2 (3.98-10.04) x10^3/uL RBC 3.09 L (3.93-5.22) x10^6/uL Hgb 8.9 L (11.2-15.7) g/dL Hct 29.4 L (34.1-44.9) % MCV 95.1 H (79.4-94.8) fL MCH 28.8 (25.6-32.2) pg MCHC 30.3 L (32.2-35.5) g/dL RDW 14.6 H (11.7-14.4) % Plt Count 266 (182-369) x10^3/uL MPV 9.8 (9.4-12.3) fL Gran % 49.3 (34.0-71.1) % Immature Gran % (Auto) 1.1 H (0.001-0.429) % Nucleat RBC Rel Count 0.0 (0.00-0.2) % Eos # (Auto) 0.91 H (0.04-0.36) x10^3/uL Immature Gran # (Auto) 0.07 H (0.001-0.031) x10^3u/L Absolute Lymphs (auto) 1.67 (1.18-3.74) x10^3/uL Absolute Monos (auto) 0.46 (0.24-0.86) x10^3/uL Absolute Nucleated RBC 0.00 (0.00-0.012) x10^3u/L Lymphocytes % 27.0 (19.3-51.7) % Monocytes % 7.4 (4.7-12.5) % Eosinophils % 14.7 H (0.7-5.8) % Basophils % 0.5 (0.1-1.2) % Absolute Granulocytes 3.05 (1.56-6.13) x10^3/uL Basophils # 0.03 (0.01-0.08) x10^3/uL Sodium 140 (135-145) mmol/L Potassium 4.9 (3.5-5.1) mmol/L Chloride 106 (98-107) mmol/L Carbon Dioxide 28 (22-30) mmol/L Anion Gap 10.2 (5-15) MEQ/L BUN 30 H (7-17) mg/dL Creatinine 1.01 (0.52-1.04) mg/dL Estimated GFR 53.9 ML/MIN Glucose 83 (74-106) mg/dL Calcium 8.9 (8.4-10.2) mg/dL Total Bilirubin < 0.10 L (0.2-1.3) mg/dL AST 25 (14-36) U/L ALT 11 (0-35) U/L Alkaline Phosphatase 112 (38-126) U/L Serum Total Protein 6.0 L (6.3-8.2) g/dL Albumin 3.1 L (3.5-5.0) g/dL Micro Results-Entire Visit: Microbiology 10/23/24 13:30 Wound Culture - Preliminary Leg - Right ORGANISMS ISOLATED ARE CONSISTENT WITH NORMAL SKIN SANDI MODERATE GROWTH, NO PREDOMINANT ORGANISM 10/23/24 10:00 Blood Culture - Preliminary Blood 10/23/24 09:50 Blood Culture - Preliminary Blood - Radiology Exams Ordered Rad Exams-Entire Visit: Radiology Procedures Category Date Time Status ANKLE (3 VIEWS) Stat Exams 10/23/24 13:24 Completed VENOUS BILATERAL EXTREMITY [US] Routine Exams 10/23/24 14:33 Completed - Procedures and Test Procedures and Tests throughout Hospitalization: Therapy Orders & Screens 10/23/24 13:24 PT Eval & Treat (MD Order) ONCE Reason for Eval:: weakness Diagnosis: Bilateral lower extremity cellulitis Discharge Exam General Appearance: no apparent distress Neurologic Exam: alert, oriented x 3, cooperative Eye Exam: PERRL Ears, Nose, Throat Exam: normal ENT inspection Neck Exam: normal inspection Respiratory Exam: normal breath sounds, lungs clear Cardiovascular Exam: regular rate/rhythm, normal heart sounds Gastrointestinal/Abdomen Exam: soft, hepatomegaly Pelvic Exam: deferred Rectal Exam: deferred Back Exam: normal inspection Extremity Exam: inflammation (BLE with compression dressings CDI) Wound Assessment: Skin/Wound Assessment Wound/Incision Assessment Start: 10/23/24 13:21 Text: Status: Active Freq: Q6H Protocol: Document 10/25/24 08:00 DS (Rec: 10/25/24 08:36 DS [id number]) Wound/Incision Assessment Right lower posterior leg Comment nina Wound Photo Photo Taken No Final Diagnosis/Problem List - Final Discharge Diagnosis/Problem (1) Bilateral lower leg cellulitis Current Visit: Yes Status: Acute Assessment & Plan: Likely secondary to venous insufficiency Treated with IV Vancomycin and Zosyn IP Wound culture negative; transitioned to Augmentin on discharge Continue compression dressings per podiatry with home health follow-up Follow up with podiatry for wound monitoring and cardiology for CTA result review Code(s): L03.116 - CELLULITIS OF LEFT LOWER LIMB; L03.115 - CELLULITIS OF RIGHT LOWER LIMB (2) Left ankle pain Current Visit: Yes Status: Acute Assessment & Plan: Likely secondary to surrounding cellulitis X-ray without fracture Managed conservatively with acetaminophen, elevation, and rest Code(s): M25.572 - PAIN IN LEFT ANKLE AND JOINTS OF LEFT FOOT (3) Chronic anemia Current Visit: Yes Status: Acute Assessment & Plan: Hemoglobin stable at 8.9 Continue ferrous sulfate outpatient Code(s): D64.9 - ANEMIA, UNSPECIFIED (4) CKD (chronic kidney disease) Current Visit: Yes Status: Acute Assessment & Plan: Creatinine stable at 0.87 (baseline 1.11.2) Continue to avoid nephrotoxins, monitor renal function as outpatient Code(s): N18.9 - CHRONIC KIDNEY DISEASE, UNSPECIFIED (5) History of DVT (deep vein thrombosis) Current Visit: Yes Status: Acute Assessment & Plan: Not currently anticoagulated due to prior allergic reaction Code(s): Z86.718 - PERSONAL HISTORY OF OTHER VENOUS THROMBOSIS AND EMBOLISM (6) HTN (hypertension) Current Visit: Yes Status: Acute Assessment & Plan: Blood pressure stable Continue home antihypertensives Code(s): I10 - ESSENTIAL (PRIMARY) HYPERTENSION (7) RLS (restless legs syndrome) Current Visit: Yes Status: Acute Assessment & Plan: Continue pramipexole as previously prescribed (8) Hypothyroid Current Visit: Yes Status: Acute Assessment & Plan: Continue Synthroid with ongoing outpatient monitoring Code(s): E03.9 - HYPOTHYROIDISM, UNSPECIFIED (9) GERD (gastroesophageal reflux disease) Current Visit: Yes Status: Acute Assessment & Plan: Continue Protonix transitioned from IV to oral at discharge Code(s): K21.9 - GASTRO-ESOPHAGEAL REFLUX DISEASE WITHOUT ESOPHAGITIS (10) Venous insufficiency of both lower extremities Current Visit: Yes Status: Chronic Code(s): I87.2 - VENOUS INSUFFICIENCY (CHRONIC) (PERIPHERAL) - Discharge Discharge Date: 10/25/24 Disposition: HOME HEALTH SERVICE Condition: Stable Prescriptions: New Amox Tr/Potass Clav. 875 mg [Augmentin 875-125 Tablet] 875 mg PO BID 7 Days #14 tablet Continue Tramadol HCl 50 mg [Ultram 50 mg] 50 mg PO QID Levothyroxine Sodium 50 Mcg [Synthroid 50 Mcg] 75 mcg PO DAILY Telmisartan [Micardis] 40 mg PO DAILY Multivitamin [Multi-Vitamin Daily] 1 tab PO DAILY Cyanocobalamin 1000 Mcg/ml [Cyanocobalamin B-12 1000 MCG/ML] 1,000 mcg IJ UD Potassium Chloride Tab* [Klor Con] 20 meq PO BID Acetaminophen 500 mg [Tylenol Extra Strength 500 mg] 500 mg PO QIDPRN PRN PRN Reason: Pain Pramipexole Di-HCl [Pramipexole Dihydrochloride] 1 mg PO TIDPRN Cholecalciferol (Vitamin D3) [Vitamin D3] 1,000 iu PO 3XW Loratadine 10 mg [Claritin 10 mg] 10 mg PO DAILY Ferrous Sulfate [Iron] 65 mg PO DAILY Vitamin B Complex 1 tablet PO DAILY Pramipexole Di-HCl [Mirapex ER] 1 mg PO HS ondansetron HCL [Ondansetron HCl] 4 mg PO DAILY PRN PRN PRN Reason: Nausea Gabapentin [Neurontin ] 200 mg PO HS Hydrochlorothiazide 25 mg [hydroDIURIL 25 MG] 25 mg PO DAILY Additional Instructions: CONTINUE DRESSING CHANGES ON LEGS YOU WERE ALREADY DOING AT HOME PRIOR TO ADMISSION. Follow up with: DIMITRY JOLLEY DPM [ACTIVE STAFF, PODIATRY] - 10/30/24 10:30 am SHIVA GOMEZ MD [Primary Care Provider, INTERNAL MEDICINE] - 10/31/24 9:15 am Referral Note: [facility]
[2024-10-26] MEDS ORDERED: TROUGH DRUG LEVELS IJ ONE (14:30)
[2024-10-29] MEDS ORDERED: Cyanocobalamin B-12 1000 MCG/ML IJ SCH (10:00)
== END 2024-10-25 11:11 | disposition home health service (06) ==
LOC: ED 08:49 → MED SURG 12:21
PROVIDERS: ADMIT Internal Medicine; ATTEND Internal Medicine
DX: L03.116 Cellulitis of left lower limb (principal); L03.115 Cellulitis of right lower limb; M25.572 Pain in left ankle and joints of left foot; D64.9 Anemia, unspecified; I12.9 Hypertensive chronic kidney disease with stage 1 through stage 4 chronic kidney disease, or unspecified chronic kidney disease; N18.9 Chronic kidney disease, unspecified; Z86.718 Personal history of other venous thrombosis and embolism; G25.81 Restless legs syndrome; E03.9 Hypothyroidism, unspecified; K21.9 Gastro-esophageal reflux disease without esophagitis; I87.2 Venous insufficiency (chronic) (peripheral); L97.211 Non-pressure chronic ulcer of right calf limited to breakdown of skin; I83.012 Varicose veins of right lower extremity with ulcer of calf; R60.0 Localized edema; Z79.899 Other long term (current) drug therapy
CPT/HCPCS: 29581; 36415; 73610; 80053; 83605; 84145; 85025; 87040; 87070; 93268; 93970; 97161; 99221; 99285; G0378; Q3014

== ENCOUNTER 2025-01-04 16:04 | Inpatient (IN) | payer MEDICARE ==
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
[2025-01-04 17:51] LABS: BASOPHIL % 0.3 % (0.1-1.2); Basophil (Absolute #) 0.02 x10^3/uL (0.01-0.08); Eosinophil (Absolute #) 0.37 x10^3/uL (0.04-0.36); Hematocrit 33.8 % (34.1-44.9); Hemoglobin 10.3 g/dL (11.2-15.7); IMMATURE GRAN # 0.03 x10^3u/L (0.001-0.031); IMMATURE GRAN % 0.5 % (0.001-0.429); Lymphocyte (Absolute #) 1.39 x10^3/uL (1.18-3.74); Mean Corpuscular Hemoglobin 29.4 pg (25.6-32.2); Mean Corpuscular Hgb Concent. 30.5 g/dL (32.2-35.5); Monocyte (Absolute #) 0.45 x10^3/uL (0.24-0.86); NUCLEATED RBC # 0.00 x10^3u/L (0.00-0.012); NUCLEATED RBC % 0.0 % (0.00-0.2); Platelet Count 180 x10^3/uL (182-369); Red Blood Count 3.50 x10^6/uL (3.93-5.22); White Blood Count 5.7 x10^3/uL (3.98-10.04)
[2025-01-04 18:07] LABS: Calcium 9.2 mg/dL (8.4-10.2); Carbon Dioxide 29 mmol/L (22-30); Creatinine 1 0.85 mg/dL (0.52-1.04); EST GLOMERULAR FILTRATION RATE 66.3 ML/MIN; Glucose 99 mg/dL (74-106); Potassium 4.0 mmol/L (3.5-5.1); SGOT/AST 31 U/L (14-36); SGPT/ALT 17 U/L (0-35); Total Protein 6.3 g/dL (6.3-8.2)
[2025-01-04] MEDS ORDERED: SUBLIMAZE 100 MCG/2 ML ONE (18:52)
[2025-01-04] MEDS: SUBLIMAZE 100 MCG/2 ML IV ONE (18:53)
--- NOTE | 2025-01-04 18:58 | XRAY ---
CLINICAL HISTORY: pain COMPARISON: None. TECHNIQUE: X-ray lumbar spine in AP and lateral views. FINDINGS: Alignment: Marked dextroscloisis. Straightened lumbar curvature. Suspected multilevel anterolisthesis in the lower lumbar vertebrae. Diffuse lumbar bilateral facet arthropathy noted. Bilateral rather symmetrical mild degenerative sacroiliitis. Vertebral Bodies: Reduced density of the scanned bones. Reduced height of multiple vertebrae is more evident at the L5 level. Spondylodegenerative changes manifested by marginal osteophytic lipping & subchondral sclerosis of the opposing lumbar vertebral endplates. Intervertebral Disc Spaces: Variably reduced all lumbar disc space heights and vacuum phenomena. Soft Tissues: Paraspinal soft tissues are of normal thickness. No evidence of paraspinal soft tissue swelling or mass effect. Additional Findings: Bilateral hip replacement. Degenerative changes and calcifications of the lower chest wall IMPRESSION: 1. Marked dextroscloisis. 2. Reduced height of multiple vertebrae is more evident at the L5 level. 3. 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 MRI would be recommended, if clinically warranted. Disclaimer: A subtle bone abnormality or fracture may not be readily apparent on x-rays, thus clinical correlation and further imaging including follow-up CT, MRI, or follow-up x-rays are advised as needed. Electronically Signed by: Shahbaz Avilez MD. (01/04/2025 18:56:45 EDT)
--- NOTE | 2025-01-04 19:14 | XRAY ---
Indication: Pain following fall. Comparison: None 2 view right femur demonstrates mild displaced spiral fracture distal shaft femur, possibly involving femoral knee prosthesis. Elsewhere osteopenia and intact right total hip arthroplasty. No other bony, articular, or soft tissue abnormalities.
[2025-01-04] MEDS ORDERED: Zofran 4 MG/2 ML VIAL ONE (19:26)
[2025-01-04] MEDS: Zofran 4 MG/2 ML VIAL IV ONE (19:26)
[2025-01-04 19:36] LABS: Glucose, Urine Negative (Negative); Protein,Urine Dip Negative (Negative)
[2025-01-04 19:54] LABS: RBC 0-2 /HPF (0-5); WBC 0-2 /HPF (0-5)
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
[2025-01-04] MEDS: MORPHINE SULFATE 2 MG INJ IV ONE (22:07)
[2025-01-05] MEDS: MORPHINE SULFATE 2 MG INJ IV PRN (01:06)
[2025-01-05] MEDS: Zofran 4 MG/2 ML VIAL IV PRN (01:06)
[2025-01-05 05:48] LABS: Calcium 8.5 mg/dL (8.4-10.2); Carbon Dioxide 23.0 mmol/L (22-30); Creatinine 1 0.68 mg/dL (0.52-1.04); EST GLOMERULAR FILTRATION RATE 84.2 ML/MIN; Glucose 136.0 mg/dL (74-106); Potassium 4.7 mmol/L (3.5-5.1)
[2025-01-05 06:05] LABS: Hematocrit 33.6 % (34.1-44.9); Hemoglobin 9.8 g/dL (11.2-15.7); Mean Corpuscular Hemoglobin 29.0 pg (25.6-32.2); Mean Corpuscular Hgb Concent. 29.2 g/dL (32.2-35.5); Platelet Count 183 x10^3/uL (182-369); Red Blood Count 3.38 x10^6/uL (3.93-5.22); White Blood Count 6.6 x10^3/uL (3.98-10.04)
[2025-01-05] MEDS ORDERED: Mirapex 0.5 MG Tablet PO PRN (07:17)
[2025-01-05 07:22] LABS: ABO TYPING O; RH TYPING NEGATIVE
[2025-01-05] MEDS ORDERED: Narcan 0.4 MG/ML IV PRN (08:04)
[2025-01-05] MEDS: NORCO 5/325 MG PO PRN (08:18)
[2025-01-05] MEDS ORDERED: HEPARIN 5000 UNITS/0.5 ML (HIGH RISK MED) SQ SCH (10:00)
[2025-01-05] MEDS: CLARITIN 10 MG PO SCH (11:28)
[2025-01-05] MEDS: THERAGRAN MULTIVITAMIN PO SCH (11:28)
[2025-01-05] MEDS: Klor Con PO SCH (11:28)
[2025-01-05] MEDS: SYNTHROID 75 MCG PO SCH (11:28)
[2025-01-05] MEDS: VITA-BEE WITH C PO SCH (11:29)
[2025-01-05] MEDS: hydroDIURIL 25 MG PO SCH (11:29)
[2025-01-05] MEDS: FEOSOL 325 MG PO SCH (11:29)
--- NOTE | 2025-01-05 12:00 | PCM.NOTE ---
Date and Time: 01/05/25 1149 Subjective Assessment: is an 89-year-old female with a history of chronic anemia, DVT, hypertension, hypothyroidism, CKD, fracture disease, chronic lower extremity ulcers, and prior right total hip arthroplasty presented on 01/04/25 after a fall. She reported her leg felt as if it was going to give out while pushing a shopping cart, causing her to fall on her right leg. She typically ambulates with a walker. She denied dizziness, lightheadedness, chest pain, or shortness of breath prior to the fall but has since experienced significant right hip and leg pain with limited mobility. She denied numbness or tingling. On arrival, she had nausea related to pain medication. C-collar placed in the ED was removed after evaluation. Imaging revealed a mildly displaced distal femur fracture. Orthopedic surgery was consulted in the ED and planned for operative intervention. On 01/05, surgery was scheduled for 1600, pain was well controlled, SCDs were initiated, and the patient denied further concerns. - Review of Systems Constitutional: No Fever, No Chills Eyes: No Symptoms Ears, Nose, & Throat: No Symptoms Respiratory: No Cough, No Short Of Breath Cardiac: No Chest Pain, No Edema, No Syncope Abdominal/Gastrointestinal: No Abdominal Pain, No Nausea, No Vomiting, No Diarrhea Genitourinary Symptoms: No Dysuria Musculoskeletal: Arthralgias, Injury (right leg pain), No Back Pain, No Neck Pain Skin: No Rash Neurological: No Dizziness, No Focal Weakness, No Sensory Changes Psychological: No Symptoms Endocrine: No Symptoms Hematologic/Lymphatic: No Symptoms Immunological/Allergic: No Symptoms Objective Exam General Appearance: no apparent distress, alert Neurologic Exam: alert, oriented x 3, cooperative, normal mood/affect, nml cerebellar function, sensation nml, No motor deficits Skin Exam: normal color, warm, dry Wound Assessment: Skin/Wound Assessment Wound/Incision Assessment Start: 01/04/25 21:56 Text: Status: Active Freq: Q6H Protocol: Document 01/05/25 08:10 JV (Rec: 01/05/25 10:13 JV [id number]) Wound/Incision Assessment Right Lower Posterior Calf Wound Assessment Shift Assessment Wound Type Stasis Ulcer Wound Stage Non Pressure Wound Dressing Status Dry & Intact Drainage Amount None Comment KESHIA unna boots in placw, CDI Wound Photo Photo Taken No Eye Exam: PERRL, EOMI, eyes nml inspection Ears, Nose, Throat Exam: normal ENT inspection, pharynx normal, moist mucous membranes Neck Exam: normal inspection, non-tender, supple, full range of motion Respiratory Exam: normal breath sounds, lungs clear, No respiratory distress Cardiovascular Exam: regular rate/rhythm, normal heart sounds Gastrointestinal/Abdomen Exam: soft, No tenderness, No mass Extremity Exam: normal inspection, normal range of motion, limited range of motion, tenderness (right femur) Back Exam: normal inspection, normal range of motion, No CVA tenderness, No vertebral tenderness Pelvic Exam: deferred Rectal Exam: deferred Objective Data Vital Signs: Vital Signs - 24 hr Temp Pulse Resp BP BP Pulse Ox 01/05/25 11:47 99 F 80 16 127/58 93 L 01/05/25 07:33 98.9 F 93 H 16 129/63 94 L 01/05/25 04:00 98.7 F 94 H 16 128/65 99 01/04/25 21:45 97.5 F 77 16 138/93 96 01/04/25 21:00 85 14 126/86 99 01/04/25 20:30 81 9 L 128/70 01/04/25 20:00 93 H 11 L 144/75 01/04/25 19:58 96 01/04/25 19:31 87 16 160/85 94 L 01/04/25 19:00 91 H 13 137/84 93 L 01/04/25 18:30 89 16 148/78 98 01/04/25 18:00 72 11 L 156/81 98 01/04/25 17:32 68 15 152/75 98 01/04/25 17:00 133/74 01/04/25 16:54 98 01/04/25 16:30 77 13 133/74 81 L 01/04/25 16:09 84 18 127/68 96 01/04/25 16:04 97.3 F 79 14 127/68 96 Pain Assessment - Last Documented Pain Intensity 4 Pain Scale Used 0-10 Pain Scale Intake and Output: Intake & Output 01/02/25 01/03/25 01/04/25 01/05/25 11:59 11:59 11:59 11:59 Intake Total 334 Output Total 1125 Balance -791 Weight 53.3 kg Lab Results: Lab Results-Last 24 Hours 01/04/25 01/04/25 01/04/25 Range/Units 17:45 17:45 17:45 WBC 5.7 (3.98-10.04) x10^3/uL RBC 3.50 L (3.93-5.22) x10^6/uL Hgb 10.3 L (11.2-15.7) g/dL Hct 33.8 L (34.1-44.9) % MCV 96.6 H (79.4-94.8) fL MCH 29.4 (25.6-32.2) pg MCHC 30.5 L (32.2-35.5) g/dL RDW 15.0 H (11.7-14.4) % Plt Count 180 L (182-369) x10^3/uL MPV 9.9 (9.4-12.3) fL Gran % 60.5 (34.0-71.1) % Immature Gran % (Auto) 0.5 H (0.001-0.429) % Nucleat RBC Rel Count 0.0 (0.00-0.2) % Eos # (Auto) 0.37 H (0.04-0.36) x10^3/uL Immature Gran # (Auto) 0.03 (0.001-0.031) x10^3u/L Absolute Lymphs (auto) 1.39 (1.18-3.74) x10^3/uL Absolute Monos (auto) 0.45 (0.24-0.86) x10^3/uL Absolute Nucleated RBC 0.00 (0.00-0.012) x10^3u/L Lymphocytes % 24.3 (19.3-51.7) % Monocytes % 7.9 (4.7-12.5) % Eosinophils % 6.5 H (0.7-5.8) % Basophils % 0.3 (0.1-1.2) % Absolute Granulocytes 3.46 (1.56-6.13) x10^3/uL Basophils # 0.02 (0.01-0.08) x10^3/uL Sodium 141 (135-145) mmol/L Potassium 4.0 (3.5-5.1) mmol/L Chloride 105 (98-107) mmol/L Carbon Dioxide 29 (22-30) mmol/L Anion Gap 11.3 (5-15) MEQ/L BUN 29 H (7-17) mg/dL Creatinine 0.85 (0.52-1.04) mg/dL Estimated GFR 66.3 ML/MIN Glucose 99 (74-106) mg/dL Calcium 9.2 (8.4-10.2) mg/dL Total Bilirubin < 0.10 L (0.2-1.3) mg/dL AST 31 (14-36) U/L ALT 17 (0-35) U/L Alkaline Phosphatase 131 H (38-126) U/L Troponin I < 0.012 (0.000-0.033) ng/mL Serum Total Protein 6.3 (6.3-8.2) g/dL Albumin 3.8 (3.5-5.0) g/dL Urine Color (Yellow) Urine Appearance (Clear) Urine pH (4.6-8.0) Ur Specific Orange (1.005-1.030) Urine Protein (Negative) Urine Glucose (UA) (Negative) mg/dL Urine Ketones (Negative) Urine Blood (Negative) Urine Nitrite (Negative) Urine Bilirubin (Negative) Urine Urobilinogen (0.2) mg/dL Ur Leukocyte Esterase (Negative) Urine Microscopic RBC (0-5) /HPF Urine Microscopic WBC (0-5) /HPF Ur Epithelial Cells (None Seen) /HPF Urine Bacteria (None Seen) /HPF Urine Culture Reflexed (NO) ABO Group Rh Factor Antibody Screen (NEGATIVE) 01/04/25 01/05/25 01/05/25 Range/Units 18:46 04:40 04:40 WBC 6.6 (3.98-10.04) x10^3/uL RBC 3.38 L (3.93-5.22) x10^6/uL Hgb 9.8 L (11.2-15.7) g/dL Hct 33.6 L (34.1-44.9) % MCV 99.4 H (79.4-94.8) fL MCH 29.0 (25.6-32.2) pg MCHC 29.2 L (32.2-35.5) g/dL RDW 15.1 H (11.7-14.4) % Plt Count 183 (182-369) x10^3/uL MPV 10.0 (9.4-12.3) fL Gran % (34.0-71.1) % Immature Gran % (Auto) (0.001-0.429) % Nucleat RBC Rel Count (0.00-0.2) % Eos # (Auto) (0.04-0.36) x10^3/uL Immature Gran # (Auto) (0.001-0.031) x10^3u/L Absolute Lymphs (auto) (1.18-3.74) x10^3/uL Absolute Monos (auto) (0.24-0.86) x10^3/uL Absolute Nucleated RBC (0.00-0.012) x10^3u/L Lymphocytes % (19.3-51.7) % Monocytes % (4.7-12.5) % Eosinophils % (0.7-5.8) % Basophils % (0.1-1.2) % Absolute Granulocytes (1.56-6.13) x10^3/uL Basophils # (0.01-0.08) x10^3/uL Sodium (135-145) mmol/L Potassium (3.5-5.1) mmol/L Chloride (98-107) mmol/L Carbon Dioxide (22-30) mmol/L Anion Gap (5-15) MEQ/L BUN (7-17) mg/dL Creatinine (0.52-1.04) mg/dL Estimated GFR ML/MIN Glucose (74-106) mg/dL Calcium (8.4-10.2) mg/dL Total Bilirubin (0.2-1.3) mg/dL AST (14-36) U/L ALT (0-35) U/L Alkaline Phosphatase (38-126) U/L Troponin I < 0.012 (0.000-0.033) ng/mL Serum Total Protein (6.3-8.2) g/dL Albumin (3.5-5.0) g/dL Urine Color Yellow (Yellow) Urine Appearance Clear (Clear) Urine pH 8.0 (4.6-8.0) Ur Specific Orange 1.020 (1.005-1.030) Urine Protein Negative (Negative) Urine Glucose (UA) Negative (Negative) mg/dL Urine Ketones Negative (Negative) Urine Blood Negative (Negative) Urine Nitrite Negative (Negative) Urine Bilirubin Negative (Negative) Urine Urobilinogen 0.2 (0.2) mg/dL Ur Leukocyte Esterase Negative (Negative) Urine Microscopic RBC 0-2 (0-5) /HPF Urine Microscopic WBC 0-2 (0-5) /HPF Ur Epithelial Cells None Seen (None Seen) /HPF Urine Bacteria None Seen (None Seen) /HPF Urine Culture Reflexed ORDERED SEPARATELY (NO) ABO Group Rh Factor Antibody Screen (NEGATIVE) 01/05/25 01/05/25 Range/Units 04:40 05:56 WBC (3.98-10.04) x10^3/uL RBC (3.93-5.22) x10^6/uL Hgb (11.2-15.7) g/dL Hct (34.1-44.9) % MCV (79.4-94.8) fL MCH (25.6-32.2) pg MCHC (32.2-35.5) g/dL RDW (11.7-14.4) % Plt Count (182-369) x10^3/uL MPV (9.4-12.3) fL Gran % (34.0-71.1) % Immature Gran % (Auto) (0.001-0.429) % Nucleat RBC Rel Count (0.00-0.2) % Eos # (Auto) (0.04-0.36) x10^3/uL Immature Gran # (Auto) (0.001-0.031) x10^3u/L Absolute Lymphs (auto) (1.18-3.74) x10^3/uL Absolute Monos (auto) (0.24-0.86) x10^3/uL Absolute Nucleated RBC (0.00-0.012) x10^3u/L Lymphocytes % (19.3-51.7) % Monocytes % (4.7-12.5) % Eosinophils % (0.7-5.8) % Basophils % (0.1-1.2) % Absolute Granulocytes (1.56-6.13) x10^3/uL Basophils # (0.01-0.08) x10^3/uL Sodium 136 (135-145) mmol/L Potassium 4.7 (3.5-5.1) mmol/L Chloride 106 (98-107) mmol/L Carbon Dioxide 23 (22-30) mmol/L Anion Gap 10.7 (5-15) MEQ/L BUN 23 H (7-17) mg/dL Creatinine 0.68 (0.52-1.04) mg/dL Estimated GFR 84.2 ML/MIN Glucose 136 H (74-106) mg/dL Calcium 8.5 (8.4-10.2) mg/dL Total Bilirubin (0.2-1.3) mg/dL AST (14-36) U/L ALT (0-35) U/L Alkaline Phosphatase (38-126) U/L Troponin I (0.000-0.033) ng/mL Serum Total Protein (6.3-8.2) g/dL Albumin (3.5-5.0) g/dL Urine Color (Yellow) Urine Appearance (Clear) Urine pH (4.6-8.0) Ur Specific Orange (1.005-1.030) Urine Protein (Negative) Urine Glucose (UA) (Negative) mg/dL Urine Ketones (Negative) Urine Blood (Negative) Urine Nitrite (Negative) Urine Bilirubin (Negative) Urine Urobilinogen (0.2) mg/dL Ur Leukocyte Esterase (Negative) Urine Microscopic RBC (0-5) /HPF Urine Microscopic WBC (0-5) /HPF Ur Epithelial Cells (None Seen) /HPF Urine Bacteria (None Seen) /HPF Urine Culture Reflexed (NO) ABO Group O Rh Factor NEGATIVE Antibody Screen NEGATIVE (NEGATIVE) Radiology Exams: Radiology Procedures Category Date Time Status FEMUR Stat Exams 01/04/25 16:56 Completed LUMBAR LIMITED (2 OR 3 VIEWS) Stat Exams 01/04/25 16:56 Completed Medications: Medications Generic Name Dose Route Start Last Admin Trade Name Freq PRN Reason Stop Dose Admin Acetaminophen 650 mg 01/04/25 22:06 Acetaminophen 325 Mg Tablet PO 02/03/25 22:05 Q4H PRN PRN PAIN, FEVER, HEADACHE Hydrocodone Bitart/Acetaminophen 1 tab 01/04/25 22:12 01/05/25 08:18 Hydrocodone/Apap 5/325 1 Tab Tablet PO 01/09/25 22:11 1 tab Q4H PRN PRN Administration MODERATE PAIN Hydrocodone Bitart/Acetaminophen 1 tablet 01/04/25 22:12 Hydrocodone/Acetamin 10-325 Mg Tablet PO 01/09/25 22:11 Q4H PRN PRN SEVERE PAIN Ferrous Sulfate 325 mg 01/05/25 10:00 01/05/25 11:29 Ferrous Sulfate 325 Mg Tablet PO 02/04/25 09:59 325 mg DAILY JEFFREY Administration Gabapentin 200 mg 01/05/25 22:00 Gabapentin 100 Mg Capsule PO 02/04/25 21:59 HS JEFFREY Heparin Sodium (Beef Lung) 5,000 unit 01/05/25 10:00 Heparin 5000 Units/0.5 Ml 5,000 Unit/0.5 Ml Syr SQ 02/04/25 09:59 BID JEFFREY Hydrochlorothiazide 25 mg 01/05/25 10:00 01/05/25 11:29 Hydrochlorothiazide 25 Mg Tablet PO 02/04/25 09:59 25 mg DAILY JEFFREY Administration Sodium Chloride 1,000 mls @ 50 mls/hr 01/04/25 22:15 01/04/25 21:50 Sodium Chloride 0.9% 1000 Ml IV 02/03/25 22:14 50 mls/hr .Q20H JEFFREY Administration Levothyroxine Sodium 75 mcg 01/05/25 10:00 01/05/25 11:28 Levothyroxine Sodium 75 Mcg Tablet PO 02/04/25 09:59 75 mcg DAILY JEFFREY Administration Loratadine 10 mg 01/05/25 10:00 01/05/25 11:28 Loratadine 10 Mg Tablet PO 02/04/25 09:59 10 mg DAILY JEFFREY Administration Morphine Sulfate 2 mg 01/04/25 22:11 01/05/25 01:06 Morphine Sulfate 2 Mg/Ml Inj IV 01/09/25 22:10 2 mg Q2H PRN PRN Administration SEVERE PAIN Multivitamins 1 tab 01/05/25 10:00 01/05/25 11:29 Vitamin B Complex With Vit. C Tablet PO 02/04/25 09:59 1 tab DAILY JEFFREY Administration Multivitamins Therapeutic 1 tab 01/05/25 10:00 01/05/25 11:28 Multivitamins,Therapeutic 1 Tab Tab PO 02/04/25 09:59 1 tab DAILY JEFFREY Administration Naloxone HCl 0.4 mg 01/05/25 08:04 Naloxone Hcl 0.4 Mg/Ml Ml IV 02/04/25 08:03 PRN PRN RESPIRATORY DEPRESSION Ondansetron HCl 4 mg 01/04/25 22:06 01/05/25 08:19 Ondansetron Hcl 4 Mg/2 Ml Vial IV 02/03/25 22:05 4 mg Q6H PRN PRN Administration NAUSEA/VOMITING Potassium Chloride 20 meq 01/05/25 10:00 01/05/25 11:28 Potassium Chloride Tab 10 Meq Tab PO 02/04/25 09:59 20 meq BID JEFFREY Administration Pramipexole Dihydrochloride 1 mg 01/05/25 22:00 Pramipexole Di-Hcl 0.5 Mg Tab PO 02/04/25 21:59 HS JEFFREY Pramipexole Dihydrochloride 1 mg 01/05/25 07:17 Pramipexole Di-Hcl 0.5 Mg Tab PO 02/04/25 07:16 TIDPRN PRN Discontinued Medications Generic Name Dose Route Start Last Admin Trade Name Freq PRN Reason Stop Dose Admin Fentanyl Citrate 50 mcg 01/04/25 18:19 01/04/25 18:53 Fentanyl Citrate 100 Mcg/2 Ml* Vial IV 01/04/25 18:20 50 mcg STAT ONE Administration Fentanyl Citrate Confirm 01/04/25 18:52 Fentanyl Citrate 100 Mcg/2 Ml* Vial Administered 01/04/25 18:53 Dose 100 mcg .ROUTE .STK-MED ONE Sodium Chloride 1,000 mls @ 50 mls/hr 01/04/25 17:00 01/04/25 17:40 Sodium Chloride 0.9% 1000 Ml IV 02/03/25 16:59 50 mls/hr .Q20H JEFFREY Administration Sodium Chloride Confirm 01/04/25 17:35 Sodium Chloride 0.9% 1000 Ml Administered 01/04/25 17:36 Dose 1,000 mls @ ud .ROUTE .STK-MED ONE Morphine Sulfate 2 mg 01/04/25 21:59 01/04/25 22:07 Morphine Sulfate 2 Mg/Ml Inj IV 01/04/25 22:00 2 mg ONCE ONE Administration Ondansetron HCl 4 mg 01/04/25 19:14 01/04/25 19:26 Ondansetron Hcl 4 Mg/2 Ml Vial IV 01/04/25 19:15 4 mg STAT ONE Administration Ondansetron HCl Confirm 01/04/25 19:26 Ondansetron Hcl 4 Mg/2 Ml Vial Administered 01/04/25 19:27 Dose 4 mg .ROUTE .STK-MED ONE Multi-Disciplinary Progress Notes: Multi-Disciplinary Progress Notes 01/05/25 11:17 Physical Therapy Note by Aleja(L#[id number])Dona P.T. EVAL WILL BE COMPLETED TOMORROW (01/06) AFTER SX REPAIR OF R FEMUR FX. Initialized on 01/05/25 11:17 - END OF NOTE 01/05/25 10:58 Case Management Note by Nahed Taylor PATIENT HAS [facility]. THEY WERE NOTIFIED PATIENT HERE INPT. THEY WILL NEED NOTIFIED AT TIME OF DC AT [phone]. THEY WILL NEED FAXED THE DC INSTRU CTIONS, DC MED LIST AND DC SUMMARY AT [phone] Initialized on 01/05/25 10:58 - END OF NOTE 01/05/25 08:31 Occupational Therapy Note by Steve (L#[id number])Do PER NURSING STAFF, PATIENT TO UNDERGO SURGERY THIS EVENING. OT WILL FOLLOW UP WITH PATIENT ON NEXT DATE APPROPRIATE. Initialized on 01/05/25 08:31 - END OF NOTE Assessment/Plan (1) Femur fracture, right Current Visit: Yes Status: Acute Qualifiers: Encounter type: initial encounter Femur location: distal, unspecified portion Fracture type: closed Fracture morphology: unspecified fracture morphology Qualified Code(s): S72.401A - Unspecified fracture of lower end of right femur, initial encounter for closed fracture Code(s): S72.91XA - UNSP FRACTURE OF RIGHT FEMUR, INIT FOR CLOS FX (2) Fall Current Visit: Yes Status: Acute Qualifiers: Encounter type: initial encounter Qualified Code(s): W19.XXXA - Unspecified fall, initial encounter Code(s): W19.XXXA - UNSPECIFIED FALL, INITIAL ENCOUNTER (3) Hypothyroid Current Visit: Yes Status: Acute Code(s): E03.9 - HYPOTHYROIDISM, UNSPECIFIED (4) 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 Current Visit: Yes Status: Acute Code(s): M97.8XXA - PERIPROSTH FRACTURE AROUND OTHER INTERNAL PROSTH JOINT, INIT; Z96.659 - PRESENCE OF UNSPECIFIED ARTIFICIAL KNEE JOINT (5) CKD (chronic kidney disease), stage II Current Visit: No Status: Chronic Code(s): N18.2 - CHRONIC KIDNEY DISEASE, STAGE 2 (MILD) (6) Chronic anemia Current Visit: No Status: Chronic Code(s): D64.9 - ANEMIA, UNSPECIFIED (7) Essential (primary) hypertension Current Visit: No Status: Chronic Code(s): I10 - ESSENTIAL (PRIMARY) HYPERTENSION (8) History of DVT (deep vein thrombosis) Current Visit: No Status: Chronic Code(s): Z86.718 - PERSONAL HISTORY OF OTHER VENOUS THROMBOSIS AND EMBOLISM (9) Wound of right lower extremity Current Visit: No Status: Chronic Qualifiers: Encounter type: sequela Qualified Code(s): S81.801S - Unspecified open wound, right lower leg, sequela Assessment & Plan: (1) Femur fracture, right Current Visit: Yes Status: Acute Qualifiers: Encounter type: initial encounter Femur location: distal, unspecified portion Fracture type: closed Fracture morphology: unspecified fracture morphology Qualified Code(s): S72.401A - Unspecified fracture of lower end of right femur, initial encounter for closed fracture Assessment & Plan: Pain control PT/OT Await further recommendations from orthopedic surgery- surgery today at 1600 SCD's Protonix BID NS @ 50 ml/hr NPO Code(s): S72.91XA - UNSP FRACTURE OF RIGHT FEMUR, INIT FOR CLOS FX (2) 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 Current Visit: Yes Status: Acute Assessment & Plan: Pain control PT/OT Await further recommendations from orthopedic surgery Code(s): M97.8XXA - PERIPROSTH FRACTURE AROUND OTHER INTERNAL PROSTH JOINT, INIT; Z96.659 - PRESENCE OF UNSPECIFIED ARTIFICIAL KNEE JOINT (3) Fall Current Visit: Yes Status: Acute Qualifiers: Encounter type: initial encounter Qualified Code(s): W19.XXXA - Unspecified fall, initial encounter Assessment & Plan: No preceding cardiac or neurological symptoms per patient PT/OT Narcotic Pain control Code(s): W19.XXXA - UNSPECIFIED FALL, INITIAL ENCOUNTER (4) Hypothyroidism Current Visit: Yes Status: Chronic Qualifiers: Hypothyroidism type: acquired Qualified Code(s): E03.9 - Hypothyroidism, unspecified Assessment & Plan: Continue levothyroxine Code(s): E03.9 - HYPOTHYROIDISM, UNSPECIFIED (5) Chronic anemia Current Visit: No Status: Chronic Assessment & Plan: Continue ferrous sulfate Hemoglobin stable near baseline CBC reviewed Code(s): D64.9 - ANEMIA, UNSPECIFIED (6) CKD (chronic kidney disease), stage II Current Visit: No Status: Chronic Assessment & Plan: Renal function stable near baseline CMP reviewed Code(s): N18.2 - CHRONIC KIDNEY DISEASE, STAGE 2 (MILD) (7) Essential (primary) hypertension Current Visit: No Status: Chronic Assessment & Plan: Continue oral antihypertensives Code(s): I10 - ESSENTIAL (PRIMARY) HYPERTENSION (8) History of DVT (deep vein thrombosis) Current Visit: No Status: Chronic Assessment & Plan: Not currently on anticoagulation Code(s): Z86.718 - PERSONAL HISTORY OF OTHER VENOUS THROMBOSIS AND EMBOLISM (9) Wound of right lower extremity Current Visit: No Status: Chronic Qualifiers: Encounter type: sequela Qualified Code(s): S81.801S - Unspecified open wound, right lower leg, sequela Assessment & Plan: Outpatient wound care Code(s): S81.801A - UNSPECIFIED OPEN WOUND, RIGHT LOWER LEG, INITIAL ENCOUNTER VTE: SCD's PPI: protonix BID Next of KIN: Child- Russel Darden- [phone] D/c plan: pending rehab Code status: SCo/DNR Code(s): S81.801A - UNSPECIFIED OPEN WOUND, RIGHT LOWER LEG, INITIAL ENCOUNTER
--- NOTE | 2025-01-05 12:37 | CONS ---
DATE OF CONSULTATION: 01/04/2025 REASON FOR CONSULTATION: Right femur fracture. HISTORY OF PRESENT ILLNESS: Ms. Bartholomew is an 89-year-old female with the past medical history significant for right total hip arthroplasty and right total knee arthroplasty, who sustained a fall earlier today while shopping. The patient states that her leg "gave out on her" resulting in a fall. The patient denies tripping on anything. The patient denies any dizziness. The patient was brought to the [facility] Emergency Department with complaints of right lower extremity pain. Imaging studies were obtained, which indicated a fracture of the right femur in between the hip prosthesis stem and the right total knee arthroplasty prosthesis. Orthopedic Surgery was consulted for further evaluation and treatment in the patient. The patient currently reports right lower extremity pain. No other problems are reported. PAST MEDICAL HISTORY: 1) Hypertension. 2) Chronic bilateral lower extremity wounds. 3) Osteoarthritis. PAST SURGICAL HISTORY: 1) Bilateral total hip arthroplasty. 2) Bilateral total knee arthroplasty. 3) Bilateral shoulder arthroplasty. 4) Cervical spine surgery. 5) Tonsillectomy. 6) Tubal ligation. HOME MEDICATIONS: 1) Ondansetron. 2) Vitamin B. 3) Tramadol. 4) Micardis. 5) Pramipexole. 6) Potassium chloride. 7) Loratadine. 8) Multivitamin. 9) Levothyroxine. 10) Hydrochlorothiazide. 11) Gabapentin. 12) Ferrous sulfate. 13) Vitamin B12. ALLERGIES: 1) Eliquis. 2) Latex. 3) Sulfa. FAMILY HISTORY: Noncontributory. SOCIAL HISTORY: The patient denies any tobacco, alcohol, or illicit drug use. REVIEW OF SYSTEMS: All systems were reviewed and are negative, except as mentioned in the HPI. PHYSICAL EXAMINATION: On examination, the patient stands 4'10" tall and weighs 63.4 kg for a BMI of 29.2. The patient is alert and oriented, in no acute distress. The patient interacts appropriately during the examination. Examination of the patient's gait reveals the patient to be laying on hospital stretcher. Examination of the right lower extremity reveals a well-healed surgical incision over the anterior knee; there is no erythema, bruising, or rashes; dressings are in place for treatment of chronic right lower extremity wounds. There is mild swelling about the thigh; there is no gross deformity of the thigh. There is tenderness to palpation about the thigh. The patient moves her toes without difficulty. The patient's distal sensation is grossly intact to light touch. The patient's capillary refill is less than 2 seconds. IMAGING STUDIES: X-rays of the right femur dated 01/04/2025 performed at [facility] were independently reviewed. These images reveal an oblique, spiral fracture of the right distal femur in between hip and knee prostheses. IMPRESSION: Right distal femur fracture. PLAN: Ms. Bartholomew has a right distal femur fracture as a result of a fall. The fracture lies between her previous right hip and right knee prostheses. The patient will require surgical intervention in the form of open reduction and internal fixation of the right femur. The risks and benefits of the planned surgical procedures were discussed in depth with the patient. These risks include, but are not limited to, general medical problems associated with anesthesia, infection, bleeding, damage to nerves or vessels, pain after surgery, and the need for future procedures. The patient acknowledges and accepts these risks. The patient will be scheduled for surgery on 01/05/2025. In the meantime, the patient will be admitted to the hospital under the Hospitalist Service for medical evaluation. Following the surgical procedure, the patient will remain hospitalized for pain control, physical and occupational therapy, and discharge planning. The patient will be monitored closely throughout her hospital stay.
[2025-01-05] MEDS: PROTONIX 40 MG IV IV SCH (13:30)
[2025-01-05] MEDS ORDERED: Lactated Ringers 1,000 ML IV ONE (15:10)
[2025-01-05] MEDS ORDERED: Lactated Ringers 1,000 ML IV SCH (15:30)
[2025-01-05] MEDS ORDERED: Xylocaine-Mpf 2% 5 Ml Vial ONE (16:05)
[2025-01-05] MEDS ORDERED: propofoL IV ONE (16:05)
[2025-01-05] MEDS ORDERED: Amidate 20 MG/10 ML IV ONE (16:05)
[2025-01-05] MEDS ORDERED: BRIDION 200MG/2ML IV ONE (16:05)
[2025-01-05] MEDS ORDERED: ROCURONIUM BROMIDE IV ONE ×2 (16:05→18:12)
[2025-01-05] MEDS ORDERED: Zofran 4 MG/2 ML VIAL ONE (16:05)
[2025-01-05] MEDS ORDERED: SUBLIMAZE 100 MCG/2 ML ONE (16:05)
[2025-01-05] MEDS ORDERED: Ephedrine Sulfate 50 MG/ML ONE (16:53)
[2025-01-05] MEDS ORDERED: VANCOCIN INJECTION IV ONE (19:56)
[2025-01-05] MEDS ORDERED: Marcaine 0.5%/Epinephrine 10 ML ONE (20:16)
[2025-01-05] MEDS ORDERED: KEFZOL 1 GM ONE (20:34)
[2025-01-05] MEDS ORDERED: MORPHINE SULFATE 4 MG INJ IV PRN (22:37)
[2025-01-05] MEDS: Mirapex 0.5 MG Tablet PO SCH (23:07)
[2025-01-06] MEDS ORDERED: CEFAZOLIN SODIUM ONE (04:06)
[2025-01-06 05:04] LABS: Hematocrit 25.5 % (34.1-44.9); Hemoglobin 7.9 g/dL (11.2-15.7); Mean Corpuscular Hemoglobin 28.9 pg (25.6-32.2); Mean Corpuscular Hgb Concent. 31.0 g/dL (32.2-35.5); Platelet Count 190 x10^3/uL (182-369); Red Blood Count 2.73 x10^6/uL (3.93-5.22); White Blood Count 9.7 x10^3/uL (3.98-10.04)
[2025-01-06 05:32] LABS: Calcium 8.3 mg/dL (8.4-10.2); Carbon Dioxide 26 mmol/L (22-30); Creatinine 1 0.89 mg/dL (0.52-1.04); EST GLOMERULAR FILTRATION RATE 62.7 ML/MIN; Glucose 150 mg/dL (74-106); Potassium 4.4 mmol/L (3.5-5.1); SGOT/AST 35 U/L (14-36); SGPT/ALT 13 U/L (0-35); Total Protein 5.5 g/dL (6.3-8.2)
--- NOTE | 2025-01-06 08:12 | PCM.NOTE ---
ORTHO Narrative Note ORTHO Narrative Note: ORTHOPAEDIC SURGERY INPATIENT PROGRESS NOTE DATE OF SERVICE: 01/06/2025 Ms. Darden reports mild right thigh and knee pain. No other problems are reported. SUBJECTIVE: Afebrile; VSS General - NAD; patient resting comfortably in bed RLE - knee immobilizer in place; dressings CDI; patient moves toes and ankle; capillary refill less than 2 seconds; distal sensation grossly intact LABORATORY TESTS: Hgb -7.9 WBC - 9.7 ASSESSMENT: POD #1, status-post ORIF right distal femur fracture PLAN: Ms. Darden is stable. The patient's pain is controlled with the assistance of her post-operative nerve block. Today, a hinged knee brace will be fit to the right lower extremity. The patient will begin physical therapy for gait training and mobilization. The patient is to be non-weight bearing on the right lower extremity. The patient will be started on ASA for DVT prophylaxis. The patient's hemoglobin will be monitored. Due to this patient's high risk of inf ection, the patient will be continued on IV antibiotics. Discharge planning will be initiated. The patient will continue to be monitored.
--- NOTE | 2025-01-06 08:47 | XRAY ---
Indication: ORIF right femur fracture. Intraoperative fluoroscopy provided for 6 minute 32 seconds. 47 digital spot images submitted for interpretation ultimately demonstrates fixation plate and multiple screws fixating distal femur shaft fracture. Correlate with intraoperative findings/report.
[2025-01-06] MEDS: ECOTRIN 81 MG PO SCH (08:50)
[2025-01-06] MEDS: NORCO 10-325 MG PO PRN (08:51)
--- NOTE | 2025-01-06 10:28 | PCM.NOTE ---
Date and Time: 01/06/25 1025 Subjective Assessment: 01/05/25 is an 89-year-old female with a history of chronic anemia, DVT, hypertension, hypothyroidism, CKD, fracture disease, chronic lower extremity ulcers, and prior right total hip arthroplasty presented on 01/04/25 after a fall. She reported her leg felt as if it was going to give out while pushing a shopping cart, causing her to fall on her right leg. She typically ambulates with a walker. She denied dizziness, lightheadedness, chest pain, or shortness of breath prior to the fall but has since experienced significant right hip and leg pain with limited mobility. She denied numbness or tingling. On arrival, she had nausea related to pain medication. C-collar placed in the ED was removed after evaluation. Imaging revealed a mildly displaced distal femur fracture. Orthopedic surgery was consulted in the ED and planned for operative intervention. On 01/05, surgery was scheduled for 1600, pain was well controlled, SCDs were initiated, and the patient denied further concerns. 01/06/25 The patient is resting comfortably in bed on postoperative day two following surgical repair of the right femur. Her case was discussed with orthopedics this morning, and the recommendation is to continue IV antibiotics while inpatient, with a transition to oral doxycycline upon discharge. Orthopedics has also requested inpatient podiatry consultation given her history of chronic leg wounds. Hemoglobin today is 7.9. She is to continue aspirin for DVT prophylaxis per orthopedic recommendations. The patient reports that her pain is currently well controlled. She is awaiting placement in a rehabilitation facility, and case management is actively working on discharge planning. - Review of Systems Constitutional: No Fever, No Chills Eyes: No Symptoms Ears, Nose, & Throat: No Symptoms Respiratory: No Cough, No Short Of Breath Cardiac: No Chest Pain, No Edema, No Syncope Abdominal/Gastrointestinal: No Abdominal Pain, No Nausea, No Vomiting, No Diarrhea Genitourinary Symptoms: No Dysuria Musculoskeletal: Injury, Myalgias, No Back Pain, No Neck Pain Skin: No Rash Neurological: No Dizziness, No Focal Weakness, No Sensory Changes Psychological: No Symptoms Endocrine: No Symptoms Hematologic/Lymphatic: No Symptoms Immunological/Allergic: No Symptoms Objective Exam General Appearance: no apparent distress, alert Neurologic Exam: alert, oriented x 3, cooperative, normal mood/affect, nml cerebellar function, sensation nml, No motor deficits Skin Exam: normal color, warm, dry Wound Assessment: Skin/Wound Assessment Wound/Incision Assessment Start: 01/04/25 2 1:56 Text: Status: Active Freq: Q6H Protocol: Document 01/06/25 08:00 BG (Rec: 01/06/25 09:34 BG [id number]) Wound/Incision Assessment Right Thigh Comment SEE SHIFT ASSESSMENT. UNABLE TO REMOVE DRSG AT THIS TIME Right Lower Posterior Calf Comment UNABLE TO SEE AREA OF CONCERN D/T AMY WRAPS ARE TO BE LEFT IN PLACE PER ORDERS Eye Exam: PERRL, EOMI, eyes nml inspection Ears, Nose, Throat Exam: normal ENT inspection, pharynx normal, moist mucous membranes Neck Exam: normal inspection, non-tender, supple, full range of motion Respiratory Exam: normal breath sounds, lungs clear, No respiratory distress Cardiovascular Exam: regular rate/rhythm, normal heart sounds, normal peripheral pulses Gastrointestinal/Abdomen Exam: soft, No tenderness, No mass Extremity Exam: normal inspection, normal range of motion, limited range of motion, tenderness Back Exam: normal inspection, normal range of motion, No CVA tenderness, No vertebral tenderness Pelvic Exam: deferred Rectal Exam: deferred Objective Data Vital Signs: Vital Signs - 24 hr Temp Pulse Resp BP Pulse Ox 01/06/25 08:00 97.9 F 93 H 20 120/59 95 01/06/25 04:20 98.7 F 92 H 16 120/58 95 01/06/25 02:00 90 12 132/62 01/06/25 01:00 88 12 135/63 01/06/25 00:00 91 H 12 148/65 01/05/25 23:30 93 H 14 146/66 01/05/25 23:00 96 H 16 134/71 01/05/25 22:26 97.2 F 95 H 16 150/73 94 L 01/05/25 15:53 100.4 F 86 16 131/63 91 L 01/05/25 15:48 99 F 80 16 127/58 93 L 01/05/25 11:47 99 F 80 16 127/58 93 L Pain Assessment - Last Documented Pain Intensity 3 Pain Scale Used 0-10 Pain Scale Intake and Output: Intake & Output 09/20/25 09/21/25 09/22/25 09/23/25 11:59 11:59 11:59 11:59 Intake Total 334 506 Output Total 9264 891 Balance -791 -344 Weight 53.3 kg 54 kg Lab Results: Lab Results-Last 24 Hours 01/06/25 01/06/25 Range/Units 04:14 04:14 WBC 9.7 (3.98-10.04) x10^3/uL RBC 2.73 L (3.93-5.22) x10^6/uL Hgb 7.9 L (11.2-15.7) g/dL Hct 25.5 L (34.1-44.9) % MCV 93.4 D (79.4-94.8) fL MCH 28.9 (25.6-32.2) pg MCHC 31.0 L (32.2-35.5) g/dL RDW 15.5 H (11.7-14.4) % Plt Count 190 (182-369) x10^3/uL MPV 10.7 (9.4-12.3) fL Sodium 135 (135-145) mmol/L Potassium 4.4 (3.5-5.1) mmol/L Chloride 104 (98-107) mmol/L Carbon Dioxide 26 (22-30) mmol/L Anion Gap 8.2 (5-15) MEQ/L BUN 18 H (7-17) mg/dL Creatinine 0.89 (0.52-1.04) mg/dL Estimated GFR 62.7 ML/MIN Glucose 150 H (74-106) mg/dL Calcium 8.3 L (8.4-10.2) mg/dL Total Bilirubin < 0.10 L (0.2-1.3) mg/dL AST 35 (14-36) U/L ALT 13 (0-35) U/L Alkaline Phosphatase 90 (38-126) U/L Serum Total Protein 5.5 L (6.3-8.2) g/dL Albumin 2.9 L (3.5-5.0) g/dL Radiology Exams: Radiology Procedures Category Date Time Status FEMUR Routine Exams 01/05/25 12:26 Completed FEMUR Stat Exams 01/04/25 16:56 Completed FLUOROSCOPY UP TO 1 HR Routine Exams 01/05/25 12:26 Taken LUMBAR LIMITED (2 OR 3 VIEWS) Stat Exams 01/04/25 16:56 Completed Medications: Medications Generic Name Dose Route Start Last Admin Trade Name Caitlin PRN Reason Stop Dose Admin Acetaminophen 650 mg 01/04/25 22:06 Acetaminophen 325 Mg Tablet PO 02/03/25 22:05 Q4H PRN PRN PAIN, FEVER, HEADACHE Hydrocodone Bitart/Acetaminophen 1 tab 01/04/25 22:12 01/06/25 01:09 Hydrocodone/Apap 5/325 1 Tab Tablet PO 01/09/25 22:11 1 tab Q4H PRN PRN Administration MODERATE PAIN Hydrocodone Bitart/Acetaminophen 1 tablet 01/04/25 22:12 01/06/25 08:51 Hydrocodone/Acetamin 10-325 Mg Tablet PO 01/09/25 22:11 1 tablet Q4H PRN PRN Administration SEVERE PAIN Aspirin 81 mg 01/06/25 10:00 01/06/25 08:50 Aspirin 81 Mg Tablet.Ec PO 02/05/25 09:59 81 mg Q12H JEFFREY Administration Ferrous Sulfate 325 mg 01/05/25 10:00 01/06/25 08:50 Ferrous Sulfate 325 Mg Tablet PO 02/04/25 09:59 325 mg DAILY JEFFREY Administration Gabapentin 200 mg 01/05/25 22:00 01/05/25 23:07 Gabapentin 100 Mg Capsule PO 02/04/25 21:59 200 mg HS JEFFREY Administration Hydrochlorothiazide 25 mg 01/05/25 10:00 01/06/25 08:50 Hydrochlorothiazide 25 Mg Tablet PO 02/04/25 09:59 25 mg DAILY JEFFREY Administration Sodium Chloride 1,000 mls @ 50 mls/hr 01/04/25 22:15 01/05/25 23:08 Sodium Chloride 0.9% 1000 Ml IV 02/03/25 22:14 50 mls/hr .Q20H JEFFREY Administration Cefazolin Sodium 2 gm/ Sodium 100 mls @ 200 mls/hr 01/06/25 05:00 01/06/25 04:12 Chloride IV 02/05/25 04:59 200 mls/hr Q8H JEFFREY Administration Levothyroxine Sodium 75 mcg 01/05/25 10:00 01/05/25 11:28 Levothyroxine Sodium 75 Mcg Tablet PO 02/04/25 09:59 75 mcg DAILY JEFFREY Administration Loratadine 10 mg 01/05/25 10:00 01/06/25 08:51 Loratadine 10 Mg Tablet PO 02/04/25 09:59 10 mg DAILY JEFFREY Administration Morphine Sulfate 4 mg 01/05/25 22:37 Morphine Sulfate 4 Mg/Ml Injection IV 01/10/25 22:36 Q2H PRN PRN SEVERE PAIN Multivitamins 1 tab 01/05/25 10:00 01/06/25 08:51 Vitamin B Complex With Vit. C Tablet PO 02/04/25 09:59 1 tab DAILY JEFFREY Administration Multivitamins Therapeutic 1 tab 01/05/25 10:00 01/06/25 08:50 Multivitamins,Therapeutic 1 Tab Tab PO 02/04/25 09:59 1 tab DAILY JEFFREY Administration Naloxone HCl 0.4 mg 01/05/25 08:04 Naloxone Hcl 0.4 Mg/Ml Ml IV 02/04/25 08:03 PRN PRN RESPIRATORY DEPRESSION Ondansetron HCl 4 mg 01/04/25 22:06 01/05/25 08:19 Ondansetron Hcl 4 Mg/2 Ml Vial IV 02/03/25 22:05 4 mg Q6H PRN PRN Administration NAUSEA/VOMITING Pantoprazole Sodium 40 mg 01/05/25 12:30 01/06/25 08:52 Pantoprazole 40 Mg Vial IV 02/04/25 12:29 40 mg BID JEFFREY Administration Potassium Chloride 20 meq 01/05/25 10:00 01/06/25 08:49 Potassium Chloride Tab 10 Meq Tab PO 02/04/25 09:59 20 meq BID JEFFREY Administration Pramipexole Dihydrochloride 1 mg 01/05/25 22:00 01/05/25 23:07 Pramipexole Di-Hcl 0.5 Mg Tab PO 02/04/25 21:59 1 mg HS JEFFREY Administration Pramipexole Dihydrochloride 1 mg 01/05/25 07:17 Pramipexole Di-Hcl 0.5 Mg Tab PO 02/04/25 07:16 TIDPRN PRN Discontinued Medications Generic Name Dose Route Start Last Admin Trade Name Freq PRN Reason Stop Dose Admin Bupivacaine HCl/Epinephrine Bitart Confirm 01/05/25 20:16 Bupivacaine Hcl/Epinephrine 10 Ml Vial Administered 01/05/25 20:17 Dose 20 ml .ROUTE .STK-MED ONE Cefazolin Sodium Confirm 01/05/25 20:34 Cefazolin Sodium 1 Gm Vial Administered 01/05/25 20:35 Dose 2 g .ROUTE .STK-MED ONE Cefazolin Sodium Confirm 01/06/25 04:06 Cefazolin Sodium 2 Gm Vial Administered 01/06/25 04:07 Dose 2 gm .ROUTE .STK-MED ONE Dexamethasone Sodium Phosphate Confirm 01/05/25 16:37 Dexamethasone Sodium Phosphate 4 Mg/Ml Vial Administered 01/05/25 16:38 Dose 4 mg .ROUTE .STK-MED ONE Dexamethasone Sodium Phosphate Confirm 01/05/25 20:16 Dexamethasone Sodium Phosphate 4 Mg/Ml Vial Administered 01/05/25 20:17 Dose 4 mg .ROUTE .STK-MED ONE Ephedrine Sulfate Confirm 01/05/25 16:53 Ephedrine Sulfate 50 Mg/Ml Administered 01/05/25 16:54 Dose 50 mg .ROUTE .STK-MED ONE Etomidate Confirm 01/05/25 16:05 Etomidate 20 Mg/10 Ml Amp Administered 01/05/25 16:06 Dose 20 mg IV .STK-MED ONE Fentanyl Citrate 50 mcg 01/04/25 18:19 01/04/25 18:53 Fentanyl Citrate 100 Mcg/2 Ml* Vial IV 01/04/25 18:20 50 mcg STAT ONE Administration Fentanyl Citrate Confirm 01/04/25 18:52 Fentanyl Citrate 100 Mcg/2 Ml* Vial Administered 01/04/25 18:53 Dose 100 mcg .ROUTE .STK-MED ONE Fentanyl Citrate Confirm 01/05/25 16:05 Fentanyl Citrate 100 Mcg/2 Ml* Vial Administered 01/05/25 16:06 Dose 100 mcg .ROUTE .STK-MED ONE Heparin Sodium (Beef Lung) 5,000 unit 01/05/25 10:00 Heparin 5000 Units/0.5 Ml 5,000 Unit/0.5 Ml Syr SQ 02/04/25 09:59 BID JEFFREY Sodium Chloride 1,000 mls @ 50 mls/hr 01/04/25 17:00 01/04/25 17:40 Sodium Chloride 0.9% 1000 Ml IV 02/03/25 16:59 50 mls/hr .Q20H JEFFREY Administration Sodium Chloride Confirm 01/04/25 17:35 Sodium Chloride 0.9% 1000 Ml Administered 01/04/25 17:36 Dose 1,000 mls @ ud .ROUTE .STK-MED ONE Cefazolin Sodium 2 gm/ Sodium 100 mls @ 200 mls/hr 01/05/25 14:11 01/05/25 15:13 Chloride IV 01/05/25 14:40 200 mls/hr ONCALLTOOR ONE Administration Lactated Ringer's 1,000 mls @ 0 mls/hr 01/05/25 15:30 Lactated Ringers IV 02/04/25 15:29 .Q0M JEFFREY KVO Lactated Ringer's Confirm 01/05/25 15:10 Lactated Ringers Administered 01/05/25 15:11 Dose 1,000 mls @ ud IV .STK-MED ONE Sodium Chloride Confirm 01/06/25 04:06 Sodium Chloride 0.9% Administered 01/06/25 04:07 Dose 100 mls @ ud .ROUTE .STK-MED ONE Lidocaine HCl Confirm 01/05/25 16:05 Lidocaine - Mpf 2% 5 Ml Vial Administered 01/05/25 16:06 Dose 5 ml .ROUTE .STK-MED ONE Morphine Sulfate 2 mg 01/04/25 21:59 01/04/25 22:07 Morphine Sulfate 2 Mg/Ml Inj IV 01/04/25 22:00 2 mg ONCE ONE Administration Morphine Sulfate 2 mg 01/04/25 22:11 01/05/25 14:11 Morphine Sulfate 2 Mg/Ml Inj IV 01/09/25 22:10 2 mg Q2H PRN PRN Administration SEVERE PAIN Ondansetron HCl 4 mg 01/04/25 19:14 01/04/25 19:26 Ondansetron Hcl 4 Mg/2 Ml Vial IV 01/04/25 19:15 4 mg STAT ONE Administration Ondansetron HCl Confirm 01/04/25 19:26 Ondansetron Hcl 4 Mg/2 Ml Vial Administered 01/04/25 19:27 Dose 4 mg .ROUTE .STK-MED ONE Ondansetron HCl Confirm 01/05/25 16:05 Ondansetron Hcl 4 Mg/2 Ml Vial Administered 01/05/25 16:06 Dose 4 mg .ROUTE .STK-MED ONE Propofol Confirm 01/05/25 16:05 Propofol 200 Mg/20 Ml Vial Administered 01/05/25 16:06 Dose 200 mg IV .STK-MED ONE Rocuronium [place] Confirm 01/05/25 16:05 Rocuronium [place] 50 Mg/5 Ml Vial Administered 01/05/25 16:06 Dose 50 mg IV .STK-MED ONE Rocuronium [place] Confirm 01/05/25 18:12 Rocuronium [place] 50 Mg/5 Ml Vial Administered 01/05/25 18:13 Dose 50 mg IV .STK-MED ONE Sugammadex Sodium Confirm 01/05/25 16:05 Sugammadex Sodium 200 Mg/2 Ml Vial Administered 01/05/25 16:06 Dose 200 mg IV .STK-MED ONE Vancomycin HCl Confirm 01/05/25 19:56 Vancomycin Hcl Inj 1 Gm Vial Administered 01/05/25 19:57 Dose 1 gm IV .STK-MED ONE Multi-Disciplinary Progress Notes: Multi-Disciplinary Progress Notes 01/05/25 11:17 Physical Therapy Note by Aleja(L#[id number])Dona P.T. EVAL WILL BE COMPLETED TOMORROW (01/06) AFTER SX REPAIR OF R FEMUR FX. Initialized on 01/05/25 11:17 - END OF NOTE 01/05/25 10:58 Case Management Note by Nahed Taylor PATIENT HAS [facility]. THEY WERE NOTIFIED PATIENT HERE INPT. THEY WILL NEED NOTIFIED AT TIME OF DC AT [phone]. THEY WILL NEED FAXED THE DC INSTRUCTIONS, DC MED LIST AND DC SUMMARY AT [phone] Initialized on 01/05/25 10:58 - END OF NOTE Assessment/Plan (1) Femur fracture, right Current Visit: Yes Status: Acute Qualifiers: Encounter type: initial encounter Femur location: distal, unspecified portion Fracture type: closed Fracture morphology: unspecified fracture morphology Qualified Code(s): S72.401A - Unspecified fracture of lower end of right femur, initial encounter for closed fracture Code(s): S72.91XA - UNSP FRACTURE OF RIGHT FEMUR, INIT FOR CLOS FX (2) Fall Current Visit: Yes Status: Acute Qualifiers: Encounter type: initial encounter Qualified Code(s): W19.XXXA - Unspecified fall, initial encounter Code(s): W19.XXXA - UNSPECIFIED FALL, INITIAL ENCOUNTER (3) Hypothyroid Current Visit: Yes Status: Acute Code(s): E03.9 - HYPOTHYROIDISM, UNSPECIFIED (4) 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 Current Visit: Yes Status: Acute Code(s): M97.8XXA - PERIPROSTH FRACTURE AROUND OTHER INTERNAL PROSTH JOINT, INIT; Z96.659 - PRESENCE OF UNSPECIFIED ARTIFICIAL KNEE JOINT (5) CKD (chronic kidney disease), stage II Current Visit: No Status: Chronic Code(s): N18.2 - CHRONIC KIDNEY DISEASE, STAGE 2 (MILD) (6) Chronic anemia Current Visit: No Status: Chronic Code(s): D64.9 - ANEMIA, UNSPECIFIED (7) Essential (primary) hypertension Current Visit: No Status: Chronic Code(s): I10 - ESSENTIAL (PRIMARY) HYPERTENSION (8) History of DVT (deep vein thrombosis) Current Visit: No Status: Chronic Code(s): Z86.718 - PERSONAL HISTORY OF OTHER VENOUS THROMBOSIS AND EMBOLISM (9) Wound of right lower extremity Current Visit: No Status: Chronic Qualifiers: Encounter type: sequela Qualified Code(s): S81.801S - Unspecified open wound, right lower leg, sequela Assessment & Plan: (1) Femur fracture, right Current Visit: Yes Status: Acute Qualifiers: Encounter type: initial encounter Femur location: distal, unspecified portion Fracture type: closed Fracture morphology: unspecified fracture morphology Qualified Code(s): S72.401A - Unspecified fracture of lower end of right femur, initial encounter for closed fracture Assessment & Plan: Pain control PT/OT Await further recommendations from orthopedic surgery- surgery today at 1600 SCD's Protonix BID NS @ 50 ml/hr NPO 01/06 POD #2 from surgical repair of right femur with ortho Per ortho recs- ASA for VTE prevention Ortho note pending Hgb 7.9-trend Code(s): S72.91XA - UNSP FRACTURE OF RIGHT FEMUR, INIT FOR CLOS FX (2) 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 Current Visit: Yes Status: Acute Assessment & Plan: Pain control PT/OT Await further recommendations from orthopedic surgery- ortho note pending Code(s): M97.8XXA - PERIPROSTH FRACTURE AROUND OTHER INTERNAL PROSTH JOINT, INIT; Z96.659 - PRESENCE OF UNSPECIFIED ARTIFICIAL KNEE JOINT (3) Fall Current Visit: Yes Status: Acute Qualifiers: Encounter type: initial encounter Qualified Code(s): W19.XXXA - Unspecified fall, initial encounter Assessment & Plan: No preceding cardiac or neurological symptoms per patient PT/OT Narcotic Pain control Code(s): W19.XXXA - UNSPECIFIED FALL, INITIAL ENCOUNTER (4) Hypothyroidism Current Visit: Yes Status: Chronic Qualifiers: Hypothyroidism type: acquired Qualified Code(s): E03.9 - Hypothyroidism, unspecified Assessment & Plan: Continue levothyroxine Code(s): E03.9 - HYPOTHYROIDISM, UNSPECIFIED (5) Chronic anemia Current Visit: No Status: Chronic Assessment & Plan: Continue ferrous sulfate Hemoglobin stable near baseline CBC reviewed 01/06 Hgb 7.9- trend post op surgery Code(s): D64.9 - ANEMIA, UNSPECIFIED (6) CKD (chronic kidney disease), stage II Current Visit: No Status: Chronic Assessment & Plan: Renal function stable near baseline CMP reviewed Code(s): N18.2 - CHRONIC KIDNEY DISEASE, STAGE 2 (MILD) (7) Essential (primary) hypertension Current Visit: No Status: Chronic Assessment & Plan: Continue oral antihypertensives Code(s): I10 - ESSENTIAL (PRIMARY) HYPERTENSION (8) History of DVT (deep vein thrombosis) Current Visit: No Status: Chronic Assessment & Plan: Not currently on anticoagulation Code(s): Z86.718 - PERSONAL HISTORY OF OTHER VENOUS THROMBOSIS AND EMBOLISM (9) Wound of right lower extremity Current Visit: No Status: Chronic Qualifiers: Encounter type: sequela Qualified Code(s): S81.801S - Unspecified open wound, right lower leg, sequela Assessment & Plan: Outpatient wound care Podiatry consult Code(s): S81.801A - UNSPECIFIED OPEN WOUND, RIGHT LOWER LEG, INITIAL ENCOUNTER VTE: SCD's, ASA PPI: protonix BID Next of KIN: Maura- Russel Darden- [phone] D/c plan: pending rehab Code status: SCO/DNR Code(s): S81.801A - UNSPECIFIED OPEN WOUND, RIGHT LOWER LEG, INITIAL ENCOUNTER
--- NOTE | 2025-01-06 12:02 | XRAY ---
Indication: half-way placement. Comparison: May 24, 2024 Portable chest again demonstrates minimal left lung base subsegmental atelectasis/scarring and tiny right lung base calcified granulomas. Remaining heart and lungs unremarkable. Bony thorax intact again with osteopenia, mild degenerative changes, moderate double curvature thoracolumbar scoliosis, cervical fusion, and bilateral shoulder arthroplasty. Impression: Nonacute chest again with chronic features.
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
--- NOTE | 2025-01-06 14:48 | XRAY ---
Six minutes and 32 seconds of fluoroscopy was used in surgery for an ORIF right femur fracture.
[2025-01-07 05:03] LABS: Hematocrit 24.1 % (34.1-44.9); Hemoglobin 7.3 g/dL (11.2-15.7); Mean Corpuscular Hemoglobin 29.7 pg (25.6-32.2); Mean Corpuscular Hgb Concent. 30.3 g/dL (32.2-35.5); Platelet Count 176 x10^3/uL (182-369); Red Blood Count 2.46 x10^6/uL (3.93-5.22); White Blood Count 8.6 x10^3/uL (3.98-10.04)
[2025-01-07 05:27] LABS: Calcium 8.1 mg/dL (8.4-10.2); Carbon Dioxide 25 mmol/L (22-30); Creatinine 1 1.00 mg/dL (0.52-1.04); EST GLOMERULAR FILTRATION RATE 54.5 ML/MIN; Glucose 104 mg/dL (74-106); Potassium 4.2 mmol/L (3.5-5.1); SGOT/AST 40 U/L (14-36); SGPT/ALT 9 U/L (0-35); Total Protein 5.6 g/dL (6.3-8.2)
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
--- NOTE | 2025-01-07 09:32 | OP ---
SURGERY DATE/TIME: 01/05/2025 0721-0126 PREOPERATIVE DIAGNOSIS: Right distal femur fracture POSTOPERATIVE DIAGNOSIS: Right distal femur fracture PROCEDURE PERFORMED: Open reduction internal fixation right distal femur SURGEON: Quintin Walker MD ANESTHESIA: General ESTIMATED BLOOD LOSS: 300 mL INTRAVENOUS FLUIDS: 1300 mL crystalloid IMPLANTS: Matthew DRAINS: None COMPLICATIONS: None CONDITION: Stable to PACU INDICATIONS FOR PROCEDURE: Ms. Darden is an 89-year-old female who sustained a ground-level fall on 01/04/2025. The patient was brought to [facility] Emergency Department with complaints of right lower extremity pain. 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 The patient is brought to the operating room at this time for surgical intervention in the form of open reduction internal fixation of the right distal femur. The risks and benefits of the planned surgical procedure were discussed in depth with the patient. These risks include, but are not limited to, general medical problems associated with anesthesia, infection, bleeding, damage to nerves or vessels, pain after surgery, and the need for future procedures. The patient acknowledged and accepted these risks. Informed consent was obtained. PROCEDURE DETAILS: After informed consent was obtained, the correct operative site was identified and marked. Preoperative antibiotics were administered. The patient was taken to the operating room and transferred to the operating table. General anesthesia was induced without difficulty. The patient was kept in the supine position, and all pressure points were identified and padded. Previous dressings on the right leg for chronic wounds were taken down. The right lower extremity was prepped and draped in normal sterile fashion. A time-out was performed. Under C-arm imaging, the right thigh was examined. A long spiral fracture of the distal femur was noted. Multiple attempts at percutaneous reduction of the fracture were made, but these were unsuccessful. An incision was made over the lateral aspect of the thigh. Hemostasis was maintained using electrocautery. The dissection was carried down to the level of the IT band. The IT band was incised in-line with the skin incision. The fracture was identified, and soft tissues were noted to be interposed between the fracture fragments. The interposed soft tissues were removed, and the fracture was reduced into improved alignment. Two Matthew cables were placed for initial fracture fixation. A 12-hole Matthew NCB Periprosthetic Distal Femoral Plate was applied to the lateral aspect of the bone and held in position using a combination of locking and nonlocking screws. Final C-arm images were obtained, which indicated acceptable alignment of the fracture and hardware. The wound was thoroughly irrigated with 6 L of normal saline via pulsatile lavage irrigation. 1 gm of Vancomycin was placed into the wound. The iliotibial band was repaired using 0 Vicryl in an interrupted stitch. The subcutaneous tissues were closed using 2-0 Vicryl in a deep dermal with interrupted stitch. The skin was closed using leo. Xeroform and sterile dressings were applied. The patient was awoken from anesthesia and transferred to the recovery room in stable condition. All counts were correct at the end of the case.
--- NOTE | 2025-01-07 10:11 | PCM.NOTE ---
ORTHO Narrative Note ORTHO Narrative Note: ORTHOPAEDIC SURGERY INPATIENT PROGRESS NOTE DATE OF SERVICE: 01/07/2025 Ms. Darden reports mild right thigh and knee pain. No other problems are reported. SUBJECTIVE: Afebrile; VSS General - NAD; patient sitting up in a chair RLE - hinged knee brace in place; dressings CDI; patient moves toes and ankle; capillary refill less than 2 seconds; distal sensation grossly intact LABORATORY TESTS: Hgb -7.3 WBC - 8.6 ASSESSMENT: POD #2, status-post ORIF right distal femur fracture PLAN: Ms. Darden remains stable. The patient's pain is controlled The patient will continue physical therapy for gait training and mobilization. The patient is to be non-weight bearing on the right lower extremity. The patient's hemoglobin will be monitored. The patient's dressings will be changed tomorrow. Discharge planning is pending. The patient will continue to be monitored.
[2025-01-07 12:38] LABS: Calcium 8.3 mg/dL (8.4-10.2); Carbon Dioxide 24 mmol/L (22-30); Creatinine 1 1.09 mg/dL (0.52-1.04); EST GLOMERULAR FILTRATION RATE 49.2 ML/MIN; Glucose 134 mg/dL (74-106); Potassium 4.3 mmol/L (3.5-5.1); SGOT/AST 42 U/L (14-36); SGPT/ALT 10 U/L (0-35); Total Protein 5.9 g/dL (6.3-8.2)
[2025-01-07 15:22] LABS: Hematocrit 26.6 % (34.1-44.9); Hemoglobin 8.1 g/dL (11.2-15.7)
--- NOTE | 2025-01-07 16:49 | PCM.NOTE ---
Date and Time: 01/07/25 1647 Subjective Assessment: seen at bedside this morning. doing better Physical Exam - Narrative Narrative Physical Exam: Podiatry Physical Exam Objective Data Vital Signs: Vital Signs - 24 hr Temp Pulse Resp BP Pulse Ox 01/07/25 16:00 98.3 F 95 H 16 101/55 96 01/07/25 11:48 98.2 F 84 16 106/55 97 01/07/25 07:23 97.6 F 86 16 128/86 97 01/07/25 04:00 97.8 F 83 16 102/51 93 L 01/07/25 00:00 76 16 01/06/25 20:00 98.1 F 92 H 16 112/57 93 L Pain Assessment - Last Documented Pain Intensity 8 Pain Scale Used 0-10 Pain Scale Intake and Output: Intake & Output 01/05/25 01/06/25 01/07/25 01/08/25 11:59 11:59 11:59 11:59 Intake Total 631 990 5806 480 Output Total 0342 173 5128 Balance -791 -344 18 480 Weight 53.3 kg 54 kg 57.6 kg Lab Results: Lab Results-Last 24 Hours 01/07/25 01/07/25 01/07/25 Range/Units 04:35 04:35 12:13 WBC 8.6 (3.98-10.04) x10^3/uL RBC 2.46 L (3.93-5.22) x10^6/uL Hgb 7.3 L (11.2-15.7) g/dL Hct 24.1 L (34.1-44.9) % MCV 98.0 H (79.4-94.8) fL MCH 29.7 (25.6-32.2) pg MCHC 30.3 L (32.2-35.5) g/dL RDW 16.1 H (11.7-14.4) % Plt Count 176 L (182-369) x10^3/uL MPV 10.8 (9.4-12.3) fL Sodium 136 137 (135-145) mmol/L Potassium 4.2 4.3 (3.5-5.1) mmol/L Chloride 106 105 (98-107) mmol/L Carbon Dioxide 25 24 (22-30) mmol/L Anion Gap 9.3 11.2 (5-15) MEQ/L BUN 19 H 19 H (7-17) mg/dL Creatinine 1.00 1.09 H (0.52-1.04) mg/dL Estimated GFR 54.5 49.2 ML/MIN Glucose 104 134 H (74-106) mg/dL Calcium 8.1 L 8.3 L (8.4-10.2) mg/dL Total Bilirubin < 0.10 L < 0.10 L (0.2-1.3) mg/dL AST 40 H 42 H (14-36) U/L ALT 9 10 (0-35) U/L Alkaline Phosphatase 88 96 (38-126) U/L Serum Total Protein 5.6 L 5.9 L (6.3-8.2) g/dL Albumin 3.0 L 3.2 L (3.5-5.0) g/dL 01/07/25 Range/Units 15:15 WBC (3.98-10.04) x10^3/uL RBC (3.93-5.22) x10^6/uL Hgb 8.1 L (11.2-15.7) g/dL Hct 26.6 L (34.1-44.9) % MCV (79.4-94.8) fL MCH (25.6-32.2) pg MCHC (32.2-35.5) g/dL RDW (11.7-14.4) % Plt Count (182-369) x10^3/uL MPV (9.4-12.3) fL Sodium (135-145) mmol/L Potassium (3.5-5.1) mmol/L Chloride (98-107) mmol/L Carbon Dioxide (22-30) mmol/L Anion Gap (5-15) MEQ/L BUN (7-17) mg/dL Creatinine (0.52-1.04) mg/dL Estimated GFR ML/MIN Glucose (74-106) mg/dL Calcium (8.4-10.2) mg/dL Total Bilirubin (0.2-1.3) mg/dL AST (14-36) U/L ALT (0-35) U/L Alkaline Phosphatase (38-126) U/L Serum Total Protein (6.3-8.2) g/dL Albumin (3.5-5.0) g/dL Radiology Exams: Radiology Procedures Category Date Time Status CHEST 1 VIEW (PORTABLE) Urgent Exams 01/06/25 10:45 Completed Medications: Medications Generic Name Dose Route Start Last Admin Trade Name Freq PRN Reason Stop Dose Admin Acetaminophen 650 mg 01/04/25 22:06 Acetaminophen 325 Mg Tablet PO 02/03/25 22:05 Q4H PRN PRN PAIN, FEVER, HEADACHE Hydrocodone Bitart/Acetaminophen 1 tab 01/04/25 22:12 01/07/25 15:08 Hydrocodone/Apap 5/325 1 Tab Tablet PO 01/09/25 22:11 1 tab Q4H PRN PRN Administration MODERATE PAIN Hydrocodone Bitart/Acetaminophen 1 tablet 01/04/25 22:12 01/07/25 04:15 Hydrocodone/Acetamin 10-325 Mg Tablet PO 01/09/25 22:11 1 tablet Q4H PRN PRN Administration SEVERE PAIN Aspirin 81 mg 01/06/25 10:00 01/07/25 10:36 Aspirin 81 Mg Tablet.Ec PO 02/05/25 09:59 81 mg Q12H JEFFREY Administration Ferrous Sulfate 325 mg 01/05/25 10:00 01/07/25 10:01 Ferrous Sulfate 325 Mg Tablet PO 02/04/25 09:59 325 mg DAILY JEFFREY Administration Gabapentin 200 mg 01/05/25 22:00 01/06/25 21:26 Gabapentin 100 Mg Capsule PO 02/04/25 21:59 200 mg HS JEFFREY Administration Hydrochlorothiazide 25 mg 01/05/25 10:00 01/07/25 10:02 Hydrochlorothiazide 25 Mg Tablet PO 02/04/25 09:59 25 mg DAILY JEFFREY Administration Sodium Chloride 1,000 mls @ 50 mls/hr 01/04/25 22:15 01/07/25 15:08 Sodium Chloride 0.9% 1000 Ml IV 02/03/25 22:14 50 mls/hr .Q20H JEFFREY Administration Cefazolin Sodium 2 gm/ Sodium 100 mls @ 200 mls/hr 01/06/25 05:00 01/07/25 12:17 Chloride IV 02/05/25 04:59 200 mls/hr Q8H JEFFREY Administration Levothyroxine Sodium 75 mcg 01/05/25 10:00 01/07/25 10:03 Levothyroxine Sodium 75 Mcg Tablet PO 02/04/25 09:59 75 mcg DAILY JEFFREY Administration Loratadine 10 mg 01/05/25 10:00 01/07/25 10:02 Loratadine 10 Mg Tablet PO 02/04/25 09:59 10 mg DAILY JEFFREY Administration Morphine Sulfate 4 mg 01/05/25 22:37 Morphine Sulfate 4 Mg/Ml Injection IV 01/10/25 22:36 Q2H PRN PRN SEVERE PAIN Multivitamins 1 tab 01/05/25 10:00 01/07/25 10:04 Vitamin B Complex With Vit. C Tablet PO 02/04/25 09:59 1 tab DAILY JEFFREY Administration Multivitamins Therapeutic 1 tab 01/05/25 10:00 01/07/25 10:03 Multivitamins,Therapeutic 1 Tab Tab PO 02/04/25 09:59 1 tab DAILY JEFFREY Administration Naloxone HCl 0.4 mg 01/05/25 08:04 Naloxone Hcl 0.4 Mg/Ml Ml IV 02/04/25 08:03 PRN PRN RESPIRATORY DEPRESSION Ondansetron HCl 4 mg 01/04/25 22:06 01/05/25 08:19 Ondansetron Hcl 4 Mg/2 Ml Vial IV 02/03/25 22:05 4 mg Q6H PRN PRN Administration NAUSEA/VOMITING Pantoprazole Sodium 40 mg 01/05/25 12:30 01/07/25 10:04 Pantoprazole 40 Mg Vial IV 02/04/25 12:29 40 mg BID JEFFREY Administration Potassium Chloride 20 meq 01/05/25 10:00 01/07/25 10:02 Potassium Chloride Tab 10 Meq Tab PO 02/04/25 09:59 20 meq BID JEFFREY Administration Pramipexole Dihydrochloride 1 mg 01/05/25 22:00 01/06/25 21:25 Pramipexole Di-Hcl 0.5 Mg Tab PO 02/04/25 21:59 1 mg HS JEFFREY Administration Pramipexole Dihydrochloride 1 mg 01/05/25 07:17 Pramipexole Di-Hcl 0.5 Mg Tab PO 02/04/25 07:16 TIDPRN PRN Discontinued Medications Generic Name Dose Route Start Last Admin Trade Name Freq PRN Reason Stop Dose Admin Bupivacaine HCl/Epinephrine Bitart Confirm 01/05/25 20:16 Bupivacaine Hcl/Epinephrine 10 Ml Vial Administered 01/05/25 20:17 Dose 20 ml .ROUTE .STK-MED ONE Cefazolin Sodium Confirm 01/05/25 20:34 Cefazolin Sodium 1 Gm Vial Administered 01/05/25 20:35 Dose 2 g .ROUTE .STK-MED ONE Cefazolin Sodium Confirm 01/06/25 04:06 Cefazolin Sodium 2 Gm Vial Administered 01/06/25 04:07 Dose 2 gm .ROUTE .STK-MED ONE Dexamethasone Sodium Phosphate Confirm 01/05/25 16:37 Dexamethasone Sodium Phosphate 4 Mg/Ml Vial Administered 01/05/25 16:38 Dose 4 mg .ROUTE .STK-MED ONE Dexamethasone Sodium Phosphate Confirm 01/05/25 20:16 Dexamethasone Sodium Phosphate 4 Mg/Ml Vial Administered 01/05/25 20:17 Dose 4 mg .ROUTE .STK-MED ONE Ephedrine Sulfate Confirm 01/05/25 16:53 Ephedrine Sulfate 50 Mg/Ml Administered 01/05/25 16:54 Dose 50 mg .ROUTE .STK-MED ONE Etomidate Confirm 01/05/25 16:05 Etomidate 20 Mg/10 Ml Amp Administered 01/05/25 16:06 Dose 20 mg IV .STK-MED ONE Fentanyl Citrate 50 mcg 01/04/25 18:19 01/04/25 18:53 Fentanyl Citrate 100 Mcg/2 Ml* Vial IV 01/04/25 18:20 50 mcg STAT ONE Administration Fentanyl Citrate Confirm 01/04/25 18:52 Fentanyl Citrate 100 Mcg/2 Ml* Vial Administered 01/04/25 18:53 Dose 100 mcg .ROUTE .STK-MED ONE Fentanyl Citrate Confirm 01/05/25 16:05 Fentanyl Citrate 100 Mcg/2 Ml* Vial Administered 01/05/25 16:06 Dose 100 mcg .ROUTE .STK-MED ONE Heparin Sodium (Beef Lung) 5,000 unit 01/05/25 10:00 Heparin 5000 Units/0.5 Ml 5,000 Unit/0.5 Ml Syr SQ 02/04/25 09:59 BID JEFFREY Sodium Chloride 1,000 mls @ 50 mls/hr 01/04/25 17:00 01/04/25 17:40 Sodium Chloride 0.9% 1000 Ml IV 02/03/25 16:59 50 mls/hr .Q20H JEFFREY Administration Sodium Chloride Confirm 01/04/25 17:35 Sodium Chloride 0.9% 1000 Ml Administered 01/04/25 17:36 Dose 1,000 mls @ ud .ROUTE .STK-MED ONE Cefazolin Sodium 2 gm/ Sodium 100 mls @ 200 mls/hr 01/05/25 14:11 01/05/25 15:13 Chloride IV 01/05/25 14:40 200 mls/hr ONCALLTOOR ONE Administration Lactated Ringer's 1,000 mls @ 0 mls/hr 01/05/25 15:30 Lactated Ringers IV 02/04/25 15:29 .Q0M JEFFREY KVO Lactated Ringer's Confirm 01/05/25 15:10 Lactated Ringers Administered 01/05/25 15:11 Dose 1,000 mls @ ud IV .STK-MED ONE Sodium Chloride Confirm 01/06/25 04:06 Sodium Chloride 0.9% Administered 01/06/25 04:07 Dose 100 mls @ ud .ROUTE .STK-MED ONE Lidocaine HCl Confirm 01/05/25 16:05 Lidocaine - Mpf 2% 5 Ml Vial Administered 01/05/25 16:06 Dose 5 ml .ROUTE .STK-MED ONE Morphine Sulfate 2 mg 01/04/25 21:59 01/04/25 22:07 Morphine Sulfate 2 Mg/Ml Inj IV 01/04/25 22:00 2 mg ONCE ONE Administration Morphine Sulfate 2 mg 01/04/25 22:11 01/05/25 14:11 Morphine Sulfate 2 Mg/Ml Inj IV 01/09/25 22:10 2 mg Q2H PRN PRN Administration SEVERE PAIN Ondansetron HCl 4 mg 01/04/25 19:14 01/04/25 19:26 Ondansetron Hcl 4 Mg/2 Ml Vial IV 01/04/25 19:15 4 mg STAT ONE Administration Ondansetron HCl Confirm 01/04/25 19:26 Ondansetron Hcl 4 Mg/2 Ml Vial Administered 01/04/25 19:27 Dose 4 mg .ROUTE .STK-MED ONE Ondansetron HCl Confirm 01/05/25 16:05 Ondansetron Hcl 4 Mg/2 Ml Vial Administered 01/05/25 16:06 Dose 4 mg .ROUTE .STK-MED ONE Propofol Confirm 01/05/25 16:05 Propofol 200 Mg/20 Ml Vial Administered 01/05/25 16:06 Dose 200 mg IV .STK-MED ONE Rocuronium [place] Confirm 01/05/25 16:05 Rocuronium [place] 50 Mg/5 Ml Vial Administered 01/05/25 16:06 Dose 50 mg IV .STK-MED ONE Rocuronium [place] Confirm 01/05/25 18:12 Rocuronium [place] 50 Mg/5 Ml Vial Administered 01/05/25 18:13 Dose 50 mg IV .STK-MED ONE Sugammadex Sodium Confirm 01/05/25 16:05 Sugammadex Sodium 200 Mg/2 Ml Vial Administered 01/05/25 16:06 Dose 200 mg IV .STK-MED ONE Vancomycin HCl Confirm 01/05/25 19:56 Vancomycin Hcl Inj 1 Gm Vial Administered 01/05/25 19:57 Dose 1 gm IV .STK-MED ONE Multi-Disciplinary Progress Notes: Multi-Disciplinary Progress Notes 01/07/25 12:44 Case Management Note by Nahed Taylor HAS ACCEPTED PATIENT AND CAN ACCEPT 01/08 Initialized on 01/07/25 12:44 - END OF NOTE 01/07/25 11:22 Occupational Therapy Note by Marcio (Giulia#[id number])Jayda PT SEEN FOR OT SERVICES FOR 17 MINUTES THIS DATE. PT REPORTS NO PAIN, IS SITTING UP IN RECLINER WITH LES ELEVATED WITH ICE PACK. COMPLETED LUE AROM FOR INCREASING ACTIVITY TOLERANCE, AAROM FOR SHOULDER FLEXION, ABDUCTION/ADDUCTION DUE TO DECREASED ROM FROM HX OF L SHOULDER REPLACEMENT. RUE NOT RANGED DUE TO RECEIVING IV AT TIME OF TREATMENT. PT DECLINED TO COMPLETE ADL TASKS, REPORTS THAT SHE RECEIVED A SPONGEBATH THIS MORNING AND FAMILY WAS GOING TO BRING HER TOILETRY ITEMS. Initialized on 01/07/25 11:22 - END OF NOTE 01/07/25 09:00 Case Management Note by Nahed Taylor S/W PATIENT AGAIN THIS AM ABOUT REHAB- SHE REPORTS SHE HAS S/W HER FAMILY AND HER FIRST CHOICE WOULD BE [facility]- REFERRAL SENT AT THIS TIME. Initialized on 01/07/25 09:00 - END OF NOTE Assessment/Plan (1) CKD (chronic kidney disease) Current Visit: Yes Status: Acute Code(s): N18.9 - CHRONIC KIDNEY DISEASE, UNSPECIFIED (2) Fall Current Visit: Yes Status: Acute Qualifiers: Encounter type: initial encounter Qualified Code(s): W19.XXXA - Unspecified fall, initial encounter Code(s): W19.XXXA - UNSPECIFIED FALL, INITIAL ENCOUNTER (3) Femur fracture, right Current Visit: Yes Status: Acute Qualifiers: Encounter type: initial encounter Femur location: distal, unspecified portion Fracture type: closed Fracture morphology: unspecified fracture morphology Qualified Code(s): S72.401A - Unspecified fracture of lower end of right femur, initial encounter for closed fracture Code(s): S72.91XA - UNSP FRACTURE OF RIGHT FEMUR, INIT FOR CLOS FX (4) Cellulitis of right leg Current Visit: No Status: Acute Code(s): L03.115 - CELLULITIS OF RIGHT LOWER LIMB (5) Edema of right lower extremity Current Visit: No Status: Acute Assessment & Plan: Patient examination and evaluation. plan remains unchanged. At this time we will hold treatment with of dressing changes until patient has stabilized postsurgically. Will likely change the dressing to the bilateral lower extremity. Will discuss the case with Dr. Walker with the Ortho team prior to changing the dressing to minimize infection risk. Historically patient seemingly doing better since starting methylprednisone to the bilateral lower extremity indicating possibility of autoimmune or inflammatory process. Patient was referred to Dr. Rocha who recommended continued compression therapy and conservative management rather than proceeding with surgical intervention with vein ablation. Will follow with you Code(s): R60.0 - LOCALIZED EDEMA (6) Leg pain Current Visit: No Status: Acute
[2025-01-08 05:00] LABS: Hematocrit 24.7 % (34.1-44.9); Hemoglobin 7.1 g/dL (11.2-15.7); Mean Corpuscular Hemoglobin 28.7 pg (25.6-32.2); Mean Corpuscular Hgb Concent. 28.7 g/dL (32.2-35.5); Platelet Count 211 x10^3/uL (182-369); Red Blood Count 2.47 x10^6/uL (3.93-5.22); White Blood Count 8.4 x10^3/uL (3.98-10.04)
[2025-01-08 05:37] LABS: Calcium 8.0 mg/dL (8.4-10.2); Carbon Dioxide 26 mmol/L (22-30); Creatinine 1 0.96 mg/dL (0.52-1.04); EST GLOMERULAR FILTRATION RATE 57.3 ML/MIN; Glucose 98 mg/dL (74-106); Potassium 4.5 mmol/L (3.5-5.1); SGOT/AST 38 U/L (14-36); Total Protein 5.5 g/dL (6.3-8.2)
[2025-01-08 05:38] LABS: SGPT/ALT 5 U/L (0-35)
[2025-01-08 07:08] LABS: Slide Review YES
[2025-01-08 07:24] LABS: ABO TYPING O; RH TYPING NEGATIVE
[2025-01-08 07:25] LABS: CROSS MATCH (PRBC) COMPATIBLE (COMPATIBLE)
[2025-01-08 08:37] LABS: CROSS MATCH (PRBC) COMPATIBLE (COMPATIBLE)
--- NOTE | 2025-01-08 10:33 | PCM.DS ---
Discharge Summary Date of Admission: 01/05/25 08:13 Date of Discharge: 01/08/25 Admitting Physician: MIKEL SOLORZANO MD Consults: Consults on Case 01/04/25 21:39 Consult Ortho ROUTINE 01/06/25 10:24 Consult Podiatry ROUTINE Primary Care Provider: PATRICIA,SHIVA Allergies Allergies Sulfa (Sulfonamide Antibiotics) Allergy (Mild, Verified 01/04/25 16:16) apixaban [From Eliquis] Allergy (Verified 01/04/25 16:16) rash latex Allergy (Verified 01/04/25 16:16) Hives scallops Allergy (Verified 01/04/25 16:16) Hospital Summary - Hospital Course Hospital Course: 01/05/25 is an 89-year-old female with a history of chronic anemia, deep vein thrombosis, hypertension, hypothyroidism, chronic kidney disease, fracture disease, chronic lower extremity ulcers, and prior right total hip arthroplasty who presented on 01/04/25 after a fall while pushing a shopping cart. She reported her right leg felt as if it would give out, causing her to fall directly onto the leg. She typically ambulates with a walker. She denied dizziness, chest pain, or shortness of breath preceding the fall but experienced significant right hip and leg pain with limited mobility afterward. Imaging revealed a mildly displaced distal femur fracture. Orthopedic surgery was consulted, and operative repair was performed on 01/05/25. Her postoperative course was uncomplicated, with pain well controlled and no neurologic deficits. She received IV antibiotics per orthopedic recommendations with a plan to transition to oral doxycycline at discharge. Hemoglobin trended downward, 7.1 on 01/08, for which two units of blood were ordered. She also reported constipation, which she managed with prune juice provided by family. Podiatry consultation was requested due to her history of chronic lower extremity ulcers. She was maintained on aspirin for DVT prophylaxis. At the time of discharge, her hemoglobin was being re-evaluated following transfusion. If stable, she was cleared for transfer to a rehabilitation facility with continuation of oral doxycycline and follow-up with orthopedics and podiatry as an outpatient. She denied further concerns and was in stable condition at discharge. - Vitals & Intake/Output Vital Signs: Vital Signs Temperature 97.9 F 01/08/25 07:59 Pulse Rate 88 01/08/25 07:59 Respiratory Rate 15 01/08/25 07:59 Blood Pressure 107/53 01/08/25 07:59 O2 Sat by Pulse Oximetry 98 01/08/25 07:59 Intake & Output: Intake & Output 01/05/25 01/06/25 01/07/25 01/08/25 11:59 11:59 11:59 11:59 Intake Total 103 548 4558 2630 Output Total 1326 782 6677 3175 Balance -791 -344 18 -545 Weight 53.3 kg 54 kg 57.6 kg - Lab Result Diagrams: 01/08/25 04:25 01/08/25 04:25 Lab Results-Last 24 Hrs: Lab Results-Last 24 Hours 01/07/25 01/07/25 01/08/25 Range/Units 12:13 15:15 04:25 WBC 8.4 (3.98-10.04) x10^3/uL RBC 2.47 L (3.93-5.22) x10^6/uL Hgb 8.1 L 7.1 L (11.2-15.7) g/dL Hct 26.6 L 24.7 L (34.1-44.9) % MCV 100.0 H (79.4-94.8) fL MCH 28.7 (25.6-32.2) pg MCHC 28.7 L (32.2-35.5) g/dL RDW 16.2 H (11.7-14.4) % Plt Count 211 (182-369) x10^3/uL MPV 10.4 (9.4-12.3) fL Sodium 137 (135-145) mmol/L Potassium 4.3 (3.5-5.1) mmol/L Chloride 105 (98-107) mmol/L Carbon Dioxide 24 (22-30) mmol/L Anion Gap 11.2 (5-15) MEQ/L BUN 19 H (7-17) mg/dL Creatinine 1.09 H (0.52-1.04) mg/dL Estimated GFR 49.2 ML/MIN Glucose 134 H (74-106) mg/dL Calcium 8.3 L (8.4-10.2) mg/dL Total Bilirubin < 0.10 L (0.2-1.3) mg/dL AST 42 H (14-36) U/L ALT 10 (0-35) U/L Alkaline Phosphatase 96 (38-126) U/L Serum Total Protein 5.9 L (6.3-8.2) g/dL Albumin 3.2 L (3.5-5.0) g/dL Slides for Path Review YES ABO Group Rh Factor Antibody Screen (NEGATIVE) Crossmatch (COMPATIBLE) 01/08/25 01/08/25 01/08/25 Range/Units 04:25 06:30 06:30 WBC (3.98-10.04) x10^3/uL RBC (3.93-5.22) x10^6/uL Hgb (11.2-15.7) g/dL Hct (34.1-44.9) % MCV (79.4-94.8) fL MCH (25.6-32.2) pg MCHC (32.2-35.5) g/dL RDW (11.7-14.4) % Plt Count (182-369) x10^3/uL MPV (9.4-12.3) fL Sodium 136 (135-145) mmol/L Potassium 4.5 (3.5-5.1) mmol/L Chloride 106 (98-107) mmol/L Carbon Dioxide 26 (22-30) mmol/L Anion Gap 8.1 (5-15) MEQ/L BUN 19 H (7-17) mg/dL Creatinine 0.96 (0.52-1.04) mg/dL Estimated GFR 57.3 ML/MIN Glucose 98 (74-106) mg/dL Calcium 8.0 L (8.4-10.2) mg/dL Total Bilirubin < 0.10 L (0.2-1.3) mg/dL AST 38 H (14-36) U/L ALT 5 (0-35) U/L Alkaline Phosphatase 90 (38-126) U/L Serum Total Protein 5.5 L (6.3-8.2) g/dL Albumin 2.8 L (3.5-5.0) g/dL Slides for Path Review ABO Group O Rh Factor NEGATIVE Antibody Screen NEGATIVE (NEGATIVE) Crossmatch COMPATIBLE COMPATIBLE (COMPATIBLE) Micro Results-Entire Visit: Microbiology 01/04/25 18:46 Urine Culture - Final Clean Catch Midstream NO GROWTH - Radiology Exams Ordered Rad Exams-Entire Visit: Radiology Procedures Category Date Time Status CHEST 1 VIEW (PORTABLE) Urgent Exams 01/06/25 10:45 Completed - Procedures and Test Procedures and Tests throughout Hospitalization: Therapy Orders & Screens 01/04/25 22:06 PT Eval & Treat ( Order) ONCE Reason for Eval:: Femur fracture Diagnosis: Periprosthetic fracture right knee OT Eval and Treat ( Order) ONCE Comment: Physician Instructions: Reason For Exam: Diagnosis: Periprosthetic fracture right knee 01/06/25 09:00 OT Screen per Nursing Assess ONCE Comment: Protocol Order Physician Instructions: Greater than 3 points order OT Admission Screening Reason For Exam: Triggered on Admission Diagnosis: Periprosthetic fracture right knee Open Wound/Cellutlitis/Pressure Ulcers: Yes Acute Fx/ORIF/Change in wt bearing status: Yes Severe MUSCULOSKELETAL pain: Yes ADL Dysfunction: Yes Acute CVA w/Hemiparesis/Hemiplegia: No Decreased Functional Mobility/Strength: Yes Sprain/Strain: No Acute Post-op Mobility Dysfunction: No Total Points: 19 OT Eval and Treat ( Order) ONCE Comment: Physician Instructions: Reason For Exam: Diagnosis: RIGHT FEMUR DISTAL FRACTURE Discharge Exam General Appearance: no apparent distress, alert Neurologic Exam: alert, oriented x 3, cooperative, normal mood/affect, nml cerebellar function, sensation nml, No motor deficits Eye Exam: PERRL, EOMI, eyes nml inspection Ears, Nose, Throat Exam: normal ENT inspection, pharynx normal, moist mucous membranes Neck Exam: normal inspection, non-tender, supple, full range of motion Respiratory Exam: normal breath sounds, lungs clear, No respiratory distress Cardiovascular Exam: regular rate/rhythm, normal heart sounds Gastrointestinal/Abdomen Exam: soft, No tenderness, No mass Pelvic Exam: deferred Rectal Exam: deferred Back Exam: normal inspection, normal range of motion, No CVA tenderness, No vertebral tenderness Extremity Exam: normal inspection, normal range of motion, tenderness (BLLE wrapped) Skin Exam: normal color, warm, dry Wound Assessment: Skin/Wound Assessment Wound/Incision Assessment Start: 01/04/25 21:56 Text: Status: Active Freq: Q6H Protocol: Document 01/08/25 08:05 RB (Rec: 01/08/25 08:05 RB [id number]) Wound/Incision Assessment Right Thigh Wound Assessment Shift Assessment Comment unable to assess due to dressing in place dressing C/D/I Dr Walker in to see pt at this time Right Lower Posterior Calf Comment Dressing C/D/I Wound Photo Photo Taken No Final Diagnosis/Problem List - Final Discharge Diagnosis/Problem (1) Femur fracture, right Current Visit: Yes Status: Acute Code(s): S72.91XA - UNSP FRACTURE OF RIGHT FEMUR, INIT FOR CLOS FX (2) Fall Current Visit: Yes Status: Acute Code(s): W19.XXXA - UNSPECIFIED FALL, INITIAL ENCOUNTER (3) Hypothyroid Current Visit: Yes Status: Acute Code(s): E03.9 - HYPOTHYROIDISM, UNSPECIFIED (4) 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 Current Visit: Yes Status: Acute Code(s): M97.8XXA - PERIPROSTH FRACTURE AROUND OTHER INTERNAL PROSTH JOINT, INIT; Z96.659 - PRESENCE OF UNSPECIFIED ARTIFICIAL KNEE JOINT (5) CKD (chronic kidney disease), stage II Current Visit: No Status: Chronic Code(s): N18.2 - CHRONIC KIDNEY DISEASE, STAGE 2 (MILD) (6) Chronic anemia Current Visit: No Status: Chronic Code(s): D64.9 - ANEMIA, UNSPECIFIED (7) Essential (primary) hypertension Current Visit: No Status: Chronic Code(s): I10 - ESSENTIAL (PRIMARY) HYPERTENSION (8) History of DVT (deep vein thrombosis) Current Visit: No Status: Chronic Code(s): Z86.718 - PERSONAL HISTORY OF OTHER VENOUS THROMBOSIS AND EMBOLISM (9) Wound of right lower extremity Current Visit: No Status: Chronic Assessment & Plan: 1) Femur fracture, right Current Visit: Yes Status: Acute Qualifiers: Encounter type: initial encounter Femur location: distal, unspecified portion Fracture type: closed Fracture morphology: unspecified fracture morphology Qualified Code(s): S72.401A - Unspecified fracture of lower end of right femur, initial encounter for closed fracture Assessment & Plan: Pain control PT/OT Await further recommendations from orthopedic surgery- surgery today at 1600 SCD's Protonix BID NS @ 50 ml/hr NPO 01/06 POD #2 from surgical repair of right femur with ortho Per ortho recs- ASA for VTE prevention Ortho note pending Hgb 7.9-trend 01/07 POD #4 Pain well controlled Hgb 7.3-trend + constipation from narcotics- prune juice 01/08 - Hgb 7.1- 2 units PRBC ordered - POD #5 - Pt scheduled to d/c to rehab with Doxycycline PO Code(s): S72.91XA - UNSP FRACTURE OF RIGHT FEMUR, INIT FOR CLOS FX (2) 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 Current Visit: Yes Status: Acute Assessment & Plan: Pain control PT/OT Await further recommendations from orthopedic surgery- ortho note pending Code(s): M97.8XXA - PERIPROSTH FRACTURE AROUND OTHER INTERNAL PROSTH JOINT, INIT; Z96.659 - PRESENCE OF UNSPECIFIED ARTIFICIAL KNEE JOINT (3) Fall Current Visit: Yes Status: Acute Qualifiers: Encounter type: initial encounter Qualified Code(s): W19.XXXA - Unspecified fall, initial encounter Assessment & Plan: No preceding cardiac or neurological symptoms per patient PT/OT Narcotic Pain control Code(s): W19.XXXA - UNSPECIFIED FALL, INITIAL ENCOUNTER (4) Hypothyroidism Current Visit: Yes Status: Chronic Qualifiers: Hypothyroidism type: acquired Qualified Code(s): E03.9 - Hypothyroidism, unspecified Assessment & Plan: Continue levothyroxine Code(s): E03.9 - HYPOTHYROIDISM, UNSPECIFIED (5) Chronic anemia Current Visit: No Status: Chronic Assessment & Plan: Continue ferrous sulfate Hemoglobin stable near baseline CBC reviewed 01/06 Hgb 7.9- trend post op surgery 01/07 Hgb 7.3- trend 01/08 - Hgb 7.1 - 2units PRBC ordered Code(s): D64.9 - ANEMIA, UNSPECIFIED (6) CKD (chronic kidney disease), stage II Current Visit: No Status: Chronic Assessment & Plan: Renal function stable near baseline CMP reviewed Code(s): N18.2 - CHRONIC KIDNEY DISEASE, STAGE 2 (MILD) (7) Essential (primary) hypertension Current Visit: No Status: Chronic Assessment & Plan: Continue oral antihypertensives Code(s): I10 - ESSENTIAL (PRIMARY) HYPERTENSION (8) History of DVT (deep vein thrombosis) Current Visit: No Status: Chronic Assessment & Plan: Not currently on anticoagulation Code(s): Z86.718 - PERSONAL HISTORY OF OTHER VENOUS THROMBOSIS AND EMBOLISM (9) Wound of right lower extremity Current Visit: No Status: Chronic Qualifiers: Encounter type: sequela Qualified Code(s): S81.801S - Unspecified open wound, right lower leg, sequela Assessment & Plan: Outpatient wound care Podiatry consult Code(s): S81.801A - UNSPECIFIED OPEN WOUND, RIGHT LOWER LEG, INITIAL ENCOUNTER D/C plan of care time > 50 minutes D/C meds new: ASA, Doxy Code(s): S81.801A - UNSPECIFIED OPEN WOUND, RIGHT LOWER LEG, INITIAL ENCOUNTER - Discharge Discharge Date: 01/08/25 (rehab) Disposition: XFER OTHER Condition: Stable Prescriptions: New Aspirin EC 81 mg [Ecotrin 81 mg] 81 mg PO Q12H 30 Days #60 tablet Continue Tramadol HCl 50 mg [Ultram 50 mg] 50 mg PO TID Levothyroxine Sodium 50 Mcg [Synthroid 50 Mcg] 75 mcg PO DAILY Telmisartan [Micardis] 40 mg PO DAILY Multivitamin [Multi-Vitamin Daily] 1 tab PO DAILY Cyanocobalamin 1000 Mcg/ml [Cyanocobalamin B-12 1000 MCG/ML] 1,000 mcg IJ UD Potassium Chloride Tab* [Klor Con] 20 meq PO BID Acetaminophen 500 mg [Tylenol Extra Strength 500 mg] 500 mg PO . SEE RX NOTE PRN PRN Reason: Pain Pramipexole Di-HCl [Pramipexole Dihydrochloride] 1 mg PO TIDPRN Cholecalciferol (Vitamin D3) [Vitamin D3] 1,000 iu PO 3XW Loratadine 10 mg [Claritin 10 mg] 10 mg PO DAILY Ferrous Sulfate [Iron] 65 mg PO DAILY Vitamin B Complex 1 tablet PO DAILY Pramipexole Di-HCl [Mirapex ER] 1 mg PO HS ondansetron HCL [Ondansetron HCl] 4 mg PO DAILY PRN PRN PRN Reason: Nausea Gabapentin [Neurontin ] 200 mg PO HS Hydrochlorothiazide 25 mg [hydroDIURIL 25 MG] 25 mg PO DAILY Follow up with: DIMITRY JOLLEY DPM [ACTIVE STAFF, PODIATRY] - 01/22/25 9:30 am SHIVA GOMEZ MD [Primary Care Provider, INTERNAL MEDICINE] - 01/15/25 11:00 am MAG MARIE NP [Non-Physician Practitioner, UNKNOWN] - 01/20/25 9:00 am
--- NOTE | 2025-01-08 10:35 | PCM.NOTE ---
ORTHO Narrative Note ORTHO Narrative Note: ORTHOPAEDIC SURGERY INPATIENT PROGRESS NOTE DATE OF SERVICE: 01/08/2025 Ms. Darden reports mild right thigh pain. No other problems are reported. SUBJECTIVE: Afebrile; VSS General - NAD; patient resting comfortably in bed RLE - incision CDI with minimal s/s drainage on dressings; no erythema; patient moves toes and ankle; capillary refill less than 2 seconds; distal sensation grossly intact LABORATORY TESTS: Hgb -7.1 WBC - 8.4 ASSESSMENT: POD #3, status-post ORIF right distal femur fracture PLAN: Ms. Darden remains stable. The patient's pain is controlled. The patient will continue physical therapy for gait training and mobilization. The patient is receiving 1u PRBCs today. The surgical incision is stable. Today, the wound was cleansed with Betadine, and new dressings were applied. Discharge planning is pending. Upon discharge, the patient is to be non-weight bearing on the right lower extremity. The patient is to use the right hinged knee brace and ambulate with the use of a walker. The patient's right thigh dressing may be changed as needed. The patient will use ASA 81mg PO bid for DVT prophylaxis. The patient will take doxycycline 100 mg PO bid for 2 weeks. The patient will follow-up in [facility] in 2 weeks. The patient will continue to be monitored.
[2025-01-08 12:22] VITALS: BP 119/56
[2025-01-08] MEDS: TYLENOL 325 MG PO PRN (12:32)
[2025-01-08 16:45] VITALS: PULSE 98; RESP 17; TEMP 97.6; O2SAT 96
== END 2025-01-08 16:06 | DRG 481 ==
LOC: ED 16:04 → MED SURG 21:33 → OBSVTOIN 01-05 08:13
PROVIDERS: ADMIT Hospitalist; ATTEND Hospitalist
PROC: 0QSB04Z Reposition Right Lower Femur with Internal Fixation Device, Open Approach (ICD-10-PCS; principal; 2025-01-05)
DX: S72.91XA Unspecified fracture of right femur, initial encounter for closed fracture (principal); L03.115 Cellulitis of right lower limb; M97.8XXA Periprosthetic fracture around other internal prosthetic joint, initial encounter; I12.9 Hypertensive chronic kidney disease with stage 1 through stage 4 chronic kidney disease, or unspecified chronic kidney disease; N18.2 Chronic kidney disease, stage 2 (mild); W19.XXXA Unspecified fall, initial encounter; R60.0 Localized edema; M79.604 Pain in right leg; R42 Dizziness and giddiness; M19.90 Unspecified osteoarthritis, unspecified site; E03.9 Hypothyroidism, unspecified; D64.9 Anemia, unspecified; S81.801A Unspecified open wound, right lower leg, initial encounter; K59.00 Constipation, unspecified; Z79.899 Other long term (current) drug therapy; Z86.718 Personal history of other venous thrombosis and embolism
CPT/HCPCS: 27514; 36415; 36430; 71045; 72100; 73552; 76000; 80048; 80053; 81001; 84484; 85014; 85018; 85025; 85027; 86078; 86850; 86900; 86901; 86922; 87070; 87077; 87086; 87186; 93041; 94760; 97110; 97161; 97165; 97530; 99222; 99232; 99285; C1713; G0378; P9016; Q3014